=== PATIENT | male | born 1935 | race Hispanic/Latino ===

== ENCOUNTER 2016-08-14 09:19 | Inpatient (IN) | payer MEDICARE, OTHER ==
[~2016-08-14] VITALS: Ht 162.6 cm; Wt 72.6 kg
[~2016-08-14 09:19] MED LIST: ASPIRIN-LOW81 MG ORAL; CRANBERRY400 MG PO; FLOMAX0.4 MG ORAL; LANTUS5 UNITS SUBQ; LISINOPRIL2.5 MG ORAL; LISINOPRIL20 MG ORAL; LOPID600 MG ORAL; LOPRESSOR25 M1 ORAL; MULTIVITAMINS1 EA14 PO; PROMOD946 ML PO; PROSCAR5 MG ORAL; VITAMIN B-12500 MCG ORAL; ZETIA10 MG ORAL; mvi; vit b12 PO
[2016-08-14 09:20] VITALS: BP 108/48
[2016-08-14] MEDS ORDERED: COLACE100 MG ORAL (09:27)
[2016-08-14] MEDS ORDERED: FERROUS SULFAT325 MG ORAL (09:27)
[2016-08-14] MEDS ORDERED: ALBUTEROL2.5 MG/3 M INH (09:27)
[2016-08-14] MEDS ORDERED: EPOGEN20000 UNI1 SUBQ (09:27)
[2016-08-14] MEDS ORDERED: DUONEB 0.5-3(2.53 ML HHN (09:27)
[2016-08-14] MEDS ORDERED: METOPROLOL TART25 MG ORAL (09:41)
[2016-08-14] MEDS ORDERED: LANTUS SOL100 UNIT/1 SUBQ (09:41)
[2016-08-14] MEDS ORDERED: OMEPRAZOLE20 M3 ORAL (09:41)
[2016-08-14] MEDS ORDERED: NOVOLOG100 UNIT/3 SUBQ (09:41)
[2016-08-14] MEDS ORDERED: ZANTAC150 MG ORAL (09:51)
[2016-08-14] MEDS ORDERED: SODIUM BICARBO650 MG PO (09:51)
[2016-08-14] MEDS ORDERED: PRO-STAT LIQUID30 ML ORAL (09:51)
[2016-08-14] MEDS ORDERED: OYSTER SHELL C1 EA17 PO (09:51)
[2016-08-14] MEDS ORDERED: ROBITUSSIN COU118 M4 PO (09:51)
[2016-08-14] MEDS ORDERED: VITAMIN D-40400 UNIT ORAL (09:53)
[2016-08-14] MEDS ORDERED: ACETAMINOPHEN325 M1 ORAL (09:53)
[2016-08-14 10:31] LABS: MEAN CORPUSCULAR HEMOGLOBIN 34.3 PG (27.0-31.0); MEAN CORPUSCULAR HGB CONC 33.5 G/DL (32.0-36.0); MEAN CORPUSCULAR VOLUME 102 FL (80-99); PLATELET COUNT 182 K/UL (150-450); RED BLOOD COUNT 2.11 M/UL (4.70-6.10); RED CELL DISTRIBUTION WIDTH 24.1 % (11.6-14.8); WHITE BLOOD COUNT 8.8 K/UL (4.8-10.8)
[2016-08-14 10:41] LABS: INR 1.5 (0.9-1.1)
[2016-08-14 10:43] LABS: TROPONIN I < 0.30 ng/mL (<=0.30)
[2016-08-14 10:46] LABS: ALANINE AMINOTRANSFERASE 6 U/L (3-41); ALBUMIN/GLOBULIN RATIO 0.3 (1.0-2.7); ANION GAP 16 (5-15); ASPARTATE AMINO TRANSFERASE 21 U/L (5-40); CALCIUM 8.3 mg/dL (8.6-10.2); CARBON DIOXIDE 16 mEQ/L (20-30); CHLORIDE 101 mEQ/L (98-107); CREATININE 1.7 mg/dL (0.7-1.2); HEMOLYSIS 19; POTASSIUM 4.7 mEQ/L (3.4-4.9); SODIUM 133 mEQ/L (135-145); TOTAL PROTEIN 7.5 g/dL (6.6-8.7)
[2016-08-14 10:56] LABS: CKMB < 1.5 ng/mL (< 6.7)
[2016-08-14 11:01] LABS: ANISOCYTOSIS 3+; BAND NEUTROPHILS % (MANUAL) 0 % (0-8); BASOPHILS % (MANUAL) 3 % (0-2); EOSINOPHILS % (MANUAL) 4 % (0-3); HYPOCHROMASIA 3+; LYMPHOCYTES % (MANUAL) 18 % (20-45); MACROCYTES 1+; NEUTROPHILS % (MANUAL) 58 % (45-75); NUCLEATED RED BLOOD CELLS 1 /100 WBC; PLATELET ESTIMATE ADEQUATE; POIKILOCYTOSIS 1+; TOTAL CELLS COUNTED 100
[2016-08-14 11:03] LABS: PLATELET MORPHOLOGY NORMAL
[2016-08-14 11:07] LABS: BILIRUBIN,DIRECT 1.3 mg/dL (0.1-0.3)
[2016-08-14 11:24] VITALS: BP 109/48
--- NOTE | 2016-08-14 12:18 | Diagnostic Imaging Report ---
Indication: Chest pain Technique: One view of the chest Comparison: Findings: There are bilateral left greater than right pleural effusions. There is mild interstitial congestion. Heart is borderline enlarged. There is a left chest bifocal pacemaker. Previously demonstrated PICC is no longer present Impression: Bilateral left greater than right pleural effusions Mild interstitial congestion
[2016-08-14 12:30] VITALS: BP 124/61
[2016-08-14 16:35] VITALS: BP 121/63
[2016-08-14] MEDS: Sodium Bicarbonate 650mg Tab ORAL SCH (17:53)
[2016-08-14] MEDS: NovoLOG Insulin Flexpen SUBQ SCH ×2 (17:55→22:52)
[2016-08-14] MEDS: DuoNeb 0.5-3(2.5)mg/3ml neb HHN SCH (19:30)
[2016-08-14 20:00] VITALS: BP 117/61
--- NOTE | 2016-08-14 20:09 | History and Physical Report ---
DATE OF ADMISSION: 08/14/2016 CHIEF COMPLAINT: Anemia, possible gastrointestinal bleed. HISTORY OF PRESENT ILLNESS: This is a very pleasant 80-year-old male. He has a prior history of stroke, hypertension, hypertensive heart disease, anemia of chronic kidney disease and he has a history of conduction system disease status post pacemaker. He has had a progressive decline in his hemoglobin and on day of transfer here, had a hemoglobin of 6.8. He was sent to the emergency room where it was confirmed that 7. The patient is a poor historian. He is unclear whether not he had any bleeding. No reports of any fever or chills. No melena and no bright red blood per rectum. No hematemesis. On evaluation in the emergency room, the patient's hemoglobin was 7.3. In light of severe anemia, he is now admitted for further evaluation and care. PAST MEDICAL HISTORY: As above. PAST SURGICAL HISTORY: Pacemaker. MEDICATIONS: Current medications reconciled and reviewed. ALLERGIES: None. FAMILY HISTORY: None. SOCIAL HISTORY: There is no known history of tobacco, ethanol, or drugs. REVIEW OF SYSTEMS: General: No fever or chills. HEENT: No headaches or visual changes. Cardiopulmonary: No chest pain or shortness of breath. Mild cough. Gastrointestinal: No nausea or vomiting. No melena. No bright red blood per rectum or hematemesis. Genitourinary: No urgency or frequency. Musculoskeletal: No joint pain or swelling. Neurologic: No evidence of seizures. PHYSICAL EXAMINATION: GENERAL: The patient is well-developed male, in no apparent distress. He is awake, alert, answers simple questions. VITAL SIGNS: Temperature 97.2 degrees, pulse 81, respirations 20, and blood pressure 124/61. HEENT: His pupils are equal, round, and reactive to light. Oropharynx is clear. NECK: Supple. HEART: Regular rate and rhythm. LUNGS: Lungs are clear. ABDOMEN: Soft, nontender and nondistended. EXTREMITIES: Without clubbing, cyanosis, or edema. The patient has left-sided weakness, which is chronic. LABORATORY AND DIAGNOSTIC DATA: White count is 8, hemoglobin 7, hematocrit 21, and platelets 182,000. Sodium is 133, potassium 4.7, chloride 101, bicarbonate 16 BUN 34, and creatinine 1.7. Total bilirubin 2.4. INR was 1.5. ASSESSMENT: 1. This is a pleasant male admitted with complaints of severe anemia, possibly secondary to gastrointestinal bleed, possible acute gastrointestinal bleed. 2. Anemia. 3. Chronic kidney disease. 4. Stroke. 5. Hypertension. 6. History of chronic obstructive pulmonary disease. 7. History of conduction system disease. PLAN: Transfuse, hemoglobin greater than 8.5. Check stool occult blood. Check iron panel, B12, and folate. We will check reticulocyte count. Consider GI consultation for evaluation for possible endoscopy to rule out gastrointestinal bleed. The patient was otherwise will be continued on outpatient cardiac regimen. Boris See M.D. DR: JAVAD JOB#: [id number] CC:
[2016-08-14] MEDS: Levemir Flexpen SUBQ SCH (21:00)
[2016-08-14] MEDS: Epogen (for non ESRD use) SUBQ SCH (22:49)
[2016-08-15 00:31] VITALS: BP 108/66
--- NOTE | 2016-08-15 01:38 | Consultation ---
DATE OF CONSULTATION: 08/14/2016 CARDIOLOGY CONSULTATION REASON FOR CONSULTATION: Hypotension and anemia in the setting of hypertensive cardiomyopathy and permanent pacemaker. HISTORY: Known to me from prior care. This is an 80-year-old [place]ien male with hypertensive cardiomyopathy, permanent pacemaker, and prior cerebrovascular accident. He has a history of chronic anemia and has had a recent workup that was negative with regard to source with regard to gastrointestinal bleeding. He was referred to the hospital today because of increasing weakness, lethargy, and noted anemia. In the emergency room, hemoglobin of 7.3 was confirmed while it was less than 7 at the care home facility yesterday. The patient has not had any chest pain or shortness of breath, but has been increasingly withdrawn. He has a permanent pacemaker. PAST MEDICAL HISTORY: Chronic kidney disease. ALLERGIES: None. SOCIAL HISTORY: Negative for smoking, alcohol, or substance abuse. REVIEW OF SYSTEMS: He has had a prior stroke with left hemiparesis and dysarthria. He had a prior echocardiogram revealing normal ejection fraction with mild degenerative valve disease and regurgitation. There is no history of asthma or blood clots in the legs. He has had labile blood pressure. He has a [employer] cardiac defibrillator that was interrogated within the last three months and functioning appropriately with adequate battery life. PHYSICAL EXAM: VITAL SIGNS: Blood pressure 108/48, pulse 84, respirations 20, and afebrile. NECK: Supple. LUNGS: With diminished breath sounds. No wheezing. CARDIAC: Irregularly irregular rhythm. Normal S1 and S2. ABDOMEN: Soft. EXTREMITIES: With trace edema. DIAGNOSTIC DATA: Chest x-ray reveals bilateral pleural effusions and mild pulmonary venous congestion. EKG reveals paced rhythm. LABORATORY DATA: White count 8.8 and hemoglobin 7.3. BUN 34 and creatinine 1.7. Sodium 133, potassium 4.7, and bicarb 16. Iron elevated at 172. Albumin 1.9. IMPRESSION: 1. Severe anemia. 2. Severe protein-calorie malnutrition. 3. Severely impaired colloid osmotic pressure. 4. 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 5. Bilateral pleural effusions. 6. Anemia of chronic disease and chronic kidney disease. 7. Cerebrovascular disease with prior with left hemiparesis. 8. Conduction system disease with permanent pacemaker. 9. Paroxysmal atrial fibrillation. PLAN: 1. Transfuse to hemoglobin above 8 g. 2. Diuresis with caution. 3. Consider thoracentesis for therapeutic benefit and possibly diagnostic studies as well in this clinical setting. 4. Protein supplement. 5. Hold parameters for antihypertensive. Joseph Muniz M.D. DR: BRIANA JOB#: [id number] CC:
[2016-08-15] MEDS: NovoLOG Insulin Flexpen SUBQ SCH ×4 (06:08→22:21)
--- NOTE | 2016-08-15 06:41 | Emergency Room Report ---
History of Present Illness General Chief Complaint: Abnormal Labs Source: Patient Present Illness HPI Patient was sent in for reports of anemia Patient himself has significant dementia history is not able to be obtained by the patient himself There was no reports of vomiting or diarrhea no reports of fevers unclear the patient has had transfusions in the past or the source of anemia Allergies: Coded Allergies: No Known Allergies (Unverified , 01/24/14) Patient History Limited by: medical condition Past Medical History: see triage record Pertinent Family History: unable to obtain Reviewed Nursing Documentation: PMH: Agreed, PSxH: Agreed Nursing Documentation-PMH Past Medical History: No History, Except For Hx Cardiac Problems: Yes - A fib Hx Hypertension: Yes Hx Pacemaker: Yes - left chest Hx COPD: Yes - PNA Hx Diabetes: Yes Hx Cancer: No Hx Gastrointestinal Problems: Yes - GERD, BPH Hx Neurological Problems: Yes Hx Cerebrovascular Accident: Yes - affecting right dominant side Hx Weakness: Yes - RIGHT UPPER AND LOWER EXT. Review of Systems All Other Systems: limited - Other than the ones mentioned in the history of present illness all others are reviewed however they do stay limited due to the patient's mental status Physical Exam Vital Signs Date Time Temp Pulse Resp B/P Pulse Ox O2 Delivery O2 Flow Rate FiO2 08/14/16 09:15 96.3 83 16 114/64 96 Room Air 08/14/16 16:35 2.0 08/14/16 21:05 28 Sp02 EP Interpretation: reviewed, normal General Appearance: no apparent distress Head: normocephalic, atraumatic Eyes: bilateral eye EOMI, bilateral eye PERRL ENT: normal pharynx, dry mucus membranes Neck: supple Respiratory: crackles - diffusely in both lower lobes Cardiovascular #1: regular rate, rhythm Gastrointestinal: soft, no mass Musculoskeletal: other - Patient does not follow commands however moving both upper extremities without focal deficit Skin: other - Mild jaundice appearance, swelling in the right lower extremity more than left Lymphatic: other - edema bilaterally Medical Decision Making Diagnostic Impression: Primary Impression: symptomatic anemia Additional Impression: Pleural effusion ER Course Patient is a fairly complex patient with multiple differential to consideration including but not limited to cardiac cardiopulmonary , gastrointestinal and vascular emergencies Patient has audible crackles as well Required oral suctioning X-ray shows abnormal bilateral effusions given the edema consideration for CHF is made Patient's hemoglobin is low at 7.3 patient was type and screened Patient required placement of a right-sided ej peripheral IV line The area was cleansed and prepped 20-gauge IV was placed peripherally in the usual manner without any secondary problems Patient tolerated the procedure well And admitted for further inpatient care Labs Test 08/14/16 10:00 08/14/16 14:10 White Blood Count 8.8 K/UL (4.8-10.8) Red Blood Count 2.11 M/UL (4.70-6.10) Hemoglobin 7.3 G/DL (14.2-18.0) Hematocrit 21.7 % (42.0-52.0) Mean Corpuscular Volume 102 FL (80-99) Mean Corpuscular Hemoglobin 34.3 PG (27.0-31.0) Mean Corpuscular Hemoglobin Concent 33.5 G/DL (32.0-36.0) Red Cell Distribution Width 24.1 % (11.6-14.8) Platelet Count 182 K/UL (150-450) Mean Platelet Volume 8.0 FL (6.5-10.1) Neutrophils (%) (Auto) % (45.0-75.0) Lymphocytes (%) (Auto) % (20.0-45.0) Monocytes (%) (Auto) % (1.0-10.0) Eosinophils (%) (Auto) % (0.0-3.0) Basophils (%) (Auto) % (0.0-2.0) Differential Total Cells Counted 100 Neutrophils % (Manual) 58 % (45-75) Lymphocytes % (Manual) 18 % (20-45) Monocytes % (Manual) 17 % (1-10) Eosinophils % (Manual) 4 % (0-3) Basophils % (Manual) 3 % (0-2) Band Neutrophils 0 % (0-8) Nucleated Red Blood Cells 1 /100 WBC Platelet Estimate Adequate Platelet Morphology Normal Hypochromasia 3+ Poikilocytosis 1+ Anisocytosis 3+ Macrocytosis 1+ Prothrombin Time 15.0 SEC (9.30-11.50) Prothromb Time International Ratio 1.5 (0.9-1.1) Activated Partial Thromboplast Time 34 SEC (23-33) Sodium Level 133 mEQ/L (135-145) Potassium Level 4.7 mEQ/L (3.4-4.9) Chloride Level 101 mEQ/L (98-107) Carbon Dioxide Level 16 mEQ/L (20-30) Anion Gap 16 (5-15) Blood Urea Nitrogen 34 mg/dL (7-23) Creatinine 1.7 mg/dL (0.7-1.2) Estimat Glomerular Filtration Rate mL/min (>60) Glucose Level 112 mg/dL (74-106) Calcium Level 8.3 mg/dL (8.6-10.2) Total Bilirubin 2.4 mg/dL (0.0-1.2) Direct Bilirubin 1.3 mg/dL (0.1-0.3) Aspartate Amino Transf (AST/SGOT) 21 U/L (5-40) Alanine Aminotransferase (ALT/SGPT) 6 U/L (3-41) Alkaline Phosphatase 96 U/L (40-129) Total Creatine Kinase 15 U/L (38-174) Creatine Kinase MB < 1.5 ng/mL (< 6.7) Creatine Kinase MB Relative Index Troponin I < 0.30 ng/mL (<=0.30) Total Protein 7.5 g/dL (6.6-8.7) Albumin 1.9 g/dL (3.5-5.2) Globulin 5.6 g/dL Albumin/Globulin Ratio 0.3 (1.0-2.7) Reticulocyte Count 0.6 % (0.0-2.0) Iron Level 172 ug/dL (59-158) Rhythm Strip Diag. Results EP Interpretation: yes Rate: 88 Rhythm: NSR, no PVC's, no ectopy Chest X-Ray Diagnostic Results EP Interpretation: Yes Findings: no pneumothorax, other - bilateral effusions, cardiomegaly Number of Views: 1 Last Vital Signs Date Time Temp Pulse Resp B/P Pulse Ox O2 Delivery O2 Flow Rate FiO2 08/15/16 00:31 97.7 88 18 108/66 100 Simple Mask 6.0 08/14/16 21:13 28 Status: improved Disposition: ADMITTED INPATIENT Condition: Serious Referrals: TALHA LEIGH (PCP) KIKA GALLAGHER D.O. Aug 15, 2016 06:41
[2016-08-15 07:27] LABS: MEAN CORPUSCULAR HEMOGLOBIN 34.4 PG (27.0-31.0); MEAN CORPUSCULAR HGB CONC 33.2 G/DL (32.0-36.0); MEAN CORPUSCULAR VOLUME 104 FL (80-99); MEAN PLATELET VOLUME 6.7 FL (6.5-10.1); PLATELET COUNT 165 K/UL (150-450); RED BLOOD COUNT 2.11 M/UL (4.70-6.10); WHITE BLOOD COUNT 14.2 K/UL (4.8-10.8)
[2016-08-15] MEDS: DuoNeb 0.5-3(2.5)mg/3ml neb HHN SCH ×3 (07:50→19:40)
[2016-08-15 07:51] LABS: ALANINE AMINOTRANSFERASE 6 U/L (3-41); ALBUMIN/GLOBULIN RATIO 0.3 (1.0-2.7); ANION GAP 16 (5-15); ASPARTATE AMINO TRANSFERASE 22 U/L (5-40); CALCIUM 8.5 mg/dL (8.6-10.2); CARBON DIOXIDE 19 mEQ/L (20-30); CHLORIDE 103 mEQ/L (98-107); CREATININE 1.8 mg/dL (0.7-1.2); HEMOLYSIS 11; POTASSIUM 4.9 mEQ/L (3.4-4.9); SODIUM 138 mEQ/L (135-145)
[2016-08-15 08:04] LABS: ANISOCYTOSIS 4+; BAND NEUTROPHILS % (MANUAL) 0 % (0-8); BASOPHILS % (MANUAL) 1 % (0-2); EOSINOPHILS % (MANUAL) 3 % (0-3); HYPOCHROMASIA 3+; LYMPHOCYTES % (MANUAL) 5 % (20-45); MACROCYTES 1+; NEUTROPHILS % (MANUAL) 82 % (45-75); PLATELET ESTIMATE ADEQUATE; PLATELET MORPHOLOGY NORMAL; TOTAL CELLS COUNTED 100
[2016-08-15 08:05] LABS: PLATELET CLUMPS 1+
[2016-08-15 08:06] LABS: BILIRUBIN,DIRECT 1.6 mg/dL (0.1-0.3)
[2016-08-15] MEDS: Lisinopril 10mg tab ORAL SCH (08:34)
[2016-08-15] MEDS: Aspirin EC 81mg tab ORAL SCH (08:34)
[2016-08-15] MEDS: Tamsulosin 0.4mg cap ORAL SCH (08:53)
[2016-08-15] MEDS: Sodium Bicarbonate 650mg Tab ORAL SCH ×2 (08:53→17:37)
[2016-08-15] MEDS: Vitamin D 400 INTLU TAB ORAL SCH (08:53)
[2016-08-15] MEDS: Docusate 250mg cap ORAL SCH (08:54)
[2016-08-15] MEDS: Calcium Carbonate 500mg w/Vit D 200iu tab ORAL SCH (08:54)
[2016-08-15 09:00] VITALS: BP 107/46
[2016-08-15] MEDS ORDERED: Lisinopril 10mg tab ORAL SCH (09:00)
[2016-08-15] MEDS: Levemir Flexpen SUBQ SCH ×2 (09:00→22:21)
--- NOTE | 2016-08-15 09:46 | General Progress Note ---
Assessment/Plan Problem List: (1) Anemia ICD Codes: D64.9 - Anemia, unspecified SNOMED: 452021337 (2) Tachycardia ICD Codes: R00.0 - Tachycardia, unspecified SNOMED: 0158518 (3) GIB (gastrointestinal bleeding) ICD Codes: K92.2 - Gastrointestinal hemorrhage, unspecified SNOMED: 34524003 Status: stable, progressing Assessment/Plan transfuse prbc check stool ob epo/iro monitor hr check urine studies consider thoracentesis will ask for pulm to see Subjective ROS Limited/Unobtainable: No Constitutional: Reports: malaise, weakness HEENT: Reports: no symptoms Cardiovascular: Reports: no symptoms Respiratory: Reports: no symptoms Gastrointestinal/Abdominal: Reports: no symptoms Genitourinary: Reports: no symptoms Neurologic/Psychiatric: Reports: pre-existing deficit Endocrine: Reports: no symptoms Hematologic/Lymphatic: Reports: anemia Allergies: Coded Allergies: No Known Allergies (Unverified , 01/24/14) All Systems: reviewed and negative except above Subjective no events. still has not gotten blood transfusion. no bleeding. hgb remains stable at 7. denies cp/sob, but feels weak Objective Last 24 Hour Vital Signs Date Time Temp Pulse Resp B/P Pulse Ox O2 Delivery O2 Flow Rate FiO2 08/15/16 09:00 99.5 115 16 107/46 98 Nasal Cannula 2.0 08/15/16 08:54 111 108/66 08/15/16 08:34 108/66 08/15/16 08:04 97 Room Air 2.0 08/15/16 08:04 Nasal Cannula 2.0 08/15/16 07:58 111 20 97 Nasal Cannula 2.0 08/15/16 07:48 110 20 91 Room Air 08/15/16 00:31 97.7 88 18 108/66 100 Simple Mask 6.0 08/14/16 21:13 96 20 98 Nasal Cannula 2.0 28 08/14/16 21:05 28 08/14/16 21:05 91 20 95 Nasal Cannula 2.0 08/14/16 21:04 91 20 Nasal Cannula 2.0 08/14/16 20:00 98.3 91 20 117/61 95 Nasal Cannula 2.0 08/14/16 16:35 97.2 85 19 121/63 95 Nasal Cannula 2.0 85 08/14/16 12:30 97.2 81 20 124/61 97 Room Air 08/14/16 11:53 97.3 78 20 109/48 99 Room Air 08/14/16 11:24 78 20 109/48 99 Room Air Intake and Output 08/14/16 08/15/16 19:00 07:00 Intake Total 120 ml 560 ml Balance 120 ml 560 ml Intake Oral 120 ml 560 ml # Voids 1 3 # Bowel Movements 1 1 Laboratory Tests 08/14/16 10:00: White Blood Count 8.8, Red Blood Count 2.11L, Hemoglobin 7.3L, Hematocrit 21.7L , Mean Corpuscular Volume 102H, Mean Corpuscular Hemoglobin 34.3H, Mean Corpuscular Hemoglobin Concent 33.5, Red Cell Distribution Width 24.1H, Platelet Count 182, Mean Platelet Volume 8.0, Neutrophils (%) (Auto) , Lymphocytes (%) (Auto) , Monocytes (%) (Auto) , Eosinophils (%) (Auto) , Basophils (%) (Auto) , Differential Total Cells Counted 100, Neutrophils % ( Manual) 58, Lymphocytes % (Manual) 18L, Monocytes % (Manual) 17H, Eosinophils % (Manual) 4H, Basophils % (Manual) 3H, Band Neutrophils 0, Nucleated Red Blood Cells 1, Platelet Estimate Adequate, Platelet Morphology Normal, Hypochromasia 3 +, Poikilocytosis 1+, Anisocytosis 3+, Macrocytosis 1+, Prothrombin Time 15.0H, Prothromb Time International Ratio 1.5H, Activated Partial Thromboplast Time 34H , Sodium Level 133L, Potassium Level 4.7, Chloride Level 101, Carbon Dioxide Level 16L, Anion Gap 16H, Blood Urea Nitrogen 34H, Creatinine 1.7H, Estimat Glomerular Filtration Rate , Glucose Level 112H, Calcium Level 8.3L, Total Bilirubin 2.4H, Direct Bilirubin 1.3H, Aspartate Amino Transf (AST/SGOT) 21, Alanine Aminotransferase (ALT/SGPT) 6, Alkaline Phosphatase 96, Total Creatine Kinase 15L, Creatine Kinase MB < 1.5, Creatine Kinase MB Relative Index , Troponin I < 0.30, Total Protein 7.5, Albumin 1.9L, Globulin 5.6, Albumin/ Globulin Ratio 0.3L 08/14/16 14:10: Reticulocyte Count 0.6, Iron Level 172H 08/15/16 06:15: White Blood Count 14.2#H, Red Blood Count 2.11L, Hemoglobin 7.2L, Hematocrit 21.8L, Mean Corpuscular Volume 104H, Mean Corpuscular Hemoglobin 34.4H, Mean Corpuscular Hemoglobin Concent 33.2, Red Cell Distribution Width 25.0H, Platelet Count 165, Mean Platelet Volume 6.7, Neutrophils (%) (Auto) , Lymphocytes (%) (Auto) , Monocytes (%) (Auto) , Eosinophils (%) (Auto) , Basophils (%) (Auto) , Differential Total Cells Counted 100, Neutrophils % ( Manual) 82H, Lymphocytes % (Manual) 5L, Monocytes % (Manual) 9, Eosinophils % ( Manual) 3, Basophils % (Manual) 1, Band Neutrophils 0, Platelet Estimate Adequate, Platelet Morphology Normal, Hypochromasia 3+, Anisocytosis 4+, Macrocytosis 1+, Sodium Level 138, Potassium Level 4.9, Chloride Level 103, Carbon Dioxide Level 19L, Anion Gap 16H, Blood Urea Nitrogen 38H, Creatinine 1.8H, Estimat Glomerular Filtration Rate , Glucose Level 89, Calcium Level 8.5L , Total Bilirubin 2.9H, Direct Bilirubin 1.6H, Aspartate Amino Transf (AST/SGOT ) 22, Alanine Aminotransferase (ALT/SGPT) 6, Alkaline Phosphatase 96, Total Protein 8.0, Albumin 2.1L, Globulin 5.9, Albumin/Globulin Ratio 0.3L, Clumped Platelets 1+ Height (Feet): 5 Height (Inches): 5.00 Weight (Pounds): 160 General Appearance: WD/WN, alert Neck: supple Cardiovascular: normal rate, regular rhythm Respiratory/Chest: chest wall non-tender, lungs clear, normal breath sounds, no respiratory distress Abdomen: normal bowel sounds, non tender, soft, no organomegaly, no mass Edema: no edema noted Arm (L), no edema noted Arm (R), no edema noted Leg (L), no edema noted Leg (R), no edema noted Pedal (L), no edema noted Pedal (R), no edema noted 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
[2016-08-15] MEDS: Albuterol ud Inhalation HHN PRN (10:42)
[2016-08-15] MEDS: Vitamin B-12 500mcg tab ORAL SCH (11:35)
[2016-08-15 12:00] VITALS: BP 95/47
[2016-08-15 16:46] VITALS: BP 99/50
--- NOTE | 2016-08-15 16:46 | Wound Care Consultation ---
Wound Assessment Wound Assessment : Wound Number: #1 Wound Present on Admission: Yes New Wound: No Status Change of Wound: No Wound Location Body Site Modif: right Wound Location Body Site: sacral Wound Type: pressure ulcer Hemanth Test: Does not Hemanth Pressure Ulcer Stage: III Wound Thickness: Full Thickness Wound Length: 1.0 Wound Width: 1.0 Wound Depth: 0.3 Percent of Wound [place]/Red: 50 Percent of Wound Bed Yellow/Wh: 50 Wound Drainage Description: Serosanguineous Wound Drainage Amount: Scant Wound Drainage Odor: None/Absent Tissue Surrounding Wound: Macerated Wound General Appearance: Reddened Wound Comment #1 Right sacral pressure ulcer stage III. Recommendation -Apply low air loss overlay SPR mattress for wound and skin management. -Local wound care as ordered. -Turn and reposition. -Optimize nutrition. -Keep clean and dry. -Heel protectors. -Avoid shear and friction. -Assess and notify MD for any changes of condition. BENEDICTO DOTSON Aug 15, 2016 16:46
[2016-08-15] MEDS: Promethazine/Codeine 5ml UD ORAL PRN (17:37)
[2016-08-15 20:00] VITALS: BP 98/48
[2016-08-16 01:00] VITALS: BP 91/46
[2016-08-16 04:00] VITALS: BP 98/52
--- NOTE | 2016-08-16 04:48 | Progress Note ---
DATE: 08/15/2016 CARDIOLOGY PROGRESS NOTE SUBJECTIVE: The patient is awaiting packed red blood cell transfusion today. He remains tachycardic. OBJECTIVE: VITAL SIGNS: Blood pressures below normal with range of 108/66, heart rate 111, respiratory rate 16, and temperature max 99.5. LUNGS: Bilateral breath sounds. HEART: Regular rhythm. Rapid rate. Normal S1 and S2. ABDOMEN: Soft. Trace edema. LABORATORY DATA: White count 14.2, hemoglobin 7.2, and platelet count 165,000. Sodium 138, potassium 4.9, bicarbonate 19, BUN 38, and creatinine 1.8. Albumin 2.1. IMPRESSION: 1. Anemia likely due to chronic disease with recent prior workups. 2. Severe protein-calorie malnutrition. 3. Pleural effusions. 4. Acute and chronic diastolic congestive heart failure. 5. Paroxysmal atrial fibrillation. 6. Permanent pacemaker. PLAN: Transfusion of packed red blood cells. Diuresis. Possible thoracentesis to follow. Continue current antiarrhythmic and anti-failure regimen with hold parameters for low range blood pressure. Joseph Muniz M.D. DR: ROZINA JOB#: [id number] CC:
[2016-08-16] MEDS: NovoLOG Insulin Flexpen SUBQ SCH ×4 (06:13→20:39)
[2016-08-16 07:31] LABS: APPEARANCE,URINE SLIGHTLY CLOUDY; KETONES,URINE NEGATIVE (NEGATIVE); LEUKOCYTE ESTERASE ,URINE NEGATIVE (NEGATIVE); NITRITE,URINE NEGATIVE (NEGATIVE); PH,URINE 5 (4.5-8.0); PROTEIN,URINE 1+ (NEGATIVE); UROBILINOGEN,URINE 1 MG/DL (0.0-1.0)
[2016-08-16] MEDS: DuoNeb 0.5-3(2.5)mg/3ml neb HHN SCH ×3 (07:50→19:44)
[2016-08-16 07:57] LABS: BACTERIA,URINE FEW /HPF; SQUAMOUS EPITHELIAL CELL,UR FEW /LPF (NONE/OCC); WBC,URINE 0-2 /HPF (0 - 0)
[2016-08-16] MEDS: Lisinopril 10mg tab ORAL SCH (09:00)
--- NOTE | 2016-08-16 09:40 | General Progress Note ---
Assessment/Plan Problem List: (1) Anemia ICD Codes: D64.9 - Anemia, unspecified SNOMED: 397381558 (2) Tachycardia ICD Codes: R00.0 - Tachycardia, unspecified SNOMED: 5843080 (3) GIB (gastrointestinal bleeding) ICD Codes: K92.2 - Gastrointestinal hemorrhage, unspecified SNOMED: 76726480 Status: stable, progressing Assessment/Plan follow uplabs transfuse prbc prn check stool ob epo/iro monitor hr check urine studies consider thoracentesis ct chest ?pna will ask for pulm to see Subjective ROS Limited/Unobtainable: No Constitutional: Reports: malaise, weakness HEENT: Reports: no symptoms Cardiovascular: Reports: no symptoms Respiratory: Reports: shortness of breath Gastrointestinal/Abdominal: Reports: no symptoms Genitourinary: Reports: no symptoms Neurologic/Psychiatric: Reports: pre-existing deficit Endocrine: Reports: no symptoms Hematologic/Lymphatic: Reports: no symptoms Allergies: Coded Allergies: No Known Allergies (Unverified , 01/24/14) All Systems: reviewed and negative except above Subjective s/p 1 unit. labs stil pending. increased wbc ?? Objective Last 24 Hour Vital Signs Date Time Temp Pulse Resp B/P Pulse Ox O2 Delivery O2 Flow Rate FiO2 08/16/16 07:54 Nasal Cannula 2.0 08/16/16 07:52 Nasal Cannula 08/16/16 07:51 Nasal Cannula 2.0 08/16/16 07:50 97 Nasal Cannula 2.0 08/16/16 04:00 97.5 85 18 98/52 100 Nasal Cannula 3.0 08/16/16 01:00 97.5 88 18 91/46 98 Nasal Cannula 3.0 08/15/16 20:00 98.0 100 18 98/48 97 Nasal Cannula 2.0 08/15/16 19:50 103 20 96 Nasal Cannula 2.0 28 08/15/16 19:49 Nasal Cannula 2.0 08/15/16 19:49 96 Room Air 2.0 08/15/16 19:40 106 20 93 Room Air 08/15/16 16:46 98.6 103 19 99/50 93 Room Air 08/15/16 13:59 110 22 95 Nasal Cannula 2.0 08/15/16 13:49 101 18 97 Nasal Cannula 3.0 08/15/16 12:00 98.1 108 18 95/47 99 Nasal Cannula 3.0 08/15/16 10:43 102 18 96 Nasal Cannula 2.0 Intake and Output 08/15/16 08/16/16 19:00 07:00 Intake Total 250 ml 470 ml Balance 250 ml 470 ml Intake Oral 470 ml Blood Product 250 ml # Voids 3 # Bowel Movements 1 Laboratory Tests 08/16/16 04:05: Urine Color Yellow, Urine Appearance Slightly cloudy, Urine pH 5, Urine Specific [place] 1.015, Urine Protein 1+H, Urine Glucose (UA) Negative, Urine Ketones Negative, Urine Occult Blood 3+H, Urine Nitrite Negative, Urine Bilirubin Negative, Urine Urobilinogen 1H, Urine Leukocyte Esterase Negative, Urine RBC 10-15H, Urine WBC 0-2, Urine Squamous Epithelial Cells Few, Urine Bacteria Few Height (Feet): 5 Height (Inches): 5.00 Weight (Pounds): 160 General Appearance: WD/WN, alert Neck: supple Cardiovascular: regular rhythm Respiratory/Chest: lungs clear, normal breath sounds, no respiratory distress Edema: no edema noted Arm (L), no edema noted Arm (R), no edema noted Leg (L), no edema noted Leg (R), no edema noted Pedal (L), no edema noted Pedal (R), no edema noted Generalized TALHA LEIGH Aug 16, 2016 09:40
[2016-08-16 10:12] LABS: BASOPHILS % (AUTO) 1.2 % (0.0-2.0); EOSINOPHILS % (AUTO) 1.7 % (0.0-3.0); LYMPHOCYTES % (AUTO) 3.8 % (20.0-45.0); MEAN CORPUSCULAR HEMOGLOBIN 33.3 PG (27.0-31.0); MEAN CORPUSCULAR HGB CONC 32.7 G/DL (32.0-36.0); MEAN CORPUSCULAR VOLUME 102 FL (80-99); MEAN PLATELET VOLUME 8.7 FL (6.5-10.1); MONOCYTES % (AUTO) 10.7 % (1.0-10.0); NEUTROPHILS % (AUTO) 82.7 % (45.0-75.0); PLATELET COUNT 161 K/UL (150-450); RED BLOOD COUNT 2.47 M/UL (4.70-6.10)
[2016-08-16] MEDS: Docusate 250mg cap ORAL SCH (10:51)
[2016-08-16] MEDS: Aspirin EC 81mg tab ORAL SCH (10:52)
[2016-08-16] MEDS: Vitamin B-12 500mcg tab ORAL SCH (10:55)
[2016-08-16] MEDS: Vitamin D 400 INTLU TAB ORAL SCH (10:57)
[2016-08-16 11:00] VITALS: BP 115/59
[2016-08-16] MEDS: Calcium Carbonate 500mg w/Vit D 200iu tab ORAL SCH (11:00)
[2016-08-16] MEDS: Sodium Bicarbonate 650mg Tab ORAL SCH ×2 (11:00→17:51)
[2016-08-16] MEDS: Tamsulosin 0.4mg cap ORAL SCH (11:04)
[2016-08-16] MEDS: Levemir Flexpen SUBQ SCH ×2 (11:07→20:39)
--- NOTE | 2016-08-16 15:51 | Consultation ---
Consult Note Consult Note DATE OF ADMISSION: 08/14/2016 CHIEF COMPLAINT: Pleural effusions HISTORY OF PRESENT ILLNESS: 80-year-old male with prior history of pleural effusions. He has a prior history of respiratory issues. He has had a progressive decline in his hemoglobin and on day of transfer here, had a hemoglobin of 6.8. On evaluation in the emergency room, the patient's hemoglobin was 7.3 and patient requires admission. On evaluation , patient was noted to have significant effusions and I was asked to evaluate. Patient without shortness of breath or congestion at this time PAST MEDICAL HISTORY: stroke, hypertension, hypertensive heart disease, anemia of chronic kidney disease and he has a history of conduction system disease status post pacemaker PAST SURGICAL HISTORY: Pacemaker. MEDICATIONS: medications reconciled and reviewed. ALLERGIES: None. FAMILY HISTORY: None. SOCIAL HISTORY: There is no known history of tobacco, ethanol, or drugs. disabled REVIEW OF SYSTEMS: difficult to obtain PHYSICAL EXAMINATION: GENERAL: WDWN male; confused VITAL SIGNS: Temperature 97.6 degrees, pulse 80, respirations 20, and blood pressure 129/68. HEENT: PEERL EOMI Oropharynx is clear. NECK: Supple. carotids 2+ HEART: Regular rate and rhythm. without MRG LUNGS: Lungs are clear. with normal excursion; no rhonchi or wheeze ABDOMEN: Soft, nontender and nondistended. no HSM EXTREMITIES: Without clubbing, cyanosis, or edema. The patient has left-sided weakness, without change LABORATORY AND DIAGNOSTIC DATA: Labs Test 08/14/16 10:00 08/14/16 14:10 08/15/16 06:15 08/16/16 04:05 White Blood Count 8.8 K/UL (4.8-10.8) 14.2 K/UL (4.8-10.8) Red Blood Count 2.11 M/UL (4.70-6.10) 2.11 M/UL (4.70-6.10) Hemoglobin 7.3 G/DL (14.2-18.0) 7.2 G/DL (14.2-18.0) Hematocrit 21.7 % (42.0-52.0) 21.8 % (42.0-52.0) Mean Corpuscular Volume 102 FL (80-99) 104 FL (80-99) Mean Corpuscular Hemoglobin 34.3 PG (27.0-31.0) 34.4 PG (27.0-31.0) Mean Corpuscular Hemoglobin Concent 33.5 G/DL (32.0-36.0) 33.2 G/DL (32.0-36.0) Red Cell Distribution Width 24.1 % (11.6-14.8) 25.0 % (11.6-14.8) Platelet Count 182 K/UL (150-450) 165 K/UL (150-450) Mean Platelet Volume 8.0 FL (6.5-10.1) 6.7 FL (6.5-10.1) Neutrophils (%) (Auto) % (45.0-75.0) % (45.0-75.0) Lymphocytes (%) (Auto) % (20.0-45.0) % (20.0-45.0) Monocytes (%) (Auto) % (1.0-10.0) % (1.0-10.0) Eosinophils (%) (Auto) % (0.0-3.0) % (0.0-3.0) Basophils (%) (Auto) % (0.0-2.0) % (0.0-2.0) Differential Total Cells Counted 100 100 Neutrophils % (Manual) 58 % (45-75) 82 % (45-75) Lymphocytes % (Manual) 18 % (20-45) 5 % (20-45) Monocytes % (Manual) 17 % (1-10) 9 % (1-10) Eosinophils % (Manual) 4 % (0-3) 3 % (0-3) Basophils % (Manual) 3 % (0-2) 1 % (0-2) Band Neutrophils 0 % (0-8) 0 % (0-8) Nucleated Red Blood Cells 1 /100 WBC Platelet Estimate Adequate Adequate Platelet Morphology Normal Normal Hypochromasia 3+ 3+ Poikilocytosis 1+ Anisocytosis 3+ 4+ Macrocytosis 1+ 1+ Prothrombin Time 15.0 SEC (9.30-11.50) Prothromb Time International Ratio 1.5 (0.9-1.1) Activated Partial Thromboplast Time 34 SEC (23-33) Sodium Level 133 mEQ/L (135-145) 138 mEQ/L (135-145) Potassium Level 4.7 mEQ/L (3.4-4.9) 4.9 mEQ/L (3.4-4.9) Chloride Level 101 mEQ/L (98-107) 103 mEQ/L (98-107) Carbon Dioxide Level 16 mEQ/L (20-30) 19 mEQ/L (20-30) Anion Gap 16 (5-15) 16 (5-15) Blood Urea Nitrogen 34 mg/dL (7-23) 38 mg/dL (7-23) Creatinine 1.7 mg/dL (0.7-1.2) 1.8 mg/dL (0.7-1.2) Estimat Glomerular Filtration Rate mL/min (>60) mL/min (>60) Glucose Level 112 mg/dL (74-106) 89 mg/dL (74-106) Calcium Level 8.3 mg/dL (8.6-10.2) 8.5 mg/dL (8.6-10.2) Total Bilirubin 2.4 mg/dL (0.0-1.2) 2.9 mg/dL (0.0-1.2) Direct Bilirubin 1.3 mg/dL (0.1-0.3) 1.6 mg/dL (0.1-0.3) Aspartate Amino Transf (AST/SGOT) 21 U/L (5-40) 22 U/L (5-40) Alanine Aminotransferase (ALT/SGPT) 6 U/L (3-41) 6 U/L (3-41) Alkaline Phosphatase 96 U/L (40-129) 96 U/L (40-129) Total Creatine Kinase 15 U/L (38-174) Creatine Kinase MB < 1.5 ng/mL (< 6.7) Creatine Kinase MB Relative Index Troponin I < 0.30 ng/mL (<=0.30) Total Protein 7.5 g/dL (6.6-8.7) 8.0 g/dL (6.6-8.7) Albumin 1.9 g/dL (3.5-5.2) 2.1 g/dL (3.5-5.2) Globulin 5.6 g/dL 5.9 g/dL Albumin/Globulin Ratio 0.3 (1.0-2.7) 0.3 (1.0-2.7) Reticulocyte Count 0.6 % (0.0-2.0) Iron Level 172 ug/dL (59-158) Clumped Platelets 1+ Urine Color Yellow Urine Appearance Slightly cloudy Urine pH 5 (4.5-8.0) Urine Specific Hines 1.015 (1.005-1.035) Urine Protein 1+ (NEGATIVE) Urine Glucose (UA) Negative (NEGATIVE) Urine Ketones Negative (NEGATIVE) Urine Occult Blood 3+ (NEGATIVE) Urine Nitrite Negative (NEGATIVE) Urine Bilirubin Negative (NEGATIVE) Urine Urobilinogen 1 MG/DL (0.0-1.0) Urine Leukocyte Esterase Negative (NEGATIVE) Urine RBC 10-15 /HPF (0 - 0) Urine WBC 0-2 /HPF (0 - 0) Urine Squamous Epithelial Cells Few /LPF (NONE/OCC) Urine Bacteria Few /HPF (NONE) Test 08/16/16 09:45 White Blood Count 12.0 K/UL (4.8-10.8) Red Blood Count 2.47 M/UL (4.70-6.10) Hemoglobin 8.2 G/DL (14.2-18.0) Hematocrit 25.2 % (42.0-52.0) Mean Corpuscular Volume 102 FL (80-99) Mean Corpuscular Hemoglobin 33.3 PG (27.0-31.0) Mean Corpuscular Hemoglobin Concent 32.7 G/DL (32.0-36.0) Red Cell Distribution Width 23.0 % (11.6-14.8) Platelet Count 161 K/UL (150-450) Mean Platelet Volume 8.7 FL (6.5-10.1) Neutrophils (%) (Auto) 82.7 % (45.0-75.0) Lymphocytes (%) (Auto) 3.8 % (20.0-45.0) Monocytes (%) (Auto) 10.7 % (1.0-10.0) Eosinophils (%) (Auto) 1.7 % (0.0-3.0) Basophils (%) (Auto) 1.2 % (0.0-2.0) chest xr with bilateral pleural effusions ASSESSMENT: 1. bilateral pleural effusions; possibly due to fluid overaload 2. Anemia. with need for transfusion 3. Chronic kidney disease. 4. Stroke. with focal weakness 5. Hypertension. 6. History of chronic obstructive pulmonary disease. 7. History of conduction system disease. with pacemaker PLAN: transfused GI evaluation care noted follow up BNP monitor chest XR for change care noted impression, plan, and exam edited and reviewed in detail care discussed with KENDRICK JOHNSON Aug 16, 2016 15:51
[2016-08-16 15:52] VITALS: BP 115/59
[2016-08-16] MEDS: Promethazine/Codeine 5ml UD ORAL PRN (17:51)
[2016-08-16 20:00] VITALS: BP 117/65
[2016-08-16] MEDS: Epogen (for non ESRD use) SUBQ SCH (20:38)
--- NOTE | 2016-08-16 22:38 | Progress Note ---
DATE: 08/16/2016 CARDIOLOGY PROGRESS NOTE: SUBJECTIVE: The patient without chest pain or shortness of breath. He is status post one unit of packed red blood cells. OBJECTIVE: VITAL SIGNS: Blood pressure 98/52, heart rate 85, and respiratory rate 18. LUNGS: Bilateral breath sounds with scattered rhonchi. HEART: Regular rhythm and rate. Normal S1, S2. A 1/6 systolic murmur at apex. ABDOMEN: Soft. EXTREMITIES: With trace edema. LABORATORY AND DIAGNOSTIC DATA: White count 12 and hemoglobin 8.2. Pro-natriuretic peptide is 4000. Chest x-ray reveals bilateral pleural effusions and mild interstitial congestion. IMPRESSION: 1. Anemia of chronic disease and chronic kidney disease status post transfusion. 2. Acute on chronic diastolic congestive heart failure. 3. Pleural effusions. 4. Cerebrovascular disease with hemiparesis. 5. Paroxysmal atrial fibrillation. 6. Permanent pacemaker. 7. Hypertensive heart disease. 8. Chronic obstructive pulmonary disease. PLAN: Transfuse to maintain hemoglobin above 8 g. IV diuresis. Titrate anti-failure regimen as tolerated based on blood pressure parameters. Joseph Muniz M.D. DR: Olivier JOB#: [id number] CC:
[2016-08-16 23:49] VITALS: BP 122/68
[2016-08-17 04:00] VITALS: BP 125/61
[2016-08-17] MEDS: NovoLOG Insulin Flexpen SUBQ SCH ×4 (06:04→21:00)
[2016-08-17] MEDS: DuoNeb 0.5-3(2.5)mg/3ml neb HHN SCH ×3 (07:34→20:24)
[2016-08-17 08:00] VITALS: BP 116/50
[2016-08-17] MEDS: Tamsulosin 0.4mg cap ORAL SCH (08:28)
[2016-08-17] MEDS: Sodium Bicarbonate 650mg Tab ORAL SCH ×2 (08:29→20:06)
[2016-08-17] MEDS: Docusate 250mg cap ORAL SCH (08:29)
[2016-08-17] MEDS: Vitamin D 400 INTLU TAB ORAL SCH (08:29)
[2016-08-17] MEDS: Aspirin EC 81mg tab ORAL SCH (08:29)
[2016-08-17] MEDS: Vitamin B-12 500mcg tab ORAL SCH (08:29)
[2016-08-17] MEDS: Lisinopril 10mg tab ORAL SCH (08:30)
[2016-08-17] MEDS: Calcium Carbonate 500mg w/Vit D 200iu tab ORAL SCH (08:30)
[2016-08-17] MEDS: Levemir Flexpen SUBQ SCH ×2 (08:37→21:00)
--- NOTE | 2016-08-17 11:22 | General Progress Note ---
Assessment/Plan Problem List: (1) Anemia ICD Codes: D64.9 - Anemia, unspecified SNOMED: 814028945 (2) Tachycardia ICD Codes: R00.0 - Tachycardia, unspecified SNOMED: 5438406 (3) GIB (gastrointestinal bleeding) ICD Codes: K92.2 - Gastrointestinal hemorrhage, unspecified SNOMED: 99585004 Status: stable, progressing Assessment/Plan transfuse 1 additional unit prbc. lasix x 1 monitor cxr o2 resp care dc plannin tomorrow if stable Subjective ROS Limited/Unobtainable: No Constitutional: Reports: malaise, weakness HEENT: Reports: no symptoms Cardiovascular: Reports: no symptoms Respiratory: Reports: cough Gastrointestinal/Abdominal: Reports: no symptoms Genitourinary: Reports: no symptoms Neurologic/Psychiatric: Reports: no symptoms Endocrine: Reports: no symptoms Hematologic/Lymphatic: Reports: anemia Allergies: Coded Allergies: No Known Allergies (Unverified , 01/24/14) All Systems: reviewed and negative except above Subjective s/p 1 unit. h/h better but still low. +sob. pulm noted. GPC in urine but no wbc in ua Objective Last 24 Hour Vital Signs Date Time Temp Pulse Resp B/P Pulse Ox O2 Delivery O2 Flow Rate FiO2 08/17/16 08:30 116/50 08/17/16 08:28 97 116/50 08/17/16 08:00 97.2 97 18 116/50 92 Nasal Cannula 2.0 08/17/16 07:37 90 20 99 Nasal Cannula 3.0 08/17/16 07:26 84 18 97 Nasal Cannula 3.0 08/17/16 07:26 Nasal Cannula 3.0 08/17/16 07:24 97 Nasal Cannula 3.0 08/17/16 04:00 98.6 91 20 125/61 99 08/16/16 23:49 98.6 95 22 122/68 98 08/16/16 20:00 98.1 100 20 117/65 97 Nasal Cannula 2.0 90 08/16/16 19:54 92 22 99 Nasal Cannula 3.0 32 08/16/16 19:45 Nasal Cannula 3.0 32 08/16/16 19:45 86 20 97 Nasal Cannula 3.0 08/16/16 19:44 96 Nasal Cannula 3.0 32 08/16/16 15:52 98.1 100 19 115/59 96 Nasal Cannula 2.0 08/16/16 14:02 93 22 95 Nasal Cannula 3.0 08/16/16 13:50 92 20 95 Nasal Cannula 3.0 Intake and Output 08/16/16 08/17/16 19:00 07:00 Intake Total 240 ml Balance 240 ml Intake Oral 240 ml # Voids 6 Height (Feet): 5 Height (Inches): 5.00 Weight (Pounds): 160 Objective General Appearance: WD/WN, alert Neck: supple Cardiovascular: regular rhythm Respiratory/Chest: lungs clear, normal breath sounds, no respiratory distress Edema: no edema noted Arm (L), no edema noted Arm (R), no edema noted Leg (L), no edema noted Leg (R), no edema noted Pedal (L), no edema noted Pedal (R), no edema noted Generalized TALHA LEIGH Aug 17, 2016 11:22
[2016-08-17 11:31] VITALS: BP 100/54
[2016-08-17 13:02] LABS: MEAN CORPUSCULAR HEMOGLOBIN 33.2 PG (27.0-31.0); MEAN CORPUSCULAR HGB CONC 32.2 G/DL (32.0-36.0); MEAN CORPUSCULAR VOLUME 103 FL (80-99); PLATELET COUNT 134 K/UL (150-450); RED BLOOD COUNT 2.36 M/UL (4.70-6.10); RED CELL DISTRIBUTION WIDTH 22.7 % (11.6-14.8); WHITE BLOOD COUNT 8.5 K/UL (4.8-10.8)
[2016-08-17 13:32] LABS: ANISOCYTOSIS 2+; BAND NEUTROPHILS % (MANUAL) 0 % (0-8); BASOPHILS % (MANUAL) 0 % (0-2); EOSINOPHILS % (MANUAL) 0 % (0-3); HYPOCHROMASIA 1+; LYMPHOCYTES % (MANUAL) 4 % (20-45); MACROCYTES 1+; NEUTROPHILS % (MANUAL) 88 % (45-75); PLATELET ESTIMATE DECREASED; PLATELET MORPHOLOGY NORMAL; TOTAL CELLS COUNTED 100
[2016-08-17 13:33] LABS: SCHISTOCYTES OCCASIONAL
[2016-08-17 13:34] LABS: TARGET CELLS RARE
[2016-08-17 13:35] LABS: OVALOCYTES OCCASIONAL
[2016-08-17 16:00] VITALS: BP 130/63
--- NOTE | 2016-08-17 16:21 | Pulmonology Progress Note ---
Assessment/Plan Assessment/Plan ASSESSMENT: 1. bilateral pleural effusions; possibly due to fluid overaload 2. Anemia. with need for transfusion 3. Chronic kidney disease. 4. Stroke. with focal weakness 5. Hypertension. 6. History of chronic obstructive pulmonary disease. 7. History of conduction system disease. with pacemaker PLAN: transfused GI evaluation noted care noted follow up BNP very elevated diurese as per Cardiology monitor chest XR for change and worsening fluid collection dc planning care noted impression, plan, and exam edited and reviewed in detail care discussed with RN Subjective Allergies: Coded Allergies: No Known Allergies (Unverified , 01/24/14) Subjective all noted NAD on oxygen BNP very elevated Objective Last 24 Hour Vital Signs Date Time Temp Pulse Resp B/P Pulse Ox O2 Delivery O2 Flow Rate FiO2 08/17/16 13:00 89 20 99 Nasal Cannula 3.0 08/17/16 12:53 88 18 97 Nasal Cannula 3.0 08/17/16 11:31 97.2 96 19 100/54 98 Nasal Cannula 2.0 08/17/16 08:30 116/50 08/17/16 08:28 97 116/50 08/17/16 08:00 97.2 97 18 116/50 92 Nasal Cannula 2.0 08/17/16 07:37 90 20 99 Nasal Cannula 3.0 08/17/16 07:26 84 18 97 Nasal Cannula 3.0 08/17/16 07:26 Nasal Cannula 3.0 08/17/16 07:24 97 Nasal Cannula 3.0 08/17/16 04:00 98.6 91 20 125/61 99 08/16/16 23:49 98.6 95 22 122/68 98 08/16/16 20:00 98.1 100 20 117/65 97 Nasal Cannula 2.0 90 08/16/16 19:54 92 22 99 Nasal Cannula 3.0 32 08/16/16 19:45 Nasal Cannula 3.0 32 08/16/16 19:45 86 20 97 Nasal Cannula 3.0 08/16/16 19:44 96 Nasal Cannula 3.0 32 Intake and Output 08/16/16 08/17/16 19:00 07:00 Intake Total 240 ml Balance 240 ml Intake Oral 240 ml # Voids 6 Objective Sp02 EP Interpretation: reviewed, normal General Appearance: normal inspection, well appearing, no apparent distress, alert Head: normocephalic, atraumatic Eyes: bilateral eye normal inspection ENT: normal ENT inspection, no angioedema, normal voice Neck: normal inspection, full range of motion, supple, no meningismus, carotid 2+ Respiratory: decreased breath sounds, speaking full sentences, no wheeze or rhonchi Cardiovascular #1: regular rate, rhythm, no murmur without MRG Gastrointestinal: non tender, soft, non-distended, no guarding, no rebound Musculoskeletal: no CC; some edema Neurologic: alert, Psychiatric: mood/affect normal Skin: normal inspection, no rash, warm/dry Microbiology Date/Time Source Procedure Growth Status 08/16/16 04:00 Straight Cath Urine Culture - Preliminary Gram Positive Cocci Resulted Laboratory Tests 08/17/16 12:40: White Blood Count 8.5, Red Blood Count 2.36L, Hemoglobin 7.8L, Hematocrit 24.3L , Mean Corpuscular Volume 103H, Mean Corpuscular Hemoglobin 33.2H, Mean Corpuscular Hemoglobin Concent 32.2, Red Cell Distribution Width 22.7H, Platelet Count 134L, Mean Platelet Volume 8.0, Neutrophils (%) (Auto) , Lymphocytes (%) (Auto) , Monocytes (%) (Auto) , Eosinophils (%) (Auto) , Basophils (%) (Auto) , Differential Total Cells Counted 100, Neutrophils % ( Manual) 88H, Lymphocytes % (Manual) 4L, Monocytes % (Manual) 8, Eosinophils % ( Manual) 0, Basophils % (Manual) 0, Band Neutrophils 0, Platelet Estimate DecreasedL, Platelet Morphology Normal, Hypochromasia 1+, Anisocytosis 2+, Macrocytosis 1+, Target Cells Rare, Ovalocytes Occasional, Schistocytes Occasional Current Medications Medications (Trade) Dose Ordered Sig/Homar Route PRN Reason Start Time Stop Time Status Last Admin Dose Admin Acetaminophen (Tylenol) 650 mg Q4H PRN ORAL For Pain 08/14/16 13:15 09/13/16 13:14 Albuterol Sulfate (Proventil) 2.5 mg Q6H PRN HHN Shortness of Breath 08/14/16 13:15 08/19/16 13:14 08/15/16 10:42 Albuterol/ Ipratropium (DuoNeb 0.5-3(2.5)mg/3ml) 3 ml TIDRT HHN 08/14/16 19:00 08/19/16 18:59 08/17/16 12:53 Aspirin (Ecotrin) 81 mg DAILY ORAL 08/15/16 09:00 09/14/16 08:59 08/17/16 08:29 Calcium Carbonate (OsCal D) 1 tab DAILY ORAL 08/15/16 09:00 09/14/16 08:59 08/17/16 08:30 Cyanocobalamin (Vitamin B-12) 1,000 mcg DAILY ORAL 08/15/16 09:00 09/14/16 08:59 08/17/16 08:29 Dextrose (Dextrose 50%) STAT PRN IV Hypoglycemia 08/14/16 13:15 09/13/16 13:14 08/17/16 06:05 Docusate Sodium (Colace) 250 mg DAILY ORAL 08/15/16 09:00 09/14/16 08:59 08/17/16 08:29 Epoetin Deshaun (Procrit (for non ESRD use)) 7,000 units FRI-FRI-FRI SUBQ 08/14/16 21:00 09/13/16 20:59 08/16/16 20:38 Ferrous Sulfate (Feosol) 325 mg THREE TIMES A DAY ORAL 08/14/16 18:00 09/13/16 17:59 08/17/16 11:33 Finasteride (Proscar) 5 mg DAILY ORAL 08/15/16 09:00 09/14/16 08:59 08/17/16 08:30 Furosemide (Lasix) 20 mg ONCE PRN IV GIVE AFTER TRANSFUSION 08/17/16 11:30 08/18/16 23:59 Furosemide (Lasix) 40 mg DAILY IV 08/17/16 09:00 09/16/16 08:59 08/17/16 10:01 Gemfibrozil (Lopid) 600 mg TWICE A DAY ORAL 08/14/16 18:00 09/13/16 17:59 08/17/16 08:30 Insulin Aspart (NovoLOG) BEFORE MEALS AND HS SUBQ 08/14/16 16:30 09/13/16 16:29 08/17/16 11:33 Insulin Detemir (Levemir) 20 units Q12HR SUBQ 08/14/16 21:00 09/13/16 20:59 08/17/16 08:37 Lisinopril (Zestril) 10 mg DAILY ORAL 08/15/16 09:00 09/14/16 08:59 08/17/16 08:30 Metoprolol Succinate (Toprol XL) 25 mg DAILY ORAL 08/15/16 09:00 09/14/16 08:59 08/17/16 08:28 Multivitamins (Multivitamins) 1 tab DAILY ORAL 08/15/16 09:00 09/14/16 08:59 08/17/16 08:29 Pantoprazole (Protonix) 40 mg DAILY ORAL 08/15/16 09:00 09/14/16 08:59 08/17/16 08:30 Promethazine HCl/ Codeine (Phenergan with Codeine) 10 ml TID PRN ORAL For Cough 08/14/16 13:15 09/13/16 13:14 08/16/16 17:51 Ranitidine HCl (Zantac) 150 mg DAILY ORAL 08/15/16 09:00 09/14/16 08:59 08/17/16 08:30 Sodium Bicarbonate (NaHCO3) 650 mg BID ORAL 08/14/16 18:00 09/13/16 17:59 08/17/16 08:29 Tamsulosin HCl (Flomax) 0.4 mg DAILY ORAL 08/15/16 09:00 09/14/16 08:59 08/17/16 08:28 Vitamin D (Vitamin D) 800 intlu DAILY ORAL 08/15/16 09:00 09/14/16 08:59 08/17/16 08:29 KENDRICK SCHWARTZ Aug 17, 2016 16:21
[2016-08-17 21:00] VITALS: BP 106/58
[2016-08-18] VITALS: BP 101/53
--- NOTE | 2016-08-18 00:28 | Progress Note ---
DATE: 08/17/2016 CARDIOLOGY PROGRESS NOTE: SUBJECTIVE: The patient is on diuresis. He still remains congested. PHYSICAL EXAMINATION: VITAL SIGNS: Blood pressure 100/54, heart rate 96, respiratory rate 19, and afebrile. NECK: Supple. Jugular venous pressure elevated. LUNGS: Diminished breath sounds and few rales. CARDIAC: Regular rhythm and rate. Normal S1, paradoxically split S2. A 1/6 systolic apical murmur. ABDOMEN: Soft. EXTREMITIES: Trace edema. LABORATORY DATA: White count 8.5 and hemoglobin 7.8. BUN 38 and creatinine 1.8. Albumin 2.1. Pro-natriuretic peptide 4055. These are the most recent lab results. IMPRESSION: 1. Anemia of chronic disease and chronic kidney disease status post transfusion. 2. Acute on chronic diastolic congestive heart failure. 3. Severe protein-calorie malnutrition. 4. Hypertensive heart disease. 5. Coronary atherosclerosis. 6. Permanent pacemaker. 7. Chronic kidney disease. 8. Paroxysmal atrial fibrillation. PLAN: 1. Transfuse for hemoglobin less than 8 grams. 2. Diuresis. 3. Bronchodilators. 4. Protein supplementation as able. Joseph Muniz M.D. DR: Olivier JOB#: [id number] CC:
[2016-08-18 04:00] VITALS: BP 106/52
[2016-08-18] MEDS: NovoLOG Insulin Flexpen SUBQ SCH ×4 (06:06→21:24)
[2016-08-18 06:12] LABS: BASOPHILS % (AUTO) 2.2 % (0.0-2.0); EOSINOPHILS % (AUTO) 4.7 % (0.0-3.0); LYMPHOCYTES % (AUTO) 11.5 % (20.0-45.0); MEAN CORPUSCULAR HEMOGLOBIN 32.2 PG (27.0-31.0); MEAN CORPUSCULAR HGB CONC 33.2 G/DL (32.0-36.0); MEAN CORPUSCULAR VOLUME 97 FL (80-99); MEAN PLATELET VOLUME 9.3 FL (6.5-10.1); MONOCYTES % (AUTO) 15.6 % (1.0-10.0); NEUTROPHILS % (AUTO) 66.1 % (45.0-75.0); PLATELET COUNT 112 K/UL (150-450); RED CELL DISTRIBUTION WIDTH 23.2 % (11.6-14.8); WHITE BLOOD COUNT 6.9 K/UL (4.8-10.8)
[2016-08-18 06:29] LABS: ALANINE AMINOTRANSFERASE < 5 U/L (3-41); ALBUMIN/GLOBULIN RATIO 0.3 (1.0-2.7); ANION GAP 14 (5-15); ASPARTATE AMINO TRANSFERASE 19 U/L (5-40); CALCIUM 8.4 mg/dL (8.6-10.2); CARBON DIOXIDE 25 mEQ/L (20-30); CHLORIDE 102 mEQ/L (98-107); HEMOLYSIS 10; POTASSIUM 4.6 mEQ/L (3.4-4.9); SODIUM 141 mEQ/L (135-145); TOTAL PROTEIN 7.3 g/dL (6.6-8.7)
[2016-08-18] MEDS: DuoNeb 0.5-3(2.5)mg/3ml neb HHN SCH ×3 (07:15→20:16)
[2016-08-18 08:00] VITALS: BP 100/59
--- NOTE | 2016-08-18 08:30 | General Progress Note ---
Assessment/Plan Problem List: (1) Anemia ICD Codes: D64.9 - Anemia, unspecified SNOMED: 056113261 (2) Tachycardia ICD Codes: R00.0 - Tachycardia, unspecified SNOMED: 3487089 (3) GIB (gastrointestinal bleeding) ICD Codes: K92.2 - Gastrointestinal hemorrhage, unspecified SNOMED: 77394001 Status: stable, progressing Assessment/Plan moniot h/h dc lasix with increased bun/cr monitor cxr o2 resp care dc plannin tomorrow if stable Subjective ROS Limited/Unobtainable: No Constitutional: Reports: malaise, weakness HEENT: Reports: no symptoms Cardiovascular: Reports: no symptoms Respiratory: Reports: cough Gastrointestinal/Abdominal: Reports: no symptoms Genitourinary: Reports: no symptoms Neurologic/Psychiatric: Reports: pre-existing deficit Endocrine: Reports: no symptoms Hematologic/Lymphatic: Reports: anemia Allergies: Coded Allergies: No Known Allergies (Unverified , 01/24/14) All Systems: reviewed and negative except above Subjective s/p 1 unit prbc yesterday. no bleeding noted. bun trending up. Objective Last 24 Hour Vital Signs Date Time Temp Pulse Resp B/P Pulse Ox O2 Delivery O2 Flow Rate FiO2 08/18/16 07:23 87 18 100 Nasal Cannula 2.0 28 08/18/16 07:15 79 18 97 Nasal Cannula 2.0 28 08/18/16 07:15 Nasal Cannula 2.0 28 08/18/16 07:15 97 Nasal Cannula 2.0 28 08/18/16 04:00 97.3 61 20 106/52 99 08/18/16 00:00 97.6 88 20 101/53 96 Nasal Cannula 2.0 08/17/16 21:00 98.5 96 20 106/58 91 Nasal Cannula 2.0 08/17/16 19:30 90 20 99 Nasal Cannula 2.0 28 08/17/16 19:30 99 Nasal Cannula 2.0 28 08/17/16 19:30 Nasal Cannula 2.0 28 08/17/16 19:30 84 20 98 Nasal Cannula 2.0 28 08/17/16 16:00 98.1 96 20 130/63 100 Nasal Cannula 2.0 08/17/16 13:00 89 20 99 Nasal Cannula 3.0 08/17/16 12:53 88 18 97 Nasal Cannula 3.0 08/17/16 11:31 97.2 96 19 100/54 98 Nasal Cannula 2.0 08/17/16 08:30 116/50 Intake and Output 08/17/16 08/18/16 19:00 07:00 Intake Total 240 ml 300 ml Balance 240 ml 300 ml Intake Oral 240 ml 300 ml # Voids 5 Laboratory Tests 08/17/16 12:40: White Blood Count 8.5, Red Blood Count 2.36L, Hemoglobin 7.8L, Hematocrit 24.3L , Mean Corpuscular Volume 103H, Mean Corpuscular Hemoglobin 33.2H, Mean Corpuscular Hemoglobin Concent 32.2, Red Cell Distribution Width 22.7H, Platelet Count 134L, Mean Platelet Volume 8.0, Neutrophils (%) (Auto) , Lymphocytes (%) (Auto) , Monocytes (%) (Auto) , Eosinophils (%) (Auto) , Basophils (%) (Auto) , Differential Total Cells Counted 100, Neutrophils % ( Manual) 88H, Lymphocytes % (Manual) 4L, Monocytes % (Manual) 8, Eosinophils % ( Manual) 0, Basophils % (Manual) 0, Band Neutrophils 0, Platelet Estimate DecreasedL, Platelet Morphology Normal, Hypochromasia 1+, Anisocytosis 2+, Macrocytosis 1+, Target Cells Rare, Ovalocytes Occasional, Schistocytes Occasional 08/18/16 05:20: White Blood Count 6.9, Red Blood Count 3.00L, Hemoglobin 9.7L, Hematocrit 29.1L , Mean Corpuscular Volume 97, Mean Corpuscular Hemoglobin 32.2H, Mean Corpuscular Hemoglobin Concent 33.2, Red Cell Distribution Width 23.2H, Platelet Count 112L, Mean Platelet Volume 9.3, Neutrophils (%) (Auto) 66.1, Lymphocytes (%) (Auto) 11.5L, Monocytes (%) (Auto) 15.6H, Eosinophils (%) (Auto ) 4.7H, Basophils (%) (Auto) 2.2H, Sodium Level 141, Potassium Level 4.6, Chloride Level 102, Carbon Dioxide Level 25, Anion Gap 14, Blood Urea Nitrogen 50H, Creatinine 2.0H, Estimat Glomerular Filtration Rate , Glucose Level 72L, Calcium Level 8.4L, Magnesium Level 1.7, Total Bilirubin 3.2H, Direct Bilirubin 2.0H, Aspartate Amino Transf (AST/SGOT) 19, Alanine Aminotransferase (ALT/SGPT) < 5, Alkaline Phosphatase 79, Total Protein 7.3, Albumin 1.9L, Globulin 5.4, Albumin/Globulin Ratio 0.3L Height (Feet): 5 Height (Inches): 5.00 Weight (Pounds): 160 Objective General Appearance: WD/WN, alert Neck: supple Cardiovascular: regular rhythm Respiratory/Chest: lungs clear, normal breath sounds, no respiratory distress Edema: no edema noted Arm (L), no edema noted Arm (R), no edema noted Leg (L), no edema noted Leg (R), no edema noted Pedal (L), no edema noted Pedal (R), no edema noted Generalized TALHA LEIGH Aug 18, 2016 08:30
[2016-08-18] MEDS: Aspirin EC 81mg tab ORAL SCH (09:00)
[2016-08-18] MEDS: Tamsulosin 0.4mg cap ORAL SCH (09:49)
[2016-08-18] MEDS: Vitamin B-12 500mcg tab ORAL SCH (09:49)
[2016-08-18] MEDS: Vitamin D 400 INTLU TAB ORAL SCH (09:49)
[2016-08-18] MEDS: Calcium Carbonate 500mg w/Vit D 200iu tab ORAL SCH (09:49)
[2016-08-18] MEDS: Docusate 250mg cap ORAL SCH (09:50)
[2016-08-18] MEDS: Sodium Bicarbonate 650mg Tab ORAL SCH ×2 (09:50→18:05)
[2016-08-18] MEDS: Levemir Flexpen SUBQ SCH ×2 (09:53→21:24)
--- NOTE | 2016-08-18 10:32 | Pulmonology Progress Note ---
Assessment/Plan Assessment/Plan ASSESSMENT: 1. bilateral pleural effusions; possibly due to fluid overaload 2. Anemia. with need for transfusion 3. Chronic kidney disease. 4. Stroke. with focal weakness 5. Hypertension. 6. History of chronic obstructive pulmonary disease. 7. History of conduction system disease. with pacemaker PLAN: holding lasix follow up BNP very elevated repeat chest XR for change and worsening fluid collection dc planning pending follow up labs and cxr care noted impression, plan, and exam edited and reviewed in detail care discussed with RN Subjective Allergies: Coded Allergies: No Known Allergies (Unverified , 01/24/14) Subjective all noted NAD on oxygen renal function worse BNP very elevated Objective Last 24 Hour Vital Signs Date Time Temp Pulse Resp B/P Pulse Ox O2 Delivery O2 Flow Rate FiO2 08/18/16 09:50 91 100/59 08/18/16 08:00 97.2 91 20 100/59 96 Nasal Cannula 2.0 08/18/16 07:23 87 18 100 Nasal Cannula 2.0 28 08/18/16 07:15 79 18 97 Nasal Cannula 2.0 28 08/18/16 07:15 Nasal Cannula 2.0 28 08/18/16 07:15 97 Nasal Cannula 2.0 28 08/18/16 04:00 97.3 61 20 106/52 99 08/18/16 00:00 97.6 88 20 101/53 96 Nasal Cannula 2.0 08/17/16 21:00 98.5 96 20 106/58 91 Nasal Cannula 2.0 08/17/16 19:30 90 20 99 Nasal Cannula 2.0 28 08/17/16 19:30 99 Nasal Cannula 2.0 28 08/17/16 19:30 Nasal Cannula 2.0 28 08/17/16 19:30 84 20 98 Nasal Cannula 2.0 28 08/17/16 16:00 98.1 96 20 130/63 100 Nasal Cannula 2.0 08/17/16 13:00 89 20 99 Nasal Cannula 3.0 08/17/16 12:53 88 18 97 Nasal Cannula 3.0 08/17/16 11:31 97.2 96 19 100/54 98 Nasal Cannula 2.0 Intake and Output 08/17/16 08/18/16 19:00 07:00 Intake Total 240 ml 300 ml Balance 240 ml 300 ml Intake Oral 240 ml 300 ml # Voids 5 Objective Sp02 EP Interpretation: reviewed, normal General Appearance: normal inspection, well appearing, no apparent distress, alert Head: normocephalic, atraumatic Eyes: bilateral eye normal inspection ENT: normal ENT inspection, no angioedema, normal voice Neck: normal inspection, full range of motion, supple, no meningismus, carotid 2+ Respiratory: decreased breath sounds, speaking full sentences, no wheeze or rhonchi Cardiovascular #1: regular rate, rhythm, no murmur without MRG Gastrointestinal: non tender, soft, non-distended, no guarding, no rebound Musculoskeletal: no CC; some edema Neurologic: alert, Psychiatric: mood/affect normal Skin: normal inspection, no rash, warm/dry Microbiology Date/Time Source Procedure Growth Status 08/16/16 04:00 Straight Cath Urine Culture - Final Staphylococcus Sp Coag Neg Complete Laboratory Tests 08/17/16 12:40: White Blood Count 8.5, Red Blood Count 2.36L, Hemoglobin 7.8L, Hematocrit 24.3L , Mean Corpuscular Volume 103H, Mean Corpuscular Hemoglobin 33.2H, Mean Corpuscular Hemoglobin Concent 32.2, Red Cell Distribution Width 22.7H, Platelet Count 134L, Mean Platelet Volume 8.0, Neutrophils (%) (Auto) , Lymphocytes (%) (Auto) , Monocytes (%) (Auto) , Eosinophils (%) (Auto) , Basophils (%) (Auto) , Differential Total Cells Counted 100, Neutrophils % ( Manual) 88H, Lymphocytes % (Manual) 4L, Monocytes % (Manual) 8, Eosinophils % ( Manual) 0, Basophils % (Manual) 0, Band Neutrophils 0, Platelet Estimate DecreasedL, Platelet Morphology Normal, Hypochromasia 1+, Anisocytosis 2+, Macrocytosis 1+, Target Cells Rare, Ovalocytes Occasional, Schistocytes Occasional 08/18/16 05:20: White Blood Count 6.9, Red Blood Count 3.00L, Hemoglobin 9.7L, Hematocrit 29.1L , Mean Corpuscular Volume 97, Mean Corpuscular Hemoglobin 32.2H, Mean Corpuscular Hemoglobin Concent 33.2, Red Cell Distribution Width 23.2H, Platelet Count 112L, Mean Platelet Volume 9.3, Neutrophils (%) (Auto) 66.1, Lymphocytes (%) (Auto) 11.5L, Monocytes (%) (Auto) 15.6H, Eosinophils (%) (Auto ) 4.7H, Basophils (%) (Auto) 2.2H, Sodium Level 141, Potassium Level 4.6, Chloride Level 102, Carbon Dioxide Level 25, Anion Gap 14, Blood Urea Nitrogen 50H, Creatinine 2.0H, Estimat Glomerular Filtration Rate , Glucose Level 72L, Calcium Level 8.4L, Magnesium Level 1.7, Total Bilirubin 3.2H, Direct Bilirubin 2.0H, Aspartate Amino Transf (AST/SGOT) 19, Alanine Aminotransferase (ALT/SGPT) < 5, Alkaline Phosphatase 79, Total Protein 7.3, Albumin 1.9L, Globulin 5.4, Albumin/Globulin Ratio 0.3L Current Medications Medications (Trade) Dose Ordered Sig/Homar Route PRN Reason Start Time Stop Time Status Last Admin Dose Admin Acetaminophen (Tylenol) 650 mg Q4H PRN ORAL For Pain 08/14/16 13:15 09/13/16 13:14 Albuterol Sulfate (Proventil) 2.5 mg Q6H PRN HHN Shortness of Breath 08/14/16 13:15 08/19/16 13:14 08/15/16 10:42 Albuterol/ Ipratropium (DuoNeb 0.5-3(2.5)mg/3ml) 3 ml TIDRT HHN 08/14/16 19:00 08/19/16 18:59 08/18/16 07:15 Aspirin (Ecotrin) 81 mg DAILY ORAL 08/15/16 09:00 09/14/16 08:59 08/17/16 08:29 Calcium Carbonate (OsCal D) 1 tab DAILY ORAL 08/15/16 09:00 09/14/16 08:59 08/18/16 09:49 Cyanocobalamin (Vitamin B-12) 1,000 mcg DAILY ORAL 08/15/16 09:00 09/14/16 08:59 08/18/16 09:49 Dextrose (Dextrose 50%) STAT PRN IV Hypoglycemia 08/14/16 13:15 09/13/16 13:14 08/17/16 17:45 Docusate Sodium (Colace) 250 mg DAILY ORAL 08/15/16 09:00 09/14/16 08:59 08/18/16 09:50 Epoetin Deshaun (Procrit (for non ESRD use)) 7,000 units FRI-FRI-FRI SUBQ 08/14/16 21:00 09/13/16 20:59 08/16/16 20:38 Ferrous Sulfate (Feosol) 325 mg THREE TIMES A DAY ORAL 08/14/16 18:00 09/13/16 17:59 08/18/16 09:50 Finasteride (Proscar) 5 mg DAILY ORAL 08/15/16 09:00 09/14/16 08:59 08/18/16 09:49 Furosemide (Lasix) 20 mg ONCE PRN IV GIVE AFTER TRANSFUSION 08/17/16 11:30 08/18/16 23:59 Gemfibrozil (Lopid) 600 mg TWICE A DAY ORAL 08/14/16 18:00 09/13/16 17:59 08/18/16 09:49 Insulin Aspart (NovoLOG) BEFORE MEALS AND HS SUBQ 08/14/16 16:30 09/13/16 16:29 08/17/16 11:33 Insulin Detemir (Levemir) 10 units Q12HR SUBQ 08/18/16 09:00 09/17/16 08:59 08/18/16 09:53 Metoprolol Succinate (Toprol XL) 25 mg DAILY ORAL 08/15/16 09:00 09/14/16 08:59 08/18/16 09:50 Multivitamins (Multivitamins) 1 tab DAILY ORAL 08/15/16 09:00 09/14/16 08:59 08/18/16 09:50 Pantoprazole (Protonix) 40 mg DAILY ORAL 08/15/16 09:00 09/14/16 08:59 08/18/16 09:49 Promethazine HCl/ Codeine (Phenergan with Codeine) 10 ml TID PRN ORAL For Cough 08/14/16 13:15 09/13/16 13:14 08/16/16 17:51 Ranitidine HCl (Zantac) 150 mg DAILY ORAL 08/15/16 09:00 09/14/16 08:59 08/18/16 09:49 Sodium Bicarbonate (NaHCO3) 650 mg BID ORAL 08/14/16 18:00 09/13/16 17:59 08/18/16 09:50 Tamsulosin HCl (Flomax) 0.4 mg DAILY ORAL 08/15/16 09:00 09/14/16 08:59 08/18/16 09:49 Vitamin D (Vitamin D) 800 intlu DAILY ORAL 08/15/16 09:00 09/14/16 08:59 08/18/16 09:49 KENDRICK SCHWARTZ Aug 18, 2016 10:31
[2016-08-18] MEDS: Albuterol ud Inhalation HHN PRN (11:50)
[2016-08-18 12:00] VITALS: BP 98/64
[2016-08-18 16:00] VITALS: BP 112/60
[2016-08-18 20:00] VITALS: BP 115/65
[2016-08-19] VITALS: BP 101/59
[2016-08-19 04:27] VITALS: BP 104/61
[2016-08-19] MEDS: NovoLOG Insulin Flexpen SUBQ SCH ×4 (06:30→21:37)
[2016-08-19 06:47] LABS: ALANINE AMINOTRANSFERASE 6 U/L (3-41); ALBUMIN/GLOBULIN RATIO 0.2 (1.0-2.7); ANION GAP 15 (5-15); ASPARTATE AMINO TRANSFERASE 20 U/L (5-40); CALCIUM 8.5 mg/dL (8.6-10.2); CARBON DIOXIDE 24 mEQ/L (20-30); CHLORIDE 102 mEQ/L (98-107); HEMOLYSIS 18; POTASSIUM 4.3 mEQ/L (3.4-4.9); SODIUM 141 mEQ/L (135-145); TOTAL PROTEIN 7.4 g/dL (6.6-8.7)
[2016-08-19 07:11] LABS: BILIRUBIN,DIRECT 1.8 mg/dL (0.1-0.3)
[2016-08-19] MEDS: DuoNeb 0.5-3(2.5)mg/3ml neb HHN SCH ×2 (08:05→13:44)
[2016-08-19 08:31] VITALS: BP 98/51
[2016-08-19] MEDS: Sodium Bicarbonate 650mg Tab ORAL SCH ×2 (08:53→18:00)
[2016-08-19] MEDS: Vitamin D 400 INTLU TAB ORAL SCH (08:53)
[2016-08-19] MEDS: Docusate 250mg cap ORAL SCH (08:53)
[2016-08-19] MEDS: Vitamin B-12 500mcg tab ORAL SCH (08:53)
[2016-08-19] MEDS: Calcium Carbonate 500mg w/Vit D 200iu tab ORAL SCH (08:53)
[2016-08-19] MEDS: Tamsulosin 0.4mg cap ORAL SCH (08:53)
[2016-08-19] MEDS: Aspirin EC 81mg tab ORAL SCH (08:54)
[2016-08-19] MEDS: Levemir Flexpen SUBQ SCH ×2 (08:55→21:37)
--- NOTE | 2016-08-19 09:09 | Diagnostic Imaging Report ---
Indication: ABD PAIN Technique: No intravenous contrast given, reason not stated. No oral contrast, reason not stated. Spiral acquisitions obtained through the chest, abdomen, and pelvis. Multiplanar reconstructions were generated. Total dose length product 1464 mGycm. CTDIvol(s) 23 mGy. Radiation dose was minimized using automated exposure control Comparison: Abdomen pelvis portion of the exam compared to 01/26/2014. No comparison chest CT FINDINGS Chest: There is a small right pleural effusion. There is considerable atelectasis and consolidation involving much of the right lower lobe. The right middle lobe demonstrates minimal atelectasis or scarring inferiorly. The right upper lobe demonstrates a small amount of atelectasis and/or consolidation inferiorly. There is a large left pleural effusion. There is atelectasis and consolidation of the entire left lower lung. This appears to be a combination of compression by the pleural fluid and obstruction by debris of the left lower lobe bronchi at the segmental level. There is considerable infiltrate within the posterior mid left upper lobe. There is also some atelectasis of the posterior superior left upper lobe. The heart is enlarged. There is a pacemaker. There is mild circumferential pericardial thickening. The ascending thoracic aorta is somewhat ectatic but not aneurysmal, measuring 3.6 cm in diameter. The pulmonary arteries are somewhat ectatic. Numerous prominent but not frankly enlarged mediastinal lymph nodes are noted. The included thyroid is unremarkable. No axillary or chest wall mass or adenopathy. Unremarkable esophagus Abdomen and pelvis: There is dense contrast within the colon, presumably from a barium swallowing study of 3 days earlier. Streak artifact from this may obscure pathology. Lack of enteric contrast elsewhere in the GI tract limits evaluation. There is mild to moderate amount retained feces in the distal sigmoid and rectum, with slight expansion of the rectum by such. There are equivocal scattered diverticula in the proximal colon. The appendix is normal. No small bowel distention. There is a small amount of ascites fluid over the dome of the liver Lack of IV contrast limits assessment of the solid organs. The liver demonstrates slight atrophy, but no hypertrophy, and surface nodularity, also slightly increased from the previous study. The gallbladder is not visualized. No biliary ductal dilatation. The pancreas is unremarkable. The spleen, adrenals, kidneys are unremarkable. The prostate is enlarged, indents the bladder floor. This is also evident previously. Previously demonstrated Kendall catheter is no longer present. No retroperitoneal or mesenteric mass or adenopathy. There are multiple nodules within the anterior abdominal wall subcutaneous fat. These are more numerous than previously. There is is edema of the bilateral hip subcutaneous fat. Impression: Small right and large left pleural effusions. Complete atelectasis and consolidation of the left lower lobe, presumably due to combination of compression by the pleural fluid and and bronchial obstruction by secretions Extensive consolidation of the left upper lobe, nonspecific, may be due to pneumonia or edema. Areas of atelectasis of the left upper lobe and right lower and upper lobes, as described Cardiomegaly Somewhat ectatic pulmonary arteries, pulmonary arterial hypertension a possibility Evidence of hepatic cirrhosis, with somewhat atrophic nodular liver, appears to be progressive since prior study. Small amount of ascites fluid, likely related to the above Nonvisualization of the gallbladder, correlate with surgical history colonic diverticulosis. No evidence of diverticulitis Possible mild rectal fecal impaction Prostatomegaly Anterior, wall nodules, probably due to recent subcutaneous injections Edema of the bilateral hips subcutaneous fat Note that retained bariu -- m within the colon results in streak artifact which may obscure pathology The CT scanner at [facility] is accredited by the [employer] and the scans are performed using protocols designed to limit radiation exposure to as low as reasonably achievable to attain images of sufficient resolution adequate for diagnostic evaluation.
--- NOTE | 2016-08-19 09:15 | Pulmonology Progress Note ---
Assessment/Plan Assessment/Plan ASSESSMENT: 1. bilateral pleural effusions; 2. Anemia. with need for transfusion 3. Chronic kidney disease. 4. Stroke. with focal weakness 5. Hypertension. 6. History of chronic obstructive pulmonary disease. 7. History of conduction system disease. with pacemaker 8. worsening left effusion with atelectasis PLAN: lasix on hold thoracentesis monitor chest xr for reexpansion if not, consider bronchoscopy hold dc follow up BNP very elevated repeat chest XR after tap completed dc planning on hold for now care noted impression, plan, and exam edited and reviewed in detail care discussed with RN Subjective ROS Limited/Unobtainable: Yes Allergies: Coded Allergies: No Known Allergies (Unverified , 01/24/14) Subjective all noted CT chest reviewed on oxygen renal function stable BNP very elevated Objective Last 24 Hour Vital Signs Date Time Temp Pulse Resp B/P Pulse Ox O2 Delivery O2 Flow Rate FiO2 08/19/16 08:31 96.9 80 19 98/51 94 Room Air 08/19/16 07:59 Nasal Cannula 2.0 28 08/19/16 07:58 86 20 100 Nasal Cannula 2.0 28 08/19/16 07:50 82 18 95 Nasal Cannula 2.0 28 08/19/16 07:45 95 Nasal Cannula 2.0 28 08/19/16 04:27 98.1 82 18 104/61 100 Nasal Cannula 2.0 08/19/16 00:00 97.0 87 18 101/59 97 Nasal Cannula 2.0 08/18/16 20:24 88 20 99 Nasal Cannula 2.0 28 08/18/16 20:18 96 Nasal Cannula 2.0 28 08/18/16 20:18 Nasal Cannula 2.0 28 08/18/16 20:18 90 18 96 Nasal Cannula 2.0 28 08/18/16 20:00 98.4 75 18 115/65 97 Nasal Cannula 2.0 08/18/16 16:00 98.2 69 14 112/60 96 Nasal Cannula 2.0 08/18/16 12:42 93 18 98 Nasal Cannula 2.0 28 08/18/16 12:40 92 18 96 Nasal Cannula 2.0 28 08/18/16 12:00 97.4 87 21 98/64 98 Nasal Cannula 2.0 08/18/16 11:58 81 18 100 Nasal Cannula 2.0 28 08/18/16 11:50 83 18 93 Nasal Cannula 2.0 08/18/16 09:50 91 100/59 Intake and Output 08/18/16 08/19/16 19:00 07:00 Intake Total 360 ml Balance 360 ml Intake Oral 360 ml # Voids 2 # Bowel Movements 2 Objective Sp02 EP Interpretation: reviewed, normal General Appearance: normal inspection, well appearing, no apparent distress, alert Head: normocephalic, atraumatic Eyes: bilateral eye normal inspection ENT: normal ENT inspection, no angioedema, normal voice Neck: normal inspection, full range of motion, supple, no meningismus, carotid 2+ Respiratory: decreased breath sounds, reduced worse at left base Cardiovascular #1: regular rate, rhythm, no murmur without MRG Gastrointestinal: non tender, soft, non-distended, no guarding, no rebound Musculoskeletal: no CC; some edema Neurologic: alert, Laboratory Tests 08/19/16 05:40: Sodium Level 141, Potassium Level 4.3, Chloride Level 102, Carbon Dioxide Level 24, Anion Gap 15, Blood Urea Nitrogen 50H, Creatinine 2.0H, Estimat Glomerular Filtration Rate , Glucose Level 82, Calcium Level 8.5L, Total Bilirubin 3.1H, Direct Bilirubin 1.8H, Aspartate Amino Transf (AST/SGOT) 20, Alanine Aminotransferase (ALT/SGPT) 6, Alkaline Phosphatase 81, Total Protein 7.4, Albumin 1.7L, Globulin 5.7, Albumin/Globulin Ratio 0.2L Current Medications Medications (Trade) Dose Ordered Sig/Homar Route PRN Reason Start Time Stop Time Status Last Admin Dose Admin Acetaminophen (Tylenol) 650 mg Q4H PRN ORAL For Pain 08/14/16 13:15 09/13/16 13:14 Albuterol Sulfate (Proventil) 2.5 mg Q6H PRN HHN Shortness of Breath 08/14/16 13:15 08/19/16 13:14 08/18/16 11:50 Albuterol/ Ipratropium (DuoNeb 0.5-3(2.5)mg/3ml) 3 ml TIDRT HHN 08/14/16 19:00 08/19/16 18:59 08/19/16 08:05 Aspirin (Ecotrin) 81 mg DAILY ORAL 08/15/16 09:00 09/14/16 08:59 08/17/16 08:29 Calcium Carbonate (OsCal D) 1 tab DAILY ORAL 08/15/16 09:00 09/14/16 08:59 08/19/16 08:53 Cyanocobalamin (Vitamin B-12) 1,000 mcg DAILY ORAL 08/15/16 09:00 09/14/16 08:59 08/19/16 08:53 Dextrose (Dextrose 50%) STAT PRN IV Hypoglycemia 08/14/16 13:15 09/13/16 13:14 08/17/16 17:45 Docusate Sodium (Colace) 250 mg DAILY ORAL 08/15/16 09:00 09/14/16 08:59 08/19/16 08:53 Epoetin Deshaun (Procrit (for non ESRD use)) 7,000 units FRI-FRI-FRI SUBQ 08/14/16 21:00 09/13/16 20:59 08/16/16 20:38 Ferrous Sulfate (Feosol) 325 mg THREE TIMES A DAY ORAL 08/14/16 18:00 09/13/16 17:59 08/19/16 08:54 Finasteride (Proscar) 5 mg DAILY ORAL 08/15/16 09:00 09/14/16 08:59 08/19/16 08:53 Gemfibrozil (Lopid) 600 mg TWICE A DAY ORAL 08/14/16 18:00 09/13/16 17:59 08/19/16 08:54 Insulin Aspart (NovoLOG) BEFORE MEALS AND HS SUBQ 08/14/16 16:30 09/13/16 16:29 08/18/16 21:24 Insulin Detemir (Levemir) 10 units Q12HR SUBQ 08/18/16 09:00 09/17/16 08:59 08/19/16 08:55 Metoprolol Succinate (Toprol XL) 25 mg DAILY ORAL 08/15/16 09:00 09/14/16 08:59 08/18/16 09:50 Multivitamins (Multivitamins) 1 tab DAILY ORAL 08/15/16 09:00 09/14/16 08:59 08/19/16 08:53 Pantoprazole (Protonix) 40 mg DAILY ORAL 08/15/16 09:00 09/14/16 08:59 08/19/16 08:53 Promethazine HCl/ Codeine (Phenergan with Codeine) 10 ml TID PRN ORAL For Cough 08/14/16 13:15 09/13/16 13:14 08/16/16 17:51 Ranitidine HCl (Zantac) 150 mg DAILY ORAL 08/15/16 09:00 09/14/16 08:59 08/19/16 08:54 Sodium Bicarbonate (NaHCO3) 650 mg BID ORAL 08/14/16 18:00 09/13/16 17:59 08/19/16 08:53 Tamsulosin HCl (Flomax) 0.4 mg DAILY ORAL 08/15/16 09:00 09/14/16 08:59 08/19/16 08:53 Vitamin D (Vitamin D) 800 intlu DAILY ORAL 08/15/16 09:00 09/14/16 08:59 08/19/16 08:53 KENDRICK SCHWARTZ Aug 19, 2016 09:15
[2016-08-19 11:58] VITALS: BP 97/53
--- NOTE | 2016-08-19 13:30 | General Progress Note ---
Assessment/Plan Problem List: (1) Anemia ICD Codes: D64.9 - Anemia, unspecified SNOMED: 177370509 (2) Tachycardia ICD Codes: R00.0 - Tachycardia, unspecified SNOMED: 4984194 (3) GIB (gastrointestinal bleeding) ICD Codes: K92.2 - Gastrointestinal hemorrhage, unspecified SNOMED: 30990779 Status: stable Assessment/Plan moniot h/h dc lasix with increased bun/cr thoracentesis per pulm o2 resp care d/w son. agrees with poc. dc plannin tomorrow if stable Subjective ROS Limited/Unobtainable: No Constitutional: Reports: malaise, weakness HEENT: Reports: no symptoms Cardiovascular: Reports: no symptoms Respiratory: Reports: cough, shortness of breath Gastrointestinal/Abdominal: Reports: no symptoms Genitourinary: Reports: no symptoms Neurologic/Psychiatric: Reports: no symptoms Endocrine: Reports: no symptoms Hematologic/Lymphatic: Reports: no symptoms Allergies: Coded Allergies: No Known Allergies (Unverified , 01/24/14) All Systems: reviewed and negative except above Subjective ct noted. pulm noted. no new complaints. mild sob. nonproductive cough. no fevers. Objective Last 24 Hour Vital Signs Date Time Temp Pulse Resp B/P Pulse Ox O2 Delivery O2 Flow Rate FiO2 08/19/16 11:58 96.6 80 19 97/53 98 Nasal Cannula 2.0 08/19/16 08:31 96.9 80 19 98/51 94 Room Air 08/19/16 07:59 Nasal Cannula 2.0 08/19/16 07:58 86 20 100 Nasal Cannula 2.0 08/19/16 07:50 82 18 95 Nasal Cannula 2.0 08/19/16 07:45 95 Nasal Cannula 2.0 08/19/16 04:27 98.1 82 18 104/61 100 Nasal Cannula 2.0 08/19/16 00:00 97.0 87 18 101/59 97 Nasal Cannula 2.0 08/18/16 20:24 88 20 99 Nasal Cannula 2.0 28 08/18/16 20:18 96 Nasal Cannula 2.0 28 08/18/16 20:18 Nasal Cannula 2.0 28 08/18/16 20:18 90 18 96 Nasal Cannula 2.0 28 08/18/16 20:00 98.4 75 18 115/65 97 Nasal Cannula 2.0 08/18/16 16:00 98.2 69 14 112/60 96 Nasal Cannula 2.0 Intake and Output 08/18/16 08/19/16 19:00 07:00 Intake Total 360 ml Balance 360 ml Intake Oral 360 ml # Voids 2 # Bowel Movements 2 Laboratory Tests 08/19/16 05:40: Sodium Level 141, Potassium Level 4.3, Chloride Level 102, Carbon Dioxide Level 24, Anion Gap 15, Blood Urea Nitrogen 50H, Creatinine 2.0H, Estimat Glomerular Filtration Rate , Glucose Level 82, Calcium Level 8.5L, Total Bilirubin 3.1H, Direct Bilirubin 1.8H, Aspartate Amino Transf (AST/SGOT) 20, Alanine Aminotransferase (ALT/SGPT) 6, Alkaline Phosphatase 81, Total Protein 7.4, Albumin 1.7L, Globulin 5.7, Albumin/Globulin Ratio 0.2L Height (Feet): 5 Height (Inches): 5.00 Weight (Pounds): 160 Objective General Appearance: WD/WN, alert Neck: supple Cardiovascular: regular rhythm Respiratory/Chest: lungs clear, normal breath sounds, no respiratory distress Edema: no edema noted Arm (L), no edema noted Arm (R), no edema noted Leg (L), no edema noted Leg (R), no edema noted Pedal (L), no edema noted Pedal (R), no edema noted Generalized TALHA LEIGH Aug 19, 2016 13:30
[2016-08-19 17:25] VITALS: BP 103/55
--- NOTE | 2016-08-19 18:15 | Diagnostic Imaging Report ---
Indications: Pleural effusion Technique: Ultrasound used to localize optimal puncture site. Sterile prepping and draping chest. Local anesthesia with 1% lidocaine. Under real-time ultrasound guidance, puncture pleural space using thoracentesis needle. Stylet removed. Catheter placed to vacuum bottle suction. Total 700 milliliters of fluid aspirated. Patient tolerated procedure well, without immediate complication. Findings: Followup sonography demonstrates complete resolution of pleural fluid. Impression: Successful ultrasound-guided thoracentesis, yielding 700 milliliters of fluid
--- NOTE | 2016-08-19 18:16 | Pre-Procedure Note/Attestation ---
Pre-Procedure Note/Attestation Complete Prior to Procedure Planned Procedure: left Procedure Narrative: chest vent under CT Indications for Procedure Pre-Operative Diagnosis: L PTX Attestation I attest that I discussed the nature of the procedure; its benefits; risks and complications; and alternatives (and the risks and benefits of such alternatives ), prior to the procedure, with the patient (or the patient's legal district sales representative). I attest that, if there was a reasonable possibility of needing a blood transfusion, the patient (or the patient's legal district sales representative) was given the [facility] standardized written summary, pursuant to the [place] Blood Safety Act ([place] Health and Safety Code # 1645, as amended). I attest that I re-evaluated the patient just prior to the surgery and that there has been no change in the patient's H&P, except as documented below: LUCILLE TOLBERT M.D. Aug 19, 2016 18:16
--- NOTE | 2016-08-19 18:41 | Brief Operative Note ---
Immediate Post Operative Note Operative Note Pre-op Diagnosis: L PTX Post-op Diagnosis: same as pre-op Surgeon: Monster TOLBERT Anesthesia: local Specimen: none Complications: none Condition: stable Fluids: none Implant(s) used?: Yes - chest vent LUCILLE TOLBERT M.D. Aug 19, 2016 18:41
[2016-08-19 20:00] VITALS: BP 107/63
[2016-08-19] MEDS: Epogen (for non ESRD use) SUBQ SCH (21:36)
[2016-08-20] VITALS (8 sets, daily range): BP systolic 90–114; BP diastolic 48–68
[2016-08-20] MEDS: NovoLOG Insulin Flexpen SUBQ SCH ×4 (06:15→20:13)
--- NOTE | 2016-08-20 08:27 | General Progress Note ---
Assessment/Plan Problem List: (1) Anemia ICD Codes: D64.9 - Anemia, unspecified SNOMED: 212069863 (2) Tachycardia ICD Codes: R00.0 - Tachycardia, unspecified SNOMED: 6774663 (3) GIB (gastrointestinal bleeding) ICD Codes: K92.2 - Gastrointestinal hemorrhage, unspecified SNOMED: 21224759 Status: stable Assessment/Plan resp care o2 chest tube management per pulm monitor h/h transfuse prn pain rx adjusted dvt/stress ulcer prophylaxis Subjective ROS Limited/Unobtainable: No Constitutional: Reports: malaise HEENT: Reports: no symptoms Cardiovascular: Reports: chest pain Respiratory: Reports: cough Gastrointestinal/Abdominal: Reports: no symptoms Genitourinary: Reports: no symptoms Neurologic/Psychiatric: Reports: pre-existing deficit Endocrine: Reports: no symptoms Hematologic/Lymphatic: Reports: anemia Allergies: Coded Allergies: No Known Allergies (Unverified , 01/24/14) All Systems: reviewed and negative except above Subjective s/p thoracentesis complicated by ptx. S/p chets tube by IR. pt denies sob. + pain at CT site. Objective Last 24 Hour Vital Signs Date Time Temp Pulse Resp B/P Pulse Ox O2 Delivery O2 Flow Rate FiO2 08/20/16 07:58 97.3 86 18 112/68 98 Nasal Cannula 2.0 08/20/16 07:50 96 Nasal Cannula 2.0 28 08/20/16 07:50 Nasal Cannula 2.0 28 08/20/16 04:00 97.3 85 18 99/48 100 Nasal Cannula 2.0 08/20/16 00:00 97.5 81 18 99/53 99 Nasal Cannula 2.0 08/19/16 20:07 Nasal Cannula 2.0 28 08/19/16 20:07 87 20 Nasal Cannula 2.0 08/19/16 20:07 95 Nasal Cannula 2.0 28 08/19/16 20:00 97.2 90 20 107/63 100 Nasal Cannula 2.0 08/19/16 17:25 98.8 78 19 103/55 99 Nasal Cannula 2.0 08/19/16 13:40 90 20 100 Nasal Cannula 2.0 28 08/19/16 13:40 90 18 98 Nasal Cannula 2.0 28 08/19/16 11:58 96.6 80 19 97/53 98 Nasal Cannula 2.0 08/19/16 08:31 96.9 80 19 98/51 94 Room Air Intake and Output 08/19/16 08/20/16 19:00 07:00 Intake Total 240 ml 500 ml Output Total 340 ml Balance 240 ml 160 ml Intake Oral 240 ml 500 ml Output Urine Total 200 ml Chest Tube Drainage Total 140 ml # Voids 1 4 # Bowel Movements 1 1 Laboratory Tests 08/19/16 15:30: Body Fluid Source [Pending], Body Fluid Volume [Pending], Body Fluid Albumin [ Pending], Body Fluid Lactate Dehydrogenase [Pending] Height (Feet): 5 Height (Inches): 5.00 Weight (Pounds): 160 Objective General Appearance: WD/WN, alert Neck: supple Cardiovascular: regular rhythm Respiratory/Chest: lungs clear, improved breath sounds, no respiratory distress Edema: no edema noted Arm (L), no edema noted Arm (R), no edema noted Leg (L), no edema noted Leg (R), no edema noted Pedal (L), no edema noted Pedal (R), no edema noted Generalized TALHA LEIGH Aug 20, 2016 08:27
[2016-08-20] MEDS ORDERED: Norco 10mg/325mg tab ORAL PRN (08:30)
[2016-08-20] MEDS: Docusate 250mg cap ORAL SCH (09:08)
[2016-08-20] MEDS: Aspirin EC 81mg tab ORAL SCH (09:08)
[2016-08-20] MEDS: Tamsulosin 0.4mg cap ORAL SCH (09:09)
[2016-08-20] MEDS: Calcium Carbonate 500mg w/Vit D 200iu tab ORAL SCH (09:10)
[2016-08-20] MEDS: Sodium Bicarbonate 650mg Tab ORAL SCH ×2 (09:10→17:07)
[2016-08-20] MEDS: Vitamin D 400 INTLU TAB ORAL SCH (09:11)
[2016-08-20] MEDS: Vitamin B-12 500mcg tab ORAL SCH (09:11)
[2016-08-20] MEDS: Levemir Flexpen SUBQ SCH ×2 (09:13→20:14)
[2016-08-20 10:04] LABS: BASOPHILS % (AUTO) 1.9 % (0.0-2.0); EOSINOPHILS % (AUTO) 2.3 % (0.0-3.0); LYMPHOCYTES % (AUTO) 4.8 % (20.0-45.0); MEAN CORPUSCULAR HEMOGLOBIN 32.9 PG (27.0-31.0); MEAN CORPUSCULAR HGB CONC 33.7 G/DL (32.0-36.0); MEAN CORPUSCULAR VOLUME 97 FL (80-99); MEAN PLATELET VOLUME 8.4 FL (6.5-10.1); MONOCYTES % (AUTO) 12.8 % (1.0-10.0); NEUTROPHILS % (AUTO) 78.3 % (45.0-75.0); PLATELET COUNT 125 K/UL (150-450); RED BLOOD COUNT 2.85 M/UL (4.70-6.10); WHITE BLOOD COUNT 9.9 K/UL (4.8-10.8)
[2016-08-20 10:15] LABS: ALANINE AMINOTRANSFERASE 5 U/L (3-41); ALBUMIN/GLOBULIN RATIO 0.3 (1.0-2.7); ANION GAP 12 (5-15); ASPARTATE AMINO TRANSFERASE 18 U/L (5-40); CALCIUM 8.4 mg/dL (8.6-10.2); CARBON DIOXIDE 27 mEQ/L (20-30); CHLORIDE 101 mEQ/L (98-107); CREATININE 2.1 mg/dL (0.7-1.2); HEMOLYSIS 4; POTASSIUM 4.4 mEQ/L (3.4-4.9); SODIUM 140 mEQ/L (135-145); TOTAL PROTEIN 7.1 g/dL (6.6-8.7)
[2016-08-20 10:28] LABS: BILIRUBIN,DIRECT 2.1 mg/dL (0.1-0.3)
[2016-08-20 10:37] LABS: OTHERS PATHOLOGIST COMMENT
--- NOTE | 2016-08-20 10:57 | Diagnostic Imaging Report ---
Indication: Pneumothorax, status post thoracentesis Technique: Informed consent obtained prior to commencement of procedure from patient's son. Prior images reviewed. Localizing CT slices obtained. Sterile prepping draping and puncture site. Local anesthesia with 1% lidocaine. Using trocar technique, may prove and catheter was then inserted into the pleural space. CT images were obtained, throughout the, confirming satisfactory position of the catheter. The catheter was forcefully aspirated, resulting in evacuation of most of all of the hemithorax. Catheter was fixed to the skin, placed to Pleur-evac suction. The patient tolerated the procedure well, without immediate complication. Total dose length product 1527 mGycm. CTDIvol(s) 21, 17x3 mGy Comparison: Reference made to chest radiograph earlier the same day, as well as CT scan dated 08/18/2016 Findings: Initial images demonstrate large primarily basilar pneumothorax, near-complete atelectasis of the left lower lobe, atelectasis of portions of left upper lobe. Completion images document partial evacuation of the pneumothorax and catheter tip at the base of the left hemithorax. There is reexpansion of most of the left upper lobe, only partial reexpansion of the left lower lobe. Impression: Successful placement of left chest vent catheter, as described under CT guidance. 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
--- NOTE | 2016-08-20 11:22 | Cardiology Report ---
APPROVED REPORT EXAM: Two-dimensional and M-mode echocardiogram with Doppler and color Doppler. INDICATION Congestive Heart Failure M-Mode DIMENSIONS IVSd1.0 (0.7-1.1cm)Left Atrium (MM)3.0 (1.6-4.0cm) LVDd3.7 (3.5-5.6cm)Aortic Root3.3 (2.0-3.7cm) PWd1.1 (0.7-1.1cm)Aortic Cusp Exc.1.8 (1.5-2.0cm) LVDs1.8 (2.5-4.0cm) PWs1.6 cm Technically difficult study due to poor acoustic windows. Study quality precludes accurate assessment of regional wall motion. Normal left ventricular chamber size, systolic function and wall motion to extent visualized. Left ventricular ejection fraction estimated to be grossly normal. No evidence of ventricular hypertrophy. Anterior Echo-free space, may be due to pericardial fat or effusion. Large pleural effusion. All other cardiac chamber sizes are within normal limits. Mild focal aortic valve sclerosis with adequate cusp excursion. Mildly thickened mitral valve leaflets with normal excursion. Mild mitral annulus and aortic root calcification. Pulmonic valve not visualized. Normal tricuspid valve structure. IVC dilated at 1.8 cm with physiologic collapse. A color flow and spectral Doppler study was performed and revealed: No aortic regurgitation. Mild mitral regurgitation. Left ventricular diastolic function could not be determined due to A-Fib. Mild tricuspid regurgitation. Tricuspid systolic velocities suggests peak right ventricular systolic pressure of 64 mmHg, consistent with severe pulmonary hypertension.
--- NOTE | 2016-08-20 11:40 | Diagnostic Imaging Report ---
Indication: Pneumothorax, status post chest vent placement Technique: One view of the chest Comparison: 2 hours earlier Findings: There is a chest vent catheter in the left lower lateral pleural space. There is interim reexpansion of the left upper lobe with resultant marked decrease in size of the pneumothorax. However, considerable basilar pneumothorax persists. There is still atelectasis of much of the left lower lobe. There is decreased mediastinal shift. There is improved expansion of the right lung. There is a small right pleural effusion again demonstrated. Interstitial prominence of the right lung persists. Impression: Improved but persistent left pneumothorax, status post chest vent placement This agrees with the preliminary interpretation provided overnight by Dr. Marquis
--- NOTE | 2016-08-20 15:36 | Pulmonology Progress Note ---
Assessment/Plan Assessment/Plan ASSESSMENT: 1. bilateral pleural effusions; 2. Anemia. with need for transfusion 3. Chronic kidney disease. 4. Stroke. with focal weakness 5. Hypertension. 6. History of chronic obstructive pulmonary disease. 7. History of conduction system disease. with pacemaker 8. worsening left effusion with atelectasis 9. iatrogenic pneumothorax PLAN: lasix on hold thoracentesis completed monitor chest xr for reexpansion of pneumothorax hold dc follow up BNP dc planning on hold for now care noted and reviewed thoracic called impression, plan, and exam edited and reviewed in detail care discussed with RN Subjective Allergies: Coded Allergies: No Known Allergies (Unverified , 01/24/14) Subjective had pneumothorax chest vent in place thoracic called Objective Last 24 Hour Vital Signs Date Time Temp Pulse Resp B/P Pulse Ox O2 Delivery O2 Flow Rate FiO2 08/20/16 12:00 97.3 86 18 107/54 99 Nasal Cannula 2.0 08/20/16 09:11 84 114/60 08/20/16 08:59 84 114/60 08/20/16 07:58 97.3 86 18 112/68 98 Nasal Cannula 2.0 08/20/16 07:50 96 Nasal Cannula 2.0 28 08/20/16 07:50 Nasal Cannula 2.0 28 08/20/16 04:00 97.3 85 18 99/48 100 Nasal Cannula 2.0 08/20/16 00:00 97.5 81 18 99/53 99 Nasal Cannula 2.0 08/19/16 20:07 Nasal Cannula 2.0 28 08/19/16 20:07 87 20 Nasal Cannula 2.0 08/19/16 20:07 95 Nasal Cannula 2.0 28 08/19/16 20:00 97.2 90 20 107/63 100 Nasal Cannula 2.0 08/19/16 17:25 98.8 78 19 103/55 99 Nasal Cannula 2.0 Intake and Output 08/19/16 08/20/16 19:00 07:00 Intake Total 240 ml 500 ml Output Total 340 ml Balance 240 ml 160 ml Intake Oral 240 ml 500 ml Output Urine Total 200 ml Chest Tube Drainage Total 140 ml # Voids 1 4 # Bowel Movements 1 1 Objective Sp02 EP Interpretation: reviewed, normal General Appearance: normal inspection, well appearing, no apparent distress, alert Head: normocephalic, atraumatic Eyes: bilateral eye normal inspection ENT: normal ENT inspection, no angioedema, normal voice Neck: normal inspection, full range of motion, supple, no meningismus, carotid 2+ Respiratory: decreased breath sounds, improved left; chest vent in place Cardiovascular #1: regular rate, rhythm, no murmur without MRG Gastrointestinal: non tender, soft, non-distended, no guarding, no rebound Musculoskeletal: no CC; some edema persistent Neurologic: alert, no distress Laboratory Tests 08/20/16 09:42: White Blood Count 9.9, Red Blood Count 2.85L, Hemoglobin 9.4L, Hematocrit 27.7L , Mean Corpuscular Volume 97, Mean Corpuscular Hemoglobin 32.9H, Mean Corpuscular Hemoglobin Concent 33.7, Red Cell Distribution Width 23.0H, Platelet Count 125L, Mean Platelet Volume 8.4, Neutrophils (%) (Auto) 78.3H, Lymphocytes (%) (Auto) 4.8L, Monocytes (%) (Auto) 12.8H, Eosinophils (%) (Auto) 2.3, Basophils (%) (Auto) 1.9, Sodium Level 140, Potassium Level 4.4, Chloride Level 101, Carbon Dioxide Level 27, Anion Gap 12, Blood Urea Nitrogen 51H, Creatinine 2.1H, Estimat Glomerular Filtration Rate , Glucose Level 124H, Calcium Level 8.4L, Total Bilirubin 3.2H, Direct Bilirubin 2.1H, Aspartate Amino Transf (AST/SGOT) 18, Alanine Aminotransferase (ALT/SGPT) 5, Alkaline Phosphatase 86, Total Protein 7.1, Albumin 2.0L, Globulin 5.1, Albumin/Globulin Ratio 0.3L Current Medications Medications (Trade) Dose Ordered Sig/Homar Route PRN Reason Start Time Stop Time Status Last Admin Dose Admin Acetaminophen (Tylenol) 650 mg Q4H PRN ORAL Mild Pain (Pain Scale 1-3) 08/20/16 13:15 09/13/16 13:14 Acetaminophen/ Hydrocodone Bitart ([place] 10/325) 1 ea Q4H PRN ORAL Moderate Pain (Pain Scale 4-6) 08/20/16 08:30 08/27/16 08:29 Aspirin (Ecotrin) 81 mg DAILY ORAL 08/15/16 09:00 09/14/16 08:59 08/20/16 09:08 Calcium Carbonate (OsCal D) 1 tab DAILY ORAL 08/15/16 09:00 09/14/16 08:59 08/20/16 09:10 Cyanocobalamin (Vitamin B-12) 1,000 mcg DAILY ORAL 08/15/16 09:00 09/14/16 08:59 08/20/16 09:11 Dextrose (Dextrose 50%) STAT PRN IV Hypoglycemia 08/14/16 13:15 09/13/16 13:14 08/17/16 17:45 Docusate Sodium (Colace) 250 mg DAILY ORAL 08/15/16 09:00 09/14/16 08:59 08/20/16 09:08 Epoetin Deshaun (Procrit (for non ESRD use)) 7,000 units FRI-FRI-FRI SUBQ 08/14/16 21:00 09/13/16 20:59 08/19/16 21:36 Ferrous Sulfate (Feosol) 325 mg THREE TIMES A DAY ORAL 08/14/16 18:00 09/13/16 17:59 08/20/16 13:13 Finasteride (Proscar) 5 mg DAILY ORAL 08/15/16 09:00 09/14/16 08:59 08/20/16 09:10 Gemfibrozil (Lopid) 600 mg TWICE A DAY ORAL 08/14/16 18:00 09/13/16 17:59 08/20/16 09:10 Insulin Aspart (NovoLOG) BEFORE MEALS AND HS SUBQ 08/14/16 16:30 09/13/16 16:29 08/20/16 12:24 Insulin Detemir (Levemir) 10 units Q12HR SUBQ 08/18/16 09:00 09/17/16 08:59 08/20/16 09:13 Metoprolol Succinate (Toprol XL) 25 mg DAILY ORAL 08/15/16 09:00 09/14/16 08:59 08/20/16 09:11 Multivitamins (Multivitamins) 1 tab DAILY ORAL 08/15/16 09:00 09/14/16 08:59 08/20/16 09:10 Pantoprazole (Protonix) 40 mg DAILY ORAL 08/15/16 09:00 09/14/16 08:59 08/20/16 09:11 Promethazine HCl/ Codeine (Phenergan with Codeine) 10 ml TID PRN ORAL For Cough 08/14/16 13:15 09/13/16 13:14 08/16/16 17:51 Ranitidine HCl (Zantac) 150 mg DAILY ORAL 08/15/16 09:00 09/14/16 08:59 08/20/16 09:11 Sodium Bicarbonate (NaHCO3) 650 mg BID ORAL 08/14/16 18:00 09/13/16 17:59 08/20/16 09:10 Tamsulosin HCl (Flomax) 0.4 mg DAILY ORAL 08/15/16 09:00 09/14/16 08:59 08/20/16 09:09 Vitamin D (Vitamin D) 800 intlu DAILY ORAL 08/15/16 09:00 09/14/16 08:59 08/20/16 09:11 KENDRICK SCHWARTZ Aug 20, 2016 15:36
--- NOTE | 2016-08-20 16:52 | Diagnostic Imaging Report ---
Indication: Pneumothorax, status post thoracentesis, status post chest vent placement Technique: One view of the chest Comparison: 08/19/2016 Findings: Interim decrease in size of previously demonstrated left basilar pneumothorax, with some residual. Decrease appears to be partially due to filling in by fluid, but there does appear to be some reexpansion of the left lower lobe. Right-sided pleural effusion, a generalized interstitial disease persists, may be slightly increased on the right. Left chest pacemaker is again demonstrated Impression: Decreased but persistent left basilar pneumothorax, since 08/19/2016
--- NOTE | 2016-08-21 02:27 | Progress Note ---
DATE: 08/18/2016 CARDIOLOGY PROGRESS NOTE SUBJECTIVE: The patient was seen and evaluated. She has received a packed red blood cell transfusion yesterday. No new signs of bleeding are noted. OBJECTIVE: VITAL SIGNS: Blood pressure 106/52, pulse 61, and respirations 20. NECK: Supple. LUNGS: With clear breath sounds. CARDIAC: Regular rhythm and rate. Normal S1 and S2. A 1/6 systolic murmur at apex. ABDOMEN: Soft and nontender. EXTREMITIES: Without edema. LABORATORY STUDIES: White count 8.5 and hemoglobin 7.8 yesterday. Today, white count 6.9, hemoglobin 9.7, and platelet count 112,000. Sodium is 141, potassium 4.6, bicarbonate 25, BUN 15, and creatinine 2.0. Albumin 1.9. IMPRESSION: 1. Anemia due to chronic disease and chronic kidney disease. 2. Status post transfusions. 3. Worsening renal failure (acute on chronic kidney injury). 4. Severe protein-calorie malnutrition. 5. Permanent pacemaker. 6. Paroxysmal atrial fibrillation. 7. Acute on chronic diastolic congestive heart failure, clinically compensated. PLAN: 1. Agree with discontinuation of diuretic therapy at this time. 2. Optimize nutritional status. 3. Monitor hemoglobin. 4. Monitor volume status and cardiorenal parameters. 5. Hold discharge. Joseph Muniz M.D. DR: BRIANA JOB#: [id number] CC:
--- NOTE | 2016-08-21 02:28 | Progress Note ---
DATE: 08/19/2016 CARDIOLOGY PROGRESS NOTE SUBJECTIVE: The patient was seen and evaluated. The patient has a chest tube in the left side after thoracentesis effort that resulted in iatrogenic pneumothorax. The patient has pain. He is not short of breath. OBJECTIVE: VITAL SIGNS: Blood pressure 103/55, heart rate 78, respiratory rate 19, and afebrile. Oxygen saturation on 2 liters is 99%. LUNGS: Rhonchi at the left. HEART: Irregularly irregular rhythm. Normal S1 and S2. ABDOMEN: Soft. EXTREMITIES: Trace edema. LABORATORY AND DIAGNOSTIC STUDIES: Sodium 141, potassium 4.3, bicarbonate 24, BUN 50, and creatinine 2. Albumin is 1.7. No CBC today. Chest x-ray reveals persistent left pneumothorax slightly improved with a small right pleural effusion. IMPRESSION: 1. Severe protein-calorie malnutrition. 2. Acute on chronic kidney injury following diuresis. 3. Acute on chronic diastolic congestive heart failure. 4. Paroxysmal atrial fibrillation. 5. Permanent pacemaker. 6. Pleural effusion status post left thoracentesis complicated by pneumothorax with chest tube. PLAN: 1. Hold diuresis. 2. Chest tube management. 3. Pain control. 4. Cardiac monitoring. 5. Nutritional support. Joseph Muniz M.D. DR: LISA JOB#: [id number] CC:
--- NOTE | 2016-08-21 02:28 | Progress Note ---
DATE: 08/20/2016 CARDIOLOGY PROGRESS NOTE SUBJECTIVE: The patient still has a chest tube in place. Persistent left pneumothorax is noted yesterday. Repeat chest x-ray today was performed. Findings notable for decreased and persistent pneumothorax since yesterday. The patient has pain, but no shortness of breath. OBJECTIVE: VITAL SIGNS: Afebrile. Blood pressure 99/48, pulse 85, and respirations 20. NECK: Supple. LUGS: With diminished breath sounds and rhonchi at the left. CARDIAC: Regular rhythm and rate. Normal S1 and S2. ABDOMEN: Soft. EXTREMITIES: There is 1+ dependent edema. LABORATORY DATA: Sodium is 140, potassium 4.4, bicarbonate 27, BUN 51, and creatinine 2.1. Albumin 2. White count 9.9 and hemoglobin 9.4. IMPRESSION: 1. Iatrogenic left pneumothorax with chest tube. 2. Pleural effusions due to severe colloid osmotic pressure insufficiency. 3. Severe protein-calorie malnutrition. 4. Acute and chronic diastolic congestive heart failure. 5. Paroxysmal atrial fibrillation. 6. Permanent pacemaker. 7. Anemia of chronic disease and chronic kidney disease. 8. Cerebrovascular disease with hemiparesis. PLAN: 1. Chest vent management. 2. Optimize nutrition. 3. Holding diuresis. 4. Pain control. 5. Fluid challenge for hypotension. Joseph Muniz M.D. DR: BRIANA JOB#: [id number] CC:
[2016-08-21 04:00] VITALS: BP 94/63
[2016-08-21] MEDS: NovoLOG Insulin Flexpen SUBQ SCH ×4 (06:10→20:59)
[2016-08-21 07:03] LABS: ALANINE AMINOTRANSFERASE 5 U/L (3-41); ALBUMIN/GLOBULIN RATIO 0.3 (1.0-2.7); ANION GAP 12 (5-15); ASPARTATE AMINO TRANSFERASE 17 U/L (5-40); CALCIUM 8.4 mg/dL (8.6-10.2); CARBON DIOXIDE 28 mEQ/L (20-30); CHLORIDE 101 mEQ/L (98-107); HEMOLYSIS 19; MAGNESIUM 1.9 mg/dL (1.7-2.5); POTASSIUM 4.1 mEQ/L (3.4-4.9); SODIUM 141 mEQ/L (135-145); TOTAL PROTEIN 6.7 g/dL (6.6-8.7)
[2016-08-21 07:16] LABS: BILIRUBIN,DIRECT 1.7 mg/dL (0.1-0.3)
[2016-08-21 07:18] LABS: BASOPHILS % (AUTO) 1.5 % (0.0-2.0); EOSINOPHILS % (AUTO) 4.6 % (0.0-3.0); LYMPHOCYTES % (AUTO) 8.2 % (20.0-45.0); MEAN CORPUSCULAR HEMOGLOBIN 33.3 PG (27.0-31.0); MEAN CORPUSCULAR HGB CONC 33.9 G/DL (32.0-36.0); MEAN CORPUSCULAR VOLUME 98 FL (80-99); MEAN PLATELET VOLUME 9.9 FL (6.5-10.1); MONOCYTES % (AUTO) 14.7 % (1.0-10.0); NEUTROPHILS % (AUTO) 70.9 % (45.0-75.0); PLATELET COUNT 120 K/UL (150-450); RED BLOOD COUNT 2.57 M/UL (4.70-6.10); RED CELL DISTRIBUTION WIDTH 23.3 % (11.6-14.8); WHITE BLOOD COUNT 7.6 K/UL (4.8-10.8)
--- NOTE | 2016-08-21 08:28 | Diagnostic Imaging Report ---
Indication: Status post thoracentesis Technique: One view of the chest Comparison: 08/14/2016 Findings: Interval evacuation of previously demonstrated large left pleural effusion. There is a large left pneumothorax now present. There is questionably some leftward mediastinal shift, but this may be no greater than or was evident previously. The is pneumothorax is questionable larger than the size of the pleural fluid collection present previously. Left chest pacemaker is again demonstrated. Small amount of pleural fluid on the right again demonstrated. Mild interstitial congestive changes on the right again demonstrated Impression: Large left pneumothorax, postthoracentesis. This is probably just an extra-axial pneumothorax secondary to failure reexpansion of the previously completely ectatic left lower lobe and previously atelectatic portions of the left upper lobe. However, this appears somewhat larger than would be expected and a component of tension is not completely excludable. Other findings as noted Critical by findings phoned to Dr. See at the time of interpretation
[2016-08-21 08:41] VITALS: BP 91/53
[2016-08-21] MEDS: Aspirin EC 81mg tab ORAL SCH (08:50)
[2016-08-21] MEDS: Docusate 250mg cap ORAL SCH (08:50)
[2016-08-21] MEDS: Calcium Carbonate 500mg w/Vit D 200iu tab ORAL SCH (08:51)
[2016-08-21] MEDS: Sodium Bicarbonate 650mg Tab ORAL SCH ×2 (08:51→17:20)
[2016-08-21] MEDS: Vitamin B-12 500mcg tab ORAL SCH (08:52)
[2016-08-21] MEDS: Vitamin D 400 INTLU TAB ORAL SCH (08:52)
[2016-08-21] MEDS: Levemir Flexpen SUBQ SCH ×2 (09:00→21:00)
[2016-08-21] MEDS ORDERED: Lidocaine 1% Plain 30 ml INJ ONE (11:30)
[2016-08-21] MEDS ORDERED: Morphine Sulfate 2mg/ml Inj IM PRN (11:45)
--- NOTE | 2016-08-21 11:48 | Diagnostic Imaging Report ---
Indication: PNEUMOTX: Shortness of breath Technique: One view of the chest Comparison: 08/20/2016 Findings: Left chest thoracic vent catheter is again demonstrated, tip in the lower hemithorax. There is slightly increased size of previously demonstrated pneumothorax, with increased lateral component. There is also suggestion of increased pleural fluid. Left upper lobe consolidation persists. There is better aeration of the right lung. Small right-sided pleural effusion persists. Heart remains enlarged. Impression: Over one day, slight increase in size of previously demonstrated left lateral basilar pneumothorax, despite apparent adequate position of thoracic vent catheter presumably on basis of tract left lower lobe Slight reaccumulation of pleural fluid on the left, as well Better aeration of the right lung
--- NOTE | 2016-08-21 12:09 | General Progress Note ---
Assessment/Plan Problem List: (1) Anemia ICD Codes: D64.9 - Anemia, unspecified SNOMED: 648491280 (2) Tachycardia ICD Codes: R00.0 - Tachycardia, unspecified SNOMED: 8078530 (3) GIB (gastrointestinal bleeding) ICD Codes: K92.2 - Gastrointestinal hemorrhage, unspecified SNOMED: 44237649 Status: stable, progressing Assessment/Plan resp care o2 chest tube management per ct surgery monitor h/h and labs not stable for discharge transfuse prn pain rx adjusted dvt/stress ulcer prophylaxis Subjective ROS Limited/Unobtainable: No Constitutional: Reports: malaise, weakness HEENT: Reports: no symptoms Cardiovascular: Reports: no symptoms Respiratory: Reports: no symptoms Gastrointestinal/Abdominal: Reports: no symptoms Genitourinary: Reports: no symptoms Neurologic/Psychiatric: Reports: pre-existing deficit Endocrine: Reports: no symptoms Hematologic/Lymphatic: Reports: anemia Allergies: Coded Allergies: No Known Allergies (Unverified , 01/24/14) All Systems: reviewed and negative except above Subjective s/p placement of new larger chest tube. tolerated procedure well. no cp/sob. Objective Last 24 Hour Vital Signs Date Time Temp Pulse Resp B/P Pulse Ox O2 Delivery O2 Flow Rate FiO2 08/21/16 08:41 97.3 74 20 91/53 99 Nasal Cannula 2.0 08/21/16 04:00 97.7 79 16 94/63 96 Nasal Cannula 2.0 08/20/16 23:48 97.2 85 16 90/49 93 Nasal Cannula 2.0 08/20/16 21:45 97 Nasal Cannula 2.0 28 08/20/16 21:45 Nasal Cannula 2.0 28 08/20/16 19:00 97.0 81 18 109/62 98 Nasal Cannula 2.0 08/20/16 16:00 97.9 85 20 104/52 98 Nasal Cannula 2.0 Intake and Output 08/20/16 08/21/16 19:00 07:00 Intake Total 360 ml 310 ml Output Total 50 ml 150 ml Balance 310 ml 160 ml Intake Oral 360 ml 310 ml Output Urine Total 150 ml Chest Tube Drainage Total 50 ml 0 ml # Voids 1 1 # Bowel Movements 2 Laboratory Tests 08/21/16 05:20: White Blood Count 7.6, Red Blood Count 2.57L, Hemoglobin 8.6L, Hematocrit 25.3L , Mean Corpuscular Volume 98, Mean Corpuscular Hemoglobin 33.3H, Mean Corpuscular Hemoglobin Concent 33.9, Red Cell Distribution Width 23.3H, Platelet Count 120L, Mean Platelet Volume 9.9, Neutrophils (%) (Auto) 70.9, Lymphocytes (%) (Auto) 8.2L, Monocytes (%) (Auto) 14.7H, Eosinophils (%) (Auto) 4.6H, Basophils (%) (Auto) 1.5, Sodium Level 141, Potassium Level 4.1, Chloride Level 101, Carbon Dioxide Level 28, Anion Gap 12, Blood Urea Nitrogen 52H, Creatinine 2.0H, Estimat Glomerular Filtration Rate , Glucose Level 80, Calcium Level 8.4L, Magnesium Level 1.9, Total Bilirubin 2.8H, Direct Bilirubin 1.7H, Aspartate Amino Transf (AST/SGOT) 17, Alanine Aminotransferase (ALT/SGPT) 5, Alkaline Phosphatase 76, Pro-B-Type Natriuretic Peptide 1928H, Total Protein 6.7 , Albumin 1.7L, Globulin 5.0, Albumin/Globulin Ratio 0.3L Height (Feet): 5 Height (Inches): 5.00 Weight (Pounds): 160 Objective General Appearance: WD/WN, alert Neck: supple Cardiovascular: regular rhythm Respiratory/Chest: lungs clear, improved breath sounds, no respiratory distress Edema: no edema noted Arm (L), no edema noted Arm (R), no edema noted Leg (L), no edema noted Leg (R), no edema noted Pedal (L), no edema noted Pedal (R), no edema noted Generalized TALHA LEIGH Aug 21, 2016 12:09
[2016-08-21 12:14] VITALS: BP 113/59
--- NOTE | 2016-08-21 12:19 | Diagnostic Imaging Report ---
Indication: Status post left chest tube placement Technique: One view of the chest Comparison: 5 hours earlier Findings: Interim placement of previously demonstrated small bore chest vent catheter with a large caliber chest tube. There is slight decrease in size of previously demonstrated left basilar lateral pneumothorax. There is decreased pleural fluid Impression: Interim slight decrease in size of left lateral basilar pneumothorax, status post replacement of chest vent catheter with a larger bore chest tube. Findings discussed by phone with [facility] [place] charge nurse at the time of interpretation
[2016-08-21 12:50] VITALS: BP 97/54
[2016-08-21] MEDS: Tamsulosin 0.4mg cap ORAL SCH (12:59)
[2016-08-21] MEDS ORDERED: Sterile Water Irrig 1000ml IRRIG ONE (13:39)
--- NOTE | 2016-08-21 15:09 | Diagnostic Imaging Report ---
Indications: DYSPHAGIA Technique: Patient ingested multiple substances under the supervision of speech pathology. Video fluoroscopic recording performed. Total fluoroscopy time 263 seconds. Total dose area product 0.78351 mGycm2 Comparison: none Findings: There is early pooling of all substances, but especially barium pur?e. Considerable penetration of thin liquid barium, honey thick, and nectar thick liquid barium is noted. There is also trace penetration of barium pur?e. Impression: Positive for penetration of multiple substances, as described. Negative for aspiration Other oromotor dysfunction, as described Please refer to speech pathology report for more detailed analysis
[2016-08-21 16:00] VITALS: BP 98/50
--- NOTE | 2016-08-21 16:36 | Pulmonology Progress Note ---
Assessment/Plan Assessment/Plan ASSESSMENT: 1. bilateral pleural effusions; 2. Anemia. with need for transfusion 3. Chronic kidney disease. 4. Stroke. with focal weakness 5. Hypertension. 6. History of chronic obstructive pulmonary disease. 7. History of conduction system disease. with pacemaker 8. worsening left effusion with atelectasis 9. iatrogenic pneumothorax PLAN: monitor chest xr for reexpansion of pneumothorax hold dc follow up BNP no distress no sq emphysema dc planning on hold for now care noted and reviewed thoracic called for removal follow up chest xr for change impression, plan, and exam edited and reviewed in detail care discussed with RN Subjective Allergies: Coded Allergies: No Known Allergies (Unverified , 01/24/14) Subjective had pneumothorax chest vent in place thoracic called pneumothorax improved Objective Last 24 Hour Vital Signs Date Time Temp Pulse Resp B/P Pulse Ox O2 Delivery O2 Flow Rate FiO2 08/21/16 16:00 97.7 80 18 98/50 98 Nasal Cannula 2.0 08/21/16 12:50 74 97/54 08/21/16 12:14 97.7 78 21 113/59 98 Nasal Cannula 2.0 08/21/16 09:00 74 91/53 08/21/16 08:41 97.3 74 20 91/53 99 Nasal Cannula 2.0 08/21/16 04:00 97.7 79 16 94/63 96 Nasal Cannula 2.0 08/20/16 23:48 97.2 85 16 90/49 93 Nasal Cannula 2.0 08/20/16 21:45 97 Nasal Cannula 2.0 28 08/20/16 21:45 Nasal Cannula 2.0 28 08/20/16 19:00 97.0 81 18 109/62 98 Nasal Cannula 2.0 Intake and Output 08/20/16 08/21/16 19:00 07:00 Intake Total 360 ml 310 ml Output Total 50 ml 150 ml Balance 310 ml 160 ml Intake Oral 360 ml 310 ml Output Urine Total 150 ml Chest Tube Drainage Total 50 ml 0 ml # Voids 1 1 # Bowel Movements 2 Objective Sp02 EP Interpretation: reviewed, normal General Appearance: normal inspection, well appearing, no apparent distress, alert Head: normocephalic, atraumatic Eyes: bilateral eye normal inspection ENT: normal ENT inspection, no angioedema, normal voice Neck: normal inspection, full range of motion, supple, no meningismus, carotid 2+ Respiratory: decreased breath sounds, improved left; chest vent in place Cardiovascular #1: regular rate, rhythm, no murmur without MRG Gastrointestinal: non tender, soft, non-distended, no guarding, no rebound Musculoskeletal: no CC; some edema persistent Neurologic: alert, no distress Laboratory Tests 08/21/16 05:20: White Blood Count 7.6, Red Blood Count 2.57L, Hemoglobin 8.6L, Hematocrit 25.3L , Mean Corpuscular Volume 98, Mean Corpuscular Hemoglobin 33.3H, Mean Corpuscular Hemoglobin Concent 33.9, Red Cell Distribution Width 23.3H, Platelet Count 120L, Mean Platelet Volume 9.9, Neutrophils (%) (Auto) 70.9, Lymphocytes (%) (Auto) 8.2L, Monocytes (%) (Auto) 14.7H, Eosinophils (%) (Auto) 4.6H, Basophils (%) (Auto) 1.5, Sodium Level 141, Potassium Level 4.1, Chloride Level 101, Carbon Dioxide Level 28, Anion Gap 12, Blood Urea Nitrogen 52H, Creatinine 2.0H, Estimat Glomerular Filtration Rate , Glucose Level 80, Calcium Level 8.4L, Magnesium Level 1.9, Total Bilirubin 2.8H, Direct Bilirubin 1.7H, Aspartate Amino Transf (AST/SGOT) 17, Alanine Aminotransferase (ALT/SGPT) 5, Alkaline Phosphatase 76, Pro-B-Type Natriuretic Peptide 1928H, Total Protein 6.7 , Albumin 1.7L, Globulin 5.0, Albumin/Globulin Ratio 0.3L Current Medications Medications (Trade) Dose Ordered Sig/Homar Route PRN Reason Start Time Stop Time Status Last Admin Dose Admin Acetaminophen (Tylenol) 650 mg Q4H PRN ORAL Mild Pain (Pain Scale 1-3) 08/20/16 13:15 09/13/16 13:14 Acetaminophen/ Hydrocodone Bitart ([place] 10/325) 1 ea Q4H PRN ORAL Moderate Pain (Pain Scale 4-6) 08/20/16 08:30 08/27/16 08:29 Aspirin (Ecotrin) 81 mg DAILY ORAL 08/15/16 09:00 09/14/16 08:59 08/21/16 08:50 Calcium Carbonate (OsCal D) 1 tab DAILY ORAL 08/15/16 09:00 09/14/16 08:59 08/21/16 08:51 Cyanocobalamin (Vitamin B-12) 1,000 mcg DAILY ORAL 08/15/16 09:00 09/14/16 08:59 08/21/16 08:52 Dextrose (Dextrose 50%) STAT PRN IV Hypoglycemia 08/14/16 13:15 09/13/16 13:14 08/17/16 17:45 Docusate Sodium (Colace) 250 mg DAILY ORAL 08/15/16 09:00 09/14/16 08:59 08/21/16 08:50 Epoetin Deshaun (Procrit (for non ESRD use)) 7,000 units FRI-FRI-FRI SUBQ 08/14/16 21:00 09/13/16 20:59 08/19/16 21:36 Ferrous Sulfate (Feosol) 325 mg THREE TIMES A DAY ORAL 08/14/16 18:00 09/13/16 17:59 08/21/16 12:59 Finasteride (Proscar) 5 mg DAILY ORAL 08/15/16 09:00 09/14/16 08:59 08/21/16 12:59 Gemfibrozil (Lopid) 600 mg TWICE A DAY ORAL 08/14/16 18:00 09/13/16 17:59 08/21/16 08:51 Insulin Aspart (NovoLOG) BEFORE MEALS AND HS SUBQ 08/14/16 16:30 09/13/16 16:29 08/21/16 16:27 Insulin Detemir (Levemir) 10 units Q12HR SUBQ 08/18/16 09:00 09/17/16 08:59 08/20/16 20:14 Metoprolol Succinate (Toprol XL) 25 mg DAILY ORAL 08/15/16 09:00 09/14/16 08:59 08/20/16 09:11 Morphine Sulfate (Morphine Sulfate) 2 mg Q4H PRN IM Severe Breakthru Pain (>7) 08/21/16 11:45 08/28/16 11:44 Multivitamins (Multivitamins) 1 tab DAILY ORAL 08/15/16 09:00 09/14/16 08:59 08/21/16 08:51 Pantoprazole (Protonix) 40 mg DAILY ORAL 08/15/16 09:00 09/14/16 08:59 08/21/16 08:52 Promethazine HCl/ Codeine (Phenergan with Codeine) 10 ml TID PRN ORAL For Cough 08/14/16 13:15 09/13/16 13:14 08/16/16 17:51 Ranitidine HCl (Zantac) 150 mg DAILY ORAL 08/15/16 09:00 09/14/16 08:59 08/21/16 08:52 Sodium Bicarbonate (NaHCO3) 650 mg BID ORAL 08/14/16 18:00 09/13/16 17:59 08/21/16 08:51 Tamsulosin HCl (Flomax) 0.4 mg DAILY ORAL 08/15/16 09:00 09/14/16 08:59 08/21/16 12:59 Vitamin D (Vitamin D) 800 intlu DAILY ORAL 08/15/16 09:00 09/14/16 08:59 08/21/16 08:52 KENDRICK SCHWARTZ Aug 21, 2016 16:36
--- NOTE | 2016-08-21 17:58 | Operative Note - Dictated ---
DATE OF OPERATION: 08/21/2016 PREOPERATIVE DIAGNOSIS: Left pneumothorax. POSTOPERATIVE DIAGNOSIS: Left pneumothorax. PROCEDURE PERFORMED: 1. Removal of left pigtail catheter. 2. Left thoracostomy. 3. Intercostal nerve block. INDICATION FOR PROCEDURE: The patient is a 80-year-old male who was admitted to [facility] status post left thoracentesis and found to have a left-sided pneumothorax. He underwent pigtail decompression by the Interventional Radiology and pneumothorax failed to resolve. A Thoracic surgery was then consulted for chest tube. DESCRIPTION OF PROCEDURE: After obtaining informed consent, the patient was then placed in a right lateral decubitus position and prepped and draped and the dressing was then taken down. The pigtail catheter was then removed in the usual manner and a left chest was then prepped and draped. A 40 mL of 1% lidocaine was used to perform intercostal nerve block from the third to the sixth intercostal space in the usual fashion. A 1.5 centimeter incision was made over the pigtail insertion site. Dissection was then carried down into the subcutaneous tissue. Placement of a 28-Green[place] chest tube into the left hemithorax was uneventful and the chest was then connected to suction Pleur-evac. The chest tube was anchored at the skin level using 0 silk suture and a dry dressing was applied. The patient tolerated procedure well without any complications. Currently, he is awaiting for chest x-ray. Wise M.D. DR: WESTLEY JOB#: [id number] CC: BERNIE
--- NOTE | 2016-08-21 19:48 | Consultation ---
DATE OF CONSULTATION: 08/14/2016 CONSULTING PHYSICIAN: Nagi Romero M.D., Thoracic Surgery. REFERRING PHYSICIAN: Vlad Payne M.D. HISTORY OF PRESENT ILLNESS: The patient is an 80-year-old male, who was admitted to [facility] for shortness of breath. Workup including a chest CT scan demonstrated a bilateral pleural effusion, left greater than right for which he underwent a left-sided thoracentesis. Post procedure, the patient was found to have a left pneumothorax. A pigtail catheter was then placed and failed to resolve the pneumothorax and Thoracic surgeon was then consulted for further evaluation. PAST MEDICAL HISTORY: Notable for 1. Cerebrovascular accident. 2. Hypertension. 3. Hypertensive heart disease. 4. Anemia of chronic kidney disease. 5. Arrhythmia. PAST SURGICAL HISTORY: Notable for a pacemaker placement. MEDICATIONS: Reviewed. ALLERGIES: The patient has no known drug allergies. SOCIAL HISTORY: Noncontributory. FAMILY HISTORY: Noncontributory. PHYSICAL EXAMINATION: VITAL SIGNS: He is noted to be afebrile. His vitals are within normal limits. CARDIAC: Regular rate and rhythm. No gallops or murmur. RESPIRATORY: Clear to auscultation on the right and with decreased crackles on the left. The pigtail is noted and there is no evidence of air leak. ABDOMEN: Soft, nondistended, and nontender with normoactive bowel sounds. EXTREMITIES: No evidence of cyanosis, clubbing, or edema. LABORATORY AND DIAGNOSTIC DATA: Laboratory studies performed on 07/21/2016 showed WBC 7.6, hemoglobin of 8.6, hematocrit 25, and a platelet count of 120,000. Sodium is 141, potassium 4.1, chloride 101, bicarbonate 28, BUN is 52, creatinine is 2.0 and glucose is 80. His PT is 15, PTT is 34, and INR is 1.5. A chest CT scan was performed on 08/19/2016 demonstrated bilateral pleural effusion, left greater than the right. A chest x-ray performed on 08/21/2016 demonstrated left basilar pneumothorax with a pigtail in place. ASSESSMENT AND PLAN: This is an 80-year-old male status post left thoracentesis and found to have a left-sided pneumothorax. The patient was evaluated at bedside. After reviewing, the patient's clinical database, I will proceed to put a large-bore chest tube to decompress the pneumothorax. If the pneumothorax failed to decompress, then the patient is proven to have trapped lung and he may be a candidate for PleurX catheter. I want to thank you for referring this patient to my attention. If there are any questions in regard to this patient's clinical care, please do not hesitate to contact me. Wise M.D. DR: WESTLEY JOB#: [id number] CC: BERNIE
[2016-08-21 20:00] VITALS: BP_SYST 108; BP_SYST 94; BP_DIAS 52; BP_DIAS 60
[2016-08-21] MEDS: Epogen (for non ESRD use) SUBQ SCH (20:57)
[2016-08-22] VITALS: BP 104/55
--- NOTE | 2016-08-22 00:58 | Progress Note ---
DATE: 08/21/2016 CARDIOLOGY PROGRESS NOTE SUBJECTIVE: The patient was seen by thoracic surgeon the left thoracostomy was performed with intercostal nerve block and removal of left pigtail catheter. The patient has pain, but is responding to ordered analgesics. OBJECTIVE: VITAL SIGNS: Blood pressure 94/52, pulse 81, respirations 16, and temperature 99.7 degrees. LUNGS: Bilateral breath sounds. Scattered rhonchi on the left. HEART: Irregularly irregular rhythm. Normal S1 and S2. A 1/6 systolic murmur at apex. ABDOMEN: Soft. EXTREMITIES: No edema. LABORATORY DATA: White count 7.6 and hemoglobin 8.6. Potassium 4.1, BUN 52, and creatinine 2.0 Pro-natriuretic peptide 1928, which has decreased from 4000. Albumin is 1.7. IMPRESSION: 1. Iatrogenic pneumothorax, status post thoracostomy on the left. 2. Acute on chronic renal failure. 3. Severe protein-calorie malnutrition. 4. Acute on chronic diastolic congestive heart failure, improved. 5. Paroxysmal atrial fibrillation. 6. Permanent pacemaker. PLAN: Hydrate with caution. No diuretics. Nutritional support. Postoperative cardiothoracic surgery management. Pain control. Joseph Muniz M.D. DR: MCKENNA JOB#: [id number] CC:
[2016-08-22 04:45] VITALS: BP 104/56
[2016-08-22] MEDS: NovoLOG Insulin Flexpen SUBQ SCH ×4 (06:30→20:34)
--- NOTE | 2016-08-22 07:01 | General Progress Note ---
Assessment/Plan Problem List: (1) Anemia ICD Codes: D64.9 - Anemia, unspecified SNOMED: 802577387 (2) Tachycardia ICD Codes: R00.0 - Tachycardia, unspecified SNOMED: 6324829 (3) GIB (gastrointestinal bleeding) ICD Codes: K92.2 - Gastrointestinal hemorrhage, unspecified SNOMED: 19327860 Assessment/Plan resp care o2 chest tube management per ct surgery monitor h/h and labs monitor cxr not stable for discharge transfuse prn pain rx adjusted dvt/stress ulcer prophylaxis Subjective ROS Limited/Unobtainable: No Constitutional: Reports: malaise, weakness HEENT: Reports: no symptoms Cardiovascular: Reports: no symptoms Respiratory: Reports: cough Gastrointestinal/Abdominal: Reports: no symptoms Genitourinary: Reports: no symptoms Neurologic/Psychiatric: Reports: pre-existing deficit Endocrine: Reports: no symptoms Hematologic/Lymphatic: Reports: no symptoms Allergies: Coded Allergies: No Known Allergies (Unverified , 01/24/14) All Systems: reviewed and negative except above Subjective no overnight events. still with chest tube. no leak noted. eating breakfast. denies sob. Objective Last 24 Hour Vital Signs Date Time Temp Pulse Resp B/P Pulse Ox O2 Delivery O2 Flow Rate FiO2 08/22/16 04:45 97.1 83 18 104/56 98 Nasal Cannula 2.0 08/22/16 00:00 97.0 81 17 104/55 100 Nasal Cannula 2.0 08/21/16 20:19 Nasal Cannula 2.0 28 08/21/16 20:18 96 Nasal Cannula 2.0 28 08/21/16 20:00 99.7 81 16 94/52 98 Nasal Cannula 2.0 08/21/16 16:00 97.7 80 18 98/50 98 Nasal Cannula 2.0 08/21/16 12:50 74 97/54 08/21/16 12:14 97.7 78 21 113/59 98 Nasal Cannula 2.0 08/21/16 09:00 74 91/53 08/21/16 08:41 97.3 74 20 91/53 99 Nasal Cannula 2.0 Intake and Output 08/21/16 08/22/16 19:00 07:00 Intake Total 360 ml 150 ml Output Total 346 ml 115 ml Balance 14 ml 35 ml Intake Oral 360 ml 150 ml Output Urine Total 150 ml Chest Tube Drainage Total 196 ml 115 ml # Voids 5 3 # Bowel Movements 1 1 Laboratory Tests 08/22/16 05:45: White Blood Count [Pending], Red Blood Count [Pending], Hemoglobin [Pending], Hematocrit [Pending], Mean Corpuscular Volume [Pending], Mean Corpuscular Hemoglobin [Pending], Mean Corpuscular Hemoglobin Concent [Pending], Red Cell Distribution Width [Pending], Platelet Count [Pending], Mean Platelet Volume [ Pending], Neutrophils (%) (Auto) [Pending], Lymphocytes (%) (Auto) [Pending], Monocytes (%) (Auto) [Pending], Eosinophils (%) (Auto) [Pending], Basophils (%) (Auto) [Pending], Sodium Level [Pending], Potassium Level [Pending], Chloride Level [Pending], Carbon Dioxide Level [Pending], Blood Urea Nitrogen [Pending], Creatinine [Pending], Estimat Glomerular Filtration Rate [Pending], Glucose Level [Pending], Calcium Level [Pending], Total Bilirubin [Pending], Aspartate Amino Transf (AST/SGOT) [Pending], Alanine Aminotransferase (ALT/SGPT) [Pending] , Alkaline Phosphatase [Pending], Total Protein [Pending], Albumin [Pending], Globulin [Pending] Height (Feet): 5 Height (Inches): 5.00 Weight (Pounds): 160 Objective General Appearance: WD/WN, alert Neck: supple Cardiovascular: regular rhythm Respiratory/Chest: lungs clear, improved breath sounds, no respiratory distress. +left sided chest tube Edema: no edema noted Arm (L), no edema noted Arm (R), no edema noted Leg (L), no edema noted Leg (R), no edema noted Pedal (L), no edema noted Pedal (R), no edema noted Generalized TALHA LEIGH Aug 22, 2016 07:01
[2016-08-22 07:04] LABS: BASOPHILS % (AUTO) 1.6 % (0.0-2.0); EOSINOPHILS % (AUTO) 2.3 % (0.0-3.0); LYMPHOCYTES % (AUTO) 5.9 % (20.0-45.0); MEAN CORPUSCULAR HEMOGLOBIN 31.8 PG (27.0-31.0); MEAN CORPUSCULAR HGB CONC 32.1 G/DL (32.0-36.0); MEAN CORPUSCULAR VOLUME 99 FL (80-99); MEAN PLATELET VOLUME 8.2 FL (6.5-10.1); MONOCYTES % (AUTO) 11.8 % (1.0-10.0); NEUTROPHILS % (AUTO) 78.4 % (45.0-75.0); PLATELET COUNT 133 K/UL (150-450); RED BLOOD COUNT 2.83 M/UL (4.70-6.10); WHITE BLOOD COUNT 7.3 K/UL (4.8-10.8)
[2016-08-22 07:35] LABS: ALANINE AMINOTRANSFERASE 5 U/L (3-41); ALBUMIN/GLOBULIN RATIO 0.3 (1.0-2.7); ANION GAP 11 (5-15); ASPARTATE AMINO TRANSFERASE 18 U/L (5-40); CALCIUM 8.4 mg/dL (8.6-10.2); CARBON DIOXIDE 27 mEQ/L (20-30); CHLORIDE 101 mEQ/L (98-107); CREATININE 1.9 mg/dL (0.7-1.2); HEMOLYSIS 10; POTASSIUM 4.1 mEQ/L (3.4-4.9); SODIUM 139 mEQ/L (135-145); TOTAL PROTEIN 7.2 g/dL (6.6-8.7)
[2016-08-22 07:51] VITALS: BP 108/55
[2016-08-22 07:52] LABS: BILIRUBIN,DIRECT 1.8 mg/dL (0.1-0.3)
--- NOTE | 2016-08-22 08:32 | Pulmonology Progress Note ---
Assessment/Plan Assessment/Plan ASSESSMENT: 1. bilateral pleural effusions; 2. Anemia. with need for transfusion 3. Chronic kidney disease. 4. Stroke. with focal weakness 5. Hypertension. 6. History of chronic obstructive pulmonary disease. 7. History of conduction system disease. with pacemaker 8. worsening left effusion with atelectasis 9. iatrogenic pneumothorax PLAN: monitor chest xr per thoracic no distress no sq emphysema noted dc planning on hold for now care noted and reviewed thoracic to manage pneumothorax monitor recurrent fluid collection follow up chest xr for change oxygen as needed impression, plan, and exam edited and reviewed in detail care discussed with RN Subjective Allergies: Coded Allergies: No Known Allergies (Unverified , 01/24/14) Subjective chest vent removed and CT placed thoracic appreciated pneumothorax improved Objective Last 24 Hour Vital Signs Date Time Temp Pulse Resp B/P Pulse Ox O2 Delivery O2 Flow Rate FiO2 08/22/16 07:51 97.3 85 21 108/55 99 Nasal Cannula 2.0 08/22/16 04:45 97.1 83 18 104/56 98 Nasal Cannula 2.0 08/22/16 00:00 97.0 81 17 104/55 100 Nasal Cannula 2.0 08/21/16 20:19 Nasal Cannula 2.0 28 08/21/16 20:18 96 Nasal Cannula 2.0 28 08/21/16 20:00 99.7 81 16 94/52 98 Nasal Cannula 2.0 08/21/16 16:00 97.7 80 18 98/50 98 Nasal Cannula 2.0 08/21/16 12:50 74 97/54 08/21/16 12:14 97.7 78 21 113/59 98 Nasal Cannula 2.0 08/21/16 09:00 74 91/53 08/21/16 08:41 97.3 74 20 91/53 99 Nasal Cannula 2.0 Intake and Output 08/21/16 08/22/16 19:00 07:00 Intake Total 360 ml 150 ml Output Total 346 ml 115 ml Balance 14 ml 35 ml Intake Oral 360 ml 150 ml Output Urine Total 150 ml Chest Tube Drainage Total 196 ml 115 ml # Voids 5 3 # Bowel Movements 1 1 Objective Sp02 EP Interpretation: reviewed, normal General Appearance: normal inspection, well appearing, no apparent distress, alert Head: normocephalic, atraumatic Eyes: bilateral eye normal inspection ENT: normal ENT inspection, no angioedema, normal voice Neck: normal inspection, full range of motion, supple, no meningismus, carotid 2+ Respiratory: decreased breath sounds, improved left; chest tube in place; no sq emphysema Cardiovascular #1: regular rate, rhythm, no murmur without MRG Gastrointestinal: non tender, soft, non-distended, no guarding, no rebound Musculoskeletal: no CC; some edema persistent Neurologic: alert, no distress Laboratory Tests 08/22/16 05:45: White Blood Count 7.3, Red Blood Count 2.83L, Hemoglobin 9.0L, Hematocrit 28.0L , Mean Corpuscular Volume 99, Mean Corpuscular Hemoglobin 31.8H, Mean Corpuscular Hemoglobin Concent 32.1, Red Cell Distribution Width 24.0H, Platelet Count 133L, Mean Platelet Volume 8.2, Neutrophils (%) (Auto) 78.4H, Lymphocytes (%) (Auto) 5.9L, Monocytes (%) (Auto) 11.8H, Eosinophils (%) (Auto) 2.3, Basophils (%) (Auto) 1.6, Sodium Level 139, Potassium Level 4.1, Chloride Level 101, Carbon Dioxide Level 27, Anion Gap 11, Blood Urea Nitrogen 55H, Creatinine 1.9H, Estimat Glomerular Filtration Rate , Glucose Level 80, Calcium Level 8.4L, Total Bilirubin 3.0H, Direct Bilirubin 1.8H, Aspartate Amino Transf (AST/SGOT) 18, Alanine Aminotransferase (ALT/SGPT) 5, Alkaline Phosphatase 84, Total Protein 7.2, Albumin 1.8L, Globulin 5.4, Albumin/Globulin Ratio 0.3L Current Medications Medications (Trade) Dose Ordered Sig/Homar Route PRN Reason Start Time Stop Time Status Last Admin Dose Admin Acetaminophen (Tylenol) 650 mg Q4H PRN ORAL Mild Pain (Pain Scale 1-3) 08/20/16 13:15 09/13/16 13:14 Acetaminophen/ Hydrocodone Bitart ([place] 10/325) 1 ea Q4H PRN ORAL Moderate Pain (Pain Scale 4-6) 08/20/16 08:30 08/27/16 08:29 Aspirin (Ecotrin) 81 mg DAILY ORAL 08/15/16 09:00 09/14/16 08:59 08/21/16 08:50 Calcium Carbonate (OsCal D) 1 tab DAILY ORAL 08/15/16 09:00 09/14/16 08:59 08/21/16 08:51 Cyanocobalamin (Vitamin B-12) 1,000 mcg DAILY ORAL 08/15/16 09:00 09/14/16 08:59 08/21/16 08:52 Dextrose (Dextrose 50%) STAT PRN IV Hypoglycemia 08/14/16 13:15 09/13/16 13:14 08/17/16 17:45 Docusate Sodium (Colace) 250 mg DAILY ORAL 08/15/16 09:00 09/14/16 08:59 08/21/16 08:50 Epoetin Deshaun (Procrit (for non ESRD use)) 7,000 units FRI-FRI-FRI SUBQ 08/14/16 21:00 09/13/16 20:59 08/21/16 20:57 Ferrous Sulfate (Feosol) 325 mg THREE TIMES A DAY ORAL 08/14/16 18:00 09/13/16 17:59 08/21/16 17:20 Finasteride (Proscar) 5 mg DAILY ORAL 08/15/16 09:00 09/14/16 08:59 08/21/16 12:59 Gemfibrozil (Lopid) 600 mg TWICE A DAY ORAL 08/14/16 18:00 09/13/16 17:59 08/21/16 17:20 Insulin Aspart (NovoLOG) BEFORE MEALS AND HS SUBQ 08/14/16 16:30 09/13/16 16:29 08/21/16 20:59 Insulin Detemir (Levemir) 10 units Q12HR SUBQ 08/18/16 09:00 09/17/16 08:59 08/21/16 21:00 Metoprolol Succinate (Toprol XL) 25 mg DAILY ORAL 08/15/16 09:00 09/14/16 08:59 08/20/16 09:11 Morphine Sulfate (Morphine Sulfate) 2 mg Q4H PRN IM Severe Breakthru Pain (>7) 08/21/16 11:45 08/28/16 11:44 Multivitamins (Multivitamins) 1 tab DAILY ORAL 08/15/16 09:00 09/14/16 08:59 08/21/16 08:51 Pantoprazole (Protonix) 40 mg DAILY ORAL 08/15/16 09:00 09/14/16 08:59 08/21/16 08:52 Promethazine HCl/ Codeine (Phenergan with Codeine) 10 ml TID PRN ORAL For Cough 08/14/16 13:15 09/13/16 13:14 08/16/16 17:51 Ranitidine HCl (Zantac) 150 mg DAILY ORAL 08/15/16 09:00 09/14/16 08:59 08/21/16 08:52 Sodium Bicarbonate (NaHCO3) 650 mg BID ORAL 08/14/16 18:00 09/13/16 17:59 08/21/16 17:20 Tamsulosin HCl (Flomax) 0.4 mg DAILY ORAL 08/15/16 09:00 09/14/16 08:59 08/21/16 12:59 Vitamin D (Vitamin D) 800 intlu DAILY ORAL 08/15/16 09:00 09/14/16 08:59 08/21/16 08:52 KENDRICK SCHWARTZ Aug 22, 2016 08:32
--- NOTE | 2016-08-22 08:32 | Wound Care Consultation ---
Wound Assessment Wound Assessment : Wound Present on Admission: Yes New Wound: No Status Change of Wound: No Wound Location Body Site Modif: right Wound Location Body Site: sacral Wound Type: pressure ulcer Hemanth Test: Does not Hemanth Pressure Ulcer Stage: III Wound Thickness: Full Thickness Wound Length: 1.0 Wound Width: 1.0 Wound Depth: 0.3 Percent of Wound Varnell/Red: 80 Percent of Wound Black/Brown: 20 - noted small dry scab Wound Drainage Description: Serosanguineous Wound Drainage Amount: Scant Wound Drainage Odor: None/Absent Tissue Surrounding Wound: Macerated Wound General Appearance: Reddened Wound Comment #1 Right sacral pressure ulcer stage III.- upon reassessment no further deterioration present. Recommendation -Apply low air loss overlay SPR mattress for wound and skin management. -Local wound care as ordered. -Turn and reposition. -Optimize nutrition. -Keep clean and dry. -Heel protectors. -Avoid shear and friction. -Assess and notify MD for any changes of condition. BENEDICTO DOTSON Aug 22, 2016 08:32
[2016-08-22] MEDS: Docusate 250mg cap ORAL SCH (09:35)
[2016-08-22] MEDS: Tamsulosin 0.4mg cap ORAL SCH (09:36)
[2016-08-22] MEDS: Aspirin EC 81mg tab ORAL SCH (09:36)
[2016-08-22] MEDS: Vitamin B-12 500mcg tab ORAL SCH (09:37)
[2016-08-22] MEDS: Sodium Bicarbonate 650mg Tab ORAL SCH ×2 (09:37→18:55)
[2016-08-22] MEDS: Calcium Carbonate 500mg w/Vit D 200iu tab ORAL SCH (09:37)
[2016-08-22] MEDS: Vitamin D 400 INTLU TAB ORAL SCH (09:38)
[2016-08-22] MEDS: Levemir Flexpen SUBQ SCH ×2 (09:55→20:34)
[2016-08-22 12:05] VITALS: BP 97/55
[2016-08-22 16:10] VITALS: BP 105/56
[2016-08-22 19:59] VITALS: BP 107/57
[2016-08-23] VITALS: BP 107/55
--- NOTE | 2016-08-23 03:48 | Progress Note ---
DATE: 08/22/2016 CARDIOLOGY PROGRESS NOTE SUBJECTIVE: The patient is still with a chest tube. Air leak has decreased. Pain is improved. Appetite is better. OBJECTIVE: VITAL SIGNS: Blood pressure 107/57, pulse 97, respirations 20, afebrile, and oxygen saturation on two liters 98%. NECK: Supple. Rhonchi on the left. HEART: Regular rhythm and rate. Normal S1 and S2. A 1/6 systolic apical murmur. ABDOMEN: Soft. EXTREMITIES: Trace dependent edema. LABORATORY DATA: White count 7.3 and hemoglobin 9. Potassium 4.1, BUN 55, and creatinine 1.9. Albumin 1.8. IMPRESSION: 1. Pleural effusion, status post thoracentesis with subsequent iatrogenic pneumothorax, now with chest tube in place and air leak improving. 2. Acute on chronic kidney injury, improved. 3. Severe protein-calorie malnutrition. 4. Acute on chronic diastolic congestive heart failure. 5. Paroxysmal atrial fibrillation, permanent pacemaker. 6. Cerebrovascular disease with hemiparesis. PLAN: 1. Chest tube management. Removal once air leak resolves. 2. Protein replacement. 3. Nutritional support. 4. No diuretics. 5. Monitor volume status and cardiorenal parameters. 6. Condition remains serious with guarded prognosis. The patient has high risk. Joseph Muniz M.D. DR: Doyle JOB#: [id number] CC:
--- NOTE | 2016-08-23 03:58 | Progress Note ---
DATE: 08/22/2016 CARDIOLOGY PROGRESS NOTE: SUBJECTIVE: The patient remains with chest tube. No air leak noted. Pain is controlled. Appetite is better. No shortness of breath. OBJECTIVE: VITAL SIGNS: Blood pressure 104/56 and heart rate 83. Joseph Muniz M.D. DR: Olivier JOB#: [id number] CC:
[2016-08-23 04:00] VITALS: BP 108/57
[2016-08-23] MEDS: NovoLOG Insulin Flexpen SUBQ SCH ×4 (06:18→21:00)
[2016-08-23 07:07] LABS: BD FL SOURCE THORACENTESIS; BD FL VOLUME 24 mL
[2016-08-23 07:08] LABS: LDH, BODY FLUID 120 U/L
--- NOTE | 2016-08-23 07:18 | General Progress Note ---
Assessment/Plan Problem List: (1) Anemia ICD Codes: D64.9 - Anemia, unspecified SNOMED: 888541986 (2) Tachycardia ICD Codes: R00.0 - Tachycardia, unspecified SNOMED: 9073735 (3) GIB (gastrointestinal bleeding) ICD Codes: K92.2 - Gastrointestinal hemorrhage, unspecified SNOMED: 46778755 Status: stable, progressing Assessment/Plan resp care o2 chest tube management per ct surgery monitor h/h and labs f/u cxr not stable for discharge transfuse prn pain rx adjusted dvt/stress ulcer prophylaxis Subjective ROS Limited/Unobtainable: No Constitutional: Reports: malaise, weakness HEENT: Reports: no symptoms Cardiovascular: Reports: no symptoms Respiratory: Reports: cough Gastrointestinal/Abdominal: Reports: no symptoms Genitourinary: Reports: no symptoms Neurologic/Psychiatric: Reports: pre-existing deficit Endocrine: Reports: no symptoms Hematologic/Lymphatic: Reports: anemia Allergies: Coded Allergies: No Known Allergies (Unverified , 01/24/14) All Systems: reviewed and negative except above Subjective no overnight events. still with chest tube. no leak noted. pain controlled. labs pending today. cxr pending today Objective Last 24 Hour Vital Signs Date Time Temp Pulse Resp B/P Pulse Ox O2 Delivery O2 Flow Rate FiO2 08/23/16 04:00 98.2 95 18 108/57 98 Nasal Cannula 2.5 08/23/16 00:00 97.8 98 17 107/55 96 Nasal Cannula 2.5 08/22/16 20:00 98 Nasal Cannula 2.0 28 08/22/16 19:59 98.1 97 20 107/57 98 Nasal Cannula 2.0 08/22/16 19:00 Nasal Cannula 2.0 28 08/22/16 16:10 96.4 91 22 105/56 94 Room Air 08/22/16 12:05 97.7 88 20 97/55 99 Nasal Cannula 2.0 08/22/16 09:00 85 97/55 08/22/16 07:51 97.3 85 21 108/55 99 Nasal Cannula 2.0 Intake and Output 08/22/16 08/23/16 19:00 07:00 Intake Total 270 ml 110 ml Output Total 15 ml 20 ml Balance 255 ml 90 ml Intake Oral 270 ml 110 ml Chest Tube Drainage Total 15 ml 20 ml # Voids 1 # Bowel Movements 1 Laboratory Tests 08/23/16 06:15: Reticulocyte Count [Pending] Height (Feet): 5 Height (Inches): 5.00 Weight (Pounds): 160 Objective General Appearance: WD/WN, alert Neck: supple Cardiovascular: regular rhythm Respiratory/Chest: lungs clear, improved breath sounds, no respiratory distress. +left sided chest tube Edema: no edema noted Arm (L), no edema noted Arm (R), no edema noted Leg (L), no edema noted Leg (R), no edema noted Pedal (L), no edema noted Pedal (R), no edema noted Generalized TALHA LEIGH Aug 23, 2016 07:18
[2016-08-23 08:28] VITALS: BP 102/51
[2016-08-23] MEDS: Tamsulosin 0.4mg cap ORAL SCH (08:35)
[2016-08-23] MEDS: Calcium Carbonate 500mg w/Vit D 200iu tab ORAL SCH (08:36)
[2016-08-23] MEDS: Vitamin B-12 500mcg tab ORAL SCH (08:36)
[2016-08-23] MEDS: Aspirin EC 81mg tab ORAL SCH (08:36)
[2016-08-23] MEDS: Vitamin D 400 INTLU TAB ORAL SCH (08:36)
[2016-08-23] MEDS: Docusate 250mg cap ORAL SCH (08:36)
[2016-08-23] MEDS: Sodium Bicarbonate 650mg Tab ORAL SCH ×2 (08:37→17:52)
[2016-08-23] MEDS: Levemir Flexpen SUBQ SCH ×2 (08:40→21:00)
--- NOTE | 2016-08-23 08:43 | Pulmonology Progress Note ---
Assessment/Plan Assessment/Plan ASSESSMENT: 1. bilateral pleural effusions; 2. Anemia. with need for transfusion 3. Chronic kidney disease. 4. Stroke. with focal weakness 5. Hypertension. 6. History of chronic obstructive pulmonary disease. 7. History of conduction system disease. with pacemaker 8. worsening left effusion with atelectasis 9. iatrogenic pneumothorax PLAN: monitor chest xr per thoracic hope to dc soon no distress no sq emphysema noted dc planning on hold for now care noted and reviewed monitor recurrent fluid collection follow up cytology follow up chest xr for change oxygen as needed aspiration precautions impression, plan, and exam edited and reviewed in detail care discussed with RN Subjective Allergies: Coded Allergies: No Known Allergies (Unverified , 01/24/14) Subjective CT in place thoracic appreciated pneumothorax noted imaging reviewed Objective Last 24 Hour Vital Signs Date Time Temp Pulse Resp B/P Pulse Ox O2 Delivery O2 Flow Rate FiO2 08/23/16 08:38 97 102/51 08/23/16 08:28 97.5 97 15 102/51 99 Room Air 08/23/16 04:00 98.2 95 18 108/57 98 Nasal Cannula 2.5 08/23/16 00:00 97.8 98 17 107/55 96 Nasal Cannula 2.5 08/22/16 20:00 98 Nasal Cannula 2.0 28 08/22/16 19:59 98.1 97 20 107/57 98 Nasal Cannula 2.0 08/22/16 19:00 Nasal Cannula 2.0 28 08/22/16 16:10 96.4 91 22 105/56 94 Room Air 08/22/16 12:05 97.7 88 20 97/55 99 Nasal Cannula 2.0 08/22/16 09:00 85 97/55 Intake and Output 08/22/16 08/23/16 19:00 07:00 Intake Total 270 ml 110 ml Output Total 15 ml 55 ml Balance 255 ml 55 ml Intake Oral 270 ml 110 ml Chest Tube Drainage Total 15 ml 55 ml # Voids 1 # Bowel Movements 1 Objective Sp02 EP Interpretation: reviewed, normal General Appearance: normal inspection, well appearing, no apparent distress, alert Head: normocephalic, atraumatic Eyes: bilateral eye normal inspection ENT: normal ENT inspection, no angioedema, normal voice Neck: normal inspection, full range of motion, supple, no meningismus, carotid 2+ Respiratory: decreased breath sounds, improved left; chest tube in place; no sq emphysema Cardiovascular #1: regular rate, rhythm, no murmur without MRG Gastrointestinal: non tender, soft, non-distended, no guarding, no rebound Musculoskeletal: no CC; some edema persistent Neurologic: alert, no distress Laboratory Tests 08/23/16 06:15: Reticulocyte Count [Pending] Current Medications Medications (Trade) Dose Ordered Sig/Homar Route PRN Reason Start Time Stop Time Status Last Admin Dose Admin Acetaminophen (Tylenol) 650 mg Q4H PRN ORAL Mild Pain (Pain Scale 1-3) 08/20/16 13:15 09/13/16 13:14 Acetaminophen/ Hydrocodone Bitart ([place] 10/325) 1 ea Q4H PRN ORAL Moderate Pain (Pain Scale 4-6) 08/20/16 08:30 08/27/16 08:29 Aspirin (Ecotrin) 81 mg DAILY ORAL 08/15/16 09:00 09/14/16 08:59 08/23/16 08:36 Calcium Carbonate (OsCal D) 1 tab DAILY ORAL 08/15/16 09:00 09/14/16 08:59 08/23/16 08:36 Cyanocobalamin (Vitamin B-12) 1,000 mcg DAILY ORAL 08/15/16 09:00 09/14/16 08:59 08/23/16 08:36 Dextrose (Dextrose 50%) STAT PRN IV Hypoglycemia 08/14/16 13:15 09/13/16 13:14 08/17/16 17:45 Docusate Sodium (Colace) 250 mg DAILY ORAL 08/15/16 09:00 09/14/16 08:59 08/23/16 08:36 Epoetin Deshaun (Procrit (for non ESRD use)) 7,000 units FRI-FRI-FRI SUBQ 08/14/16 21:00 09/13/16 20:59 08/21/16 20:57 Ferrous Sulfate (Feosol) 325 mg THREE TIMES A DAY ORAL 08/14/16 18:00 09/13/16 17:59 08/23/16 08:36 Finasteride (Proscar) 5 mg DAILY ORAL 08/15/16 09:00 09/14/16 08:59 08/23/16 08:36 Gemfibrozil (Lopid) 600 mg TWICE A DAY ORAL 08/14/16 18:00 09/13/16 17:59 08/23/16 08:36 Insulin Aspart (NovoLOG) BEFORE MEALS AND HS SUBQ 08/14/16 16:30 09/13/16 16:29 08/23/16 06:18 Insulin Detemir (Levemir) 10 units Q12HR SUBQ 08/18/16 09:00 09/17/16 08:59 08/23/16 08:40 Metoprolol Succinate (Toprol XL) 25 mg DAILY ORAL 08/15/16 09:00 09/14/16 08:59 08/20/16 09:11 Morphine Sulfate (Morphine Sulfate) 2 mg Q4H PRN IM Severe Breakthru Pain (>7) 08/21/16 11:45 08/28/16 11:44 Multivitamins (Multivitamins) 1 tab DAILY ORAL 08/15/16 09:00 09/14/16 08:59 08/23/16 08:37 Pantoprazole (Protonix) 40 mg DAILY ORAL 08/15/16 09:00 09/14/16 08:59 08/23/16 08:37 Promethazine HCl/ Codeine (Phenergan with Codeine) 10 ml TID PRN ORAL For Cough 08/14/16 13:15 09/13/16 13:14 08/16/16 17:51 Ranitidine HCl (Zantac) 150 mg DAILY ORAL 08/15/16 09:00 09/14/16 08:59 08/23/16 08:36 Sodium Bicarbonate (NaHCO3) 650 mg BID ORAL 08/14/16 18:00 09/13/16 17:59 08/23/16 08:37 Tamsulosin HCl (Flomax) 0.4 mg DAILY ORAL 08/15/16 09:00 09/14/16 08:59 08/23/16 08:35 Vitamin D (Vitamin D) 800 intlu DAILY ORAL 08/15/16 09:00 09/14/16 08:59 08/23/16 08:36 KENDRICK SCHWARTZ Aug 23, 2016 08:43
[2016-08-23] MEDS ORDERED: Sodium Bicarbonate 8.4% 50ml Inj IV PRN (11:00)
[2016-08-23] MEDS ORDERED: Lidocaine 1% Plain 30 ml INJ PRN (11:00)
[2016-08-23] MEDS ORDERED: Heparin 2000 units/Ns 1000ml INJ PRN (11:00)
--- NOTE | 2016-08-23 11:24 | General Progress Note ---
Progress Note Progress Note Left chest tube drained 400 cc since insertion No airleak CXR blunting of costophrenic angle due to effusion? Continue chest tube on suction Will obtain chest CT tomorrow to evaluate lung expansion vs. fluid reaccumulation Will follow VICTORIANO LYNN M.D. Aug 23, 2016 11:24
[2016-08-23 11:27] VITALS: BP 107/44
--- NOTE | 2016-08-23 15:16 | Diagnostic Imaging Report ---
Indication: Chest pain, history pneumothorax Technique: One view of the chest Comparison: August 21, 2016 Findings: Left chest tube remains. Previously demonstrated left lateral basilar pneumothorax only minimally visible, smaller. This is probably due to filling of pleural space the fluid evidence at the left lung, however. Diffuse infiltrates throughout the. Left upper lobe is again demonstrated. Small right pleural effusion persists. Left chest pacemaker is again demonstrated Impression: Decreased left pneumothorax,. This probably due to filling in of the pleural space by reaccumulation of pleural fluid rather than improved aeration of left lung, however. Other stable findings as described This agrees with the preliminary interpretation provided overnight by [facility] service.
[2016-08-23 16:45] VITALS: BP 100/52
[2016-08-23 19:37] VITALS: BP 114/57
[2016-08-23] MEDS: Epogen (for non ESRD use) SUBQ SCH (21:09)
[2016-08-24] VITALS (7 sets, daily range): BP systolic 102–110; BP diastolic 46–63
--- NOTE | 2016-08-24 00:38 | Progress Note ---
DATE: 08/23/2016 CARDIOLOGY PROGRESS NOTE SUBJECTIVE: The patient still has a chest tube in place. Imaging is inconclusive regarding fluid reaccumulation versus air leak. CAT scan is planned. The patient's pain is controlled. He is not short of breath at rest. No monitoring at this time. OBJECTIVE: LUNGS: Bilateral breath sounds. Rhonchi at the left. HEART: Irregularly irregular rhythm. Normal S1 and S2. ABDOMEN: Soft. EXTREMITIES: Without edema. VITAL SIGNS: Blood pressure 114/57, heart rate 94, respiratory rate 20, and oxygen saturation 98% on room air. LABORATORY DATA: No new laboratories available yet. IMPRESSION: 1. Acute and chronic diastolic congestive heart failure with pleural effusion, status post thoracentesis and iatrogenic pneumothorax, possible persistent air leak versus fluid reaccumulation. 2. Paroxysmal atrial fibrillation, permanent pacemaker. 3. 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 4. Acute on chronic kidney injury, improving slowly. PLAN: 1. Continue current cardiovascular regimen. 2. Follow up laboratory studies. 3. CAT scan and chest tube management per surgeon. Joseph Muniz M.D. DR: DAMEON JOB#: [id number] CC:
[2016-08-24] MEDS: NovoLOG Insulin Flexpen SUBQ SCH ×4 (06:30→20:46)
--- NOTE | 2016-08-24 08:38 | General Progress Note ---
Assessment/Plan Problem List: (1) Anemia ICD Codes: D64.9 - Anemia, unspecified SNOMED: 917158881 (2) Tachycardia ICD Codes: R00.0 - Tachycardia, unspecified SNOMED: 9257688 (3) GIB (gastrointestinal bleeding) ICD Codes: K92.2 - Gastrointestinal hemorrhage, unspecified SNOMED: 11339420 Assessment/Plan resp care o2 chest tube management per ct surgery monitor h/h and labs f/u cxr not stable for discharge transfuse prn pain rx adjusted dvt/stress ulcer prophylaxis Subjective ROS Limited/Unobtainable: No Constitutional: Reports: malaise, weakness HEENT: Reports: no symptoms Cardiovascular: Reports: no symptoms Respiratory: Reports: cough Gastrointestinal/Abdominal: Reports: no symptoms Genitourinary: Reports: no symptoms Neurologic/Psychiatric: Reports: pre-existing deficit Endocrine: Reports: no symptoms Hematologic/Lymphatic: Reports: anemia Allergies: Coded Allergies: No Known Allergies (Unverified , 01/24/14) All Systems: reviewed and negative except above Subjective no overnight events. still with chest tube. no leak noted. pain controlled. cxr yesterday with decreased ptx. CT now clamped. Objective Last 24 Hour Vital Signs Date Time Temp Pulse Resp B/P Pulse Ox O2 Delivery O2 Flow Rate FiO2 08/24/16 08:21 96.9 94 20 107/57 95 Room Air 08/24/16 04:00 97.5 93 20 102/46 99 Room Air 08/24/16 01:13 97.8 94 20 105/56 99 Nasal Cannula 08/24/16 00:00 97.8 94 20 105/56 99 Nasal Cannula 08/23/16 19:37 98.2 94 20 114/57 98 Room Air 08/23/16 19:30 97 Nasal Cannula 2.0 28 08/23/16 19:30 Nasal Cannula 2.0 28 08/23/16 16:45 97.7 96 20 100/52 100 Room Air 08/23/16 11:27 97.3 92 16 107/44 100 Room Air 08/23/16 08:58 Nasal Cannula 2.0 28 08/23/16 08:58 97 Nasal Cannula 2.0 28 08/23/16 08:38 97 102/51 Intake and Output 08/23/16 08/24/16 19:00 07:00 Intake Total 840 ml 60 ml Output Total 200 ml 20 ml Balance 640 ml 40 ml Intake Oral 840 ml 60 ml Output Urine Total 200 ml Chest Tube Drainage Total 0 ml 20 ml # Voids 3 2 # Bowel Movements 2 Height (Feet): 5 Height (Inches): 5.00 Weight (Pounds): 160 Objective General Appearance: WD/WN, alert Neck: supple Cardiovascular: regular rhythm Respiratory/Chest: lungs clear, improved breath sounds, no respiratory distress. +left sided chest tube Edema: no edema noted Arm (L), no edema noted Arm (R), no edema noted Leg (L), no edema noted Leg (R), no edema noted Pedal (L), no edema noted Pedal (R), no edema noted Generalized TALHA LEIGH Aug 24, 2016 08:38
--- NOTE | 2016-08-24 09:05 | Diagnostic Imaging Report ---
Indication: Pneumothorax Technique: XRAY CHEST 1 V Comparison: 08/23/16 Findings: Left chest tube is again present with left pleural and parenchymal opacities. There is a small right pleural effusion with right basilar atelectasis/consolidation. Right PICC line left chest pacemaker are present. The cardio mediastinal silhouette is stable. Impression: No significant change from 08/23/16. No pneumothorax.
--- NOTE | 2016-08-24 09:29 | Pulmonology Progress Note ---
Assessment/Plan Assessment/Plan ASSESSMENT: 1. bilateral pleural effusions; 2. Anemia. with need for transfusion 3. Chronic kidney disease. 4. Stroke. with focal weakness 5. Hypertension. 6. History of chronic obstructive pulmonary disease. 7. History of conduction system disease. with pacemaker 8. worsening left effusion with atelectasis 9. iatrogenic pneumothorax PLAN: monitor chest xr now with increasing effusions hope to dc CT soon dc planning on hold for now care noted and reviewed monitor recurrent fluid collection follow up cytology follow up chest xr for change and hope to remove CT soon oxygen as needed aspiration precautions; no congestion noted impression, plan, and exam edited and reviewed in detail care discussed with RN Subjective Allergies: Coded Allergies: No Known Allergies (Unverified , 01/24/14) Subjective CT in place thoracic appreciated pneumothorax resolved imaging reviewed Objective Last 24 Hour Vital Signs Date Time Temp Pulse Resp B/P Pulse Ox O2 Delivery O2 Flow Rate FiO2 08/24/16 08:21 96.9 94 20 107/57 95 Room Air 08/24/16 04:00 97.5 93 20 102/46 99 Room Air 08/24/16 01:13 97.8 94 20 105/56 99 Nasal Cannula 08/24/16 00:00 97.8 94 20 105/56 99 Nasal Cannula 08/23/16 19:37 98.2 94 20 114/57 98 Room Air 08/23/16 19:30 97 Nasal Cannula 2.0 28 08/23/16 19:30 Nasal Cannula 2.0 28 08/23/16 16:45 97.7 96 20 100/52 100 Room Air 08/23/16 11:27 97.3 92 16 107/44 100 Room Air Intake and Output 08/23/16 08/24/16 19:00 07:00 Intake Total 840 ml 60 ml Output Total 200 ml 20 ml Balance 640 ml 40 ml Intake Oral 840 ml 60 ml Output Urine Total 200 ml Chest Tube Drainage Total 0 ml 20 ml # Voids 3 2 # Bowel Movements 2 Objective Sp02 EP Interpretation: reviewed, normal General Appearance: normal inspection, well appearing, no apparent distress, alert Head: normocephalic, atraumatic Eyes: bilateral eye normal inspection ENT: normal ENT inspection, no angioedema, normal voice Neck: normal inspection, full range of motion, supple, no meningismus, carotid 2+ Respiratory: decreased breath sounds, improved left; chest tube in place; no sq emphysema Cardiovascular #1: regular rate, rhythm, no murmur without MRG Gastrointestinal: non tender, soft, non-distended, no guarding, no rebound Musculoskeletal: no CC; some edema persistent Neurologic: alert, no distress Current Medications Medications (Trade) Dose Ordered Sig/Homar Route PRN Reason Start Time Stop Time Status Last Admin Dose Admin Acetaminophen (Tylenol) 650 mg Q4H PRN ORAL Mild Pain (Pain Scale 1-3) 08/20/16 13:15 09/13/16 13:14 Acetaminophen/ Hydrocodone Bitart ([place] 10/325) 1 ea Q4H PRN ORAL Moderate Pain (Pain Scale 4-6) 08/20/16 08:30 08/27/16 08:29 Aspirin (Ecotrin) 81 mg DAILY ORAL 08/15/16 09:00 09/14/16 08:59 08/23/16 08:36 Calcium Carbonate (OsCal D) 1 tab DAILY ORAL 08/15/16 09:00 09/14/16 08:59 08/23/16 08:36 Cyanocobalamin (Vitamin B-12) 1,000 mcg DAILY ORAL 08/15/16 09:00 09/14/16 08:59 08/23/16 08:36 Dextrose (Dextrose 50%) STAT PRN IV Hypoglycemia 08/14/16 13:15 09/13/16 13:14 08/17/16 17:45 Docusate Sodium (Colace) 250 mg DAILY ORAL 08/15/16 09:00 09/14/16 08:59 08/23/16 08:36 Epoetin Deshaun (Procrit (for non ESRD use)) 7,000 units FRI-FRI-FRI SUBQ 08/14/16 21:00 09/13/16 20:59 08/23/16 21:09 Ferrous Sulfate (Feosol) 325 mg THREE TIMES A DAY ORAL 08/14/16 18:00 09/13/16 17:59 08/23/16 17:52 Finasteride (Proscar) 5 mg DAILY ORAL 08/15/16 09:00 09/14/16 08:59 08/23/16 08:36 Gemfibrozil (Lopid) 600 mg TWICE A DAY ORAL 08/14/16 18:00 09/13/16 17:59 08/23/16 17:52 Heparin Sodium/ Sodium Chloride (Heparin 2000 units/Ns 1000ml premix) 2,000 unit ONCE PRN INJ PICC PLACEMENT 08/23/16 11:00 08/24/16 23:59 Insulin Aspart (NovoLOG) BEFORE MEALS AND HS SUBQ 08/14/16 16:30 09/13/16 16:29 08/23/16 17:58 Insulin Detemir (Levemir) 10 units Q12HR SUBQ 08/18/16 09:00 09/17/16 08:59 08/23/16 08:40 Lidocaine HCl (Xylocaine 1% 30ml) 30 ml ONCE PRN INJ PICC PLACEMENT 08/23/16 11:00 08/24/16 23:59 Metoprolol Succinate (Toprol XL) 25 mg DAILY ORAL 08/15/16 09:00 09/14/16 08:59 08/20/16 09:11 Morphine Sulfate (Morphine Sulfate) 2 mg Q4H PRN IM Severe Breakthru Pain (>7) 08/21/16 11:45 08/28/16 11:44 Multivitamins (Multivitamins) 1 tab DAILY ORAL 08/15/16 09:00 09/14/16 08:59 08/23/16 08:37 Pantoprazole (Protonix) 40 mg DAILY ORAL 08/15/16 09:00 09/14/16 08:59 08/23/16 08:37 Promethazine HCl/ Codeine (Phenergan with Codeine) 10 ml TID PRN ORAL For Cough 08/14/16 13:15 09/13/16 13:14 08/16/16 17:51 Ranitidine HCl (Zantac) 150 mg DAILY ORAL 08/15/16 09:00 09/14/16 08:59 08/23/16 08:36 Sodium Bicarbonate (NaHCO3) 650 mg BID ORAL 08/14/16 18:00 09/13/16 17:59 08/23/16 17:52 Sodium Bicarbonate (Sodium Bicarbonate) 50 ml ONCE PRN IV PICC PLACEMENT 08/23/16 11:00 08/24/16 23:59 Tamsulosin HCl (Flomax) 0.4 mg DAILY ORAL 08/15/16 09:00 09/14/16 08:59 08/23/16 08:35 Vitamin D (Vitamin D) 800 intlu DAILY ORAL 08/15/16 09:00 09/14/16 08:59 08/23/16 08:36 KENDRICK SCHWARTZ Aug 24, 2016 09:29
[2016-08-24] MEDS: Levemir Flexpen SUBQ SCH ×2 (09:58→20:45)
[2016-08-24] MEDS: Docusate 250mg cap ORAL SCH (10:03)
[2016-08-24] MEDS: Tamsulosin 0.4mg cap ORAL SCH (10:04)
[2016-08-24] MEDS: Aspirin EC 81mg tab ORAL SCH (10:04)
[2016-08-24] MEDS: Sodium Bicarbonate 650mg Tab ORAL SCH ×2 (10:05→17:31)
[2016-08-24] MEDS: Calcium Carbonate 500mg w/Vit D 200iu tab ORAL SCH (10:05)
[2016-08-24] MEDS: Vitamin B-12 500mcg tab ORAL SCH (10:06)
[2016-08-24] MEDS: Vitamin D 400 INTLU TAB ORAL SCH (10:06)
--- NOTE | 2016-08-24 13:41 | General Progress Note ---
Progress Note Progress Note Left chest tube with minimal drainage Chest CT reviewed: trapped lower lobe with loculated effusion. Left lung consolidation also noted. Will d/w pulmonary regarding decortication the lower lobe vs. pleurex catheter placement Continue chest tube on suction Will follow VICTORIANO LYNN M.D. Aug 24, 2016 13:41
[2016-08-25] VITALS (7 sets, daily range): BP systolic 99–124; BP diastolic 49–68
--- NOTE | 2016-08-25 02:08 | Progress Note ---
DATE: 08/24/2016 CARDIOLOGY PROGRESS NOTE SUBJECTIVE: CT surgery note appreciated. The patient is still has a chest tube in place. Imaging reveals a trapped lung with effusion and consolidation. OBJECTIVE: VITAL SIGNS: Blood pressure 110/60, pulse 101, respirations 17, and afebrile. LUNGS: Diminished breath sounds at the left. HEART: Irregularly irregular rhythm. Normal S1 and S2. ABDOMEN: Soft. EXTREMITIES: No edema. IMPRESSION: 1. Trapped lung. 2. Chest tube, status post iatrogenic pneumothorax. 3. Acute on chronic diastolic congestive heart failure with pleural effusion. 4. Paroxysmal atrial fibrillation. 5. Permanent pacemaker. PLAN: 1. Continue chest tube. 2. control respiratory hygiene. 3. Continue current cardiovascular regimen. 4. No diuresis. 5. We will possibly need PleurX catheter or decortication to be discussed. Joseph Muniz M.D. DR: RONEN JOB#: [id number] CC:
[2016-08-25] MEDS: NovoLOG Insulin Flexpen SUBQ SCH ×4 (06:30→21:00)
[2016-08-25 07:13] LABS: ALANINE AMINOTRANSFERASE 5 U/L (3-41); ALBUMIN/GLOBULIN RATIO 0.3 (1.0-2.7); ANION GAP 11 (5-15); ASPARTATE AMINO TRANSFERASE 16 U/L (5-40); CALCIUM 8.3 mg/dL (8.6-10.2); CARBON DIOXIDE 28 mEQ/L (20-30); CHLORIDE 105 mEQ/L (98-107); HEMOLYSIS 6; POTASSIUM 4.1 mEQ/L (3.4-4.9); SODIUM 144 mEQ/L (135-145); TOTAL PROTEIN 6.8 g/dL (6.6-8.7)
[2016-08-25 07:33] LABS: MEAN CORPUSCULAR HEMOGLOBIN 33.5 PG (27.0-31.0); MEAN CORPUSCULAR HGB CONC 34.6 G/DL (32.0-36.0); MEAN CORPUSCULAR VOLUME 97 FL (80-99); MEAN PLATELET VOLUME 8.2 FL (6.5-10.1); PLATELET COUNT 139 K/UL (150-450); RED BLOOD COUNT 2.33 M/UL (4.70-6.10); RED CELL DISTRIBUTION WIDTH 22.9 % (11.6-14.8); WHITE BLOOD COUNT 9.9 K/UL (4.8-10.8)
--- NOTE | 2016-08-25 09:15 | General Progress Note ---
Assessment/Plan Problem List: (1) Anemia ICD Codes: D64.9 - Anemia, unspecified SNOMED: 274087710 (2) Tachycardia ICD Codes: R00.0 - Tachycardia, unspecified SNOMED: 5731900 (3) GIB (gastrointestinal bleeding) ICD Codes: K92.2 - Gastrointestinal hemorrhage, unspecified SNOMED: 45286095 Status: stable, progressing Assessment/Plan resp care o2 chest tube management per ct surgery monitor h/h and labs f/u cxr not stable for discharge transfuse prn pain rx adjusted dvt/stress ulcer prophylaxis Subjective ROS Limited/Unobtainable: No Constitutional: Reports: malaise, weakness HEENT: Reports: no symptoms Cardiovascular: Reports: no symptoms Respiratory: Reports: cough Gastrointestinal/Abdominal: Reports: no symptoms Genitourinary: Reports: no symptoms Neurologic/Psychiatric: Reports: pre-existing deficit Endocrine: Reports: no symptoms Hematologic/Lymphatic: Reports: anemia Allergies: Coded Allergies: No Known Allergies (Unverified , 01/24/14) All Systems: reviewed and negative except above Subjective no overnight events. still with chest tube. no leak noted. pain controlled. denies sob. Objective Last 24 Hour Vital Signs Date Time Temp Pulse Resp B/P Pulse Ox O2 Delivery O2 Flow Rate FiO2 08/25/16 07:50 97.2 100 18 117/56 98 Nasal Cannula 2.0 08/25/16 04:00 97.5 96 22 124/59 97 Room Air 08/25/16 00:00 97.0 94 22 100/49 99 Nasal Cannula 2.0 08/24/16 20:00 97.9 94 22 107/63 100 Room Air 08/24/16 19:14 98 Nasal Cannula 2.0 08/24/16 19:14 Nasal Cannula 2.0 08/24/16 16:00 97.5 101 17 110/60 95 Nasal Cannula 2.0 08/24/16 11:40 97.5 90 20 107/61 100 Nasal Cannula 2.0 Intake and Output 08/24/16 08/25/16 19:00 07:00 Intake Total 270 ml 340 ml Output Total 5 ml 0 ml Balance 265 ml 340 ml Intake Oral 270 ml 340 ml Chest Tube Drainage Total 5 ml 0 ml # Voids 1 2 # Bowel Movements 1 Laboratory Tests 08/25/16 05:40: White Blood Count 9.9, Red Blood Count 2.33L, Hemoglobin 7.8L, Hematocrit 22.6L , Mean Corpuscular Volume 97, Mean Corpuscular Hemoglobin 33.5H, Mean Corpuscular Hemoglobin Concent 34.6, Red Cell Distribution Width 22.9H, Platelet Count 139L, Mean Platelet Volume 8.2, Neutrophils (%) (Auto) , Lymphocytes (%) (Auto) , Monocytes (%) (Auto) , Eosinophils (%) (Auto) , Basophils (%) (Auto) , Neutrophils % (Manual) [Pending], Lymphocytes % (Manual) [Pending], Platelet Estimate [Pending], Platelet Morphology [Pending], Sodium Level 144, Potassium Level 4.1, Chloride Level 105, Carbon Dioxide Level 28, Anion Gap 11, Blood Urea Nitrogen 59H, Creatinine 2.0H, Estimat Glomerular Filtration Rate , Glucose Level 106, Calcium Level 8.3L, Total Bilirubin 3.0H, Direct Bilirubin 2.0H, Aspartate Amino Transf (AST/SGOT) 16, Alanine Aminotransferase (ALT/SGPT) 5, Alkaline Phosphatase 108, Total Protein 6.8, Albumin 1.7L, Globulin 5.1, Albumin/Globulin Ratio 0.3L Height (Feet): 5 Height (Inches): 5.00 Weight (Pounds): 160 Objective General Appearance: WD/WN, alert Neck: supple Cardiovascular: regular rhythm Respiratory/Chest: lungs clear, improved breath sounds, no respiratory distress. +left sided chest tube Edema: no edema noted Arm (L), no edema noted Arm (R), no edema noted Leg (L), no edema noted Leg (R), no edema noted Pedal (L), no edema noted Pedal (R), no edema noted Generalized TALHA LEIGH Aug 25, 2016 09:15
--- NOTE | 2016-08-25 09:30 | Diagnostic Imaging Report ---
Indication: Pneumothorax Technique: XRAY CHEST 1 V Comparison: 08/24/16 Findings: Left chest tube is again present with left pleural and parenchymal opacities. No pneumothorax is seen. Right PICC line is present. There is right basilar atelectasis and pleural fluid. Cardiomediastinal silhouette is stable. There is a left chest pacemaker. Impression: No pneumothorax. Grossly stable appearance of the chest as above.
--- NOTE | 2016-08-25 09:33 | Pulmonology Progress Note ---
Assessment/Plan Assessment/Plan ASSESSMENT: 1. bilateral pleural effusions; 2. Anemia. with need for transfusion 3. Chronic kidney disease. 4. Stroke. with focal weakness 5. Hypertension. 6. History of chronic obstructive pulmonary disease. 7. History of conduction system disease. with pacemaker 8. worsening left effusion with atelectasis 9. iatrogenic pneumothorax PLAN: proceed with decortication and bronchoscopy if family agreeable lung not expanding dc planning on hold for now care noted and reviewed monitor recurrent fluid collection follow up chest xr for change oxygen as needed aspiration precautions; no congestion noted impression, plan, and exam edited and reviewed in detail care discussed with RN Subjective Allergies: Coded Allergies: No Known Allergies (Unverified , 01/24/14) Subjective CT in place chest XR not improved d/w thoracic Objective Last 24 Hour Vital Signs Date Time Temp Pulse Resp B/P Pulse Ox O2 Delivery O2 Flow Rate FiO2 08/25/16 07:50 97.2 100 18 117/56 98 Nasal Cannula 2.0 08/25/16 04:00 97.5 96 22 124/59 97 Room Air 08/25/16 00:00 97.0 94 22 100/49 99 Nasal Cannula 2.0 08/24/16 20:00 97.9 94 22 107/63 100 Room Air 08/24/16 19:14 98 Nasal Cannula 2.0 08/24/16 19:14 Nasal Cannula 2.0 08/24/16 16:00 97.5 101 17 110/60 95 Nasal Cannula 2.0 08/24/16 11:40 97.5 90 20 107/61 100 Nasal Cannula 2.0 Intake and Output 08/24/16 08/25/16 19:00 07:00 Intake Total 270 ml 340 ml Output Total 5 ml 0 ml Balance 265 ml 340 ml Intake Oral 270 ml 340 ml Chest Tube Drainage Total 5 ml 0 ml # Voids 1 2 # Bowel Movements 1 Objective Sp02 EP Interpretation: reviewed, normal General Appearance: normal inspection, well appearing, no apparent distress, alert Head: normocephalic, atraumatic Eyes: bilateral eye normal inspection ENT: normal ENT inspection, no angioedema, normal voice Neck: normal inspection, full range of motion, supple, no meningismus, carotid 2+ Respiratory: decreased breath sounds, improved left but still reduced; chest tube in place; no sq emphysema Cardiovascular #1: regular rate, rhythm, no murmur without MRG Gastrointestinal: non tender, soft, non-distended, no guarding, no rebound Musculoskeletal: no CC; some edema persistent Neurologic: alert, no distress Laboratory Tests 08/25/16 05:40: White Blood Count 9.9, Red Blood Count 2.33L, Hemoglobin 7.8L, Hematocrit 22.6L , Mean Corpuscular Volume 97, Mean Corpuscular Hemoglobin 33.5H, Mean Corpuscular Hemoglobin Concent 34.6, Red Cell Distribution Width 22.9H, Platelet Count 139L, Mean Platelet Volume 8.2, Neutrophils (%) (Auto) , Lymphocytes (%) (Auto) , Monocytes (%) (Auto) , Eosinophils (%) (Auto) , Basophils (%) (Auto) , Neutrophils % (Manual) [Pending], Lymphocytes % (Manual) [Pending], Platelet Estimate [Pending], Platelet Morphology [Pending], Sodium Level 144, Potassium Level 4.1, Chloride Level 105, Carbon Dioxide Level 28, Anion Gap 11, Blood Urea Nitrogen 59H, Creatinine 2.0H, Estimat Glomerular Filtration Rate , Glucose Level 106, Calcium Level 8.3L, Total Bilirubin 3.0H, Direct Bilirubin 2.0H, Aspartate Amino Transf (AST/SGOT) 16, Alanine Aminotransferase (ALT/SGPT) 5, Alkaline Phosphatase 108, Total Protein 6.8, Albumin 1.7L, Globulin 5.1, Albumin/Globulin Ratio 0.3L Current Medications Medications (Trade) Dose Ordered Sig/Homar Route PRN Reason Start Time Stop Time Status Last Admin Dose Admin Acetaminophen (Tylenol) 650 mg Q4H PRN ORAL Mild Pain (Pain Scale 1-3) 08/20/16 13:15 09/13/16 13:14 Acetaminophen/ Hydrocodone Bitart ([place] 10/325) 1 ea Q4H PRN ORAL Moderate Pain (Pain Scale 4-6) 08/20/16 08:30 08/27/16 08:29 Aspirin (Ecotrin) 81 mg DAILY ORAL 08/15/16 09:00 09/14/16 08:59 08/24/16 10:04 Calcium Carbonate (OsCal D) 1 tab DAILY ORAL 08/15/16 09:00 09/14/16 08:59 08/24/16 10:05 Cyanocobalamin (Vitamin B-12) 1,000 mcg DAILY ORAL 08/15/16 09:00 09/14/16 08:59 08/24/16 10:06 Dextrose (Dextrose 50%) STAT PRN IV Hypoglycemia 08/14/16 13:15 09/13/16 13:14 08/17/16 17:45 Docusate Sodium (Colace) 250 mg DAILY ORAL 08/15/16 09:00 09/14/16 08:59 08/24/16 10:03 Epoetin Deshaun (Procrit (for non ESRD use)) 7,000 units FRI-FRI-FRI SUBQ 08/14/16 21:00 09/13/16 20:59 08/23/16 21:09 Ferrous Sulfate (Feosol) 325 mg THREE TIMES A DAY ORAL 08/14/16 18:00 09/13/16 17:59 08/24/16 17:31 Finasteride (Proscar) 5 mg DAILY ORAL 08/15/16 09:00 09/14/16 08:59 08/24/16 10:05 Gemfibrozil (Lopid) 600 mg TWICE A DAY ORAL 08/14/16 18:00 09/13/16 17:59 08/24/16 17:31 Insulin Aspart (NovoLOG) BEFORE MEALS AND HS SUBQ 08/14/16 16:30 09/13/16 16:29 08/24/16 17:35 Insulin Detemir (Levemir) 10 units Q12HR SUBQ 08/18/16 09:00 09/17/16 08:59 08/24/16 09:58 Metoprolol Succinate (Toprol XL) 25 mg DAILY ORAL 08/15/16 09:00 09/14/16 08:59 08/20/16 09:11 Morphine Sulfate (Morphine Sulfate) 2 mg Q4H PRN IM Severe Breakthru Pain (>7) 08/21/16 11:45 08/28/16 11:44 Multivitamins (Multivitamins) 1 tab DAILY ORAL 08/15/16 09:00 09/14/16 08:59 08/24/16 10:04 Pantoprazole (Protonix) 40 mg DAILY ORAL 08/15/16 09:00 09/14/16 08:59 08/24/16 10:05 Promethazine HCl/ Codeine (Phenergan with Codeine) 10 ml TID PRN ORAL For Cough 08/14/16 13:15 09/13/16 13:14 08/16/16 17:51 Ranitidine HCl (Zantac) 150 mg DAILY ORAL 08/15/16 09:00 09/14/16 08:59 08/24/16 10:06 Sodium Bicarbonate (NaHCO3) 650 mg BID ORAL 08/14/16 18:00 09/13/16 17:59 08/24/16 17:31 Tamsulosin HCl (Flomax) 0.4 mg DAILY ORAL 08/15/16 09:00 09/14/16 08:59 08/24/16 10:04 Vitamin D (Vitamin D) 800 intlu DAILY ORAL 08/15/16 09:00 09/14/16 08:59 08/24/16 10:06 KENDRICK SCHWARTZ Aug 25, 2016 09:33
[2016-08-25] MEDS: Docusate 250mg cap ORAL SCH (09:37)
[2016-08-25] MEDS: Aspirin EC 81mg tab ORAL SCH (09:37)
[2016-08-25] MEDS: Tamsulosin 0.4mg cap ORAL SCH (09:37)
[2016-08-25] MEDS: Calcium Carbonate 500mg w/Vit D 200iu tab ORAL SCH (09:38)
[2016-08-25] MEDS: Sodium Bicarbonate 650mg Tab ORAL SCH ×2 (09:38→18:39)
[2016-08-25] MEDS: Vitamin D 400 INTLU TAB ORAL SCH (09:39)
[2016-08-25] MEDS: Vitamin B-12 500mcg tab ORAL SCH (09:39)
[2016-08-25] MEDS: Levemir Flexpen SUBQ SCH ×2 (09:41→21:00)
[2016-08-25 10:39] LABS: ANISOCYTOSIS 2+; BAND NEUTROPHILS % (MANUAL) 0 % (0-8); BASOPHILS % (MANUAL) 0 % (0-2); EOSINOPHILS % (MANUAL) 2 % (0-3); HYPOCHROMASIA 1+; LYMPHOCYTES % (MANUAL) 4 % (20-45); NEUTROPHILS % (MANUAL) 83 % (45-75); PLATELET ESTIMATE DECREASED; PLATELET MORPHOLOGY NORMAL; TOTAL CELLS COUNTED 100
[2016-08-26] VITALS: BP 100/51
[2016-08-26 04:00] VITALS: BP 101/52
--- NOTE | 2016-08-26 04:17 | Progress Note ---
DATE: 08/25/2016 CARDIOLOGY PROGRESS NOTE SUBJECTIVE: The patient continues to have a chest tube. His lung is not reexpanding. Decortication and bronchoscopy is anticipated. Awaiting family consent. OBJECTIVE: VITAL SIGNS: Blood pressure 117/56, heart rate 118, and afebrile. LUNGS: Diminished breath sounds and rhonchi on the left. HEART: Irregularly irregular rhythm. Normal S1 and S2. ABDOMEN: Soft. EXTREMITIES: No edema. Subcutaneous emphysema is noted. LABORATORY AND DIAGNOSTIC DATA: White count 9.9, hemoglobin 7.8, and platelets 139,000. Potassium is 4.1. Albumin is 1.7. BUN 59 and creatinine 2. IMPRESSION: 1. Anemia. 2. Pneumothorax. 3. Left lung fails to re-expand. 4. Paroxysmal atrial fibrillation. PLAN: 1. Await CT. 2. Surgery intervention once consent is obtained. 3. Packed red blood cell transfusion today. 4. Nutritional support. 5. Maintain adequate hydration. 6. Prognosis is guarded. 7. Condition is serious. Joseph Muniz M.D. DR: LISA JOB#: [id number] CC:
[2016-08-26] MEDS: NovoLOG Insulin Flexpen SUBQ SCH ×4 (06:00→21:00)
--- NOTE | 2016-08-26 07:33 | General Progress Note ---
Assessment/Plan Problem List: (1) Anemia ICD Codes: D64.9 - Anemia, unspecified SNOMED: 218849899 Qualifiers: (2) Tachycardia ICD Codes: R00.0 - Tachycardia, unspecified SNOMED: 0346293 (3) GIB (gastrointestinal bleeding) ICD Codes: K92.2 - Gastrointestinal hemorrhage, unspecified SNOMED: 81648496 Qualifiers: Qualified Codes: K57.91 - Diverticulosis of intestine, part unspecified, without perforation or abscess with bleeding Status: stable, unchanged Assessment/Plan resp care o2 chest tube management per ct surgery monitor h/h and labs transfuse prbc f/u cxr check duplex rue not stable for discharge pain rx adjusted dvt/stress ulcer prophylaxis Subjective ROS Limited/Unobtainable: No Constitutional: Reports: weakness HEENT: Reports: no symptoms Cardiovascular: Reports: no symptoms Respiratory: Reports: cough Gastrointestinal/Abdominal: Reports: no symptoms Genitourinary: Reports: no symptoms Neurologic/Psychiatric: Reports: pre-existing deficit Endocrine: Reports: no symptoms Hematologic/Lymphatic: Reports: anemia Allergies: Coded Allergies: No Known Allergies (Unverified , 01/24/14) All Systems: reviewed and negative except above Subjective no overnight events. still with chest tube. no leak noted. pain controlled. denies sob. slight swelling RUE. did not get blood yet Objective Last 24 Hour Vital Signs Date Time Temp Pulse Resp B/P Pulse Ox O2 Delivery O2 Flow Rate FiO2 08/26/16 04:00 96.6 97 18 101/52 94 Nasal Cannula 3.0 08/26/16 00:00 98.1 86 19 100/51 92 Nasal Cannula 3.0 08/25/16 20:43 97 Nasal Cannula 2.0 28 08/25/16 20:43 Nasal Cannula 2.0 08/25/16 20:00 97.5 103 18 107/58 95 Nasal Cannula 3.0 08/25/16 16:00 96.4 104 18 106/54 95 Nasal Cannula 2.0 08/25/16 13:41 99 99/54 08/25/16 12:00 97.6 76 16 112/68 90 Nasal Cannula 2.0 08/25/16 09:00 99 99/54 08/25/16 07:50 97.2 100 18 117/56 98 Nasal Cannula 2.0 Intake and Output 08/25/16 08/26/16 19:00 07:00 Intake Total 480 ml Output Total 0 ml 0 ml Balance 480 ml 0 ml Intake Oral 480 ml Chest Tube Drainage Total 0 ml 0 ml # Voids 4 2 # Bowel Movements 3 Height (Feet): 5 Height (Inches): 5.00 Weight (Pounds): 160 Objective General Appearance: WD/WN, alert Neck: supple Cardiovascular: regular rhythm Respiratory/Chest: lungs clear, improved breath sounds, no respiratory distress. +left sided chest tube Edema: no edema noted Arm (L), no edema noted Arm (R), no edema noted Leg (L), no edema noted Leg (R), no edema noted Pedal (L), no edema noted Pedal (R), no edema noted Generalized TALHA LEIGH Aug 26, 2016 07:33
[2016-08-26 07:48] VITALS: BP 102/49
--- NOTE | 2016-08-26 08:04 | Diagnostic Imaging Report ---
Indications: Needs long-term IV access Technique: Ultrasound confirms patent compressible right brachial vein. Total sterile technique, including sterile probe cover and sterile gel, hat, mask,, sterile gown, large sterile drape, and preparation with 2% chlorhexidine utilized. Local anesthesia with 1% lidocaine. Under real-time ultrasound guidance, puncture brachial vein using 21-gauge needle, documented and archived, passage 0.018 guidewire under direct fluoroscopy, which was used to determine appropriate catheter length, exchange for 5 Prydeinig peel-away sheath. 5 Prydeinig Bard dual-lumen power PICC cut to 37 cm. It was inserted through the peel-away sheath. Peel-away sheath and guidewire removed. Catheter fixed to the skin. Both catheter ports aspirated and flushed. Patient tolerated procedure well, without immediate complication. Digital radiograph documents satisfactory catheter tip position, at the cavoatrial junction. Total fluoroscopy time 0.1 minutes. Total dose area product 4.2 dGycm2 Impression: Successful placement of PICC under sonographic and fluoroscopic guidance, as described above.
--- NOTE | 2016-08-26 08:05 | Diagnostic Imaging Report ---
Indication: Shortness of breath Technique: CT of the chest utilizing automated exposure control without intravenous contrast. Venous scanning performed. CT dose: Total DLP 990 mGycm; CTDI vol 27.9 mGy Comparison: 08/19/16 Findings: Left chest tube is present. There is a mild to moderate left pleural effusion with reexpansion of the left lung. Consolidations are seen within portions of the left upper lobe and left lower lobe. There is opacification of left-sided bronchi. A small right pleural effusion is present with right lower lobe atelectasis/consolidation. The heart is enlarged. There is a trace pericardial effusion. A left chest pacemaker is present. There is a right PICC line. The partially visualized liver is nodular. Ascites is noted in the upper abdomen. There is a tiny hiatal hernia. Degenerative changes of the spine are noted. Impression: Left chest tube with mild to moderate left pleural effusion. The possibility of a complex effusion is not excluded. Reexpansion of the left lung with moderate consolidation within portions of the left upper lobe and left lower lobe. Pneumonia is considered. Opacification within bronchi of the left lung could represent debris. Bronchoscopy should be considered for further evaluation as indicated. Small right pleural effusion with right lower lobe atelectasis/consolidation. Cardiomegaly. Ascites in the upper abdomen. Nodular partially visualized liver suggestive of cirrhosis. Other findings as above. The CT scanner at [facility] is accredited by the [employer] and the scans are performed using protocols designed to limit radiation exposure to as low as reasonably achievable to attain images of sufficient resolution adequate for diagnostic evaluation.
--- NOTE | 2016-08-26 08:29 | Pulmonology Progress Note ---
Assessment/Plan Assessment/Plan ASSESSMENT: 1. bilateral pleural effusions; 2. Anemia. with need for transfusion 3. Chronic kidney disease. 4. Stroke. with focal weakness 5. Hypertension. 6. History of chronic obstructive pulmonary disease. 7. History of conduction system disease. with pacemaker 8. worsening left effusion with atelectasis 9. iatrogenic pneumothorax PLAN: proceed with decortication and bronchoscopy if family agreeable lung not expanding and chest Xr not better dc planning on hold for now care noted and reviewed monitor recurrent fluid collection follow up chest xr and assess pending decortication oxygen as needed Ct not beneficial at present aspiration precautions; no congestion noted impression, plan, and exam edited and reviewed in detail care discussed with RN Subjective Allergies: Coded Allergies: No Known Allergies (Unverified , 01/24/14) Subjective CT in place chest XR not improved d/w thoracic d/w Dr. See Objective Last 24 Hour Vital Signs Date Time Temp Pulse Resp B/P Pulse Ox O2 Delivery O2 Flow Rate FiO2 08/26/16 07:48 97.2 103 20 102/49 93 Room Air 2.0 08/26/16 04:00 96.6 97 18 101/52 94 Nasal Cannula 3.0 08/26/16 00:00 98.1 86 19 100/51 92 Nasal Cannula 3.0 08/25/16 20:43 97 Nasal Cannula 2.0 28 08/25/16 20:43 Nasal Cannula 2.0 08/25/16 20:00 97.5 103 18 107/58 95 Nasal Cannula 3.0 08/25/16 16:00 96.4 104 18 106/54 95 Nasal Cannula 2.0 08/25/16 13:41 99 99/54 08/25/16 12:00 97.6 76 16 112/68 90 Nasal Cannula 2.0 08/25/16 09:00 99 99/54 Intake and Output 08/25/16 08/26/16 19:00 07:00 Intake Total 480 ml Output Total 0 ml 0 ml Balance 480 ml 0 ml Intake Oral 480 ml Chest Tube Drainage Total 0 ml 0 ml # Voids 4 2 # Bowel Movements 3 Objective Sp02 EP Interpretation: reviewed, normal General Appearance: normal inspection, well appearing, no apparent distress, alert Head: normocephalic, atraumatic Eyes: bilateral eye normal inspection ENT: normal ENT inspection, no angioedema, normal voice Neck: normal inspection, full range of motion, supple, no meningismus, carotid 2+ Respiratory: decreased breath sounds, improved left but still reduced; chest tube in place; no sq emphysema Cardiovascular #1: regular rate, rhythm, no murmur without MRG Gastrointestinal: non tender, soft, non-distended, no guarding, no rebound Musculoskeletal: no CC; some edema persistent Neurologic: alert, no distress reviewed and edited Current Medications Medications (Trade) Dose Ordered Sig/Homar Route PRN Reason Start Time Stop Time Status Last Admin Dose Admin Acetaminophen (Tylenol) 650 mg Q4H PRN ORAL Mild Pain (Pain Scale 1-3) 08/20/16 13:15 09/13/16 13:14 Acetaminophen/ Hydrocodone Bitart ([place] 10/325) 1 ea Q4H PRN ORAL Moderate Pain (Pain Scale 4-6) 08/20/16 08:30 08/27/16 08:29 Aspirin (Ecotrin) 81 mg DAILY ORAL 08/15/16 09:00 09/14/16 08:59 08/25/16 09:37 Calcium Carbonate (OsCal D) 1 tab DAILY ORAL 08/15/16 09:00 09/14/16 08:59 08/25/16 09:38 Cyanocobalamin (Vitamin B-12) 1,000 mcg DAILY ORAL 08/15/16 09:00 09/14/16 08:59 08/25/16 09:39 Dextrose (Dextrose 50%) STAT PRN IV Hypoglycemia 08/14/16 13:15 09/13/16 13:14 08/17/16 17:45 Docusate Sodium (Colace) 250 mg DAILY ORAL 08/15/16 09:00 09/14/16 08:59 08/25/16 09:37 Epoetin Deshaun (Procrit (for non ESRD use)) 7,000 units FRI-FRI-FRI SUBQ 08/14/16 21:00 09/13/16 20:59 08/23/16 21:09 Ferrous Sulfate (Feosol) 325 mg THREE TIMES A DAY ORAL 08/14/16 18:00 09/13/16 17:59 08/25/16 18:38 Finasteride (Proscar) 5 mg DAILY ORAL 08/15/16 09:00 09/14/16 08:59 08/25/16 10:04 Gemfibrozil (Lopid) 600 mg TWICE A DAY ORAL 08/14/16 18:00 09/13/16 17:59 08/25/16 18:39 Insulin Aspart (NovoLOG) BEFORE MEALS AND HS SUBQ 08/14/16 16:30 09/13/16 16:29 08/25/16 12:23 Insulin Detemir (Levemir) 10 units Q12HR SUBQ 08/18/16 09:00 09/17/16 08:59 08/25/16 09:41 Metoprolol Succinate (Toprol XL) 25 mg DAILY ORAL 08/15/16 09:00 09/14/16 08:59 08/20/16 09:11 Morphine Sulfate (Morphine Sulfate) 2 mg Q4H PRN IM Severe Breakthru Pain (>7) 08/21/16 11:45 08/28/16 11:44 Multivitamins (Multivitamins) 1 tab DAILY ORAL 08/15/16 09:00 09/14/16 08:59 08/25/16 09:38 Pantoprazole (Protonix) 40 mg DAILY ORAL 08/15/16 09:00 09/14/16 08:59 08/25/16 09:39 Promethazine HCl/ Codeine (Phenergan with Codeine) 10 ml TID PRN ORAL For Cough 08/14/16 13:15 09/13/16 13:14 08/16/16 17:51 Ranitidine HCl (Zantac) 150 mg DAILY ORAL 08/15/16 09:00 09/14/16 08:59 08/25/16 09:39 Sodium Bicarbonate (NaHCO3) 650 mg BID ORAL 08/14/16 18:00 09/13/16 17:59 08/25/16 18:39 Tamsulosin HCl (Flomax) 0.4 mg DAILY ORAL 08/15/16 09:00 09/14/16 08:59 08/25/16 09:37 Vitamin D (Vitamin D) 800 intlu DAILY ORAL 08/15/16 09:00 09/14/16 08:59 08/25/16 09:39 KENDRICK SCHWARTZ Aug 26, 2016 08:29
[2016-08-26] MEDS: Docusate 250mg cap ORAL SCH (08:38)
[2016-08-26] MEDS: Aspirin EC 81mg tab ORAL SCH (08:39)
[2016-08-26] MEDS: Tamsulosin 0.4mg cap ORAL SCH (08:39)
[2016-08-26] MEDS: Vitamin B-12 500mcg tab ORAL SCH (08:40)
[2016-08-26] MEDS: Vitamin D 400 INTLU TAB ORAL SCH (08:40)
[2016-08-26] MEDS: Sodium Bicarbonate 650mg Tab ORAL SCH ×2 (08:40→18:57)
[2016-08-26] MEDS: Calcium Carbonate 500mg w/Vit D 200iu tab ORAL SCH (08:40)
[2016-08-26] MEDS: Levemir Flexpen SUBQ SCH ×2 (09:06→21:00)
[2016-08-26 11:53] VITALS: BP 97/56
[2016-08-26 16:00] VITALS: BP 98/50
[2016-08-26 20:00] VITALS: BP 118/55
[2016-08-26] MEDS: Epogen (for non ESRD use) SUBQ SCH (21:08)
[2016-08-27] VITALS: BP 104/54
--- NOTE | 2016-08-27 01:58 | Progress Note ---
DATE: 08/26/2016 CARDIOLOGY PROGRESS NOTE SUBJECTIVE: The patient still has chest tube in place. Decortication and bronchoscopy is being considered. Lung has failed to expand re-expand. OBJECTIVE: VITAL SIGNS: Blood pressure 102/49, pulse 103, respirations 20, and afebrile. NECK: Supple. LUNGS: With diminished breath sounds and rhonchi at the left. CARDIAC: Regular rhythm. Rapid rate. Normal S1 and S2. A 1/6 systolic murmur at apex. ABDOMEN: Soft. EXTREMITIES: No edema. IMPRESSION: 1. Mixed iatrogenic pneumothorax status post left pleural effusion. 2. Thoracentesis. 3. Conduction system disease with pacemaker. 4. Paroxysmal atrial fibrillation. 5. Acute and chronic diastolic congestive heart failure. 6. Anemia of chronic kidney disease and chronic disease. PLAN: 1. Transfuse if hemoglobin less than 8 grams. 2. Optimize anti-failure regimen. 3. Maintain adequate oral intake and hydration. 4. Await CT surgery intervention. 5. Condition remains serious with guarded prognosis. Joseph Muniz M.D. DR: LISA JOB#: [id number] CC:
[2016-08-27 04:00] VITALS: BP 102/70
--- NOTE | 2016-08-27 05:42 | General Progress Note ---
Assessment/Plan Problem List: (1) Anemia ICD Codes: D64.9 - Anemia, unspecified SNOMED: 495288998 Qualifiers: (2) Tachycardia ICD Codes: R00.0 - Tachycardia, unspecified SNOMED: 6915322 (3) GIB (gastrointestinal bleeding) ICD Codes: K92.2 - Gastrointestinal hemorrhage, unspecified SNOMED: 55590651 Qualifiers: Qualified Codes: K57.91 - Diverticulosis of intestine, part unspecified, without perforation or abscess with bleeding Status: stable Assessment/Plan resp care o2 chest tube management per ct surgery possible bronch and vats per pulm/ct surgery monitor h/h and labs transfuse prbc f/u cxr not stable for discharge pain rx adjusted dvt/stress ulcer prophylaxis POC per pulm and ct surgery Subjective ROS Limited/Unobtainable: No Constitutional: Reports: malaise, weakness HEENT: Reports: no symptoms Cardiovascular: Reports: no symptoms Respiratory: Reports: no symptoms Gastrointestinal/Abdominal: Reports: no symptoms Genitourinary: Reports: no symptoms Neurologic/Psychiatric: Reports: pre-existing deficit Endocrine: Reports: no symptoms Hematologic/Lymphatic: Reports: anemia Allergies: Coded Allergies: No Known Allergies (Unverified , 01/24/14) All Systems: reviewed and negative except above Subjective no overnight events. still with chest tube. no leak noted. On LIS. pain controlled. denies sob. slight swelling RUE. duplex negative. Objective Last 24 Hour Vital Signs Date Time Temp Pulse Resp B/P Pulse Ox O2 Delivery O2 Flow Rate FiO2 08/27/16 04:00 98.2 103 20 102/70 96 Nasal Cannula 3.0 08/27/16 00:00 98.1 103 19 104/54 93 Nasal Cannula 3.0 08/26/16 20:16 Nasal Cannula 2.0 08/26/16 20:16 97 Nasal Cannula 2.0 28 08/26/16 20:00 98.1 98 18 118/55 95 Nasal Cannula 3.0 08/26/16 16:00 97.7 103 18 98/50 97 Nasal Cannula 2.0 08/26/16 11:53 97.7 95 18 97/56 98 Nasal Cannula 2.0 08/26/16 09:00 95 97/56 08/26/16 07:48 97.2 103 20 102/49 93 Room Air 2.0 Intake and Output 08/26/16 08/27/16 19:00 07:00 Intake Total 840 ml Balance 840 ml Intake Oral 840 ml # Voids 3 # Bowel Movements 2 Height (Feet): 5 Height (Inches): 5.00 Weight (Pounds): 160 Objective General Appearance: WD/WN, alert Neck: supple Cardiovascular: regular rhythm Respiratory/Chest: lungs clear, improved breath sounds, no respiratory distress. +left sided chest tube Edema: no edema noted Arm (L), no edema noted Arm (R), no edema noted Leg (L), no edema noted Leg (R), no edema noted Pedal (L), no edema noted Pedal (R), no edema noted Generalized TALHA LEIGH Aug 27, 2016 05:42
[2016-08-27] MEDS: NovoLOG Insulin Flexpen SUBQ SCH ×3 (06:18→23:57)
[2016-08-27 07:18] LABS: BASOPHILS % (AUTO) 0.8 % (0.0-2.0); EOSINOPHILS % (AUTO) 1.2 % (0.0-3.0); LYMPHOCYTES % (AUTO) 7.6 % (20.0-45.0); MEAN CORPUSCULAR HEMOGLOBIN 31.7 PG (27.0-31.0); MEAN CORPUSCULAR HGB CONC 33.4 G/DL (32.0-36.0); MEAN CORPUSCULAR VOLUME 95 FL (80-99); MEAN PLATELET VOLUME 9.8 FL (6.5-10.1); MONOCYTES % (AUTO) 13.6 % (1.0-10.0); NEUTROPHILS % (AUTO) 76.8 % (45.0-75.0); PLATELET COUNT 159 K/UL (150-450); RED BLOOD COUNT 3.04 M/UL (4.70-6.10); RED CELL DISTRIBUTION WIDTH 21.4 % (11.6-14.8); WHITE BLOOD COUNT 13.2 K/UL (4.8-10.8)
--- NOTE | 2016-08-27 07:31 | Pulmonology Progress Note ---
Assessment/Plan Assessment/Plan ASSESSMENT: 1. bilateral pleural effusions; 2. Anemia. with need for transfusion 3. Chronic kidney disease. 4. Stroke. with focal weakness 5. Hypertension. 6. History of chronic obstructive pulmonary disease. 7. History of conduction system disease. with pacemaker 8. worsening left effusion with atelectasis 9. iatrogenic pneumothorax PLAN: proceed with decortication and bronchoscopy today lung not expanding and chest Xr not better and need surgical assistance dc planning on hold for now care noted and reviewed monitor recurrent fluid collection follow up chest xr post op oxygen as needed aspiration precautions; no congestion noted ICU post op impression, plan, and exam edited and reviewed in detail care discussed with RN Subjective Allergies: Coded Allergies: No Known Allergies (Unverified , 01/24/14) Subjective CT in place plan for decortication today Objective Last 24 Hour Vital Signs Date Time Temp Pulse Resp B/P Pulse Ox O2 Delivery O2 Flow Rate FiO2 08/27/16 04:00 98.2 103 20 102/70 96 Nasal Cannula 3.0 08/27/16 00:00 98.1 103 19 104/54 93 Nasal Cannula 3.0 08/26/16 20:16 Nasal Cannula 2.0 08/26/16 20:16 97 Nasal Cannula 2.0 28 08/26/16 20:00 98.1 98 18 118/55 95 Nasal Cannula 3.0 08/26/16 16:00 97.7 103 18 98/50 97 Nasal Cannula 2.0 08/26/16 11:53 97.7 95 18 97/56 98 Nasal Cannula 2.0 08/26/16 09:00 95 97/56 08/26/16 07:48 97.2 103 20 102/49 93 Room Air 2.0 Intake and Output 08/26/16 08/27/16 19:00 07:00 Intake Total 840 ml 110 ml Output Total 0 ml Balance 840 ml 110 ml Intake Oral 840 ml 110 ml Chest Tube Drainage Total 0 ml # Voids 3 2 # Bowel Movements 2 Objective Sp02 EP Interpretation: reviewed, normal General Appearance: normal inspection, well appearing, no apparent distress, alert Head: normocephalic, atraumatic Eyes: bilateral eye normal inspection ENT: normal ENT inspection, no angioedema, normal voice Neck: normal inspection, full range of motion, supple, no meningismus, carotid 2+ Respiratory: decreased breath sounds, improved left but still reduced; chest tube in place; no change Cardiovascular #1: regular rate, rhythm, no murmur without MRG Gastrointestinal: non tender, soft, non-distended, no guarding, no rebound Musculoskeletal: no CC; some edema persistent Neurologic: alert, no distress reviewed and edited Laboratory Tests 08/27/16 05:00: White Blood Count 13.2H, Red Blood Count 3.04L, Hemoglobin 9.6L, Hematocrit 28.8L, Mean Corpuscular Volume 95, Mean Corpuscular Hemoglobin 31.7H, Mean Corpuscular Hemoglobin Concent 33.4, Red Cell Distribution Width 21.4H, Platelet Count 159, Mean Platelet Volume 9.8, Neutrophils (%) (Auto) 76.8H, Lymphocytes (%) (Auto) 7.6L, Monocytes (%) (Auto) 13.6H, Eosinophils (%) (Auto) 1.2, Basophils (%) (Auto) 0.8 Current Medications Medications (Trade) Dose Ordered Sig/Homar Route PRN Reason Start Time Stop Time Status Last Admin Dose Admin Acetaminophen (Tylenol) 650 mg Q4H PRN ORAL Mild Pain (Pain Scale 1-3) 08/20/16 13:15 09/13/16 13:14 Acetaminophen/ Hydrocodone Bitart ([place] 10/325) 1 ea Q4H PRN ORAL Moderate Pain (Pain Scale 4-6) 08/20/16 08:30 08/27/16 08:29 Aspirin (Ecotrin) 81 mg DAILY ORAL 08/15/16 09:00 09/14/16 08:59 08/26/16 08:39 Calcium Carbonate (OsCal D) 1 tab DAILY ORAL 08/15/16 09:00 09/14/16 08:59 08/26/16 08:40 Cyanocobalamin (Vitamin B-12) 1,000 mcg DAILY ORAL 08/15/16 09:00 09/14/16 08:59 08/26/16 08:40 Dextrose (Dextrose 50%) STAT PRN IV Hypoglycemia 08/14/16 13:15 09/13/16 13:14 08/17/16 17:45 Docusate Sodium (Colace) 250 mg DAILY ORAL 08/15/16 09:00 09/14/16 08:59 08/26/16 08:38 Epoetin Deshaun (Procrit (for non ESRD use)) 7,000 units FRI-FRI-FRI SUBQ 08/14/16 21:00 09/13/16 20:59 08/26/16 21:08 Ferrous Sulfate (Feosol) 325 mg THREE TIMES A DAY ORAL 08/14/16 18:00 09/13/16 17:59 08/26/16 18:57 Finasteride (Proscar) 5 mg DAILY ORAL 08/15/16 09:00 09/14/16 08:59 08/26/16 08:40 Gemfibrozil (Lopid) 600 mg TWICE A DAY ORAL 08/14/16 18:00 09/13/16 17:59 08/26/16 18:58 Insulin Aspart (NovoLOG) BEFORE MEALS AND HS SUBQ 08/14/16 16:30 09/13/16 16:29 08/26/16 17:39 Insulin Detemir (Levemir) 10 units Q12HR SUBQ 08/18/16 09:00 09/17/16 08:59 08/26/16 09:06 Metoprolol Succinate (Toprol XL) 25 mg DAILY ORAL 08/15/16 09:00 09/14/16 08:59 08/20/16 09:11 Morphine Sulfate (Morphine Sulfate) 2 mg Q4H PRN IM Severe Breakthru Pain (>7) 08/21/16 11:45 08/28/16 11:44 Multivitamins (Multivitamins) 1 tab DAILY ORAL 08/15/16 09:00 09/14/16 08:59 08/26/16 08:39 Pantoprazole (Protonix) 40 mg DAILY ORAL 08/15/16 09:00 09/14/16 08:59 08/26/16 08:40 Promethazine HCl/ Codeine (Phenergan with Codeine) 10 ml TID PRN ORAL For Cough 08/14/16 13:15 09/13/16 13:14 08/16/16 17:51 Ranitidine HCl (Zantac) 150 mg DAILY ORAL 08/15/16 09:00 09/14/16 08:59 08/26/16 08:41 Sodium Bicarbonate (NaHCO3) 650 mg BID ORAL 08/14/16 18:00 09/13/16 17:59 08/26/16 18:57 Tamsulosin HCl (Flomax) 0.4 mg DAILY ORAL 08/15/16 09:00 09/14/16 08:59 08/26/16 08:39 Vitamin D (Vitamin D) 800 intlu DAILY ORAL 08/15/16 09:00 09/14/16 08:59 08/26/16 08:40 KENDRICK SCHWARTZ Aug 27, 2016 07:31
[2016-08-27 08:00] VITALS: BP 130/72
--- NOTE | 2016-08-27 08:19 | Anethesia Preoperative Eval ---
Anesthesia Pre-op PMH/ROS General Date of Evaluation: Aug 27, 2016 Anesthesiologist: Dash ASA Score: ASA 4 Mallampati Score Class I : Soft palate, uvula, fauces, pillars visible Class II: Soft palate, uvula, fauces visible Class III: Soft palate, base of uvula visible Class IV: Only hard plate visible Mallampati Classification: Class III Surgeon: Nick Surgical Procedure: Left VATS Anesthesia History: none Family History: no anesthesia problems Allergies: Coded Allergies: No Known Allergies (Unverified , 01/24/14) Medications: see eMAR Past Medical History Cardiovascular: Reports: HTN, arrhythmia - h/o afib s/p pacemaker placement, other - CHF, HLD, Denies: CAD, DC, valve dz Pulmonary: Reports: COPD, Denies: [place], asthma, other Gastrointestinal/Genitourinary: Reports: ESRD, GERD, other - BPH, Denies: CRI Neurologic/Psychiatric: Reports: CVA - with residual right sided weakness, Denies: TIA, dementia, depression/anxiety, other Endocrine: Reports: DM, Denies: hypothyroidism, other, steroids HEENT: Denies: [place] (L), [place] (R), cataract (L), cataract (R), glaucoma, other Hematology/Immune: Reports: anemia, Denies: DVT, bleeding disorder, other Musculoskeletal/Integumentary: Reports: DJD, OA, Denies: DDD, RA, edema, other Anesthesia Pre-op Phys. Exam Physician Exam Last Vital Signs Date Time Temp Pulse Resp B/P Pulse Ox O2 Delivery O2 Flow Rate FiO2 08/27/16 04:00 98.2 103 20 102/70 96 Nasal Cannula 3.0 08/26/16 20:16 28 Constitutional: NAD Cardiovascular: RRR Respiratory: other - dimished breath sounds bilaterally Airway Exam Mallampati Score: Class III MO: limited ROM: limited Anesthesia Pre-op A/P Labs Hematology Test 08/27/16 05:00 White Blood Count 13.2 K/UL (4.8-10.8) H Red Blood Count 3.04 M/UL (4.70-6.10) L Hemoglobin 9.6 G/DL (14.2-18.0) L Hematocrit 28.8 % (42.0-52.0) L Mean Corpuscular Volume 95 FL (80-99) Mean Corpuscular Hemoglobin 31.7 PG (27.0-31.0) H Mean Corpuscular Hemoglobin Concent 33.4 G/DL (32.0-36.0) Red Cell Distribution Width 21.4 % (11.6-14.8) H Platelet Count 159 K/UL (150-450) Mean Platelet Volume 9.8 FL (6.5-10.1) Neutrophils (%) (Auto) 76.8 % (45.0-75.0) H Lymphocytes (%) (Auto) 7.6 % (20.0-45.0) L Monocytes (%) (Auto) 13.6 % (1.0-10.0) H Eosinophils (%) (Auto) 1.2 % (0.0-3.0) Basophils (%) (Auto) 0.8 % (0.0-2.0) Studies Pre-op Studies: EKG - afib, CXR - bilateral pleural effusions, with left chest tube in place, echo - mild MR, mild TR, severe pulm HTN Risk Assessment & Plan Assessment: ASA IV Plan: GA Status Change Before Surgery: No Pre-Antibiotics Drug: ANT SAMSON M.D. Aug 27, 2016 08:19
[2016-08-27] MEDS: Aspirin EC 81mg tab ORAL SCH (09:02)
[2016-08-27] MEDS: Calcium Carbonate 500mg w/Vit D 200iu tab ORAL SCH (09:04)
[2016-08-27] MEDS: Vitamin D 400 INTLU TAB ORAL SCH (09:04)
[2016-08-27] MEDS: Docusate 250mg cap ORAL SCH (09:04)
[2016-08-27] MEDS: Promethazine/Codeine 5ml UD ORAL PRN ×2 (09:04→13:32)
[2016-08-27] MEDS: Sodium Bicarbonate 650mg Tab ORAL SCH (09:04)
[2016-08-27] MEDS: Tamsulosin 0.4mg cap ORAL SCH (09:04)
[2016-08-27] MEDS: Vitamin B-12 500mcg tab ORAL SCH (09:05)
[2016-08-27] MEDS: Levemir Flexpen SUBQ SCH ×2 (09:07→21:00)
--- NOTE | 2016-08-27 09:41 | Wound Care Consultation ---
Wound Assessment Wound Assessment : Wound Number: #1 Wound Present on Admission: Yes New Wound: No Status Change of Wound: No Wound Location Body Site Modif: right Wound Location Body Site: sacral Wound Type: pressure ulcer Hemanth Test: Does not Hemanth Pressure Ulcer Stage: III Wound Thickness: Full Thickness Wound Length: 1.5 Wound Width: 1.0 Wound Depth: 0.3 Percent of Wound [place]/Red: 100 - noted scab revealed self noted pink wound bed , wound bed noted 100% pink. Wound Drainage Description: Serosanguineous Wound Drainage Amount: Scant Wound Drainage Odor: None/Absent Tissue Surrounding Wound: Macerated Wound General Appearance: Reddened Wound Comment #1 Right sacral pressure ulcer stage III.- upon reassessment no further deterioration present, noted scab revealed self with pink wound bed. right sacral remains as stage III pressure ulcer. Recommendation -Apply low air loss overlay SPR mattress for wound and skin management. -Local wound care as ordered -CLEANSE WITH NORMAL SALINE, PAT DRY, APPLY TRIAD, APPLY BIATAIN FOAM SILICONE, DAILY AND PRN IF SOILED/DISLODGED. -Turn and reposition. -Optimize nutrition. -Keep clean and dry. -Heel protectors. -Avoid shear and friction. -Assess and notify MD for any changes of condition. BENEDICTO DOTSON Aug 27, 2016 09:41
[2016-08-27 12:00] VITALS: BP 119/60
--- NOTE | 2016-08-27 15:21 | Diagnostic Imaging Report ---
APPROVED REPORT CPT Code: 36451 Present Symptoms Comments: Right arm swelling Right upper arm PICC line RIGHT UPPER EXTREMITY: Venous imaging reveals patency of the internal jugular, subclavian, axillary and brachial veins. The basilic vein is also patent. Doppler indicates normal spontaneous flow within these venous segments. The cephalic vein was not well visualized.
[2016-08-27 16:00] VITALS: BP 102/62
[2016-08-27 20:00] VITALS: BP 111/59
[2016-08-28] VITALS (12 sets, daily range): BP systolic 80–134; BP diastolic 39–68
--- NOTE | 2016-08-28 02:17 | Progress Note ---
DATE: 08/27/2016 CARDIOLOGY PROGRESS NOTE SUBJECTIVE: The patient is to undergo decortication procedure as his left lung has not reexpanded. Monitored rhythm atrial fibrillation with demand ventricular pacing. OBJECTIVE: VITAL SIGNS: Blood pressure 102/70, pulse 103, and respiratory rate 20. LUNGS: Coarse breath sounds. Rhonchi at the left. HEART: Irregularly irregular rhythm. Normal S1 and S2. ABDOMEN: Soft. EXTREMITIES: Trace edema. LABORATORY DATA: White count 13.2 and hemoglobin 9.6. IMPRESSION: 1. Pleural effusion status post thoracentesis with spontaneous pneumothorax and persistent collapse of lung. 2. Acute on chronic renal failure. 3. Healthcare acquired pneumonia. 4. Permanent pacemaker. 5. Paroxysmal atrial fibrillation. 6. Severe protein-calorie malnutrition. 7. Acute on chronic diastolic congestive heart failure. 8. Mildly increased risk for general anesthesia. 9. Proceed with precautions therapy adjusted to optimize rate control. Joseph Muniz M.D. DR: LISA JOB#: [id number] CC:
[2016-08-28] MEDS: NovoLOG Insulin Flexpen SUBQ SCH ×3 (06:23→20:42)
[2016-08-28] MEDS ORDERED: Lidocaine 1% Plain 30 ml INJ ONE (07:10)
[2016-08-28] MEDS ORDERED: Cefepime 1gm vial ONE (07:10)
[2016-08-28] MEDS ORDERED: Bupivacaine 0.5% Inj 30 ml vial INJ ONE (07:11)
[2016-08-28 07:21] LABS: BASOPHILS % (AUTO) 1.6 % (0.0-2.0); EOSINOPHILS % (AUTO) 4.6 % (0.0-3.0); LYMPHOCYTES % (AUTO) 8.2 % (20.0-45.0); MEAN CORPUSCULAR HEMOGLOBIN 31.8 PG (27.0-31.0); MEAN CORPUSCULAR HGB CONC 33.3 G/DL (32.0-36.0); MEAN CORPUSCULAR VOLUME 95 FL (80-99); MEAN PLATELET VOLUME 9.5 FL (6.5-10.1); NEUTROPHILS % (AUTO) 71.6 % (45.0-75.0); PLATELET COUNT 148 K/UL (150-450); RED BLOOD COUNT 2.98 M/UL (4.70-6.10); RED CELL DISTRIBUTION WIDTH 22.2 % (11.6-14.8); WHITE BLOOD COUNT 10.6 K/UL (4.8-10.8)
--- NOTE | 2016-08-28 08:58 | Pre-Procedure Note/Attestation ---
Pre-Procedure Note/Attestation Complete Prior to Procedure Planned Procedure: left Procedure Narrative: Left exploratory VATS Indications for Procedure Pre-Operative Diagnosis: Left trapped lung with loculated effusion Attestation I attest that I discussed the nature of the procedure; its benefits; risks and complications; and alternatives (and the risks and benefits of such alternatives ), prior to the procedure, with the patient (or the patient's legal dermatology sales representative). I attest that, if there was a reasonable possibility of needing a blood transfusion, the patient (or the patient's legal dermatology sales representative) was given the [facility] standardized written summary, pursuant to the [place] Blood Safety Act ([place] Health and Safety Code # 1645, as amended). I attest that I re-evaluated the patient just prior to the surgery and that there has been no change in the patient's H&P, except as documented below: VICTORIANO LYNN M.D. Aug 28, 2016 08:58
[2016-08-28] MEDS: Docusate 250mg cap ORAL SCH (09:00)
[2016-08-28] MEDS: Vitamin D 400 INTLU TAB ORAL SCH (09:00)
[2016-08-28] MEDS: Vitamin B-12 500mcg tab ORAL SCH (09:00)
[2016-08-28] MEDS: Sodium Bicarbonate 650mg Tab ORAL SCH ×2 (09:00→17:27)
[2016-08-28] MEDS: Tamsulosin 0.4mg cap ORAL SCH (09:00)
[2016-08-28] MEDS: Levemir Flexpen SUBQ SCH ×2 (09:00→20:43)
[2016-08-28] MEDS: Calcium Carbonate 500mg w/Vit D 200iu tab ORAL SCH (09:00)
[2016-08-28] MEDS: Aspirin EC 81mg tab ORAL SCH (09:00)
[2016-08-28] MEDS ORDERED: Norco 10mg/325mg tab ORAL PRN ×2 (09:15→15:30)
[2016-08-28] MEDS ORDERED: Norco 5mg/325mg tab ORAL PRN ×3 (09:15→15:15)
[2016-08-28] MEDS ORDERED: D5 1/2NS w/KCl 20mEq 1,000 ML IV SCH (10:00)
[2016-08-28] MEDS ORDERED: Bupivacaine w/Epi 0.25% 30ml Vial INJ ONE (10:31)
[2016-08-28] MEDS ORDERED: Lidocaine 1% 10mg/ml/Epi 0.005mg/ml 30ml vial INJ ONE (10:31)
[2016-08-28] MEDS ORDERED: Hydromorphone 0.5mg/0.5ml inj IVP PRN (11:15)
[2016-08-28] MEDS ORDERED: fentaNYL 100 mcg/2 mL IV PRN ×2 (11:15→15:00)
[2016-08-28] MEDS ORDERED: AMINOCAPROIC ACID IV ONE ×2 (12:00)
[2016-08-28] MEDS ORDERED: NS IV ONE ×2 (12:00)
[2016-08-28] MEDS ORDERED: Bacitracin 50000 Units Vial ONE (12:22)
[2016-08-28] MEDS ORDERED: Surgicel 4in x 8in TOPIC ONE (12:27)
--- NOTE | 2016-08-28 13:01 | Pulmonology Progress Note ---
Assessment/Plan Assessment/Plan ASSESSMENT: 1. bilateral pleural effusions; 2. Anemia. with need for transfusion 3. Chronic kidney disease. 4. Stroke. with focal weakness 5. Hypertension. 6. History of chronic obstructive pulmonary disease. 7. History of conduction system disease. with pacemaker 8. worsening left effusion with atelectasis 9. iatrogenic pneumothorax PLAN: proceed with decortication and bronchoscopy care noted and reviewed monitor recurrent fluid collection follow up chest xr post op oxygen as needed aspiration precautions; no congestion noted will need to monitor respiratory status care noted ICU post op impression, plan, and exam edited and reviewed in detail care discussed with RN Subjective ROS Limited/Unobtainable: Yes Allergies: Coded Allergies: No Known Allergies (Unverified , 01/24/14) Subjective (see earlier) plan for decortication today Objective Last 24 Hour Vital Signs Date Time Temp Pulse Resp B/P Pulse Ox O2 Delivery O2 Flow Rate FiO2 08/28/16 08:54 97.3 80 18 101/63 99 Nasal Cannula 2.0 08/28/16 07:47 Nasal Cannula 3.0 32 08/28/16 07:46 98 Nasal Cannula 3.0 32 08/28/16 04:00 97.3 79 18 108/59 100 Nasal Cannula 2.0 08/28/16 00:00 98.1 78 18 102/68 98 Nasal Cannula 2.0 08/27/16 20:00 97.9 84 18 111/59 98 Nasal Cannula 3.0 08/27/16 19:50 Nasal Cannula 3.0 32 08/27/16 19:50 98 Nasal Cannula 3.0 32 08/27/16 16:00 97.2 83 18 102/62 97 Nasal Cannula 2.0 Intake and Output 08/27/16 08/28/16 18:59 06:59 Intake Total 340 ml Output Total 100 ml Balance 240 ml Intake Oral 340 ml Output Urine Total 100 ml # Voids 3 # Bowel Movements 1 Objective Sp02 EP Interpretation: reviewed, normal General Appearance: normal inspection, well appearing, no apparent distress, alert Head: normocephalic, atraumatic Eyes: bilateral eye normal inspection ENT: normal ENT inspection, no angioedema, normal voice Neck: normal inspection, full range of motion, supple, no meningismus, carotid 2+ Respiratory: decreased breath sounds, improved left but still reduced; chest tube in place; no change Cardiovascular #1: regular rate, rhythm, no murmur without MRG Gastrointestinal: non tender, soft, non-distended, no guarding, no rebound Musculoskeletal: no CC; some edema persistent Neurologic: alert, no distress reviewed and edited Laboratory Tests 08/28/16 07:00: White Blood Count 10.6, Red Blood Count 2.98L, Hemoglobin 9.5L, Hematocrit 28.4L , Mean Corpuscular Volume 95, Mean Corpuscular Hemoglobin 31.8H, Mean Corpuscular Hemoglobin Concent 33.3, Red Cell Distribution Width 22.2H, Platelet Count 148L, Mean Platelet Volume 9.5, Neutrophils (%) (Auto) 71.6, Lymphocytes (%) (Auto) 8.2L, Monocytes (%) (Auto) 14.0H, Eosinophils (%) (Auto) 4.6H, Basophils (%) (Auto) 1.6 Current Medications Medications (Trade) Dose Ordered Sig/Homar Route PRN Reason Start Time Stop Time Status Last Admin Dose Admin Acetaminophen (Tylenol) 650 mg Q4H PRN ORAL Mild Pain (Pain Scale 1-3) 08/20/16 13:15 09/13/16 13:14 Acetaminophen/ Hydrocodone Bitart ([place] 10/325) 1 ea Q4H PRN ORAL Severe Pain (Pain Scale 7-10) 08/28/16 09:15 09/04/16 09:14 Acetaminophen/ Hydrocodone Bitart ([place] 5/325) 1 tab Q1H PRN ORAL Mild Pain (Pain Scale 1-3) 08/28/16 11:15 08/28/16 18:00 Acetaminophen/ Hydrocodone Bitart ([place] 5/325) 1 tab Q4H PRN ORAL Moderate Pain (Pain Scale 4-6) 08/28/16 09:15 09/04/16 09:14 Aminocaproic Acid/ Sodium Chloride (Amicar/Sodium Chloride) 275 ml @ 55 mls/hr ONCE ONCE IV 08/28/16 12:00 08/28/16 16:59 Aspirin (Ecotrin) 81 mg DAILY ORAL 08/15/16 09:00 09/14/16 08:59 08/27/16 09:02 Calcium Carbonate (OsCal D) 1 tab DAILY ORAL 08/15/16 09:00 09/14/16 08:59 08/27/16 09:04 Cyanocobalamin (Vitamin B-12) 1,000 mcg DAILY ORAL 08/15/16 09:00 09/14/16 08:59 08/27/16 09:05 Dextrose (Dextrose 50%) STAT PRN IV Hypoglycemia 08/14/16 13:15 09/13/16 13:14 08/17/16 17:45 Dextrose/ Electrolytes (D5 0.45%NS W/ KCl 20mEq) 1,000 ml @ 75 mls/hr [id number] IV 08/28/16 10:00 09/27/16 09:59 Docusate Sodium (Colace) 250 mg DAILY ORAL 08/15/16 09:00 09/14/16 08:59 08/27/16 09:04 Epoetin Deshaun (Procrit (for non ESRD use)) 7,000 units FRI-FRI-FRI SUBQ 08/14/16 21:00 09/13/16 20:59 08/26/16 21:08 Fentanyl Citrate (Sublimaze 100 mcg/2 mL) 25 mcg Q10M PRN IV Moderate Pain (Pain Scale 4-6) 08/28/16 11:15 08/28/16 18:00 Ferrous Sulfate (Feosol) 325 mg THREE TIMES A DAY ORAL 08/14/16 18:00 09/13/16 17:59 08/27/16 12:02 Finasteride (Proscar) 5 mg DAILY ORAL 08/15/16 09:00 09/14/16 08:59 08/27/16 09:04 Gemfibrozil (Lopid) 600 mg TWICE A DAY ORAL 08/14/16 18:00 09/13/16 17:59 08/27/16 09:05 Heparin Sodium (Porcine) (Heparin 5000 units/ml) 5,000 units EVERY 12 HOURS SUBQ 08/28/16 21:00 09/27/16 20:59 Hydromorphone HCl (Dilaudid) 0.5 mg Q15M PRN IVP Severe Pain (Pain Scale 7-10) 08/28/16 11:15 08/28/16 18:00 Insulin Aspart (NovoLOG) BEFORE MEALS AND HS SUBQ 08/14/16 16:30 09/13/16 16:29 08/27/16 12:02 Insulin Detemir (Levemir) 10 units Q12HR SUBQ 08/18/16 09:00 09/17/16 08:59 08/27/16 09:07 Metoprolol Succinate 50 mg 50 mg DAILY ORAL 08/28/16 09:00 09/27/16 08:59 Multivitamins (Multivitamins) 1 tab DAILY ORAL 08/15/16 09:00 09/14/16 08:59 08/27/16 09:06 Ondansetron HCl 4 mg 4 mg Q1H PRN IVP Nausea & Vomiting 08/28/16 11:15 08/28/16 18:00 Pantoprazole (Protonix) 40 mg DAILY ORAL 08/15/16 09:00 09/14/16 08:59 08/27/16 09:05 Promethazine HCl/ Codeine (Phenergan with Codeine) 10 ml TID PRN ORAL For Cough 08/14/16 13:15 09/13/16 13:14 08/27/16 13:32 Ranitidine HCl (Zantac) 150 mg DAILY ORAL 08/15/16 09:00 09/14/16 08:59 08/27/16 09:05 Sodium Bicarbonate (NaHCO3) 650 mg BID ORAL 08/14/16 18:00 09/13/16 17:59 08/27/16 09:04 Tamsulosin HCl (Flomax) 0.4 mg DAILY ORAL 08/15/16 09:00 09/14/16 08:59 08/27/16 09:04 Vitamin D (Vitamin D) 800 intlu DAILY ORAL 08/15/16 09:00 09/14/16 08:59 08/27/16 09:04 KENDRICK SCHWARTZ Aug 28, 2016 13:01
--- NOTE | 2016-08-28 13:03 | General Progress Note ---
Assessment/Plan Problem List: (1) Anemia ICD Codes: D64.9 - Anemia, unspecified SNOMED: 439533773 Qualifiers: (2) Tachycardia ICD Codes: R00.0 - Tachycardia, unspecified SNOMED: 7186845 (3) GIB (gastrointestinal bleeding) ICD Codes: K92.2 - Gastrointestinal hemorrhage, unspecified SNOMED: 65150345 Qualifiers: Qualified Codes: K57.91 - Diverticulosis of intestine, part unspecified, without perforation or abscess with bleeding Status: stable, progressing Assessment/Plan for vats today monitor labs transfuse prn resp care o2 Subjective ROS Limited/Unobtainable: No Constitutional: Reports: malaise, weakness HEENT: Reports: no symptoms Cardiovascular: Reports: no symptoms Respiratory: Reports: cough Gastrointestinal/Abdominal: Reports: no symptoms Genitourinary: Reports: no symptoms Neurologic/Psychiatric: Reports: pre-existing deficit Endocrine: Reports: no symptoms Hematologic/Lymphatic: Reports: no symptoms Allergies: Coded Allergies: No Known Allergies (Unverified , 01/24/14) All Systems: reviewed and negative except above Subjective no overnight events. going for vats. no cp/sob. no fever or chills Objective Last 24 Hour Vital Signs Date Time Temp Pulse Resp B/P Pulse Ox O2 Delivery O2 Flow Rate FiO2 08/28/16 08:54 97.3 80 18 101/63 99 Nasal Cannula 2.0 08/28/16 07:47 Nasal Cannula 3.0 32 08/28/16 07:46 98 Nasal Cannula 3.0 32 08/28/16 04:00 97.3 79 18 108/59 100 Nasal Cannula 2.0 08/28/16 00:00 98.1 78 18 102/68 98 Nasal Cannula 2.0 08/27/16 20:00 97.9 84 18 111/59 98 Nasal Cannula 3.0 08/27/16 19:50 Nasal Cannula 3.0 32 08/27/16 19:50 98 Nasal Cannula 3.0 32 08/27/16 16:00 97.2 83 18 102/62 97 Nasal Cannula 2.0 Intake and Output 08/27/16 08/28/16 19:00 07:00 Intake Total 340 ml Output Total 100 ml Balance 240 ml Intake Oral 340 ml Output Urine Total 100 ml # Voids 3 # Bowel Movements 1 Laboratory Tests 08/28/16 07:00: White Blood Count 10.6, Red Blood Count 2.98L, Hemoglobin 9.5L, Hematocrit 28.4L , Mean Corpuscular Volume 95, Mean Corpuscular Hemoglobin 31.8H, Mean Corpuscular Hemoglobin Concent 33.3, Red Cell Distribution Width 22.2H, Platelet Count 148L, Mean Platelet Volume 9.5, Neutrophils (%) (Auto) 71.6, Lymphocytes (%) (Auto) 8.2L, Monocytes (%) (Auto) 14.0H, Eosinophils (%) (Auto) 4.6H, Basophils (%) (Auto) 1.6 Height (Feet): 5 Height (Inches): 4.00 Weight (Pounds): 160 Objective General Appearance: WD/WN, alert Neck: supple Cardiovascular: regular rhythm Respiratory/Chest: lungs clear, improved breath sounds, no respiratory distress. +left sided chest tube Edema: no edema noted Arm (L), no edema noted Arm (R), no edema noted Leg (L), no edema noted Leg (R), no edema noted Pedal (L), no edema noted Pedal (R), no edema noted Generalized TALHA LEIGH Aug 28, 2016 13:03
--- NOTE | 2016-08-28 14:19 | Immediate Post-Op Evaluation ---
Immediate Post-Op Evalulation Immediate Post-Op Evalulation Procedure: Decortication Date of Evaluation: Aug 28, 2016 Time of Evaluation: 14:17 IV Fluids: NS 2L, Alb 5% 1L Blood Products: PRBC 3 U, FFP 2U Estimated Blood Loss: 1000 Urinary Output: 50 Blood Pressure Systolic: 140 Blood Pressure Diastolic: 60 Pulse Rate: 80 Respiratory Rate: 20 O2 Sat by Pulse Oximetry: 100 Temperature (Fahrenheit): 98.2 Pain Score (1-10): 1 Nausea: No Vomiting: No Complications na Patient Status: no response, ventilated Hydration Status: adequate Drug: ANcef 2G Given Within 1 Hr of Incision: Yes Time Given: 10:00 SHAZIA SIMON M.D. Aug 28, 2016 14:19
--- NOTE | 2016-08-28 14:26 | Operative Note - PDOC ---
Operative Note Operative Note Date of Operation/Procedure: Aug 28, 2016 Pre-op Diagnosis: Left trapped lung with loculated effusion Procedure: Left VATS, lysis of adhesions, partial pleurectomy, decortication Post-op Diagnosis: same Post-op Diagnosis: same as pre-op Surgeon: Victoriano Romero Senior Research Scientist: Rj Camp Anesthesiologist: Josesito Frey Anesthesia: general, local Specimen: yes Complications: none Condition: stable Fluids: none Estimated Blood Loss: minimal Drains: other Implant(s) used?: No VICTORIANO ROMERO M.D. Aug 28, 2016 14:26
[2016-08-28 14:53] LABS: ABG BASE EXCESS -4.9; ABG PCO2 36.1 mmHg (35.0-45.0)
[2016-08-28 14:55] LABS: ABG ALLEN TEST POSITIVE
[2016-08-28 14:59] LABS: MEAN CORPUSCULAR HGB CONC 33.9 G/DL (32.0-36.0); MEAN CORPUSCULAR VOLUME 91 FL (80-99); MEAN PLATELET VOLUME 9.5 FL (6.5-10.1); PLATELET COUNT 103 K/UL (150-450); RED BLOOD COUNT 3.39 M/UL (4.70-6.10); RED CELL DISTRIBUTION WIDTH 16.2 % (11.6-14.8); WHITE BLOOD COUNT 16.3 K/UL (4.8-10.8)
[2016-08-28 15:17] LABS: ANION GAP 18 (5-15); CALCIUM 7.5 mg/dL (8.6-10.2); CARBON DIOXIDE 21 mEQ/L (20-30); CHLORIDE 108 mEQ/L (98-107); CREATININE 1.9 mg/dL (0.7-1.2); HEMOLYSIS 5; MAGNESIUM 1.9 mg/dL (1.7-2.5); POTASSIUM 4.7 mEQ/L (3.4-4.9); SODIUM 147 mEQ/L (135-145)
--- NOTE | 2016-08-28 15:24 | Diagnostic Imaging Report ---
Indication: POST-OP Technique: One view of the chest Comparison: 08/25/2016 Findings: Interim endotracheal intubation, endotracheal tube tip deep within the left mainstem bronchus. There are now 2 left chest tubes present. There is a small left lateral basilar pneumothorax. Previously demonstrated left pleural effusion is no longer evident. There is diffuse hazy interstitial and alveolar opacity throughout the left lung. There is now a right-sided pleural effusion within the major fissure. Hazy opacity. At The right lung base may be reflective of pleural fluid or parenchymal disease or, likely, both. There is a right arm PICC. There is a new right subclavian central venous catheter. Left chest pacemaker is again demonstrated. Heart size is upper limits of normal Impression: Postsurgical changes, post left VATS, as described Malposition of endotracheal tube. This critical value was phoned to patient's nurse at the time of interpretation Small left pneumothorax, despite adequate position of 2 chest tubes Decreased parenchymal disease on the left, as described, nonspecific Increased right-sided pleural effusion
[2016-08-28] MEDS ORDERED: Promethazine/Codeine 5ml UD ORAL PRN (15:30)
[2016-08-28] MEDS: D5 1/2NS w/KCl 20mEq 1,000 ML IV SCH (16:12)
--- NOTE | 2016-08-28 16:30 | Diagnostic Imaging Report ---
Indication: Status post endotracheal tube repositioning Technique: One view of the chest Comparison: One hour earlier Findings: Improved and now satisfactory position of endotracheal tube, tip projecting approximately 3 cm above the celi. Remainder of the findings are unchanged Impression: Satisfactory position of endotracheal tube, post readjustment
[2016-08-28 17:18] LABS: BAND NEUTROPHILS % (MANUAL) 0 % (0-8); BASOPHILS % (MANUAL) 0 % (0-2); EOSINOPHILS % (MANUAL) 1 % (0-3); LYMPHOCYTES % (MANUAL) 5 % (20-45); NEUTROPHILS % (MANUAL) 92 % (45-75); PLATELET ESTIMATE DECREASED; TOTAL CELLS COUNTED 100
[2016-08-28 17:19] LABS: ANISOCYTOSIS 1+; PLATELET MORPHOLOGY NORMAL; POLYCHROMASIA 1+
[2016-08-28 17:20] LABS: MACROCYTES 1+
[2016-08-28 18:50] LABS: ABG BASE EXCESS -4.4; ABG PCO2 29.7 mmHg (35.0-45.0)
[2016-08-28 18:51] LABS: ABG ALLEN TEST POSITIVE
[2016-08-28] MEDS ORDERED: Morphine Sulfate 2mg/ml Inj IVP PRN (19:15)
[2016-08-28] MEDS: Heparin 5000 units/ml inj SUBQ SCH (20:44)
[2016-08-28] MEDS: Epogen (for non ESRD use) SUBQ SCH (20:44)
[2016-08-28] MEDS ORDERED: Heparin 5000 units/ml inj SUBQ SCH (21:00)
[2016-08-28] MEDS: Metoprolol 25mg tab ORAL SCH (21:30)
[2016-08-28] MEDS ORDERED: Calcium Gluconate 1gm/10ml vial ONE (22:27)
[2016-08-28] MEDS ORDERED: Calcium Gluconate 10% 1 GM in NS 110 ML IVPB ONE (22:30)
--- NOTE | 2016-08-28 23:58 | Operative Note - Dictated ---
DATE OF OPERATION: 08/28/2016 PREOPERATIVE DIAGNOSIS: Left loculated pleural effusion. POSTOPERATIVE DIAGNOSIS: Left loculated pleural effusion. PROCEDURE PERFORMED: 1. Removal of left tunneled catheter. 2. Flexible bronchoscopy. 3. Left video-assisted thoracoscopic surgery. 4. Intrapleural pneumolysis. 5. Partial pleurectomy. 6. Decortication. 7. Intercostal nerve block. SURGEON: Nagi Romero M.D. [employer] SURGEON: Rj Camp M.D. ANESTHESIA: Double-lumen general anesthesia. INDICATION FOR PROCEDURE: The patient is an 80-year-old male, who was admitted to [facility] with respiratory distress. Chest CT scan demonstrated loculated pleural effusion and Thoracic Surgery was then consulted for surgical care. The risks and benefits of the proposed operation were explained to the patient's family in detail including, but not limited to bleeding, infection, air leak, the need for blood transfusion, anesthetic complication, and less than 1%. In addition, alternative versus no treatment options were also discussed. The patient and his family fully understand the rationale behind the purpose of the operation while all questions were answered to their satisfaction. DESCRIPTION OF PROCEDURE: After obtaining informed consent, the patient was then brought to the operating room and placed in the supine position. A surgical time-out was performed. After induction of general anesthesia, indwelling Kendall, central line, arterial line, and TUYET hose stockings were placed. The flexible bronchoscope was introduced through the endotracheal tube. The trachea and celi were inspected. The celi was in the midline and sharp. The right tracheobronchial tree down to the subsegmental level was grossly normal and no endobronchial lesions were seen. Similarly, the left mainstem bronchus was intubated and no obvious endobronchial lesions were visualized at the subsegmental level. A minimal amount of mucopurulent secretions were lavaged and suctioned clear. The bronchoscope was pulled back and removed. The patient tolerated the procedure well with oxygen saturation greater than 96% throughout the procedure. Next, the patient was then placed in a right lateral decubitus position and the chest dressing was then removed. The suture was then cut and the left chest tube was then removed. The thoracostomy site was then prepped with Betadine solution and the entire left chest was prepped and draped in the usual sterile fashion. The patient also received preoperative intravenous antibiotic. Using the previous thoracostomy, Thoracoport as was the video camera were then placed into the left hemithorax. A counterincision was made at the midaxillary line at the third intercostal space. This allowed the introduction of a grasper into the left hemithorax. Passing of a Yankauer into the left hemithorax yielded roughly 1100 mL of left pleural effusion and a medical collections representative section of this effusion was submitted for microbiology analysis. We then began to explore the left hemithorax. There was noted to be numerous adhesions tethering along to the surrounding chest wall and these adhesions were taken down using a combination of sharp and blunt electrocauterization. After freeing the lung from the surrounding chest wall, we then proceeded to examine the major fissure where several hidden pockets of fluid was evacuated. At this point, we then irrigated the left chest with 2 liters of warm saline solution. After suctioning, we then proceeded to examine the parietal pleura. There was some pleural exudate and that was debrided off the chest wall. An area of thick parietal pleura was then examined and a medical collections representative section of this parietal pleura was then harvested by pleurectomy and it delivered off the surgical field. Half of this parietal pleura was then submitted for microbiology analysis and the remaining half was submitted for permanent section. We then brought our attention to the left lower lobe. There was a thick visceral peel surrounding the left lower lobe as well as the lingula. We began to decorticate the left lower lobe systematically by decorticating the anterior surface and then follow posterolaterally. Similarly, the lingula of the left upper lobe also underwent a similar decortication process. At the end of the decortication process, the entire left chest was then irrigated with 4 liters of warm saline solution followed by 2 liters of bacitracin containing saline solution. After suctioning, intercostal nerve block with 60 mL of 0.25% Marcaine was performed from the second to the eighth intercostal space in the usual fashion. A 28-Pashto chest tube, straight in the right angle were inserted into the left hemithorax in the usual fashion and then anchored at the skin level using #0 Ethibond suture. The lung was allowed to inflate under direct visualization and the video camera was then removed. The chest tube was then connected to a suction Pleur-evac. The wound was reapproximated with 2 layers of 3-0 Vicryl and the skin was reapproximated with 4-0 Monocryl. Steri-Strips and dry dressing was applied. The patient tolerated the procedure well without any complication. Needle and sponges were correct at the end of the operation. He was then transported to the intensive care unit in a satisfactory condition. ESTIMATED BLOOD LOSS: Minimal. COMPLICATIONS: None. SPECIMEN SUBMITTED: 1. Left pleural effusion for microbiology analysis. 2. Parietal pleura for microbiology analysis and permanent section. Wise M.D. DR: José Antonio JOB#: [id number] CC: BERNIE
[2016-08-29] VITALS (24 sets, daily range): BP systolic 92–126; BP diastolic 37–94
--- NOTE | 2016-08-29 00:07 | Progress Note ---
DATE: 08/28/2016 SUBJECTIVE: The patient is status post VATS with lysis of adhesions, pleurectomy, and decortication. He is now in the intensive care unit. OBJECTIVE: VITAL SIGNS: Blood pressure 94/41, pulse 75, and respiration 18. Orally intubated. LUNGS: Bilateral breath sounds with rhonchi at the left. CARDIAC: Irregularly irregular rhythm. Normal S1 and S2. ABDOMEN: Soft. EXTREMITIES: Trace edema. LABORATORY DATA: White count 16, hemoglobin 10.5, sodium 147, potassium 4.7, bicarbonate 21, BUN 44, and creatinine 1.9. IMPRESSION: 1. Status post decortication of trapped lung. 2. Iatrogenic pneumothorax. 3. Acute on chronic diastolic congestive heart failure with pleural effusion. 4. Paroxysmal atrial fibrillation. 5. Permanent pacemaker. 6. Hypocalcemia. 7. Acute on chronic renal injury, improved. 8. Dehydration. 9. Hypernatremia. 10. Respiratory failure. PLAN: Ventilator support with weaning to follow. Magnesium replacement. Hypotonic IV fluid replacement. Volume support. Fluid challenge for low blood pressure. Remains in serious condition with guarded prognosis. Joseph Muniz M.D. DR: LUIS JOB#: [id number] CC:
[2016-08-29 04:49] LABS: ABG BASE EXCESS -3.8; ABG PCO2 37.9 mmHg (35.0-45.0)
[2016-08-29 04:50] LABS: ABG ALLEN TEST POSITIVE
[2016-08-29 04:58] LABS: MEAN CORPUSCULAR HGB CONC 34.4 G/DL (32.0-36.0); MEAN CORPUSCULAR VOLUME 90 FL (80-99); MEAN PLATELET VOLUME 9.6 FL (6.5-10.1); PLATELET COUNT 105 K/UL (150-450); RED BLOOD COUNT 3.27 M/UL (4.70-6.10); RED CELL DISTRIBUTION WIDTH 16.9 % (11.6-14.8); WHITE BLOOD COUNT 17.2 K/UL (4.8-10.8)
--- NOTE | 2016-08-29 05:08 | Progress Note ---
DATE: 08/29/2016 CARDIOLOGY PROGRESS NOTE SUBJECTIVE: The patient is in the intensive care unit. He is status post decortication and VATS procedure yesterday. He remains on ventilator support. OBJECTIVE: VITAL SIGNS: Blood pressure 95/40, pulse 71, and respiratory rate 19. Monitor atrial fibrillation with ventricular pacing. GENERAL: Orally intubated. LUNGS: Bilateral rhonchi, left greater than right. HEART: Irregularly irregular rhythm. Normal S1 and S2. ABDOMEN: Soft. EXTREMITIES: Trace edema. LABORATORY DATA: Labs are pending. IMPRESSION: 1. Status post iatrogenic pneumothorax, complicated by persistent collapsed lung, status post video-assisted thoracoscopic surgery and decortication. 2. Diastolic congestive heart failure. 3. Permanent pacemaker. 4. Paroxysmal atrial fibrillation. 5. Hypocalcemia, status post IV calcium infusion last night. 6. Acute on chronic kidney injury, slowly improved. 7. Dehydration. 8. Hypernatremia, now on hypotonic IV fluids. 9. Severe protein-calorie malnutrition, may need nutritional support by feeding tube. 10. Postoperative leukocytosis, may be infection. PLAN: 1. Followup laboratory studies. 2. Antimicrobials. 3. Chest tube management and ventilator support. 4. Monitor volume status and cardiorenal parameters. 5. Hold diuresis at this time, but may need to reconsider prior to extubation. Joseph Muniz M.D. DR: BUZZ JOB#: [id number] CC:
[2016-08-29 05:13] LABS: ANION GAP 15 (5-15); CALCIUM 7.7 mg/dL (8.6-10.2); CARBON DIOXIDE 20 mEQ/L (20-30); CHLORIDE 111 mEQ/L (98-107); HEMOLYSIS 5; MAGNESIUM 1.7 mg/dL (1.7-2.5); PHOSPHORUS 4.2 mg/dL (2.5-4.8); POTASSIUM 4.5 mEQ/L (3.4-4.9); SODIUM 146 mEQ/L (135-145)
[2016-08-29] MEDS: NovoLOG Insulin Flexpen SUBQ SCH ×4 (06:21→20:44)
[2016-08-29] MEDS: D5 1/2NS w/KCl 20mEq 1,000 ML IV SCH (06:28)
[2016-08-29] MEDS ORDERED: Calcium Gluconate 1gm/10ml vial ONE ×2 (06:30→06:33)
[2016-08-29] MEDS ORDERED: Calcium Gluconate 10% 2 GM in NS 110 ML IV ONE (06:30)
[2016-08-29 07:30] LABS: IONIZED CALCIUM 0.98 mmol/L (1.10-1.35)
--- NOTE | 2016-08-29 08:40 | Pulmonology Progress Note ---
Assessment/Plan Assessment/Plan ASSESSMENT: 1. bilateral pleural effusions; 2. Anemia. with need for transfusion 3. Chronic kidney disease. 4. Stroke. with focal weakness 5. Hypertension. 6. History of chronic obstructive pulmonary disease. 7. History of conduction system disease. with pacemaker 8. worsening left effusion with atelectasis 9. iatrogenic pneumothorax 10. s/p decortication 11. respiratory failure PLAN: wean off the ventilator care noted and reviewed monitor CT output and dc per thoracic follow up chest xr post op noted with improved aeration oxygen taper maintain meds hydration aspiration precautions; will need to monitor respiratory status in ICU assess for weaning today care noted ICU care reviewed in detail medications/laboratory data/nursing notes/ICU care reviewed in detail note reviewed and edited care discussed with RN and RT ICU time spent 38 minutes Subjective ROS Limited/Unobtainable: Yes Allergies: Coded Allergies: No Known Allergies (Unverified , 01/24/14) Subjective under decortication now on the ventilator weaning and doing well CT x [address] Objective Last 24 Hour Vital Signs Date Time Temp Pulse Resp B/P Pulse Ox O2 Delivery O2 Flow Rate FiO2 08/29/16 08:00 67 08/29/16 08:00 68 15 101/42 100 Mechanical Ventilator 30 08/29/16 07:00 69 14 100/48 100 Mechanical Ventilator 30 08/29/16 06:40 69 18 30 08/29/16 06:00 68 15 95/39 100 Mechanical Ventilator 30 08/29/16 05:42 30 08/29/16 05:25 69 20 30 08/29/16 05:00 69 15 95/41 100 Mechanical Ventilator 30 08/29/16 04:00 69 08/29/16 04:00 40 08/29/16 04:00 97.9 69 14 94/39 100 Mechanical Ventilator 40 08/29/16 03:30 70 14 40 08/29/16 03:00 70 15 110/40 100 Mechanical Ventilator 40 08/29/16 02:00 71 11 96/41 100 Mechanical Ventilator 40 08/29/16 01:29 70 28 40 08/29/16 01:00 72 11 95/37 100 Mechanical Ventilator 50 08/29/16 00:00 74 08/29/16 00:00 40 08/29/16 00:00 98.1 71 19 95/40 100 Mechanical Ventilator 50 4/12/17 23:28 72 11 40 08/28/16 23:00 71 18 99/42 100 Mechanical Ventilator 50 08/28/16 22:00 71 19 94/42 100 Mechanical Ventilator 50 08/28/16 21:30 70 96/43 08/28/16 21:30 74 16 40 08/28/16 21:00 74 08/28/16 21:00 73 14 107/39 100 Mechanical Ventilator 50 08/28/16 20:00 96.0 74 18 85/43 100 Mechanical Ventilator 100 08/28/16 19:27 73 24 40 08/28/16 19:00 40 08/28/16 18:00 75 18 94/41 100 Mechanical Ventilator 50 08/28/16 17:29 76 21 40 08/28/16 17:00 78 20 90/40 100 Mechanical Ventilator 50 08/28/16 16:00 81 17 86/40 100 Mechanical Ventilator 50 08/28/16 15:30 50 08/28/16 15:11 80 22 50 08/28/16 15:00 81 17 80/39 100 Mechanical Ventilator 100 08/28/16 14:30 97.8 80 18 134/56 100 Mechanical Ventilator 100 08/28/16 14:30 100 08/28/16 14:19 80 20 100 08/28/16 08:54 97.3 80 18 101/63 99 Nasal Cannula 2.0 Intake and Output 08/28/16 08/29/16 19:00 07:00 Intake Total 300 ml 900 ml Output Total 450 ml 230 ml Balance -150 ml 670 ml IV Total 300 ml 900 ml Output Urine Total 125 ml 230 ml Chest Tube Drainage Total 325 ml Objective Sp02 EP Interpretation: reviewed, normal General Appearance: normal inspection, well appearing, no apparent distress, withdrawn Head: normocephalic, atraumatic Eyes: bilateral eye normal inspection ENT: normal ENT inspection, no angioedema, normal voice Neck: normal inspection, full range of motion, supple, no meningismus, carotid 2+ Respiratory: improved BS left; no rhonchi or wheeze; chest tube x [address]; Cardiovascular #1: regular rate, rhythm, no murmur without MRG Gastrointestinal: non tender, soft, non-distended, no guarding, no rebound Musculoskeletal: no CC; mild edema persistent Neurologic: arouseable no distress reviewed and edited Laboratory Tests 08/28/16 14:30: White Blood Count 16.3#H, Red Blood Count 3.39L, Hemoglobin 10.5L, Hematocrit 31.0L, Mean Corpuscular Volume 91, Mean Corpuscular Hemoglobin 31.0, Mean Corpuscular Hemoglobin Concent 33.9, Red Cell Distribution Width 16.2H, Platelet Count 103L, Mean Platelet Volume 9.5, Neutrophils (%) (Auto) , Lymphocytes (%) (Auto) , Monocytes (%) (Auto) , Eosinophils (%) (Auto) , Basophils (%) (Auto) , Differential Total Cells Counted 100, Neutrophils % ( Manual) 92H, Lymphocytes % (Manual) 5L, Monocytes % (Manual) 2, Eosinophils % ( Manual) 1, Basophils % (Manual) 0, Band Neutrophils 0, Platelet Estimate DecreasedL, Platelet Morphology Normal, Polychromasia 1+, Anisocytosis 1+, Macrocytosis 1+, Sodium Level 147H, Potassium Level 4.7, Chloride Level 108H, Carbon Dioxide Level 21, Anion Gap 18H, Blood Urea Nitrogen 44H, Creatinine 1.9H , Estimat Glomerular Filtration Rate , Glucose Level 165H, Calcium Level 7.5L, Ionized Calcium (Measured) 0.98L, Phosphorus Level 5.0H, Magnesium Level 1.9 08/28/16 14:43: Arterial Blood pH 7.361, Arterial Blood Partial Pressure CO2 36.1, Arterial Blood Partial Pressure O2 266.2H, Arterial Blood HCO3 20.0L, Arterial Blood Oxygen Saturation 98.1H, Arterial Blood Base Excess -4.9, Arnie Test Positive 08/28/16 18:00: Arterial Blood pH 7.425, Arterial Blood Partial Pressure CO2 29.7L, Arterial Blood Partial Pressure O2 96.5, Arterial Blood HCO3 19.1L, Arterial Blood Oxygen Saturation 96.4, Arterial Blood Base Excess -4.4, Arnie Test Positive 08/29/16 04:00: Arterial Blood pH 7.365, Arterial Blood Partial Pressure CO2 37.9, Arterial Blood Partial Pressure O2 141.6H, Arterial Blood HCO3 21.2L, Arterial Blood Oxygen Saturation 97.7, Arterial Blood Base Excess -3.8, Arnie Test Positive 08/29/16 04:10: White Blood Count 17.2H, Red Blood Count 3.27L, Hemoglobin 10.1L, Hematocrit 29.4L, Mean Corpuscular Volume 90, Mean Corpuscular Hemoglobin 31.0, Mean Corpuscular Hemoglobin Concent 34.4, Red Cell Distribution Width 16.9H, Platelet Count 105L, Mean Platelet Volume 9.6, Neutrophils (%) (Auto) , Lymphocytes (%) (Auto) , Monocytes (%) (Auto) , Eosinophils (%) (Auto) , Basophils (%) (Auto) , Sodium Level 146H, Potassium Level 4.5, Chloride Level 111H, Carbon Dioxide Level 20, Anion Gap 15, Blood Urea Nitrogen 50H, Creatinine 2.0H, Estimat Glomerular Filtration Rate , Glucose Level 224H, Calcium Level 7.7L, Ionized Calcium (Measured) 0.98L, Phosphorus Level 4.2, Magnesium Level 1.7 Current Medications Medications (Trade) Dose Ordered Sig/Homar Route PRN Reason Start Time Stop Time Status Last Admin Dose Admin Acetaminophen (Tylenol) 650 mg Q4H PRN ORAL Mild Pain (Pain Scale 1-3) 08/28/16 16:00 09/27/16 15:59 Acetaminophen/ Hydrocodone Bitart (Revelo 5/325) 1 tab Q4H PRN ORAL Moderate Pain (Pain Scale 4-6) 08/28/16 15:30 09/04/16 15:29 Aspirin (Ecotrin) 81 mg DAILY ORAL 08/29/16 09:00 09/28/16 08:59 Calcium Carbonate (OsCal D) 1 tab DAILY ORAL 08/29/16 09:00 09/28/16 08:59 Cyanocobalamin (Vitamin B-12) 1,000 mcg DAILY ORAL 08/29/16 09:00 09/28/16 08:59 Dextrose (Dextrose 50%) STAT PRN IV Hypoglycemia 08/29/16 15:00 09/28/16 14:59 Dextrose/ Electrolytes (D5 0.45%NS W/ KCl 20mEq) 1,000 ml @ 75 mls/hr [id number] IV 08/28/16 16:30 09/27/16 16:29 08/29/16 06:28 Docusate Sodium (Colace) 250 mg DAILY ORAL 08/29/16 09:00 09/28/16 08:59 Epoetin Deshaun (Procrit (for non ESRD use)) 7,000 units MON-WED-FRI SUBQ 08/28/16 21:00 09/27/16 20:59 08/28/16 20:44 Ferrous Sulfate (Feosol) 325 mg THREE TIMES A DAY ORAL 08/28/16 18:00 09/27/16 17:59 Finasteride (Proscar) 5 mg DAILY ORAL 08/29/16 09:00 09/28/16 08:59 Gemfibrozil (Lopid) 600 mg TWICE A DAY ORAL 08/28/16 18:00 09/27/16 17:59 Heparin Sodium (Porcine) (Heparin 5000 units/ml) 5,000 units EVERY 12 HOURS SUBQ 08/28/16 21:00 09/27/16 20:59 Insulin Aspart (NovoLOG) BEFORE MEALS AND HS SUBQ 08/28/16 16:30 09/27/16 16:29 08/29/16 06:21 Insulin Detemir (Levemir) 10 units Q12HR SUBQ 08/28/16 21:00 09/27/16 20:59 08/28/16 20:43 Metoprolol Tartrate (Lopressor) 25 mg Q12HR ORAL 08/28/16 21:30 09/27/16 21:29 Morphine Sulfate (Morphine Sulfate) 2 mg Q4H PRN IVP Severe Pain (Pain Scale 7-10) 08/28/16 19:15 09/04/16 19:14 Pantoprazole (Protonix) 40 mg DAILY ORAL 08/29/16 09:00 09/28/16 08:59 Ranitidine HCl (Zantac) 150 mg DAILY ORAL 08/29/16 09:00 09/28/16 08:59 Sodium Bicarbonate (NaHCO3) 650 mg BID ORAL 08/28/16 18:00 09/27/16 17:59 Tamsulosin HCl (Flomax) 0.4 mg QHS ORAL 08/29/16 21:00 09/28/16 20:59 KENDRICK SCHWARTZ Aug 29, 2016 08:40
[2016-08-29] MEDS: Docusate 250mg cap ORAL SCH (08:54)
[2016-08-29] MEDS: Aspirin EC 81mg tab ORAL SCH (08:54)
[2016-08-29] MEDS: Sodium Bicarbonate 650mg Tab ORAL SCH ×2 (08:55→17:47)
[2016-08-29] MEDS: Calcium Carbonate 500mg w/Vit D 200iu tab ORAL SCH (08:55)
[2016-08-29] MEDS: Vitamin B-12 500mcg tab ORAL SCH (08:56)
[2016-08-29] MEDS: Heparin 5000 units/ml inj SUBQ SCH ×2 (08:57→20:40)
[2016-08-29] MEDS ORDERED: Vitamin D 400 INTLU TAB ORAL SCH (09:00)
[2016-08-29] MEDS: Metoprolol 25mg tab ORAL SCH ×2 (09:00→20:49)
[2016-08-29] MEDS: Levemir Flexpen SUBQ SCH ×2 (09:45→20:47)
[2016-08-29 10:00] LABS: ABG ALLEN TEST POSITIVE; ABG BASE EXCESS -7.1; ABG PCO2 32.2 mmHg (35.0-45.0)
--- NOTE | 2016-08-29 10:30 | 48 Hour Post Anesthesia Eval ---
Post Anesthesia Evaluation Procedure: Decortication Date of Evaluation: Aug 29, 2016 Time of Evaluation: 07:12 Blood Pressure Systolic: 97 0: 42 Pulse Rate: 72 Respiratory Rate: 24 - Mech Vent Temperature (Fahrenheit): 98.6 O2 Sat by Pulse Oximetry: 99 Airway: patent Nausea: No Vomiting: No Pain Intensity: 2 Cardiopulmonary Status: Stable Mental Status/LOC: other - ICU Follow-up Care/Observations: 0 Post-Anesthesia Complications: 0 Follow-up care needed: N/A Jamaal Adams MD Aug 29, 2016 10:30
--- NOTE | 2016-08-29 10:38 | Diagnostic Imaging Report ---
Indication: POST-OP Technique: One view of the chest Comparison: 08/28/2016 Findings: Stable satisfactory positions of endotracheal tube, right subclavian central venous catheter, right arm PICC. Left chest pacemaker and 2 left chest tubes remain. There is only trace left basilar and lateral pneumothorax now present. There is decreased consolidation of the left lung. Small right pleural effusion persists. There is decreased consolidation at the right lung base. A linear band of atelectasis or scarring is now more apparent than previously. Impression: Decreased and now now minimal small left pneumothorax,, over one day Decreased bilateral parenchymal disease, as described
[2016-08-29] MEDS ORDERED: DuoNeb 0.5-3(2.5)mg/3ml neb ONE (11:23)
[2016-08-29] MEDS: DuoNeb 0.5-3(2.5)mg/3ml neb HHN PRN (11:44)
[2016-08-29] MEDS ORDERED: AMINOCAPROIC ACID IV ONE (12:00)
[2016-08-29] MEDS ORDERED: NS IV ONE (12:00)
--- NOTE | 2016-08-29 12:42 | General Progress Note ---
Assessment/Plan Problem List: (1) Anemia ICD Codes: D64.9 - Anemia, unspecified SNOMED: 424675802 Qualifiers: (2) Tachycardia ICD Codes: R00.0 - Tachycardia, unspecified SNOMED: 7503877 (3) GIB (gastrointestinal bleeding) ICD Codes: K92.2 - Gastrointestinal hemorrhage, unspecified SNOMED: 48673371 Qualifiers: Qualified Codes: K57.91 - Diverticulosis of intestine, part unspecified, without perforation or abscess with bleeding Status: stable Assessment/Plan ct surgery follow up pulm toilet and suctioning ivf monitor labs check swallow guarded and tenuous Subjective ROS Limited/Unobtainable: No Constitutional: Reports: malaise, weakness HEENT: Reports: no symptoms Cardiovascular: Reports: no symptoms Respiratory: Reports: SOB at rest, sputum Gastrointestinal/Abdominal: Reports: no symptoms Genitourinary: Reports: no symptoms Neurologic/Psychiatric: Reports: pre-existing deficit Endocrine: Reports: no symptoms Hematologic/Lymphatic: Reports: no symptoms Allergies: Coded Allergies: No Known Allergies (Unverified , 01/24/14) All Systems: reviewed and negative except above Subjective s/p vats. mild congestion. just extubated. d/w rn. pain controlled. Objective Last 24 Hour Vital Signs Date Time Temp Pulse Resp B/P Pulse Ox O2 Delivery O2 Flow Rate FiO2 08/29/16 12:00 98.1 72 20 114/67 98 Venturi Mask 8.0 40 08/29/16 12:00 71 08/29/16 11:53 78 20 99 Venturi Mask 10.0 35 08/29/16 11:44 35 08/29/16 11:44 81 22 99 Venturi Mask 10.0 35 08/29/16 11:20 76 19 08/29/16 11:15 8.0 40 08/29/16 11:00 71 16 110/49 100 Mechanical Ventilator 30 08/29/16 10:30 72 24 99 08/29/16 10:00 68 16 108/43 100 Mechanical Ventilator 30 08/29/16 09:20 72 24 30 08/29/16 09:20 99 08/29/16 09:00 72 18 92/49 100 Mechanical Ventilator 30 08/29/16 09:00 70 97/42 08/29/16 08:00 67 08/29/16 08:00 68 15 101/42 100 Mechanical Ventilator 30 08/29/16 07:00 69 14 100/48 100 Mechanical Ventilator 30 08/29/16 06:40 69 18 30 08/29/16 06:00 68 15 95/39 100 Mechanical Ventilator 30 08/29/16 05:42 30 08/29/16 05:25 69 20 30 08/29/16 05:00 69 15 95/41 100 Mechanical Ventilator 30 08/29/16 04:00 69 08/29/16 04:00 40 08/29/16 04:00 97.9 69 14 94/39 100 Mechanical Ventilator 40 08/29/16 03:30 70 14 40 08/29/16 03:00 70 15 110/40 100 Mechanical Ventilator 40 08/29/16 02:00 71 11 96/41 100 Mechanical Ventilator 40 08/29/16 01:29 70 28 40 08/29/16 01:00 72 11 95/37 100 Mechanical Ventilator 50 08/29/16 00:00 74 08/29/16 00:00 40 08/29/16 00:00 98.1 71 19 95/40 100 Mechanical Ventilator 50 08/28/16 23:28 72 11 40 08/28/16 23:00 71 18 99/42 100 Mechanical Ventilator 50 08/28/16 22:00 71 19 94/42 100 Mechanical Ventilator 50 08/28/16 21:30 70 96/43 08/28/16 21:30 74 16 40 08/28/16 21:00 74 08/28/16 21:00 73 14 107/39 100 Mechanical Ventilator 50 08/28/16 20:00 96.0 74 18 85/43 100 Mechanical Ventilator 100 08/28/16 19:27 73 24 40 08/28/16 19:00 40 08/28/16 18:00 75 18 94/41 100 Mechanical Ventilator 50 08/28/16 17:29 76 21 40 08/28/16 17:00 78 20 90/40 100 Mechanical Ventilator 50 08/28/16 16:00 81 17 86/40 100 Mechanical Ventilator 50 08/28/16 15:30 50 08/28/16 15:11 80 22 50 08/28/16 15:00 81 17 80/39 100 Mechanical Ventilator 100 08/28/16 14:30 97.8 80 18 134/56 100 Mechanical Ventilator 100 08/28/16 14:30 100 08/28/16 14:19 80 20 100 Intake and Output 08/28/16 08/29/16 19:00 07:00 Intake Total 300 ml 900 ml Output Total 450 ml 230 ml Balance -150 ml 670 ml IV Total 300 ml 900 ml Output Urine Total 125 ml 230 ml Chest Tube Drainage Total 325 ml Laboratory Tests 08/28/16 14:30: White Blood Count 16.3#H, Red Blood Count 3.39L, Hemoglobin 10.5L, Hematocrit 31.0L, Mean Corpuscular Volume 91, Mean Corpuscular Hemoglobin 31.0, Mean Corpuscular Hemoglobin Concent 33.9, Red Cell Distribution Width 16.2H, Platelet Count 103L, Mean Platelet Volume 9.5, Neutrophils (%) (Auto) , Lymphocytes (%) (Auto) , Monocytes (%) (Auto) , Eosinophils (%) (Auto) , Basophils (%) (Auto) , Differential Total Cells Counted 100, Neutrophils % ( Manual) 92H, Lymphocytes % (Manual) 5L, Monocytes % (Manual) 2, Eosinophils % ( Manual) 1, Basophils % (Manual) 0, Band Neutrophils 0, Platelet Estimate DecreasedL, Platelet Morphology Normal, Polychromasia 1+, Anisocytosis 1+, Macrocytosis 1+, Sodium Level 147H, Potassium Level 4.7, Chloride Level 108H, Carbon Dioxide Level 21, Anion Gap 18H, Blood Urea Nitrogen 44H, Creatinine 1.9H , Estimat Glomerular Filtration Rate , Glucose Level 165H, Calcium Level 7.5L, Ionized Calcium (Measured) 0.98L, Phosphorus Level 5.0H, Magnesium Level 1.9 08/28/16 14:43: Arterial Blood pH 7.361, Arterial Blood Partial Pressure CO2 36.1, Arterial Blood Partial Pressure O2 266.2H, Arterial Blood HCO3 20.0L, Arterial Blood Oxygen Saturation 98.1H, Arterial Blood Base Excess -4.9, Arnie Test Positive 08/28/16 18:00: Arterial Blood pH 7.425, Arterial Blood Partial Pressure CO2 29.7L, Arterial Blood Partial Pressure O2 96.5, Arterial Blood HCO3 19.1L, Arterial Blood Oxygen Saturation 96.4, Arterial Blood Base Excess -4.4, Arnie Test Positive 08/29/16 04:00: Arterial Blood pH 7.365, Arterial Blood Partial Pressure CO2 37.9, Arterial Blood Partial Pressure O2 141.6H, Arterial Blood HCO3 21.2L, Arterial Blood Oxygen Saturation 97.7, Arterial Blood Base Excess -3.8, Arnie Test Positive 08/29/16 04:10: White Blood Count 17.2H, Red Blood Count 3.27L, Hemoglobin 10.1L, Hematocrit 29.4L, Mean Corpuscular Volume 90, Mean Corpuscular Hemoglobin 31.0, Mean Corpuscular Hemoglobin Concent 34.4, Red Cell Distribution Width 16.9H, Platelet Count 105L, Mean Platelet Volume 9.6, Neutrophils (%) (Auto) , Lymphocytes (%) (Auto) , Monocytes (%) (Auto) , Eosinophils (%) (Auto) , Basophils (%) (Auto) , Sodium Level 146H, Potassium Level 4.5, Chloride Level 111H, Carbon Dioxide Level 20, Anion Gap 15, Blood Urea Nitrogen 50H, Creatinine 2.0H, Estimat Glomerular Filtration Rate , Glucose Level 224H, Calcium Level 7.7L, Ionized Calcium (Measured) 0.98L, Phosphorus Level 4.2, Magnesium Level 1.7 08/29/16 09:45: Arterial Blood pH 7.355, Arterial Blood Partial Pressure CO2 32.2L, Arterial Blood Partial Pressure O2 94.8, Arterial Blood HCO3 17.6L, Arterial Blood Oxygen Saturation 96.1, Arterial Blood Base Excess -7.1, Arnie Test Positive Height (Feet): 5 Height (Inches): 4.00 Weight (Pounds): 160 Objective General Appearance: WD/WN, alert Neck: supple Cardiovascular: regular rhythm Respiratory/Chest: rhonchi/rales bilaterally, improved breath sounds, no respiratory distress. +left sided chest tube x 2 Edema: no edema noted Arm (L), no edema noted Arm (R), no edema noted Leg (L), no edema noted Leg (R), no edema noted Pedal (L), no edema noted Pedal (R), no edema noted Generalized TALHA LEIGH Aug 29, 2016 12:42
[2016-08-29 18:51] LABS: ABG BASE EXCESS -7.1; ABG PCO2 29.4 mmHg (35.0-45.0)
[2016-08-29] MEDS: Tamsulosin 0.4mg cap ORAL SCH (20:49)
[2016-08-30] VITALS (24 sets, daily range): BP systolic 86–125; BP diastolic 21–94
[2016-08-30] MEDS: DuoNeb 0.5-3(2.5)mg/3ml neb HHN PRN (01:06)
[2016-08-30 04:53] LABS: MEAN CORPUSCULAR HGB CONC 34.1 G/DL (32.0-36.0); MEAN CORPUSCULAR VOLUME 91 FL (80-99); MEAN PLATELET VOLUME 9.9 FL (6.5-10.1); PLATELET COUNT 95 K/UL (150-450); RED BLOOD COUNT 3.54 M/UL (4.70-6.10); RED CELL DISTRIBUTION WIDTH 17.6 % (11.6-14.8); WHITE BLOOD COUNT 17.5 K/UL (4.8-10.8)
[2016-08-30 05:35] LABS: ANION GAP 13 (5-15); CALCIUM 8.2 mg/dL (8.6-10.2); CARBON DIOXIDE 20 mEQ/L (20-30); CHLORIDE 113 mEQ/L (98-107); CREATININE 2.1 mg/dL (0.7-1.2); HEMOLYSIS 7; MAGNESIUM 2.1 mg/dL (1.7-2.5); POTASSIUM 4.7 mEQ/L (3.4-4.9); SODIUM 146 mEQ/L (135-145)
[2016-08-30 05:42] LABS: IONIZED CALCIUM 1.15 mmol/L (1.10-1.35)
[2016-08-30] MEDS: NovoLOG Insulin Flexpen SUBQ SCH ×4 (06:15→21:00)
[2016-08-30] MEDS: Norco 5mg/325mg tab ORAL PRN ×2 (06:17→12:51)
--- NOTE | 2016-08-30 08:23 | Diagnostic Imaging Report ---
Indications: Shortness of breath, postop Technique: Portable AP chest Findings: Comparison: 08/29/16 Endotracheal tube has been removed. Separate right subclavian central venous catheter, right upper extremity PICC remain in place. 2 left chest tubes remain in place. Opacification of the left hemithorax has increased. Left retrocardiac region is less well demonstrated. Consolidative opacity appears to have developed in the right lung base. Left lung volume loss, right lung interstitial infiltrate, right pleural effusion persist, unchanged. IMPRESSION: Interval increase in left pleural effusion and/or left lung consolidation Suggestion of development of atelectasis versus pneumonia right lung base Endotracheal extubation No other change
[2016-08-30] MEDS: Aspirin EC 81mg tab ORAL SCH (08:43)
[2016-08-30] MEDS: Sodium Bicarbonate 650mg Tab ORAL SCH ×2 (08:43→17:34)
[2016-08-30] MEDS: Calcium Carbonate 500mg w/Vit D 200iu tab ORAL SCH (08:44)
[2016-08-30] MEDS: Heparin 5000 units/ml inj SUBQ SCH ×2 (08:44→21:00)
[2016-08-30] MEDS: Vitamin B-12 500mcg tab ORAL SCH (08:44)
[2016-08-30] MEDS: Levemir Flexpen SUBQ SCH ×2 (08:45→21:27)
[2016-08-30] MEDS: Docusate 250mg cap ORAL SCH (08:46)
[2016-08-30] MEDS: Metoprolol 25mg tab ORAL SCH ×2 (08:47→21:00)
--- NOTE | 2016-08-30 09:11 | Pulmonology Progress Note ---
Assessment/Plan Assessment/Plan ASSESSMENT: 1. bilateral pleural effusions; 2. Anemia. with need for transfusion 3. Chronic kidney disease. 4. Stroke. with focal weakness 5. Hypertension. 6. History of chronic obstructive pulmonary disease. 7. History of conduction system disease. with pacemaker 8. worsening left effusion with atelectasis 9. iatrogenic pneumothorax 10. s/p decortication 11. respiratory failure PLAN: wean off the ventilator; possible extubation care noted and reviewed monitor CT output and dc per thoracic follow up chest xr post op noted with improved aeration oxygen taper maintain meds aspiration precautions; continue to monitor closely care noted ICU care reviewed in detail medications/laboratory data/nursing notes/ICU care reviewed in detail note reviewed and edited care discussed with RN and RT ICU time spent 36 minutes Subjective ROS Limited/Unobtainable: Yes Allergies: Coded Allergies: No Known Allergies (Unverified , 01/24/14) Subjective underwent decortication now on the ventilator weaning on CPAP CT x [address] Objective Last 24 Hour Vital Signs Date Time Temp Pulse Resp B/P Pulse Ox O2 Delivery O2 Flow Rate FiO2 08/30/16 08:47 91 118/60 08/30/16 07:00 81 20 90/52 98 Nasal Cannula 3.0 08/30/16 06:00 81 21 94/49 98 Nasal Cannula 3.0 08/30/16 05:00 81 19 95/46 98 Nasal Cannula 3.0 08/30/16 04:00 98.0 81 19 101/49 98 Venturi Mask 8.0 40 08/30/16 04:00 82 08/30/16 03:00 80 23 101/49 98 Nasal Cannula 3.0 08/30/16 02:00 81 22 100/49 97 Nasal Cannula 3.0 08/30/16 01:06 35 08/30/16 01:05 84 26 96 Venturi Mask 8.0 35 08/30/16 01:00 85 24 117/56 99 Nasal Cannula 3.0 08/30/16 00:00 98.1 85 24 112/94 99 Nasal Cannula 3.0 08/30/16 00:00 84 08/29/16 23:00 84 22 126/54 97 Nasal Cannula 3.0 08/29/16 22:00 87 25 114/60 98 Venturi Mask 35 08/29/16 21:00 84 18 112/94 98 Venturi Mask 35 08/29/16 20:49 85 115/55 08/29/16 20:00 35 08/29/16 20:00 98.1 84 26 102/60 99 Venturi Mask 8.0 40 08/29/16 20:00 84 08/29/16 19:18 Venturi Mask 10.0 40 08/29/16 19:17 98 Venturi Mask 10.0 40 08/29/16 19:15 86 22 Venturi Mask 10.0 40 08/29/16 19:00 91 24 113/49 96 Venturi Mask 35 08/29/16 18:00 88 24 116/53 95 Venturi Mask 35 08/29/16 17:03 82 16 08/29/16 17:00 82 23 92/49 98 Venturi Mask 35 08/29/16 16:00 80 08/29/16 16:00 98.2 84 24 112/48 96 Venturi Mask 8.0 40 08/29/16 16:00 35 08/29/16 15:28 75 20 08/29/16 15:00 85 24 121/49 98 Venturi Mask 8.0 40 08/29/16 14:00 84 22 126/79 96 Venturi Mask 8.0 40 08/29/16 13:20 81 19 08/29/16 13:00 81 16 108/71 100 Venturi Mask 8.0 40 08/29/16 12:00 98.1 72 20 114/67 98 Venturi Mask 8.0 40 08/29/16 12:00 71 08/29/16 11:53 78 20 99 Venturi Mask 10.0 35 08/29/16 11:44 35 08/29/16 11:44 81 22 99 Venturi Mask 10.0 35 08/29/16 11:20 76 19 08/29/16 11:15 8.0 40 08/29/16 11:00 71 16 110/49 100 Mechanical Ventilator 30 08/29/16 10:30 72 24 99 08/29/16 10:00 68 16 108/43 100 Mechanical Ventilator 30 08/29/16 09:20 72 24 30 08/29/16 09:20 99 Intake and Output 08/29/16 08/30/16 19:00 07:00 Intake Total 830 ml 0 ml Output Total 350 ml 242 ml Balance 480 ml -242 ml Intake Oral 0 ml 0 ml IV Total 830 ml Output Urine Total 140 ml 55 ml Chest Tube Drainage Total 210 ml 187 ml Objective Sp02 EP Interpretation: reviewed, normal General Appearance: normal inspection, well appearing, no apparent distress, withdrawn Head: normocephalic, atraumatic Eyes: bilateral eye normal inspection ENT: normal ENT inspection, no angioedema, normal voice Neck: normal inspection, full range of motion, supple, no meningismus, carotid 2+ Respiratory: improved BS left; no rhonchi or wheeze; chest tube x [address]; Cardiovascular #1: regular rate, rhythm, no murmur without MRG Gastrointestinal: non tender, soft, non-distended, no guarding, no rebound Musculoskeletal: no CC; minimal edema Neurologic: arouseable no distress reviewed and edited Microbiology Date/Time Source Procedure Growth Status 08/28/16 10:45 Blood AFB Specimen Processing Tissue - Final Resulted 08/28/16 10:45 Blood Acid Fast Bacilli Smear - Final Resulted 08/28/16 10:45 Blood Acid Fast Bacilli Culture Pending Resulted 08/28/16 10:45 Pleural Fluid Gram Stain - Final Resulted 08/28/16 10:45 Aerobic Culture - Preliminary Diphtheroids Resulted 08/28/16 10:45 Pleural Fluid Anaerobic Culture Pending Resulted Laboratory Tests 08/29/16 09:45: Arterial Blood pH 7.355, Arterial Blood Partial Pressure CO2 32.2L, Arterial Blood Partial Pressure O2 94.8, Arterial Blood HCO3 17.6L, Arterial Blood Oxygen Saturation 96.1, Arterial Blood Base Excess -7.1, Arnie Test Positive 08/29/16 18:00: Arterial Blood pH 7.370, Arterial Blood Partial Pressure CO2 29.4L, Arterial Blood Partial Pressure O2 64.0L, Arterial Blood HCO3 17.0L, Arterial Blood Oxygen Saturation 90.8L, Arterial Blood Base Excess -7.1, Arnie Test N/a 08/30/16 04:20: White Blood Count 17.5H, Red Blood Count 3.54L, Hemoglobin 11.0L, Hematocrit 32.2L, Mean Corpuscular Volume 91, Mean Corpuscular Hemoglobin 31.0, Mean Corpuscular Hemoglobin Concent 34.1, Red Cell Distribution Width 17.6H, Platelet Count 95L, Mean Platelet Volume 9.9, Neutrophils (%) (Auto) , Lymphocytes (%) (Auto) , Monocytes (%) (Auto) , Eosinophils (%) (Auto) , Basophils (%) (Auto) , Neutrophils % (Manual) [Pending], Lymphocytes % (Manual) [Pending], Platelet Estimate [Pending], Platelet Morphology [Pending], Sodium Level 146H, Potassium Level 4.7, Chloride Level 113H, Carbon Dioxide Level 20, Anion Gap 13, Blood Urea Nitrogen 53H, Creatinine 2.1H, Estimat Glomerular Filtration Rate , Glucose Level 101#, Calcium Level 8.2L, Ionized Calcium ( Measured) 1.15, Magnesium Level 2.1 Current Medications Medications (Trade) Dose Ordered Sig/Homar Route PRN Reason Start Time Stop Time Status Last Admin Dose Admin Acetaminophen (Tylenol) 650 mg Q4H PRN ORAL Mild Pain (Pain Scale 1-3) 08/28/16 16:00 09/27/16 15:59 Acetaminophen/ Hydrocodone Bitart ([place] 5/325) 1 tab Q4H PRN ORAL Moderate Pain (Pain Scale 4-6) 08/28/16 15:30 09/04/16 15:29 08/30/16 06:17 Albuterol/ Ipratropium (DuoNeb 0.5-3(2.5)mg/3ml) 3 ml Q4H PRN HHN Shortness of Breath 08/29/16 11:30 09/03/16 11:29 08/30/16 01:06 Aspirin (Ecotrin) 81 mg DAILY ORAL 08/29/16 09:00 09/28/16 08:59 08/30/16 08:43 Calcium Carbonate (OsCal D) 1 tab DAILY ORAL 08/29/16 09:00 09/28/16 08:59 08/30/16 08:44 Cyanocobalamin (Vitamin B-12) 1,000 mcg DAILY ORAL 08/29/16 09:00 09/28/16 08:59 08/30/16 08:44 Dextrose (Dextrose 50%) STAT PRN IV Hypoglycemia 08/29/16 15:00 09/28/16 14:59 Docusate Sodium (Colace) 250 mg DAILY ORAL 08/29/16 09:00 09/28/16 08:59 08/30/16 08:46 Epoetin Deshaun (Procrit (for non ESRD use)) 7,000 units FRI-WED-FRI SUBQ 08/28/16 21:00 09/27/16 20:59 08/28/16 20:44 Ferrous Sulfate (Feosol) 325 mg THREE TIMES A DAY ORAL 08/28/16 18:00 09/27/16 17:59 08/30/16 08:43 Finasteride (Proscar) 5 mg DAILY ORAL 08/29/16 09:00 09/28/16 08:59 08/30/16 08:43 Gemfibrozil (Lopid) 600 mg TWICE A DAY ORAL 08/28/16 18:00 09/27/16 17:59 08/30/16 08:43 Heparin Sodium (Porcine) (Heparin 5000 units/ml) 5,000 units EVERY 12 HOURS SUBQ 08/28/16 21:00 09/27/16 20:59 08/30/16 08:44 Insulin Aspart (NovoLOG) BEFORE MEALS AND HS SUBQ 08/28/16 16:30 09/27/16 16:29 08/29/16 17:03 Insulin Detemir (Levemir) 10 units Q12HR SUBQ 08/28/16 21:00 09/27/16 20:59 08/30/16 08:45 Metoprolol Tartrate (Lopressor) 25 mg Q12HR ORAL 08/28/16 21:30 09/27/16 21:29 08/30/16 08:47 Morphine Sulfate (Morphine Sulfate) 2 mg Q4H PRN IVP Severe Pain (Pain Scale 7-10) 08/28/16 19:15 09/04/16 19:14 08/29/16 19:37 Pantoprazole (Protonix) 40 mg DAILY ORAL 08/29/16 09:00 09/28/16 08:59 08/30/16 08:43 Ranitidine HCl (Zantac) 150 mg DAILY ORAL 08/29/16 09:00 09/28/16 08:59 08/30/16 08:44 Sodium Bicarbonate (NaHCO3) 650 mg BID ORAL 08/28/16 18:00 09/27/16 17:59 08/30/16 08:43 Tamsulosin HCl (Flomax) 0.4 mg QHS ORAL 08/29/16 21:00 09/28/16 20:59 08/29/16 20:49 KENDRICK SCHWARTZ Aug 30, 2016 09:11
[2016-08-30] MEDS ORDERED: NS 275ml ONE (10:41)
[2016-08-30] MEDS ORDERED: Sterile Water Irrig 1000ml IRRIG ONE (10:50)
[2016-08-30 11:07] LABS: ANISOCYTOSIS 1+; BAND NEUTROPHILS % (MANUAL) 0 % (0-8); BASOPHILS % (MANUAL) 0 % (0-2); BURR CELLS OCCASIONAL; EOSINOPHILS % (MANUAL) 0 % (0-3); HYPOCHROMASIA 1+; LYMPHOCYTES % (MANUAL) 2 % (20-45); NEUTROPHILS % (MANUAL) 92 % (45-75); PLATELET ESTIMATE DECREASED; PLATELET MORPHOLOGY NORMAL; TOTAL CELLS COUNTED 100
[2016-08-30 12:57] LABS: APPEARANCE,URINE SLIGHTLY CLOUDY; KETONES,URINE 1+ (NEGATIVE); LEUKOCYTE ESTERASE ,URINE 1+ (NEGATIVE); NITRITE,URINE NEGATIVE (NEGATIVE); PH,URINE 5 (4.5-8.0); PROTEIN,URINE 3+ (NEGATIVE); UROBILINOGEN,URINE 4 MG/DL (0.0-1.0)
[2016-08-30 13:13] LABS: BACTERIA,URINE FEW /HPF; RBC,URINE 20-30 /HPF (0 - 0); SQUAMOUS EPITHELIAL CELL,UR OCCASIONAL /LPF (NONE/OCC)
[2016-08-30 13:17] LABS: ICTOTEST NEGATIVE
[2016-08-30] MEDS: DuoNeb 0.5-3(2.5)mg/3ml neb HHN SCH ×3 (15:01→22:45)
--- NOTE | 2016-08-30 19:17 | Consultation ---
DATE OF CONSULTATION: 08/30/2016 INFECTIOUS DISEASE CONSULTATION REFERRING PHYSICIAN: Boris See M.D. REASON FOR CONSULTATION: Pneumonia. HISTORY OF PRESENTING ILLNESS: This is an 80-year-old gentleman with history of hypertension, CVA, anemia and status post pacemaker placement, who came in with anemia with a hemoglobin of 6.8. During his hospitalization, there is a concern for GI bleeding. Subsequent to that, he was found to have a loculated effusion with trapped left lung. He underwent VATS, lysis of adhesions and partial pleurectomy and decortication and an Infectious Diseases consultation has been obtained for antibiotics. PAST MEDICAL HISTORY: 1. History of hypertension. 2. CVA. 3. Hypertensive heart disease. 4. Anemia. 5. Chronic kidney disease. 6. Conduction system disease status post pacemaker placement. 7. History of left-sided hemiparesis. 8. Cardiomyopathy. MEDICATIONS: As an inpatient, the patient is on albuterol, Flomax, aspirin, Os-Domenic, cyanocobalamin, docusate, Proscar, Protonix, ranitidine, metoprolol, Epogen, subcutaneous heparin, insulin, morphine, ferrous sulfate, Lopid, sodium bicarbonate, insulin, Tylenol and [place]. ALLERGIES: No known drug allergies. SOCIAL HISTORY: No history of smoking, alcohol, or drug use. FAMILY HISTORY: Unknown. REVIEW OF SYSTEMS: Unable to obtain currently. PHYSICAL EXAMINATION: VITAL SIGNS: Temperature of 98.1 degrees, T-max of 98.2 degrees, pulse of 76, respiratory of 18, blood pressure 91/41 and O2 saturation of 100%. HEENT: Pupils equally reactive to light and accommodation. Mouth appears clean without thrush. NECK: Supple. No adenopathy. No JVD. CARDIOVASCULAR: Regular rate and rhythm. No murmurs. LUNGS: Clear to auscultation bilaterally. No crackles. No wheezes. Left-sided chest tube noted. ABDOMEN: Soft and nontender. No organomegaly. EXTREMITIES: No cyanosis. No clubbing. Edema noted bilaterally. Right subclavian catheter noted. LABORATORY AND DIAGNOSTIC DATA: White count of 17.5, hemoglobin 11, hematocrit 32.2, MCV 91, and platelet count of 95,000 with neutrophils of 92%. Sodium 146, potassium 4.7, chloride 113, bicarbonate 20, BUN 53, creatinine 2.1 and glucose 101. Calcium 8.2. Total bilirubin on 08/25/2016 is 3. Direct bilirubin 2. AST 16, ALT 5 and alkaline phosphatase 108. Total protein 6.8. Albumin 1.7. Urinalysis showing 0-2 white cells. Urine cultures from 08/16/2016 growing coagulase-negative Staph. On 08/28/2016, pleural fluid culture growing diphtheroids. Chest x-ray on 08/30/2016 showing increased left-sided pleural effusion and left lung consolidation and atelectasis versus pneumonia in the right lung base. ASSESSMENT: 1. This is an 80-year-old gentleman with history of hypertension and cardiomyopathy who came in and was found to have a trapped left lung with loculated pleural effusion. He underwent a VATS, lysis of adhesion, decortication and partial pleurectomy and now has leukocytosis, which could be secondary to pneumonia. 2. Renal failure. 3. Hypertension. PLAN: 1. We will order sputum for Gram stain and culture. 2. We will follow up cultures. 3. We will start the patient on Zosyn. 4. We will follow up cultures and adjust antibiotics accordingly. 5. We will also order blood cultures and urine cultures and urinalysis. I would like to thank, Dr. See, for this consultation. Mindy Baez M.D. DR: SARAH JOB#: [id number] CC: Boris See M.D.
[2016-08-30] MEDS: Epogen (for non ESRD use) SUBQ SCH (21:00)
[2016-08-30] MEDS: Tamsulosin 0.4mg cap ORAL SCH (21:24)
[2016-08-31] VITALS (78 sets, daily range): BP systolic 61–177; BP diastolic 8–100
[2016-08-31 02:14] LABS: ABG ALLEN TEST POSITIVE; ABG BASE EXCESS -7.3; ABG PCO2 39.9 mmHg (35.0-45.0)
[2016-08-31 02:36] LABS: ALANINE AMINOTRANSFERASE 5 U/L (3-41); ALBUMIN/GLOBULIN RATIO 0.4 (1.0-2.7); ANION GAP 14 (5-15); ASPARTATE AMINO TRANSFERASE 18 U/L (5-40); CALCIUM 8.4 mg/dL (8.6-10.2); CARBON DIOXIDE 22 mEQ/L (20-30); CHLORIDE 109 mEQ/L (98-107); CREATININE 2.6 mg/dL (0.7-1.2); HEMOLYSIS 2; MAGNESIUM 2.2 mg/dL (1.7-2.5); POTASSIUM 5.1 mEQ/L (3.4-4.9); SODIUM 145 mEQ/L (135-145); TOTAL PROTEIN 6.3 g/dL (6.6-8.7)
[2016-08-31] MEDS: DuoNeb 0.5-3(2.5)mg/3ml neb HHN SCH ×6 (02:52→22:43)
[2016-08-31 02:57] LABS: BILIRUBIN,DIRECT 2.9 mg/dL (0.1-0.3)
[2016-08-31] MEDS: DOPamine 400mg/250ml 250 ML IV SCH ×2 (05:57→11:51)
[2016-08-31] MEDS: NovoLOG Insulin Flexpen SUBQ SCH ×4 (06:04→22:12)
[2016-08-31] MEDS ORDERED: Levophed 4mg/4mL Inj IV ONE (08:10)
[2016-08-31 08:20] LABS: MEAN CORPUSCULAR HEMOGLOBIN 31.5 PG (27.0-31.0); MEAN CORPUSCULAR HGB CONC 33.5 G/DL (32.0-36.0); MEAN CORPUSCULAR VOLUME 94 FL (80-99); MEAN PLATELET VOLUME 12.2 FL (6.5-10.1); PLATELET COUNT 58 K/UL (150-450); RED BLOOD COUNT 2.76 M/UL (4.70-6.10); RED CELL DISTRIBUTION WIDTH 18.4 % (11.6-14.8); WHITE BLOOD COUNT 16.5 K/UL (4.8-10.8)
--- NOTE | 2016-08-31 08:29 | General Progress Note ---
Assessment/Plan Problem List: (1) Anemia ICD Codes: D64.9 - Anemia, unspecified SNOMED: 486805094 Qualifiers: (2) Tachycardia ICD Codes: R00.0 - Tachycardia, unspecified SNOMED: 1914936 (3) GIB (gastrointestinal bleeding) ICD Codes: K92.2 - Gastrointestinal hemorrhage, unspecified SNOMED: 17567648 Qualifiers: Qualified Codes: K57.91 - Diverticulosis of intestine, part unspecified, without perforation or abscess with bleeding Status: deteriorating Assessment/Plan pressors ivf boluses follow up labs may need to be intubated critical and guarded Subjective ROS Limited/Unobtainable: Yes Constitutional: Reports: malaise, weakness HEENT: Reports: no symptoms Cardiovascular: Reports: no symptoms Respiratory: Reports: shortness of breath Gastrointestinal/Abdominal: Reports: no symptoms Genitourinary: Reports: no symptoms Neurologic/Psychiatric: Reports: pre-existing deficit Endocrine: Reports: no symptoms Hematologic/Lymphatic: Reports: no symptoms Allergies: Coded Allergies: No Known Allergies (Unverified , 01/24/14) All Systems: reviewed and negative except above Subjective s/p vats. mild congestion. more sob. hypotensive now. on dopamine. converting to levophed. pacemaker checked- working appropriately Objective Last 24 Hour Vital Signs Date Time Temp Pulse Resp B/P Pulse Ox O2 Delivery O2 Flow Rate FiO2 08/31/16 07:25 65 32 96 Bi-pap 50 08/31/16 07:15 92 Bi-pap 50 08/31/16 07:15 67 28 Bi-pap 50 08/31/16 07:15 67 28 100 Bi-pap 50 08/31/16 07:15 67 29 95 Full Face 50 08/31/16 07:15 Bi-pap 50 08/31/16 07:15 78 27 66/28 92 Bi-pap 50 08/31/16 07:00 111 29 66/34 92 Bi-pap 50 08/31/16 06:45 106 30 61/30 96 Bi-pap 50 08/31/16 06:30 95 30 64/34 98 Bi-pap 50 08/31/16 06:15 96 30 67/33 98 Bi-pap 50 08/31/16 06:00 96 28 74/43 98 Bi-pap 50 08/31/16 05:57 87/46 08/31/16 05:27 64 28 100 Full Face 50 08/31/16 05:00 65 28 77/39 98 Bi-pap 50 08/31/16 04:00 98.0 70 19 86/68 98 Bi-pap 50 08/31/16 04:00 95 08/31/16 04:00 50 08/31/16 03:07 64 30 100 Bi-pap 50 08/31/16 03:00 73 28 85/53 98 Bi-pap 50 08/31/16 02:53 64 28 100 Bi-pap 50 08/31/16 02:52 67 28 100 Full Face 50 08/31/16 02:00 73 28 80/35 98 Bi-pap 50 08/31/16 01:00 95 28 94/40 98 Bi-pap 50 08/31/16 00:56 98 27 100 Full Face 50 08/31/16 00:00 89 08/31/16 00:00 98.1 91 22 97/46 97 Bi-pap 50 08/31/16 00:00 35 08/30/16 23:13 96 28 94 Bi-pap 50 08/30/16 23:00 95 31 95/32 99 Bi-pap 35.0 08/30/16 22:45 96 28 94 Facial 50 08/30/16 22:45 96 27 93 Bi-pap 50 08/30/16 22:00 95 28 95/32 98 Bi-pap 35.0 08/30/16 22:00 35 08/30/16 21:26 90 27 94 Facial 50 08/30/16 21:00 91 26 98/47 98 Nasal Cannula 3.0 08/30/16 21:00 91 96/43 08/30/16 20:00 98.1 90 22 86/27 97 Nasal Cannula 3.0 08/30/16 20:00 80 08/30/16 19:08 96 24 96 Nasal Cannula 4.0 36 08/30/16 19:00 94 24 98/21 97 Nasal Cannula 3.0 08/30/16 18:48 90 24 98 Nasal Cannula 4.0 36 08/30/16 18:47 98 Nasal Cannula 4.0 36 08/30/16 18:47 Nasal Cannula 4.0 36 08/30/16 18:46 90 24 Nasal Cannula 4.0 36 08/30/16 18:00 91 25 125/46 94 Nasal Cannula 3.0 08/30/16 17:00 84 24 125/40 98 Nasal Cannula 3.0 08/30/16 16:00 82 08/30/16 16:00 98.3 83 23 111/37 98 Nasal Cannula 3.0 08/30/16 15:12 82 22 100 Nasal Cannula 3.0 32 08/30/16 15:02 80 22 96 Nasal Cannula 3.0 32 08/30/16 15:00 84 23 123/47 97 Nasal Cannula 3.0 08/30/16 14:03 98.2 08/30/16 14:00 79 16 119/38 97 Nasal Cannula 3.0 08/30/16 13:00 78 16 118/63 97 Nasal Cannula 3.0 08/30/16 12:00 74 08/30/16 12:00 98.2 75 22 117/64 98 Nasal Cannula 3.0 08/30/16 11:00 76 20 91/71 100 Nasal Cannula 3.0 08/30/16 10:00 76 18 91/41 100 Nasal Cannula 3.0 08/30/16 09:00 89 24 104/51 94 Nasal Cannula 3.0 08/30/16 08:47 91 118/60 Intake and Output 08/30/16 08/31/16 19:00 07:00 Intake Total 220 ml 182.153 ml Output Total 340 ml 10 ml Balance -120 ml 172.153 ml Intake Oral 120 ml IV Total 100 ml 182.153 ml Output Urine Total 110 ml 10 ml Chest Tube Drainage Total 230 ml Laboratory Tests 08/30/16 12:00: Urine Color Yellow, Urine Appearance Slightly cloudy, Urine pH 5, Urine Specific [place] 1.025, Urine Protein 3+H, Urine Glucose (UA) Negative, Urine Ketones 1+H, Urine Occult Blood 5+H, Urine Nitrite Negative, Urine Bilirubin 1+H , Urine Ictotest Negative, Urine Urobilinogen 4H, Urine Leukocyte Esterase 1+H, Urine RBC 20-30H, Urine WBC 2-4, Urine Squamous Epithelial Cells Occasional, Urine Bacteria Few, Urine Granular Casts 2-4H 08/31/16 02:00: Sodium Level 145, Potassium Level 5.1H, Chloride Level 109H, Carbon Dioxide Level 22, Anion Gap 14, Blood Urea Nitrogen 64H, Creatinine 2.6H, Estimat Glomerular Filtration Rate , Glucose Level 113H, Calcium Level 8.4L, Magnesium Level 2.2, Total Bilirubin 4.1H, Direct Bilirubin 2.9H, Aspartate Amino Transf ( AST/SGOT) 18, Alanine Aminotransferase (ALT/SGPT) 5, Alkaline Phosphatase 75, Total Protein 6.3L, Albumin 1.9L, Globulin 4.4, Albumin/Globulin Ratio 0.4L 08/31/16 02:10: Arterial Blood pH 7.290L, Arterial Blood Partial Pressure CO2 39.9, Arterial Blood Partial Pressure O2 107.8H, Arterial Blood HCO3 18.8L, Arterial Blood Oxygen Saturation 97.3, Arterial Blood Base Excess -7.3, Arnie Test Positive 08/31/16 07:45: White Blood Count [Pending], Red Blood Count [Pending], Hemoglobin [Pending], Hematocrit [Pending], Mean Corpuscular Volume [Pending], Mean Corpuscular Hemoglobin [Pending], Mean Corpuscular Hemoglobin Concent [Pending], Red Cell Distribution Width [Pending], Platelet Count [Pending], Mean Platelet Volume [ Pending], Neutrophils (%) (Auto) [Pending], Lymphocytes (%) (Auto) [Pending], Monocytes (%) (Auto) [Pending], Eosinophils (%) (Auto) [Pending], Basophils (%) (Auto) [Pending] Height (Feet): 5 Height (Inches): 4.00 Weight (Pounds): 160 Objective General Appearance: WD/WN, alert. on bipap Neck: supple Cardiovascular: regular rhythm Respiratory/Chest: rhonchi/rales bilaterally, improved breath sounds, no respiratory distress. +left sided chest tube x 2 Edema: generalized edema TALHA LEIGH Aug 31, 2016 08:29
[2016-08-31 08:59] LABS: ABG BASE EXCESS -8.1
[2016-08-31] MEDS: Calcium Carbonate 500mg w/Vit D 200iu tab ORAL SCH (09:00)
[2016-08-31] MEDS: Vitamin B-12 500mcg tab ORAL SCH (09:00)
[2016-08-31] MEDS: Sodium Bicarbonate 650mg Tab ORAL SCH ×2 (09:00→18:00)
[2016-08-31] MEDS: Docusate 250mg cap ORAL SCH (09:00)
[2016-08-31] MEDS: Aspirin EC 81mg tab ORAL SCH (09:00)
[2016-08-31] MEDS ORDERED: D5NS 1,000 ML IV SCH (09:00)
[2016-08-31] MEDS: Heparin 5000 units/ml inj SUBQ SCH ×2 (09:00→21:00)
[2016-08-31] MEDS: Metoprolol 25mg tab ORAL SCH ×2 (09:00→21:00)
[2016-08-31 09:07] LABS: ABG ALLEN TEST POSITIVE
[2016-08-31 09:36] LABS: LYMPHOCYTES % (MANUAL) 6 % (20-45); NEUTROPHILS % (MANUAL) 84 % (45-75); TOTAL CELLS COUNTED 100
[2016-08-31 09:37] LABS: ANISOCYTOSIS 1+; BAND NEUTROPHILS % (MANUAL) 0 % (0-8); BASOPHILS % (MANUAL) 0 % (0-2); BURR CELLS OCCASIONAL; EOSINOPHILS % (MANUAL) 0 % (0-3); HYPOCHROMASIA 1+; PLATELET ESTIMATE DECREASED; PLATELET MORPHOLOGY NORMAL
[2016-08-31] MEDS: Levemir Flexpen SUBQ SCH ×2 (09:45→22:10)
[2016-08-31] MEDS ORDERED: Sodium Bicarbonate 8.4% 50ml Carp IVP ONE (10:00)
[2016-08-31] MEDS ORDERED: D5W 275ml ONE (10:12)
[2016-08-31] MEDS ORDERED: D5NS 1000ml IV ONE (10:12)
--- NOTE | 2016-08-31 10:24 | Diagnostic Imaging Report ---
Indication: Short of breath Technique: XRAY CHEST 1 V. Comparison: 08/30/2016 Findings: The cardiomediastinal silhouette is unchanged. Infiltrate in the left upper lobe obscuring left heart border and the left lower lobe obscuring the left diaphragm remains. Right pleural effusion remains. 2 left chest tubes, pacemaker, right arm PICC line, and a second catheter on the right are again noted, unchanged. Impression: No significant change from prior examination.
[2016-08-31 10:31] LABS: REFLEX LACTIC ACID YES OR NO YES
--- NOTE | 2016-08-31 11:26 | Pulmonology Progress Note ---
Assessment/Plan Assessment/Plan ASSESSMENT: 1. bilateral pleural effusions; 2. Anemia. with need for transfusion 3. Chronic kidney disease. 4. Stroke. with focal weakness 5. Hypertension. 6. History of chronic obstructive pulmonary disease. 7. History of conduction system disease. with pacemaker 8. worsening left effusion with atelectasis 9. iatrogenic pneumothorax 10. s/p decortication 11. respiratory failure 12. metabolic acidosis 13. acidemia PLAN: off the ventilator may need reintubation on BIPAP care noted and reviewed monitor CT output and dc per thoracic follow up chest xr post op noted with improved aeration oxygen taper maintain meds aspiration precautions; continue to monitor closely care noted no evidence of bronchospasm ICU care reviewed in detail d/w Dr. See medications/laboratory data/nursing notes/ICU care reviewed in detail note reviewed and edited care discussed with RN and RT ICU time spent 35 minutes Subjective ROS Limited/Unobtainable: Yes Allergies: Coded Allergies: No Known Allergies (Unverified , 01/24/14) Subjective underwent decortication now off the ventilator on BIPAP due to increase acidemia CT x [address] Objective Last 24 Hour Vital Signs Date Time Temp Pulse Resp B/P Pulse Ox O2 Delivery O2 Flow Rate FiO2 08/31/16 11:09 67 22 97 Bi-pap 100 08/31/16 11:07 76 22 95 Bi-pap 100 08/31/16 11:04 64 22 95 Full Face 100 08/31/16 11:00 66 22 84/100 100 Bi-pap 100 08/31/16 10:45 68 22 84/53 100 Bi-pap 100 08/31/16 10:30 68 25 116/52 100 Bi-pap 100 08/31/16 10:15 74 26 111/50 94 Bi-pap 100 08/31/16 10:00 67 26 103/45 99 Bi-pap 100 08/31/16 09:45 68 28 92/38 100 Bi-pap 100 08/31/16 09:30 67 25 94/60 100 Bi-pap 100 08/31/16 09:15 68 24 97/38 100 Bi-pap 100 08/31/16 09:15 68 30 100 Full Face 100 08/31/16 09:00 68 26 92/38 100 Bi-pap 100 08/31/16 09:00 68 91/39 08/31/16 08:45 78 25 91/39 100 Bi-pap 100 08/31/16 08:31 74/36 08/31/16 08:30 67 24 81/35 84 Bi-pap 100 08/31/16 08:15 68 26 74/36 83 Bi-pap 100 08/31/16 08:00 97.7 67 26 69/21 89 Bi-pap 50 08/31/16 08:00 50 08/31/16 08:00 80 08/31/16 07:45 66 26 66/28 88 Bi-pap 50 08/31/16 07:30 66 28 74/24 91 Bi-pap 50 08/31/16 07:25 65 32 96 Bi-pap 50 08/31/16 07:15 92 Bi-pap 50 08/31/16 07:15 67 28 Bi-pap 50 08/31/16 07:15 67 28 100 Bi-pap 50 08/31/16 07:15 67 29 95 Full Face 50 08/31/16 07:15 Bi-pap 50 08/31/16 07:15 78 27 66/28 92 Bi-pap 50 08/31/16 07:00 111 29 66/34 92 Bi-pap 50 08/31/16 06:45 106 30 61/30 96 Bi-pap 50 08/31/16 06:30 95 30 64/34 98 Bi-pap 50 08/31/16 06:15 96 30 67/33 98 Bi-pap 50 08/31/16 06:00 96 28 74/43 98 Bi-pap 50 08/31/16 05:57 87/46 08/31/16 05:27 64 28 100 Full Face 50 08/31/16 05:00 65 28 77/39 98 Bi-pap 50 08/31/16 04:00 98.0 70 19 86/68 98 Bi-pap 50 08/31/16 04:00 95 08/31/16 04:00 50 08/31/16 03:07 64 30 100 Bi-pap 50 08/31/16 03:00 73 28 85/53 98 Bi-pap 50 08/31/16 02:53 64 28 100 Bi-pap 50 08/31/16 02:52 67 28 100 Full Face 50 08/31/16 02:00 73 28 80/35 98 Bi-pap 50 08/31/16 01:00 95 28 94/40 98 Bi-pap 50 08/31/16 00:56 98 27 100 Full Face 50 08/31/16 00:00 89 08/31/16 00:00 98.1 91 22 97/46 97 Bi-pap 50 08/31/16 00:00 35 08/30/16 23:13 96 28 94 Bi-pap 50 08/30/16 23:00 95 31 95/32 99 Bi-pap 35.0 08/30/16 22:45 96 28 94 Facial 50 08/30/16 22:45 96 27 93 Bi-pap 50 08/30/16 22:00 95 28 95/32 98 Bi-pap 35.0 08/30/16 22:00 35 08/30/16 21:26 90 27 94 Facial 50 08/30/16 21:00 91 26 98/47 98 Nasal Cannula 3.0 08/30/16 21:00 91 96/43 08/30/16 20:00 98.1 90 22 86/27 97 Nasal Cannula 3.0 08/30/16 20:00 80 08/30/16 19:08 96 24 96 Nasal Cannula 4.0 36 08/30/16 19:00 94 24 98/21 97 Nasal Cannula 3.0 08/30/16 18:48 90 24 98 Nasal Cannula 4.0 36 08/30/16 18:47 98 Nasal Cannula 4.0 36 08/30/16 18:47 Nasal Cannula 4.0 36 08/30/16 18:46 90 24 Nasal Cannula 4.0 36 08/30/16 18:00 91 25 125/46 94 Nasal Cannula 3.0 08/30/16 17:00 84 24 125/40 98 Nasal Cannula 3.0 08/30/16 16:00 82 08/30/16 16:00 98.3 83 23 111/37 98 Nasal Cannula 3.0 08/30/16 15:12 82 22 100 Nasal Cannula 3.0 32 08/30/16 15:02 80 22 96 Nasal Cannula 3.0 32 08/30/16 15:00 84 23 123/47 97 Nasal Cannula 3.0 08/30/16 14:03 98.2 08/30/16 14:00 79 16 119/38 97 Nasal Cannula 3.0 08/30/16 13:00 78 16 118/63 97 Nasal Cannula 3.0 08/30/16 12:00 74 08/30/16 12:00 98.2 75 22 117/64 98 Nasal Cannula 3.0 Intake and Output 08/30/16 08/31/16 18:59 06:59 Intake Total 220 ml 113.608 ml Output Total 335 ml 15 ml Balance -115 ml 98.608 ml Intake Oral 120 ml IV Total 100 ml 113.608 ml Output Urine Total 105 ml 15 ml Chest Tube Drainage Total 230 ml Objective Sp02 EP Interpretation: reviewed, normal; more tachypneic General Appearance: normal inspection, well appearing, no apparent distress, withdrawn Head: normocephalic, atraumatic Eyes: bilateral eye normal inspection ENT: normal ENT inspection, no angioedema, normal voice Neck: normal inspection, full range of motion, supple, no meningismus, carotid 2+ Respiratory: stable BS left; some rhonchi noted; chest tube x [address]; Cardiovascular #1: regular rate, rhythm, no murmur without MRG Gastrointestinal: non tender, soft, non-distended, no guarding, no rebound Musculoskeletal: no CC; minimal edema Neurologic: arouseable no distress reviewed and edited Microbiology Date/Time Source Procedure Growth Status 08/30/16 18:00 Sputum Gram Stain - Final Resulted 08/30/16 18:00 Sputum Sputum Culture Pending Resulted 08/30/16 12:00 Urine,Clean Catch Urine Culture - Preliminary NO GROWTH Resulted Laboratory Tests 08/30/16 12:00: Urine Color Yellow, Urine Appearance Slightly cloudy, Urine pH 5, Urine Specific [place] 1.025, Urine Protein 3+H, Urine Glucose (UA) Negative, Urine Ketones 1+H, Urine Occult Blood 5+H, Urine Nitrite Negative, Urine Bilirubin 1+H , Urine Ictotest Negative, Urine Urobilinogen 4H, Urine Leukocyte Esterase 1+H, Urine RBC 20-30H, Urine WBC 2-4, Urine Squamous Epithelial Cells Occasional, Urine Bacteria Few, Urine Granular Casts 2-4H 08/31/16 02:00: Sodium Level 145, Potassium Level 5.1H, Chloride Level 109H, Carbon Dioxide Level 22, Anion Gap 14, Blood Urea Nitrogen 64H, Creatinine 2.6H, Estimat Glomerular Filtration Rate , Glucose Level 113H, Calcium Level 8.4L, Magnesium Level 2.2, Total Bilirubin 4.1H, Direct Bilirubin 2.9H, Aspartate Amino Transf ( AST/SGOT) 18, Alanine Aminotransferase (ALT/SGPT) 5, Alkaline Phosphatase 75, Total Protein 6.3L, Albumin 1.9L, Globulin 4.4, Albumin/Globulin Ratio 0.4L 08/31/16 02:10: Arterial Blood pH 7.290L, Arterial Blood Partial Pressure CO2 39.9, Arterial Blood Partial Pressure O2 107.8H, Arterial Blood HCO3 18.8L, Arterial Blood Oxygen Saturation 97.3, Arterial Blood Base Excess -7.3, Arnie Test Positive 08/31/16 07:45: White Blood Count 16.5H, Red Blood Count 2.76L, Hemoglobin 8.7L, Hematocrit 25.9L, Mean Corpuscular Volume 94, Mean Corpuscular Hemoglobin 31.5H, Mean Corpuscular Hemoglobin Concent 33.5, Red Cell Distribution Width 18.4H, Platelet Count 58L, Mean Platelet Volume 12.2H, Neutrophils (%) (Auto) , Lymphocytes (%) (Auto) , Monocytes (%) (Auto) , Eosinophils (%) (Auto) , Basophils (%) (Auto) , Differential Total Cells Counted 100, Neutrophils % ( Manual) 84H, Lymphocytes % (Manual) 6L, Monocytes % (Manual) 10, Eosinophils % ( Manual) 0, Basophils % (Manual) 0, Band Neutrophils 0, Platelet Estimate DecreasedL, Platelet Morphology Normal, Hypochromasia 1+, Anisocytosis 1+, Janelle Cells Occasional 08/31/16 08:51: Arterial Blood pH 7.309L, Arterial Blood Partial Pressure CO2 35.0, Arterial Blood Partial Pressure O2 137.1H, Arterial Blood HCO3 17.2L, Arterial Blood Oxygen Saturation , Arterial Blood Base Excess -8.1, Arnie Test Positive 08/31/16 10:01: Lactic Acid Level 3.30H Current Medications Medications (Trade) Dose Ordered Sig/Homar Route PRN Reason Start Time Stop Time Status Last Admin Dose Admin Acetaminophen (Tylenol) 650 mg Q4H PRN ORAL Mild Pain (Pain Scale 1-3) 08/28/16 16:00 09/27/16 15:59 Acetaminophen/ Hydrocodone Bitart ([place] 5/325) 1 tab Q4H PRN ORAL Moderate Pain (Pain Scale 4-6) 08/28/16 15:30 09/04/16 15:29 08/30/16 12:51 Albuterol/ Ipratropium (DuoNeb 0.5-3(2.5)mg/3ml) 3 ml Q4H PRN HHN Shortness of Breath 08/29/16 11:30 09/03/16 11:29 08/30/16 01:06 Albuterol/ Ipratropium 3 ml 3 ml Q4HRT HHN 08/30/16 15:00 09/04/16 14:59 08/31/16 11:06 Aspirin (Ecotrin) 81 mg DAILY ORAL 08/29/16 09:00 09/28/16 08:59 08/30/16 08:43 Calcium Carbonate (OsCal D) 1 tab DAILY ORAL 08/29/16 09:00 09/28/16 08:59 08/30/16 08:44 Cyanocobalamin (Vitamin B-12) 1,000 mcg DAILY ORAL 08/29/16 09:00 09/28/16 08:59 08/30/16 08:44 Dextrose (Dextrose 50%) STAT PRN IV Hypoglycemia 08/29/16 15:00 09/28/16 14:59 Dextrose/Sodium Chloride (D5ns) 1,000 ml @ 150 mls/hr Q6H40M IV 08/31/16 09:00 09/30/16 08:59 08/31/16 09:11 Docusate Sodium (Colace) 250 mg DAILY ORAL 08/29/16 09:00 09/28/16 08:59 08/30/16 08:46 Dopamine HCl/ Dextrose 250 ml @ 0 mls/hr Q24H IV 08/31/16 06:00 09/30/16 05:59 08/31/16 05:57 Epoetin Deshaun (Procrit (for non ESRD use)) 7,000 units FRI-FRI-FRI SUBQ 08/28/16 21:00 09/27/16 20:59 08/28/16 20:44 Ferrous Sulfate (Feosol) 325 mg THREE TIMES A DAY ORAL 08/28/16 18:00 09/27/16 17:59 08/30/16 17:34 Finasteride (Proscar) 5 mg DAILY ORAL 08/29/16 09:00 09/28/16 08:59 08/30/16 08:43 Gemfibrozil (Lopid) 600 mg TWICE A DAY ORAL 08/28/16 18:00 5/12/17 17:59 08/30/16 17:34 Heparin Sodium (Porcine) (Heparin 5000 units/ml) 5,000 units EVERY 12 HOURS SUBQ 08/28/16 21:00 09/27/16 20:59 08/30/16 08:44 Insulin Aspart (NovoLOG) BEFORE MEALS AND HS SUBQ 08/28/16 16:30 09/27/16 16:29 08/30/16 16:50 Insulin Detemir (Levemir) 10 units Q12HR SUBQ 08/28/16 21:00 09/27/16 20:59 08/31/16 09:45 Metoprolol Tartrate (Lopressor) 25 mg Q12HR ORAL 08/28/16 21:30 09/27/16 21:29 08/30/16 08:47 Morphine Sulfate (Morphine Sulfate) 2 mg Q4H PRN IVP Severe Pain (Pain Scale 7-10) 08/28/16 19:15 09/04/16 19:14 08/29/16 19:37 Norepinephrine Bitartrate 4 mg/ Dextrose 250 ml @ 0 mls/hr Q24H IV 08/31/16 09:00 09/30/16 08:59 08/31/16 08:31 Pantoprazole (Protonix) 40 mg DAILY ORAL 08/29/16 09:00 09/28/16 08:59 08/30/16 08:43 Piperacillin Sod/ Tazobactam Sod 3.375 gm/Dextrose 100 ml @ 25 mls/hr EVERY 8 HOURS IV 08/30/16 14:00 09/04/16 13:59 08/31/16 05:56 Ranitidine HCl (Zantac) 150 mg DAILY ORAL 08/29/16 09:00 09/28/16 08:59 08/30/16 08:44 Sodium Bicarbonate (NaHCO3) 650 mg BID ORAL 08/28/16 18:00 09/27/16 17:59 08/30/16 17:34 Tamsulosin HCl (Flomax) 0.4 mg QHS ORAL 08/29/16 21:00 09/28/16 20:59 08/30/16 21:24 KENDRICK SCHWARTZ Aug 31, 2016 11:26
[2016-08-31] MEDS: D5NS 1,000 ML IV SCH (14:28)
--- NOTE | 2016-08-31 14:44 | Consultation ---
Consult Note Consult Note Nephrology consult dictated #[id number] IRENE MELTON Aug 31, 2016 14:44
--- NOTE | 2016-08-31 16:36 | Consultation ---
Consult Note Consult Note Cardiology for Dr. Muniz Full note dictated #[id number] TONY MUNGUIA Aug 31, 2016 16:36
[2016-08-31 17:00] LABS: ABG ALLEN TEST POSITIVE; ABG BASE EXCESS -6.5
[2016-08-31] MEDS: Solu-MEDROL 125mg Inj IVP SCH (18:12)
--- NOTE | 2016-08-31 20:58 | Consultation ---
DATE OF CONSULTATION: 08/31/2016 NEPHROLOGY CONSULTATION: CONSULTING PHYSICIAN: Robert Alvarez M.D. ATTENDING PHYSICIAN: Boris See M.D. REFERRING PHYSICIAN: Boris See M.D. REASON OF CONSULTATION: Acute kidney injury. HISTORY OF PRESENT ILLNESS: This is a very pleasant 80-year-old male who apparently was admitted initially for what it looks like may be some concern for GI bleed; however, he was found to have a loculated pleural effusion with trapped left lung for which he underwent VATS with lysis of adhesions, partial pleurectomy, and decortication; however, after surgery, it seems that he has had some increased leukocytosis and he was extubated a few days ago after the VATS. He had a drop of his blood pressure in the range of 60s systolically on 08/30/2016, and had to be started on Levophed and dopamine. He has also some underlying chronic kidney disease with baseline serum creatinine in the range of 1.7 which has gone up to about 2.6 mg/dL. I have been asked to see him for this worsening kidney function. He has become anuric. He also has been put on BiPAP because he was in respiratory distress. PAST MEDICAL HISTORY: Significant for longstanding hypertension, hypertensive heart disease, CVA, chronic kidney disease probably stage 4, anemia, has had conduction system disease, status post pacemaker placement, and also has had left-sided hemiparesis. MEDICATIONS: His medications have been albuterol, Flomax, aspirin, Os-Domenic, he is on Levophed drip and dopamine drip, Protonix, Epogen, subcutaneous heparin, Lopid. SOCIAL HISTORY: Apparently, he has not been a smoker, alcohol or drug abuser. FAMILY HISTORY: Unknown. ALLERGIES: NKDA. REVIEW OF SYSTEMS: Impossible since he is on BiPAP and he is not able to give me much history. PHYSICAL EXAMINATION: GENERAL: Lying down in the bed of the intensive care unit. VITAL SIGNS: Blood pressure 106/31, pulse of 114, respirations 17, and temperature 98 degrees Fahrenheit. HEENT: Head is atraumatic. Eyes, pupils reactive to light. No evidence of papilledema. Ears, canals are clear. Tympanic membranes are intact. He has a BiPAP machine in place. NECK: Supple. Jugular venous distention is somewhat high normal. No cervical adenopathies. No thyromegaly. HEART: Regular rhythm. LUNGS: Few crackles and few expiratory wheezes bilaterally. ABDOMEN: Supple. Bowel sounds positive. No hepatosplenomegaly. EXTREMITIES: Lower extremity shows 2+ pedal edema. NEUROLOGICAL: Difficult to assess. He is having some left-sided hemiparesis. LABORATORY DATA: Showing urinalysis which showed 20-30 RBCs per high-powered field yesterday, he is completely anuric now, 3+ protein, 5+ blood, 2-4 granular casts. Sodium 145, potassium 5.1, chloride 109, carbon dioxide 22, BUN 64, creatinine 2.6, total bilirubin 4.1, direct bilirubin 2.9, AST 18, ALT 5, albumin 1.9. WBC 16.5, hemoglobin 8.7, hematocrit 25.9, and platelets of 58,000. IMPRESSION: 1. He seems to be in septic shock. 2. Probable underlying pneumonia causing the sepsis with leukocytosis. 3. Status post recent video-assisted thoracoscopic surgery. 4. Underlying chronic kidney disease with stage 4 questionably due to hypertensive nephrosclerosis. 5. Acute kidney injury is most likely due to acute tubular necrosis caused by the sepsis and hypotension. PLAN: I am going to obtain renal ultrasound. We are going to check urine electrolytes and we will continue with IV antibiotics and pressors at this point. At the end, I would like to thank you, Dr. See, for letting me to be involved in the care of this very nice gentleman. Please do not hesitate to contact me if you have any questions. Robert Alvarez M.D. DR: Zoe JOB#: [id number] CC:
[2016-08-31] MEDS: Tamsulosin 0.4mg cap ORAL SCH (22:02)
--- NOTE | 2016-08-31 22:08 | Consultation ---
DATE OF CONSULTATION: REASON FOR CONSULTATION: Possible pacemaker malfunction. HISTORY OF PRESENT ILLNESS: History is obtained primarily from the chart as the patient is currently on BiPAP, vent, and is a limited historian. The patient is an 80-year-old man with a history of previous CVA, right hemiplegia, hypertension chronic kidney disease, sick sinus syndrome status post permanent dual-chamber pacemaker placement who was initially admitted on 08/14/2016 with anemia, possible gastrointestinal bleeding. His hemoglobin was 6.8. During his hospitalization, he developed worsening renal function with creatinine now at 2.6. He also was found to have a left pleural effusion and underwent VATS and lysis of adhesions. He now has leukocytosis and pneumonia, possible aspiration. In this setting, this morning in the intensive care unit he was reported to have had pacemaker malfunction with heart rates in the 30s. He is on pressors. Cardiology evaluation was requested. CURRENT MEDICATIONS: Norepinephrine at 10 micrograms/kilogram per minute, albuterol and ipratropium nebulizer every four hours, Zosyn 3.375 g intravenous every 8 hours, Flomax 0.4 mg at bedtime, aspirin 81 mg daily, calcium carbonate one tablet daily, vitamin B12 1000 micrograms daily, Proscar 5 mg daily, Protonix 40 mg daily, ranitidine 150 mg daily, Lopressor 12.5 mg q.12 hours, Epogen 7000 units Friday, Friday, and Friday, insulin sliding scale, gemfibrozil 600 mg twice daily, sodium bicarbonate 650 milligrams twice daily, Tylenol as needed. ALLERGIES: No known drug allergies. PAST MEDICAL HISTORY: As noted above. SOCIAL HISTORY: Per the chart, there is no history of tobacco, alcohol, or drug use. FAMILY HISTORY: Not obtainable from the patient or chart. REVIEW OF SYSTEMS: Not obtainable from the patient or chart. PHYSICAL EXAMINATION: VITAL SIGNS: Blood pressure is 94/37, pulse 100 regular, respirations 21, afebrile. GENERAL: Alert, elderly appearing male, on BiPAP, vent. HEENT: Normocephalic and atraumatic. Pupils are equal, round, and reactive to light. BiPAP mask in place. NECK: Supple. There is no jugular venous distention. LUNGS: Bilateral diffuse rhonchi anteriorly. HEART: Regular. Tachycardic S1 and S2 with no murmurs or S3. ABDOMEN: Soft and nontender. No palpable mass. EXTREMITIES: Bilateral SCDs. No edema. NEUROLOGIC: A 0/5 motor of the right upper and right lower extremity. The patient moves left upper and left lower extremity spontaneously and to command. LABORATORY DATA: White blood count 51487, hemoglobin 8.7, hematocrit 25.9. Sodium 145, potassium 5.1, BUN 64, creatinine 2.6. Total bilirubin 4.1. Direct bilirubin 2.9, AST 18, ALT 5, alkaline phosphatase 75. EKG shows atrial synchronous ventricular pacing. Echo obtained on 08/31/2016 showed normal left ventricular function, ejection fraction 60% to 65%. Telemetry tracings show sinus rhythm with atrial synchronous ventricular pacing, also atrial fibrillation with controlled ventricular rate. Earlier today with low-amplitude QRS on telemetry. Chest x-ray from today shows a dual-chamber pacemaker with leads entering from the left to the right atrium and right ventricle. Extensive infiltrate and effusion of the left and small right basilar infiltrate. ASSESSMENT AND RECOMMENDATIONS: The patient is an 80-year-old man with multiple chronic medical problems who is now seen in the intensive care unit with sepsis, septic shock, and pneumonia in this setting he developed atrial fibrillation, which appeared to result in under sensing of QRS complexes. On telemetry appropriate sensing by the pacemaker device. The patient's pacemaker was checked and he is now noted to be in sinus rhythm with atrial synchronous ventricular pacing. P wave sensing is 1.5 millivolts, R-wave 7.4 millivolt, ventricular pacing threshold was 1 volt at 0.4 millisecond, lead impedances are normal at 409 ohms and 487 ohms. The pacemaker was checked earlier today while the patient was in atrial fibrillation. He is now back in normal sinus rhythm. He is not a candidate for anticoagulation given his anemia and previous concern for gastrointestinal bleeding. I would consider amiodarone to maintain sinus rhythm if he should have recurrent atrial fibrillation with hemodynamic compromise. Treatment of his sepsis and septic shock will be as per the primary team. Attempts will be made to wean norepinephrine. Katie Moran M.D. DR: Vlad JOB#: [id number] CC:
[2016-09-01] VITALS (36 sets, daily range): BP systolic 92–171; BP diastolic 44–70
[2016-09-01] MEDS: Solu-MEDROL 125mg Inj IVP SCH ×5 (00:52→23:54)
[2016-09-01 02:33] LABS: REFLEX LACTIC ACID YES OR NO YES
[2016-09-01] MEDS: DuoNeb 0.5-3(2.5)mg/3ml neb HHN SCH ×6 (02:45→23:07)
[2016-09-01] MEDS: NovoLOG Insulin Flexpen SUBQ SCH ×4 (06:30→21:12)
[2016-09-01] MEDS: D5NS 1,000 ML IV SCH (07:05)
[2016-09-01 07:11] LABS: ALANINE AMINOTRANSFERASE 5 U/L (3-41); ALBUMIN/GLOBULIN RATIO 0.4 (1.0-2.7); ANION GAP 18 (5-15); ASPARTATE AMINO TRANSFERASE 19 U/L (5-40); CALCIUM 8.1 mg/dL (8.6-10.2); CARBON DIOXIDE 19 mEQ/L (20-30); CHLORIDE 109 mEQ/L (98-107); CREATININE 2.8 mg/dL (0.7-1.2); HEMOLYSIS 16; POTASSIUM 4.9 mEQ/L (3.4-4.9); SODIUM 146 mEQ/L (135-145); TOTAL PROTEIN 6.2 g/dL (6.6-8.7)
[2016-09-01 07:33] LABS: BILIRUBIN,DIRECT 3.6 mg/dL (0.1-0.3)
--- NOTE | 2016-09-01 08:25 | General Progress Note ---
Assessment/Plan Problem List: (1) Anemia ICD Codes: D64.9 - Anemia, unspecified SNOMED: 554921278 Qualifiers: (2) Tachycardia ICD Codes: R00.0 - Tachycardia, unspecified SNOMED: 8165666 (3) GIB (gastrointestinal bleeding) ICD Codes: K92.2 - Gastrointestinal hemorrhage, unspecified SNOMED: 56360976 Qualifiers: Qualified Codes: K57.91 - Diverticulosis of intestine, part unspecified, without perforation or abscess with bleeding (4) Anemia due to acute blood loss ICD Codes: D62 - Acute posthemorrhagic anemia SNOMED: 046754060 Status: stable Assessment/Plan off pressors ivf follow up labs iv abx per id bipap/resp care critical and guarded but improved today Subjective ROS Limited/Unobtainable: No Constitutional: Reports: malaise, weakness HEENT: Reports: no symptoms Cardiovascular: Reports: no symptoms Respiratory: Reports: shortness of breath Gastrointestinal/Abdominal: Reports: no symptoms Genitourinary: Reports: no symptoms Neurologic/Psychiatric: Reports: pre-existing deficit Endocrine: Reports: no symptoms Hematologic/Lymphatic: Reports: anemia Allergies: Coded Allergies: No Known Allergies (Unverified , 01/24/14) All Systems: reviewed and negative except above Subjective a little better this am. off levophed. on bipap. less congested. low uop. appears more comfortable. s/p 2 units prbc last night. d/w nakul palmer yesterday - dnr/dni. Objective Last 24 Hour Vital Signs Date Time Temp Pulse Resp B/P Pulse Ox O2 Delivery O2 Flow Rate FiO2 09/01/16 08:00 75 09/01/16 08:00 91 09/01/16 07:51 92 16 100 Bi-pap 70 09/01/16 07:41 90 16 100 Bi-pap 70 09/01/16 07:39 90 22 Bi-pap 70 09/01/16 07:39 100 Bi-pap 70 09/01/16 07:39 Bi-pap 70 09/01/16 07:39 90 16 100 Full Face 70 09/01/16 07:00 95 14 103/55 100 Bi-pap 80 09/01/16 06:00 95 14 103/47 100 Bi-pap 80 09/01/16 05:27 97 22 100 Full Face 70 09/01/16 05:00 102 14 123/61 100 Bi-pap 80 09/01/16 04:00 75 09/01/16 04:00 88 09/01/16 04:00 97.6 88 14 108/49 100 Bi-pap 80 09/01/16 03:45 89 14 111/51 100 Bi-pap 80 09/01/16 03:30 91 14 101/52 100 Bi-pap 80 09/01/16 03:20 98 14 100 Bi-pap 75 09/01/16 03:15 90 14 104/44 100 Bi-pap 80 09/01/16 03:00 91 14 102/46 100 Bi-pap 80 09/01/16 02:45 91 14 104/55 100 Bi-pap 80 09/01/16 02:45 90 14 100 Bi-pap 80 09/01/16 02:44 90 15 100 Full Face 80 09/01/16 02:30 93 14 107/52 100 Bi-pap 80 09/01/16 02:15 93 14 113/51 100 Bi-pap 80 09/01/16 02:00 93 14 113/51 100 Bi-pap 80 09/01/16 01:45 95 14 109/55 100 Bi-pap 80 09/01/16 01:30 90 14 109/50 100 Bi-pap 80 09/01/16 01:15 91 14 107/52 100 Bi-pap 80 09/01/16 01:00 92 14 121/49 100 Bi-pap 80 09/01/16 00:49 91 15 100 Full Face 80 09/01/16 00:45 91 14 101/48 100 Bi-pap 80 09/01/16 00:30 89 14 97/62 100 Bi-pap 80 09/01/16 00:15 89 14 94/49 100 Bi-pap 80 09/01/16 00:00 90 09/01/16 00:00 97.6 90 14 94/49 100 Bi-pap 80 09/01/16 00:00 80 08/31/16 23:45 90 14 97/47 100 Bi-pap 80 08/31/16 23:30 90 14 92/47 100 Bi-pap 80 08/31/16 23:15 91 14 96/47 100 Bi-pap 80 08/31/16 23:12 102 14 100 Bi-pap 80 08/31/16 23:00 91 14 100/44 100 Bi-pap 80 08/31/16 22:45 92 14 85/41 100 Bi-pap 80 08/31/16 22:43 92 14 100 Full Face 80 08/31/16 22:43 92 14 100 Bi-pap 80 08/31/16 22:30 93 14 99/41 100 Bi-pap 80 08/31/16 22:15 96 18 106/57 100 Bi-pap 80 08/31/16 22:15 98/54 08/31/16 22:00 99 18 102/40 100 Bi-pap 80 08/31/16 21:45 96 24 102/40 100 Bi-pap 80 08/31/16 21:30 96 24 100/43 100 Bi-pap 80 08/31/16 21:15 98 24 91/42 100 Bi-pap 80 08/31/16 21:00 97 98/62 08/31/16 21:00 99 24 101/65 100 Bi-pap 80 08/31/16 20:52 102 24 100 Full Face 80 08/31/16 20:45 102 24 105/76 100 Bi-pap 80 08/31/16 20:30 99 24 97/43 100 Bi-pap 80 08/31/16 20:15 99 24 107/58 100 Bi-pap 80 08/31/16 20:00 97.6 100 24 107/58 100 Bi-pap 80 08/31/16 20:00 100 08/31/16 20:00 80 08/31/16 19:45 103 24 102/47 100 Bi-pap 80 08/31/16 19:30 100 24 98/50 100 Bi-pap 80 08/31/16 19:28 101 22 100 Bi-pap 80 08/31/16 19:15 103 24 100/50 100 Bi-pap 80 08/31/16 19:00 103 24 100/50 100 Bi-pap 80 08/31/16 18:54 100 Bi-pap 80 08/31/16 18:54 Bi-pap 80 08/31/16 18:53 101 22 100 Bi-pap 80 08/31/16 18:52 101 22 100 Full Face 80 08/31/16 18:52 101 22 Bi-pap 80 08/31/16 18:45 101 20 102/40 100 Bi-pap 80 08/31/16 18:30 99 18 93/48 100 Bi-pap 80 08/31/16 18:15 99 19 90/62 100 Bi-pap 80 08/31/16 18:00 100 21 103/48 100 Bi-pap 80 17 17:45 100 26 98/37 100 Bi-pap 80 08/31/16 17:30 100 30 112/50 100 Bi-pap 80 08/31/16 17:20 101 26 100 Full Face 100 08/31/16 17:15 102 24 107/39 100 Bi-pap 80 08/31/16 17:00 101 21 124/56 100 Bi-pap 80 08/31/16 16:45 101 22 103/61 100 Bi-pap 80 08/31/16 16:30 100 22 121/93 100 Bi-pap 80 08/31/16 16:15 100 22 111/44 100 Bi-pap 80 08/31/16 16:00 80 08/31/16 16:00 101 08/31/16 16:00 97.6 101 23 80/51 100 Bi-pap 80 08/31/16 15:45 101 21 94/37 100 Bi-pap 100 08/31/16 15:30 107 21 103/31 100 Bi-pap 100 08/31/16 15:24 108 18 100 Bi-pap 100 08/31/16 15:15 107 22 100 Full Face 100 08/31/16 15:15 107 21 106/8 100 Bi-pap 100 08/31/16 15:15 107 22 100 Bi-pap 100 08/31/16 15:00 108 21 110/56 100 Bi-pap 100 08/31/16 14:52 119/93 17 14:45 110 21 119/93 100 Bi-pap 100 08/31/16 14:30 113 24 103/83 100 Bi-pap 100 08/31/16 14:15 112 22 100/47 100 Bi-pap 100 08/31/16 14:00 113 22 106/51 100 Bi-pap 100 08/31/16 13:45 113 22 91/45 100 Bi-pap 100 08/31/16 13:30 114 21 115/50 100 Bi-pap 100 08/31/16 13:28 114 23 100 Full Face 100 08/31/16 13:15 114 21 108/52 100 Bi-pap 100 08/31/16 13:00 113 20 102/54 100 Bi-pap 100 08/31/16 12:45 114 17 106/31 100 Bi-pap 100 08/31/16 12:30 113 19 100/42 100 Bi-pap 100 08/31/16 12:15 114 21 98/53 100 Bi-pap 100 08/31/16 12:00 114 08/31/16 12:00 98.0 113 20 106/54 100 Bi-pap 100 08/31/16 12:00 100 08/31/16 11:51 102/44 08/31/16 11:45 92 21 117/50 100 Bi-pap 100 08/31/16 11:30 68 22 102/53 100 Bi-pap 100 08/31/16 11:15 73 23 85/63 100 Bi-pap 100 08/31/16 11:09 67 22 97 Bi-pap 100 08/31/16 11:07 76 22 95 Bi-pap 100 08/31/16 11:04 64 22 95 Full Face 100 08/31/16 11:00 66 22 84/100 100 Bi-pap 100 08/31/16 10:45 68 22 84/53 100 Bi-pap 100 08/31/16 10:30 68 25 116/52 100 Bi-pap 100 08/31/16 10:15 74 26 111/50 94 Bi-pap 100 08/31/16 10:00 67 26 103/45 99 Bi-pap 100 08/31/16 09:45 68 28 92/38 100 Bi-pap 100 08/31/16 09:30 67 25 94/60 100 Bi-pap 100 08/31/16 09:15 68 24 97/38 100 Bi-pap 100 08/31/16 09:15 68 30 100 Full Face 100 08/31/16 09:00 68 26 92/38 100 Bi-pap 100 08/31/16 09:00 68 91/39 08/31/16 08:45 78 25 91/39 100 Bi-pap 100 08/31/16 08:31 74/36 08/31/16 08:30 67 24 81/35 84 Bi-pap 100 Intake and Output 08/31/16 09/01/16 19:00 07:00 Intake Total 1035 ml 832.50 ml Output Total 140 ml 400 ml Balance 895 ml 432.50 ml IV Total 1035 ml 332.50 ml Blood Product 500 ml Output Urine Total 100 ml 360 ml Chest Tube Drainage Total 40 ml 40 ml Laboratory Tests 08/31/16 08:51: Arterial Blood pH 7.309L, Arterial Blood Partial Pressure CO2 35.0, Arterial Blood Partial Pressure O2 137.1H, Arterial Blood HCO3 17.2L, Arterial Blood Oxygen Saturation , Arterial Blood Base Excess -8.1, Arnie Test Positive 08/31/16 10:01: Lactic Acid Level 3.30H 08/31/16 15:00: Urine Random Sodium 61 08/31/16 16:52: Arterial Blood pH 7.326L, Arterial Blood Partial Pressure CO2 37.0, Arterial Blood Partial Pressure O2 135.7H, Arterial Blood HCO3 18.9L, Arterial Blood Oxygen Saturation 98.3H, Arterial Blood Base Excess -6.5, Arnie Test Positive 09/01/16 02:01: Lactic Acid Level 2.60H 09/01/16 06:30: Lactic Acid Level 2.70H, Sodium Level 146H, Potassium Level 4.9, Chloride Level 109H, Carbon Dioxide Level 19L, Anion Gap 18H, Blood Urea Nitrogen 65H, Creatinine 2.8H, Estimat Glomerular Filtration Rate , Glucose Level 181H, Calcium Level 8.1L, Total Bilirubin 5.3H, Direct Bilirubin 3.6H, Aspartate Amino Transf (AST/SGOT) 19, Alanine Aminotransferase (ALT/SGPT) 5, Alkaline Phosphatase 64, Total Protein 6.2L, Albumin 2.0L, Globulin 4.2, Albumin/ Globulin Ratio 0.4L Height (Feet): 5 Height (Inches): 4.00 Weight (Pounds): 160 General Appearance: WD/WN, alert Neck: supple Cardiovascular: regular rhythm Respiratory/Chest: lungs clear, normal breath sounds Abdomen: normal bowel sounds, non tender, soft, no organomegaly Edema: no edema noted Arm (L), no edema noted Arm (R), no edema noted Leg (L), no edema noted Leg (R), no edema noted Pedal (L), no edema noted Pedal (R), no edema noted Generalized Neurologic: alert, responsive Objective General Appearance: WD/WN, alert. on bipap Neck: supple Cardiovascular: regular rhythm Respiratory/Chest: rhonchi/rales bilaterally, improved breath sounds, no respiratory distress. +left sided chest tube x 2 Edema: generalized edema TALHA LEIGH Sep 01, 2016 08:24
[2016-09-01 08:34] LABS: ABG BASE EXCESS -6
[2016-09-01 08:36] LABS: ABG ALLEN TEST POSITIVE
[2016-09-01] MEDS: Docusate 250mg cap ORAL SCH (09:00)
[2016-09-01] MEDS: Heparin 5000 units/ml inj SUBQ SCH ×2 (09:00→21:00)
--- NOTE | 2016-09-01 09:18 | Infectious Diseases Prog Note ---
Assessment/Plan Assessment/Plan A: Pneumonia Loculated Pleural effusion s/p VATS Anemia GI bleeding Acute renal failure P: Continue Zosyn will f/u cultures Subjective ROS Limited/Unobtainable: Yes Allergies: Coded Allergies: No Known Allergies (Unverified , 01/24/14) Objective Vital Signs Last 24 Hour Vital Signs Date Time Temp Pulse Resp B/P Pulse Ox O2 Delivery O2 Flow Rate FiO2 09/01/16 08:00 75 09/01/16 08:00 91 09/01/16 08:00 97.6 91 18 105/66 100 Bi-pap 80 09/01/16 07:51 92 16 100 Bi-pap 70 09/01/16 07:41 90 16 100 Bi-pap 70 09/01/16 07:39 90 22 Bi-pap 70 09/01/16 07:39 100 Bi-pap 70 09/01/16 07:39 Bi-pap 70 09/01/16 07:39 90 16 100 Full Face 70 09/01/16 07:00 95 14 103/55 100 Bi-pap 80 09/01/16 06:00 95 14 103/47 100 Bi-pap 80 09/01/16 05:27 97 22 100 Full Face 70 09/01/16 05:00 102 14 123/61 100 Bi-pap 80 09/01/16 04:00 75 09/01/16 04:00 88 09/01/16 04:00 97.6 88 14 108/49 100 Bi-pap 80 09/01/16 03:45 89 14 111/51 100 Bi-pap 80 09/01/16 03:30 91 14 101/52 100 Bi-pap 80 09/01/16 03:20 98 14 100 Bi-pap 75 09/01/16 03:15 90 14 104/44 100 Bi-pap 80 09/01/16 03:00 91 14 102/46 100 Bi-pap 80 09/01/16 02:45 91 14 104/55 100 Bi-pap 80 09/01/16 02:45 90 14 100 Bi-pap 80 09/01/16 02:44 90 15 100 Full Face 80 09/01/16 02:30 93 14 107/52 100 Bi-pap 80 09/01/16 02:15 93 14 113/51 100 Bi-pap 80 09/01/16 02:00 93 14 113/51 100 Bi-pap 80 09/01/16 01:45 95 14 109/55 100 Bi-pap 80 09/01/16 01:30 90 14 109/50 100 Bi-pap 80 09/01/16 01:15 91 14 107/52 100 Bi-pap 80 09/01/16 01:00 92 14 121/49 100 Bi-pap 80 09/01/16 00:49 91 15 100 Full Face 80 09/01/16 00:45 91 14 101/48 100 Bi-pap 80 09/01/16 00:30 89 14 97/62 100 Bi-pap 80 09/01/16 00:15 89 14 94/49 100 Bi-pap 80 09/01/16 00:00 90 09/01/16 00:00 97.6 90 14 94/49 100 Bi-pap 80 09/01/16 00:00 80 08/31/16 23:45 90 14 97/47 100 Bi-pap 80 08/31/16 23:30 90 14 92/47 100 Bi-pap 80 08/31/16 23:15 91 14 96/47 100 Bi-pap 80 08/31/16 23:12 102 14 100 Bi-pap 80 08/31/16 23:00 91 14 100/44 100 Bi-pap 80 08/31/16 22:45 92 14 85/41 100 Bi-pap 80 08/31/16 22:43 92 14 100 Full Face 80 08/31/16 22:43 92 14 100 Bi-pap 80 08/31/16 22:30 93 14 99/41 100 Bi-pap 80 08/31/16 22:15 96 18 106/57 100 Bi-pap 80 08/31/16 22:15 98/54 08/31/16 22:00 99 18 102/40 100 Bi-pap 80 08/31/16 21:45 96 24 102/40 100 Bi-pap 80 08/31/16 21:30 96 24 100/43 100 Bi-pap 80 08/31/16 21:15 98 24 91/42 100 Bi-pap 80 08/31/16 21:00 97 98/62 08/31/16 21:00 99 24 101/65 100 Bi-pap 80 08/31/16 20:52 102 24 100 Full Face 80 08/31/16 20:45 102 24 105/76 100 Bi-pap 80 08/31/16 20:30 99 24 97/43 100 Bi-pap 80 08/31/16 20:15 99 24 107/58 100 Bi-pap 80 08/31/16 20:00 97.6 100 24 107/58 100 Bi-pap 80 08/31/16 20:00 100 08/31/16 20:00 80 08/31/16 19:45 103 24 102/47 100 Bi-pap 80 08/31/16 19:30 100 24 98/50 100 Bi-pap 80 08/31/16 19:28 101 22 100 Bi-pap 80 08/31/16 19:15 103 24 100/50 100 Bi-pap 80 08/31/16 19:00 103 24 100/50 100 Bi-pap 80 08/31/16 18:54 100 Bi-pap 80 08/31/16 18:54 Bi-pap 80 08/31/16 18:53 101 22 100 Bi-pap 80 08/31/16 18:52 101 22 100 Full Face 80 08/31/16 18:52 101 22 Bi-pap 80 08/31/16 18:45 101 20 102/40 100 Bi-pap 80 08/31/16 18:30 99 18 93/48 100 Bi-pap 80 08/31/16 18:15 99 19 90/62 100 Bi-pap 80 08/31/16 18:00 100 21 103/48 100 Bi-pap 80 08/31/16 17:45 100 26 98/37 100 Bi-pap 80 08/31/16 17:30 100 30 112/50 100 Bi-pap 80 08/31/16 17:20 101 26 100 Full Face 100 08/31/16 17:15 102 24 107/39 100 Bi-pap 80 08/31/16 17:00 101 21 124/56 100 Bi-pap 80 08/31/16 16:45 101 22 103/61 100 Bi-pap 80 08/31/16 16:30 100 22 121/93 100 Bi-pap 80 08/31/16 16:15 100 22 111/44 100 Bi-pap 80 17 16:00 80 08/31/16 16:00 101 08/31/16 16:00 97.6 101 23 80/51 100 Bi-pap 80 08/31/16 15:45 101 21 94/37 100 Bi-pap 100 08/31/16 15:30 107 21 103/31 100 Bi-pap 100 08/31/16 15:24 108 18 100 Bi-pap 100 08/31/16 15:15 107 22 100 Full Face 100 08/31/16 15:15 107 21 106/8 100 Bi-pap 100 08/31/16 15:15 107 22 100 Bi-pap 100 08/31/16 15:00 108 21 110/56 100 Bi-pap 100 08/31/16 14:52 119/93 08/31/16 14:45 110 21 119/93 100 Bi-pap 100 08/31/16 14:30 113 24 103/83 100 Bi-pap 100 08/31/16 14:15 112 22 100/47 100 Bi-pap 100 08/31/16 14:00 113 22 106/51 100 Bi-pap 100 08/31/16 13:45 113 22 91/45 100 Bi-pap 100 08/31/16 13:30 114 21 115/50 100 Bi-pap 100 08/31/16 13:28 114 23 100 Full Face 100 08/31/16 13:15 114 21 108/52 100 Bi-pap 100 08/31/16 13:00 113 20 102/54 100 Bi-pap 100 08/31/16 12:45 114 17 106/31 100 Bi-pap 100 08/31/16 12:30 113 19 100/42 100 Bi-pap 100 08/31/16 12:15 114 21 98/53 100 Bi-pap 100 08/31/16 12:00 114 08/31/16 12:00 98.0 113 20 106/54 100 Bi-pap 100 08/31/16 12:00 100 08/31/16 11:51 102/44 08/31/16 11:45 92 21 117/50 100 Bi-pap 100 08/31/16 11:30 68 22 102/53 100 Bi-pap 100 08/31/16 11:15 73 23 85/63 100 Bi-pap 100 08/31/16 11:09 67 22 97 Bi-pap 100 08/31/16 11:07 76 22 95 Bi-pap 100 08/31/16 11:04 64 22 95 Full Face 100 08/31/16 11:00 66 22 84/100 100 Bi-pap 100 08/31/16 10:45 68 22 84/53 100 Bi-pap 100 08/31/16 10:30 68 25 116/52 100 Bi-pap 100 08/31/16 10:15 74 26 111/50 94 Bi-pap 100 08/31/16 10:00 67 26 103/45 99 Bi-pap 100 08/31/16 09:45 68 28 92/38 100 Bi-pap 100 08/31/16 09:30 67 25 94/60 100 Bi-pap 100 08/31/16 09:15 68 24 97/38 100 Bi-pap 100 08/31/16 09:15 68 30 100 Full Face 100 Height (Feet): 5 Height (Inches): 4.00 Weight (Pounds): 160 HEENT: other - on BIPAP Respiratory/Chest: rhonchi - bilaterally, other - left side chest tubes Cardiovascular: normal rate Abdomen: soft, non tender Extremities: other - R arm PICC line Neurologic/Psychiatric: other - opens eyes Microbiology Date/Time Source Procedure Growth Status 08/30/16 12:00 Blood Blood Culture - Preliminary NO GROWTH AFTER 24 HOURS Resulted 08/30/16 18:00 Sputum Gram Stain - Final Resulted 08/30/16 18:00 Sputum Sputum Culture Pending Resulted 08/30/16 12:00 Urine,Clean Catch Urine Culture - Preliminary NO GROWTH Resulted Laboratory Tests Test 08/31/16 10:01 08/31/16 15:00 08/31/16 16:52 09/01/16 02:01 Lactic Acid Level 3.30 mmol/L (0.66-2.22) H 2.60 mmol/L (0.66-2.22) H Urine Random Sodium 61 mmol/L Arterial Blood pH 7.326 (7.350-7.450) Arterial Blood Partial Pressure CO2 37.0 mmHg (35.0-45.0) Arterial Blood Partial Pressure O2 135.7 mmHg (75.0-100.0) H Arterial Blood HCO3 18.9 mmol/L (22.0-26.0) L Arterial Blood Oxygen Saturation 98.3 % (92.0-98.0) H Arterial Blood Base Excess -6.5 Arnie Test Positive Test 09/01/16 06:30 09/01/16 08:21 Sodium Level 146 mEQ/L (135-145) H Potassium Level 4.9 mEQ/L (3.4-4.9) Chloride Level 109 mEQ/L (98-107) H Carbon Dioxide Level 19 mEQ/L (20-30) L Anion Gap 18 (5-15) H Blood Urea Nitrogen 65 mg/dL (7-23) H Creatinine 2.8 mg/dL (0.7-1.2) H Estimat Glomerular Filtration Rate mL/min (>60) Glucose Level 181 mg/dL (74-106) H Lactic Acid Level 2.70 mmol/L (0.66-2.22) H Calcium Level 8.1 mg/dL (8.6-10.2) L Total Bilirubin 5.3 mg/dL (0.0-1.2) H Direct Bilirubin 3.6 mg/dL (0.1-0.3) H Aspartate Amino Transf (AST/SGOT) 19 U/L (5-40) Alanine Aminotransferase (ALT/SGPT) 5 U/L (3-41) Alkaline Phosphatase 64 U/L (40-129) Total Protein 6.2 g/dL (6.6-8.7) L Albumin 2.0 g/dL (3.5-5.2) L Globulin 4.2 g/dL Albumin/Globulin Ratio 0.4 (1.0-2.7) L Arterial Blood pH 7.310 (7.350-7.450) Arterial Blood Partial Pressure CO2 42.0 mmHg (35.0-45.0) Arterial Blood Partial Pressure O2 103.0 mmHg (75.0-100.0) H Arterial Blood HCO3 21.0 mmol/L (22.0-26.0) L Arterial Blood Oxygen Saturation 97.0 % (92.0-98.0) Arterial Blood Base Excess -6 Arnie Test Positive Current Medications Medications (Trade) Dose Ordered Sig/Homar Route PRN Reason Start Time Stop Time Status Last Admin Dose Admin Acetaminophen (Tylenol) 650 mg Q4H PRN ORAL Mild Pain (Pain Scale 1-3) 08/28/16 16:00 09/27/16 15:59 Acetaminophen/ Hydrocodone Bitart ([place] 5/325) 1 tab Q4H PRN ORAL Moderate Pain (Pain Scale 4-6) 08/28/16 15:30 09/04/16 15:29 08/30/16 12:51 Albuterol/ Ipratropium (DuoNeb 0.5-3(2.5)mg/3ml) 3 ml Q4H PRN HHN Shortness of Breath 08/29/16 11:30 09/03/16 11:29 08/30/16 01:06 Albuterol/ Ipratropium 3 ml 3 ml Q4HRT HHN 08/30/16 15:00 09/04/16 14:59 09/01/16 07:41 Aspirin (Ecotrin) 81 mg DAILY ORAL 08/29/16 09:00 09/28/16 08:59 08/30/16 08:43 Calcium Carbonate (OsCal D) 1 tab DAILY ORAL 08/29/16 09:00 09/28/16 08:59 08/30/16 08:44 Cyanocobalamin (Vitamin B-12) 1,000 mcg DAILY ORAL 08/29/16 09:00 09/28/16 08:59 08/30/16 08:44 Dextrose (Dextrose 50%) STAT PRN IV Hypoglycemia 08/29/16 15:00 09/28/16 14:59 Docusate Sodium (Colace) 250 mg DAILY ORAL 08/29/16 09:00 09/28/16 08:59 08/30/16 08:46 Dopamine HCl/ Dextrose 250 ml @ 0 mls/hr Q24H IV 08/31/16 06:00 09/30/16 05:59 08/31/16 11:51 Epoetin Deshaun (Procrit (for non ESRD use)) 7,000 units FRI-FRI-FRI SUBQ 08/28/16 21:00 09/27/16 20:59 08/28/16 20:44 Ferrous Sulfate (Feosol) 325 mg THREE TIMES A DAY ORAL 08/28/16 18:00 09/27/16 17:59 08/30/16 17:34 Finasteride (Proscar) 5 mg DAILY ORAL 08/29/16 09:00 09/28/16 08:59 08/30/16 08:43 Gemfibrozil (Lopid) 600 mg TWICE A DAY ORAL 08/28/16 18:00 09/27/16 17:59 08/30/16 17:34 Heparin Sodium (Porcine) (Heparin 5000 units/ml) 5,000 units EVERY 12 HOURS SUBQ 08/28/16 21:00 09/27/16 20:59 08/30/16 08:44 Insulin Aspart (NovoLOG) BEFORE MEALS AND HS SUBQ 08/28/16 16:30 09/27/16 16:29 09/01/16 06:30 Insulin Detemir (Levemir) 10 units Q12HR SUBQ 08/28/16 21:00 09/27/16 20:59 08/31/16 22:10 Methylprednisolone Sodium Succinate 60 mg 60 mg EVERY 6 HOURS IVP 08/31/16 18:00 09/30/16 17:59 09/01/16 07:06 Metoprolol Tartrate (Lopressor) 25 mg Q12HR ORAL 08/28/16 21:30 09/27/16 21:29 08/30/16 08:47 Morphine Sulfate (Morphine Sulfate) 2 mg Q4H PRN IVP Severe Pain (Pain Scale 7-10) 08/28/16 19:15 09/04/16 19:14 08/29/16 19:37 Norepinephrine Bitartrate/ Dextrose (Levophed/D5W) 250 ml @ 0 mls/hr Q24H IV 08/31/16 09:00 09/30/16 08:59 08/31/16 22:15 Pantoprazole (Protonix) 40 mg DAILY ORAL 08/29/16 09:00 09/28/16 08:59 08/30/16 08:43 Piperacillin Sod/ Tazobactam Sod 3.375 gm/Dextrose 100 ml @ 25 mls/hr EVERY 8 HOURS IV 08/30/16 14:00 09/01/16 10:30 09/01/16 07:06 Piperacillin Sod/ Tazobactam Sod 3.375 gm/Sodium Chloride 110 ml @ 27.5 mls/hr Q12HR@0600,1800 IV 09/01/16 18:00 09/08/16 17:59 Ranitidine HCl (Zantac) 150 mg DAILY ORAL 08/29/16 09:00 09/28/16 08:59 08/30/16 08:44 Sodium Bicarbonate/ Dextrose (Sodium Bicarbonate/D5W 1000ml) 1,050 ml @ 75 mls/hr Q14H IV 09/01/16 10:00 10/01/16 09:59 Sodium Bicarbonate (NaHCO3) 650 mg BID ORAL 08/28/16 18:00 09/27/16 17:59 08/30/16 17:34 Tamsulosin HCl (Flomax) 0.4 mg QHS ORAL 08/29/16 21:00 09/28/16 20:59 08/31/16 22:02 DEONTE ESCOBAR Sep 01, 2016 09:18
[2016-09-01] MEDS ORDERED: D5NS 1000ml IV ONE (09:23)
[2016-09-01] MEDS ORDERED: Tubing Blood Filter IV ONE (09:23)
[2016-09-01] MEDS ORDERED: NS 275ml ONE (09:23)
--- NOTE | 2016-09-01 10:44 | Pulmonology Progress Note ---
Assessment/Plan Assessment/Plan ASSESSMENT: 1. bilateral pleural effusions; 2. Anemia. with need for transfusion 3. Chronic kidney disease. 4. Stroke. with focal weakness 5. Hypertension. 6. History of chronic obstructive pulmonary disease. 7. History of conduction system disease. with pacemaker 8. worsening left effusion with atelectasis 9. iatrogenic pneumothorax 10. s/p decortication 11. respiratory failure 12. metabolic acidosis 13. acidemia PLAN: off the ventilator may need reintubation; at high risk on BIPAP care noted and reviewed monitor CT output and dc per thoracic follow up chest xr post op noted with improved aeration oxygen taper maintain meds aspiration precautions; continue to monitor closely care noted no evidence of bronchospasm; placed on solumedrol follow up cxr ICU care reviewed in detail d/w Dr. See medications/laboratory data/nursing notes/ICU care reviewed in detail note reviewed and edited care discussed with RN and RT ICU time spent 37 minutes Subjective Allergies: Coded Allergies: No Known Allergies (Unverified , 01/24/14) Subjective underwent decortication remains off the ventilator on BIPAP due to increase acidemia CT x [address] Objective Last 24 Hour Vital Signs Date Time Temp Pulse Resp B/P Pulse Ox O2 Delivery O2 Flow Rate FiO2 09/01/16 09:01 93 17 100 Full Face 50 09/01/16 08:00 75 09/01/16 08:00 91 09/01/16 08:00 97.6 91 18 105/66 100 Bi-pap 80 09/01/16 07:51 92 16 100 Bi-pap 70 09/01/16 07:41 90 16 100 Bi-pap 70 09/01/16 07:39 90 22 Bi-pap 70 09/01/16 07:39 100 Bi-pap 70 09/01/16 07:39 Bi-pap 70 09/01/16 07:39 90 16 100 Full Face 70 09/01/16 07:00 95 14 103/55 100 Bi-pap 80 09/01/16 06:00 95 14 103/47 100 Bi-pap 80 09/01/16 05:27 97 22 100 Full Face 70 09/01/16 05:00 102 14 123/61 100 Bi-pap 80 09/01/16 04:00 75 09/01/16 04:00 88 09/01/16 04:00 97.6 88 14 108/49 100 Bi-pap 80 09/01/16 03:45 89 14 111/51 100 Bi-pap 80 09/01/16 03:30 91 14 101/52 100 Bi-pap 80 09/01/16 03:20 98 14 100 Bi-pap 75 09/01/16 03:15 90 14 104/44 100 Bi-pap 80 09/01/16 03:00 91 14 102/46 100 Bi-pap 80 09/01/16 02:45 91 14 104/55 100 Bi-pap 80 09/01/16 02:45 90 14 100 Bi-pap 80 09/01/16 02:44 90 15 100 Full Face 80 09/01/16 02:30 93 14 107/52 100 Bi-pap 80 09/01/16 02:15 93 14 113/51 100 Bi-pap 80 09/01/16 02:00 93 14 113/51 100 Bi-pap 80 09/01/16 01:45 95 14 109/55 100 Bi-pap 80 09/01/16 01:30 90 14 109/50 100 Bi-pap 80 09/01/16 01:15 91 14 107/52 100 Bi-pap 80 09/01/16 01:00 92 14 121/49 100 Bi-pap 80 09/01/16 00:49 91 15 100 Full Face 80 09/01/16 00:45 91 14 101/48 100 Bi-pap 80 09/01/16 00:30 89 14 97/62 100 Bi-pap 80 09/01/16 00:15 89 14 94/49 100 Bi-pap 80 09/01/16 00:00 90 09/01/16 00:00 97.6 90 14 94/49 100 Bi-pap 80 09/01/16 00:00 80 08/31/16 23:45 90 14 97/47 100 Bi-pap 80 08/31/16 23:30 90 14 92/47 100 Bi-pap 80 08/31/16 23:15 91 14 96/47 100 Bi-pap 80 08/31/16 23:12 102 14 100 Bi-pap 80 08/31/16 23:00 91 14 100/44 100 Bi-pap 80 08/31/16 22:45 92 14 85/41 100 Bi-pap 80 08/31/16 22:43 92 14 100 Full Face 80 08/31/16 22:43 92 14 100 Bi-pap 80 08/31/16 22:30 93 14 99/41 100 Bi-pap 80 08/31/16 22:15 96 18 106/57 100 Bi-pap 80 08/31/16 22:15 98/54 08/31/16 22:00 99 18 102/40 100 Bi-pap 80 08/31/16 21:45 96 24 102/40 100 Bi-pap 80 08/31/16 21:30 96 24 100/43 100 Bi-pap 80 08/31/16 21:15 98 24 91/42 100 Bi-pap 80 08/31/16 21:00 97 98/62 08/31/16 21:00 99 24 101/65 100 Bi-pap 80 08/31/16 20:52 102 24 100 Full Face 80 08/31/16 20:45 102 24 105/76 100 Bi-pap 80 08/31/16 20:30 99 24 97/43 100 Bi-pap 80 08/31/16 20:15 99 24 107/58 100 Bi-pap 80 08/31/16 20:00 97.6 100 24 107/58 100 Bi-pap 80 08/31/16 20:00 100 08/31/16 20:00 80 08/31/16 19:45 103 24 102/47 100 Bi-pap 80 08/31/16 19:30 100 24 98/50 100 Bi-pap 80 08/31/16 19:28 101 22 100 Bi-pap 80 08/31/16 19:15 103 24 100/50 100 Bi-pap 80 08/31/16 19:00 103 24 100/50 100 Bi-pap 80 08/31/16 18:54 100 Bi-pap 80 08/31/16 18:54 Bi-pap 80 08/31/16 18:53 101 22 100 Bi-pap 80 08/31/16 18:52 101 22 100 Full Face 80 08/31/16 18:52 101 22 Bi-pap 80 08/31/16 18:45 101 20 102/40 100 Bi-pap 80 08/31/16 18:30 99 18 93/48 100 Bi-pap 80 08/31/16 18:15 99 19 90/62 100 Bi-pap 80 08/31/16 18:00 100 21 103/48 100 Bi-pap 80 08/31/16 17:45 100 26 98/37 100 Bi-pap 80 08/31/16 17:30 100 30 112/50 100 Bi-pap 80 08/31/16 17:20 101 26 100 Full Face 100 08/31/16 17:15 102 24 107/39 100 Bi-pap 80 17 17:00 101 21 124/56 100 Bi-pap 80 17 16:45 101 22 103/61 100 Bi-pap 80 08/31/16 16:30 100 22 121/93 100 Bi-pap 80 17 16:15 100 22 111/44 100 Bi-pap 80 08/31/16 16:00 80 17 16:00 101 08/31/16 16:00 97.6 101 23 80/51 100 Bi-pap 80 08/31/16 15:45 101 21 94/37 100 Bi-pap 100 08/31/16 15:30 107 21 103/31 100 Bi-pap 100 08/31/16 15:24 108 18 100 Bi-pap 100 08/31/16 15:15 107 22 100 Full Face 100 08/31/16 15:15 107 21 106/8 100 Bi-pap 100 08/31/16 15:15 107 22 100 Bi-pap 100 08/31/16 15:00 108 21 110/56 100 Bi-pap 100 08/31/16 14:52 119/93 08/31/16 14:45 110 21 119/93 100 Bi-pap 100 08/31/16 14:30 113 24 103/83 100 Bi-pap 100 08/31/16 14:15 112 22 100/47 100 Bi-pap 100 08/31/16 14:00 113 22 106/51 100 Bi-pap 100 17 13:45 113 22 91/45 100 Bi-pap 100 08/31/16 13:30 114 21 115/50 100 Bi-pap 100 08/31/16 13:28 114 23 100 Full Face 100 08/31/16 13:15 114 21 108/52 100 Bi-pap 100 08/31/16 13:00 113 20 102/54 100 Bi-pap 100 08/31/16 12:45 114 17 106/31 100 Bi-pap 100 08/31/16 12:30 113 19 100/42 100 Bi-pap 100 08/31/16 12:15 114 21 98/53 100 Bi-pap 100 08/31/16 12:00 114 08/31/16 12:00 98.0 113 20 106/54 100 Bi-pap 100 08/31/16 12:00 100 08/31/16 11:51 102/44 08/31/16 11:45 92 21 117/50 100 Bi-pap 100 08/31/16 11:30 68 22 102/53 100 Bi-pap 100 08/31/16 11:15 73 23 85/63 100 Bi-pap 100 08/31/16 11:09 67 22 97 Bi-pap 100 08/31/16 11:07 76 22 95 Bi-pap 100 08/31/16 11:04 64 22 95 Full Face 100 08/31/16 11:00 66 22 84/100 100 Bi-pap 100 08/31/16 10:45 68 22 84/53 100 Bi-pap 100 Intake and Output 08/31/16 09/01/16 19:00 07:00 Intake Total 1035 ml 832.50 ml Output Total 140 ml 400 ml Balance 895 ml 432.50 ml IV Total 1035 ml 332.50 ml Blood Product 500 ml Output Urine Total 100 ml 360 ml Chest Tube Drainage Total 40 ml 40 ml Objective Sp02 EP Interpretation: reviewed, normal; slightly less tachypneic General Appearance: normal inspection, well appearing, no apparent distress, withdrawn Head: normocephalic, atraumatic Eyes: bilateral eye normal inspection ENT: normal ENT inspection, no angioedema, normal voice Neck: normal inspection, full range of motion, supple, no meningismus, carotid 2+ Respiratory: stable BS left; scattered rhonchi noted; chest tube x [address]; Cardiovascular #1: regular rate, rhythm, no murmur without MRG Gastrointestinal: non tender, soft, non-distended, no guarding, no rebound Musculoskeletal: no CC; minimal edema Neurologic: arouseable no distress reviewed and edited Microbiology Date/Time Source Procedure Growth Status 08/30/16 12:00 Blood Blood Culture - Preliminary NO GROWTH AFTER 24 HOURS Resulted 08/30/16 18:00 Sputum Gram Stain - Final Resulted 08/30/16 18:00 Sputum Culture - Preliminary Staphylococcus Aureus Gram Negative Neo Resulted 08/30/16 12:00 Urine,Clean Catch Urine Culture - Preliminary NO GROWTH AFTER 24 HOURS Resulted Laboratory Tests 08/31/16 15:00: Urine Random Sodium 61 08/31/16 16:52: Arterial Blood pH 7.326L, Arterial Blood Partial Pressure CO2 37.0, Arterial Blood Partial Pressure O2 135.7H, Arterial Blood HCO3 18.9L, Arterial Blood Oxygen Saturation 98.3H, Arterial Blood Base Excess -6.5, Arnie Test Positive 09/01/16 02:01: Lactic Acid Level 2.60H 09/01/16 06:30: Lactic Acid Level 2.70H, Sodium Level 146H, Potassium Level 4.9, Chloride Level 109H, Carbon Dioxide Level 19L, Anion Gap 18H, Blood Urea Nitrogen 65H, Creatinine 2.8H, Estimat Glomerular Filtration Rate , Glucose Level 181H, Calcium Level 8.1L, Total Bilirubin 5.3H, Direct Bilirubin 3.6H, Aspartate Amino Transf (AST/SGOT) 19, Alanine Aminotransferase (ALT/SGPT) 5, Alkaline Phosphatase 64, Total Protein 6.2L, Albumin 2.0L, Globulin 4.2, Albumin/ Globulin Ratio 0.4L 09/01/16 08:21: Arterial Blood pH 7.310L, Arterial Blood Partial Pressure CO2 42.0, Arterial Blood Partial Pressure O2 103.0H, Arterial Blood HCO3 21.0L, Arterial Blood Oxygen Saturation 97.0, Arterial Blood Base Excess -6, Arnie Test Positive Current Medications Medications (Trade) Dose Ordered Sig/Homar Route PRN Reason Start Time Stop Time Status Last Admin Dose Admin Acetaminophen (Tylenol) 650 mg Q4H PRN ORAL Mild Pain (Pain Scale 1-3) 08/28/16 16:00 09/27/16 15:59 Acetaminophen/ Hydrocodone Bitart ([place] 5/325) 1 tab Q4H PRN ORAL Moderate Pain (Pain Scale 4-6) 08/28/16 15:30 09/04/16 15:29 08/30/16 12:51 Albuterol/ Ipratropium (DuoNeb 0.5-3(2.5)mg/3ml) 3 ml Q4H PRN HHN Shortness of Breath 08/29/16 11:30 09/03/16 11:29 08/30/16 01:06 Albuterol/ Ipratropium 3 ml 3 ml Q4HRT HHN 08/30/16 15:00 09/04/16 14:59 09/01/16 07:41 Aspirin (Ecotrin) 81 mg DAILY ORAL 08/29/16 09:00 09/28/16 08:59 08/30/16 08:43 Calcium Carbonate (OsCal D) 1 tab DAILY ORAL 08/29/16 09:00 09/28/16 08:59 08/30/16 08:44 Cyanocobalamin (Vitamin B-12) 1,000 mcg DAILY ORAL 08/29/16 09:00 09/28/16 08:59 08/30/16 08:44 Dextrose (Dextrose 50%) STAT PRN IV Hypoglycemia 08/29/16 15:00 09/28/16 14:59 Docusate Sodium (Colace) 250 mg DAILY ORAL 08/29/16 09:00 09/28/16 08:59 08/30/16 08:46 Dopamine HCl/ Dextrose 250 ml @ 0 mls/hr Q24H IV 08/31/16 06:00 09/30/16 05:59 08/31/16 11:51 Epoetin Deshaun (Procrit (for non ESRD use)) 7,000 units FRI-FRI-FRI SUBQ 08/28/16 21:00 09/27/16 20:59 08/28/16 20:44 Ferrous Sulfate (Feosol) 325 mg THREE TIMES A DAY ORAL 08/28/16 18:00 09/27/16 17:59 08/30/16 17:34 Finasteride (Proscar) 5 mg DAILY ORAL 08/29/16 09:00 09/28/16 08:59 08/30/16 08:43 Gemfibrozil (Lopid) 600 mg TWICE A DAY ORAL 08/28/16 18:00 09/27/16 17:59 08/30/16 17:34 Heparin Sodium (Porcine) (Heparin 5000 units/ml) 5,000 units EVERY 12 HOURS SUBQ 08/28/16 21:00 09/27/16 20:59 08/30/16 08:44 Insulin Aspart (NovoLOG) BEFORE MEALS AND HS SUBQ 08/28/16 16:30 09/27/16 16:29 09/01/16 06:30 Insulin Detemir (Levemir) 10 units Q12HR SUBQ 08/28/16 21:00 09/27/16 20:59 08/31/16 22:10 Methylprednisolone Sodium Succinate 60 mg 60 mg EVERY 6 HOURS IVP 08/31/16 18:00 09/30/16 17:59 09/01/16 07:06 Metoprolol Tartrate (Lopressor) 25 mg Q12HR ORAL 08/28/16 21:30 09/27/16 21:29 08/30/16 08:47 Morphine Sulfate (Morphine Sulfate) 2 mg Q4H PRN IVP Severe Pain (Pain Scale 7-10) 08/28/16 19:15 09/04/16 19:14 08/29/16 19:37 Norepinephrine Bitartrate/ Dextrose (Levophed/D5W) 250 ml @ 0 mls/hr Q24H IV 08/31/16 09:00 09/30/16 08:59 08/31/16 22:15 Pantoprazole (Protonix) 40 mg DAILY ORAL 08/29/16 09:00 09/28/16 08:59 08/30/16 08:43 Piperacillin Sod/ Tazobactam Sod 3.375 gm/Sodium Chloride 110 ml @ 27.5 mls/hr Q12HR@0600,1800 IV 09/01/16 18:00 09/08/16 17:59 Ranitidine HCl (Zantac) 150 mg DAILY ORAL 08/29/16 09:00 09/28/16 08:59 08/30/16 08:44 Sodium Bicarbonate/ Dextrose (Sodium Bicarbonate/D5W 1000ml) 1,050 ml @ 75 mls/hr Q14H IV 09/01/16 10:00 10/01/16 09:59 Sodium Bicarbonate (NaHCO3) 650 mg BID ORAL 08/28/16 18:00 09/27/16 17:59 08/30/16 17:34 Tamsulosin HCl (Flomax) 0.4 mg QHS ORAL 08/29/16 21:00 09/28/16 20:59 08/31/16 22:02 KENDRICK SCHWARTZ Sep 01, 2016 10:44
[2016-09-01] MEDS: Sodium Bicarbonate 650mg Tab ORAL SCH ×2 (11:10→18:00)
[2016-09-01] MEDS: Metoprolol 25mg tab ORAL SCH ×2 (11:11→21:00)
[2016-09-01] MEDS: Aspirin EC 81mg tab ORAL SCH (11:12)
[2016-09-01] MEDS: Calcium Carbonate 500mg w/Vit D 200iu tab ORAL SCH (11:12)
[2016-09-01] MEDS: Vitamin B-12 500mcg tab ORAL SCH (11:12)
[2016-09-01] MEDS: Levemir Flexpen SUBQ SCH ×2 (11:20→21:14)
[2016-09-01] MEDS: Sodium Bicarbonate 50 ML in D5W 1000ml 1,000 ML IV SCH (11:31)
[2016-09-01 16:02] LABS: MEAN CORPUSCULAR HEMOGLOBIN 30.7 PG (27.0-31.0); MEAN CORPUSCULAR HGB CONC 35.7 G/DL (32.0-36.0); MEAN CORPUSCULAR VOLUME 86 FL (80-99); MEAN PLATELET VOLUME 11.1 FL (6.5-10.1); PLATELET COUNT 42 K/UL (150-450); RED BLOOD COUNT 4.22 M/UL (4.70-6.10); RED CELL DISTRIBUTION WIDTH 20.3 % (11.6-14.8)
[2016-09-01 16:08] LABS: BASOPHILS % (AUTO) 0.4 % (0.0-2.0); LYMPHOCYTES % (AUTO) 2.4 % (20.0-45.0); MONOCYTES % (AUTO) 3.1 % (1.0-10.0)
[2016-09-01 16:25] LABS: REFLEX LACTIC ACID YES OR NO YES
--- NOTE | 2016-09-01 16:42 | Cardiology Progress Note ---
Assessment/Plan Problem List: (1) Pleural effusion (2) UTI (urinary tract infection) (3) Sepsis (4) Leukocytosis (5) Anemia (6) Tachycardia Status: stable, unchanged Status Narrative Pt s/p surgery for loculated L pl effusion, trapped L lung, pneumonia, now w CT , on bipap vent Sepsis w/ septic shock - now off pressors. s aureus and gnr on sputum cx - mgmt per Dr. Baez Anemia - stable. Thrombocytopenia - worsening. Had transient AF yesterday, resolved. Pacemaker was checked and is functioning normally. Assessment/Plan continue iv antibiotics, bipap vent support, CT If further AF, can start amiodarone. No anticoagulation - thrombocytopenia and high bleeding risk. Subjective ROS Limited/Unobtainable: Yes Subjective Pt on bipap vent. Opens eyes to voice Objective Last 24 Hour Vital Signs Date Time Temp Pulse Resp B/P Pulse Ox O2 Delivery O2 Flow Rate FiO2 09/01/16 15:00 84 21 108/51 97 Bi-pap 80 09/01/16 14:50 89 22 97 Bi-pap 50 09/01/16 14:40 85 22 97 Bi-pap 50 09/01/16 14:40 85 22 97 Full Face 50 09/01/16 14:00 85 20 111/65 98 Bi-pap 80 09/01/16 13:00 96 19 117/64 97 Bi-pap 80 09/01/16 12:54 87 20 97 Full Face 50 09/01/16 12:00 75 09/01/16 12:00 97.7 93 20 108/68 96 Bi-pap 80 09/01/16 12:00 93 09/01/16 11:11 97 125/62 09/01/16 11:00 96 18 125/62 99 Bi-pap 80 09/01/16 10:56 95 19 96 Bi-pap 50 09/01/16 10:46 95 19 96 Bi-pap 70 09/01/16 10:46 95 19 96 Full Face 50 09/01/16 10:00 96 21 110/55 95 Bi-pap 80 09/01/16 09:01 93 17 100 Full Face 50 09/01/16 09:00 92 18 120/62 99 Bi-pap 80 09/01/16 08:00 75 09/01/16 08:00 91 09/01/16 08:00 97.6 91 18 105/66 100 Bi-pap 80 09/01/16 07:51 92 16 100 Bi-pap 70 09/01/16 07:41 90 16 100 Bi-pap 70 09/01/16 07:39 90 22 Bi-pap 70 09/01/16 07:39 100 Bi-pap 70 09/01/16 07:39 Bi-pap 70 09/01/16 07:39 90 16 100 Full Face 70 09/01/16 07:00 95 14 103/55 100 Bi-pap 80 09/01/16 06:00 95 14 103/47 100 Bi-pap 80 09/01/16 05:27 97 22 100 Full Face 70 09/01/16 05:00 102 14 123/61 100 Bi-pap 80 09/01/16 04:00 75 09/01/16 04:00 88 09/01/16 04:00 97.6 88 14 108/49 100 Bi-pap 80 09/01/16 03:45 89 14 111/51 100 Bi-pap 80 09/01/16 03:30 91 14 101/52 100 Bi-pap 80 09/01/16 03:20 98 14 100 Bi-pap 75 09/01/16 03:15 90 14 104/44 100 Bi-pap 80 09/01/16 03:00 91 14 102/46 100 Bi-pap 80 09/01/16 02:45 91 14 104/55 100 Bi-pap 80 09/01/16 02:45 90 14 100 Bi-pap 80 09/01/16 02:44 90 15 100 Full Face 80 09/01/16 02:30 93 14 107/52 100 Bi-pap 80 09/01/16 02:15 93 14 113/51 100 Bi-pap 80 09/01/16 02:00 93 14 113/51 100 Bi-pap 80 09/01/16 01:45 95 14 109/55 100 Bi-pap 80 09/01/16 01:30 90 14 109/50 100 Bi-pap 80 09/01/16 01:15 91 14 107/52 100 Bi-pap 80 09/01/16 01:00 92 14 121/49 100 Bi-pap 80 09/01/16 00:49 91 15 100 Full Face 80 09/01/16 00:45 91 14 101/48 100 Bi-pap 80 09/01/16 00:30 89 14 97/62 100 Bi-pap 80 09/01/16 00:15 89 14 94/49 100 Bi-pap 80 09/01/16 00:00 90 09/01/16 00:00 97.6 90 14 94/49 100 Bi-pap 80 09/01/16 00:00 80 08/31/16 23:45 90 14 97/47 100 Bi-pap 80 08/31/16 23:30 90 14 92/47 100 Bi-pap 80 08/31/16 23:15 91 14 96/47 100 Bi-pap 80 08/31/16 23:12 102 14 100 Bi-pap 80 08/31/16 23:00 91 14 100/44 100 Bi-pap 80 08/31/16 22:45 92 14 85/41 100 Bi-pap 80 08/31/16 22:43 92 14 100 Full Face 80 08/31/16 22:43 92 14 100 Bi-pap 80 08/31/16 22:30 93 14 99/41 100 Bi-pap 80 08/31/16 22:15 96 18 106/57 100 Bi-pap 80 08/31/16 22:15 98/54 08/31/16 22:00 99 18 102/40 100 Bi-pap 80 08/31/16 21:45 96 24 102/40 100 Bi-pap 80 08/31/16 21:30 96 24 100/43 100 Bi-pap 80 08/31/16 21:15 98 24 91/42 100 Bi-pap 80 08/31/16 21:00 97 98/62 08/31/16 21:00 99 24 101/65 100 Bi-pap 80 08/31/16 20:52 102 24 100 Full Face 80 08/31/16 20:45 102 24 105/76 100 Bi-pap 80 08/31/16 20:30 99 24 97/43 100 Bi-pap 80 08/31/16 20:15 99 24 107/58 100 Bi-pap 80 08/31/16 20:00 97.6 100 24 107/58 100 Bi-pap 80 08/31/16 20:00 100 08/31/16 20:00 80 08/31/16 19:45 103 24 102/47 100 Bi-pap 80 08/31/16 19:30 100 24 98/50 100 Bi-pap 80 08/31/16 19:28 101 22 100 Bi-pap 80 08/31/16 19:15 103 24 100/50 100 Bi-pap 80 08/31/16 19:00 103 24 100/50 100 Bi-pap 80 08/31/16 18:54 100 Bi-pap 80 08/31/16 18:54 Bi-pap 80 08/31/16 18:53 101 22 100 Bi-pap 80 08/31/16 18:52 101 22 100 Full Face 80 08/31/16 18:52 101 22 Bi-pap 80 08/31/16 18:45 101 20 102/40 100 Bi-pap 80 08/31/16 18:30 99 18 93/48 100 Bi-pap 80 08/31/16 18:15 99 19 90/62 100 Bi-pap 80 08/31/16 18:00 100 21 103/48 100 Bi-pap 80 08/31/16 17:45 100 26 98/37 100 Bi-pap 80 08/31/16 17:30 100 30 112/50 100 Bi-pap 80 08/31/16 17:20 101 26 100 Full Face 100 08/31/16 17:15 102 24 107/39 100 Bi-pap 80 08/31/16 17:00 101 21 124/56 100 Bi-pap 80 08/31/16 16:45 101 22 103/61 100 Bi-pap 80 General Appearance: other - on bipap mask Neck: supple, no JVD Cardiovascular: normal rate, regular rhythm Respiratory/Chest: other - diffuse L rhonchi. L chest tubes Abdomen: non tender, soft Extremities: no swelling Intake and Output 08/31/16 09/01/16 19:00 07:00 Intake Total 1035 ml 832.50 ml Output Total 140 ml 400 ml Balance 895 ml 432.50 ml IV Total 1035 ml 332.50 ml Blood Product 500 ml Output Urine Total 100 ml 360 ml Chest Tube Drainage Total 40 ml 40 ml Laboratory Tests Test 08/31/16 16:52 09/01/16 02:01 09/01/16 06:30 09/01/16 08:21 Arterial Blood pH 7.326 (7.350-7.450) 7.310 (7.350-7.450) Arterial Blood Partial Pressure CO2 37.0 mmHg (35.0-45.0) 42.0 mmHg (35.0-45.0) Arterial Blood Partial Pressure O2 135.7 mmHg (75.0-100.0) H 103.0 mmHg (75.0-100.0) H Arterial Blood HCO3 18.9 mmol/L (22.0-26.0) L 21.0 mmol/L (22.0-26.0) L Arterial Blood Oxygen Saturation 98.3 % (92.0-98.0) H 97.0 % (92.0-98.0) Arterial Blood Base Excess -6.5 -6 Arnie Test Positive Positive Lactic Acid Level 2.60 mmol/L (0.66-2.22) H 2.70 mmol/L (0.66-2.22) H Sodium Level 146 mEQ/L (135-145) H Potassium Level 4.9 mEQ/L (3.4-4.9) Chloride Level 109 mEQ/L (98-107) H Carbon Dioxide Level 19 mEQ/L (20-30) L Anion Gap 18 (5-15) H Blood Urea Nitrogen 65 mg/dL (7-23) H Creatinine 2.8 mg/dL (0.7-1.2) H Estimat Glomerular Filtration Rate mL/min (>60) Glucose Level 181 mg/dL (74-106) H Calcium Level 8.1 mg/dL (8.6-10.2) L Total Bilirubin 5.3 mg/dL (0.0-1.2) H Direct Bilirubin 3.6 mg/dL (0.1-0.3) H Aspartate Amino Transf (AST/SGOT) 19 U/L (5-40) Alanine Aminotransferase (ALT/SGPT) 5 U/L (3-41) Alkaline Phosphatase 64 U/L (40-129) Total Protein 6.2 g/dL (6.6-8.7) L Albumin 2.0 g/dL (3.5-5.2) L Globulin 4.2 g/dL Albumin/Globulin Ratio 0.4 (1.0-2.7) L Test 09/01/16 15:49 White Blood Count 13.0 K/UL (4.8-10.8) H Red Blood Count 4.22 M/UL (4.70-6.10) L Hemoglobin 13.0 G/DL (14.2-18.0) #L Hematocrit 36.3 % (42.0-52.0) #L Mean Corpuscular Volume 86 FL (80-99) # Mean Corpuscular Hemoglobin 30.7 PG (27.0-31.0) Mean Corpuscular Hemoglobin Concent 35.7 G/DL (32.0-36.0) Red Cell Distribution Width 20.3 % (11.6-14.8) H Platelet Count 42 K/UL (150-450) L Mean Platelet Volume 11.1 FL (6.5-10.1) H Neutrophils (%) (Auto) 94.0 % (45.0-75.0) H Lymphocytes (%) (Auto) 2.4 % (20.0-45.0) L Monocytes (%) (Auto) 3.1 % (1.0-10.0) Eosinophils (%) (Auto) 0.0 % (0.0-3.0) Basophils (%) (Auto) 0.4 % (0.0-2.0) Lactic Acid Level 2.10 mmol/L (0.66-2.22) Microbiology Date/Time Source Procedure Growth Status 08/30/16 12:00 Blood Blood Culture - Preliminary NO GROWTH AFTER 24 HOURS Resulted 08/30/16 18:00 Sputum Gram Stain - Final Resulted 08/30/16 18:00 Sputum Culture - Preliminary Staphylococcus Aureus Gram Negative Neo Resulted 08/30/16 12:00 Urine,Clean Catch Urine Culture - Preliminary NO GROWTH AFTER 24 HOURS Resulted TONY MUNGUIA Sep 01, 2016 16:42
[2016-09-01] MEDS: Piperacillin/Tazobactam 3.375 GM in NS 110 ML IV SCH (18:27)
[2016-09-01] MEDS: Tamsulosin 0.4mg cap ORAL SCH (21:05)
[2016-09-01] MEDS: Bumetanide 10 MG in D5W 60 ML IVLG SCH (21:46)
[2016-09-02] VITALS (24 sets, daily range): BP systolic 90–128; BP diastolic 44–69
[2016-09-02] MEDS: Sodium Bicarbonate 50 ML in D5W 1000ml 1,000 ML IV SCH ×2 (00:59→13:30)
[2016-09-02] MEDS: DuoNeb 0.5-3(2.5)mg/3ml neb HHN SCH ×6 (02:58→23:02)
[2016-09-02] MEDS: Bumetanide 10 MG in D5W 60 ML IVLG SCH ×5 (03:02→23:31)
[2016-09-02 04:58] LABS: MEAN CORPUSCULAR HEMOGLOBIN 29.4 PG (27.0-31.0); MEAN CORPUSCULAR HGB CONC 33.9 G/DL (32.0-36.0); MEAN CORPUSCULAR VOLUME 87 FL (80-99); MEAN PLATELET VOLUME 12.6 FL (6.5-10.1); PLATELET COUNT 37 K/UL (150-450); RED BLOOD COUNT 4.18 M/UL (4.70-6.10); RED CELL DISTRIBUTION WIDTH 20.2 % (11.6-14.8); WHITE BLOOD COUNT 10.9 K/UL (4.8-10.8)
[2016-09-02 05:21] LABS: REFLEX LACTIC ACID YES OR NO YES
[2016-09-02 05:25] LABS: ALANINE AMINOTRANSFERASE 5 U/L (3-41); ALBUMIN/GLOBULIN RATIO 0.4 (1.0-2.7); ANION GAP 15 (5-15); ASPARTATE AMINO TRANSFERASE 14 U/L (5-40); CALCIUM 7.9 mg/dL (8.6-10.2); CARBON DIOXIDE 24 mEQ/L (20-30); CHLORIDE 109 mEQ/L (98-107); CREATININE 2.8 mg/dL (0.7-1.2); HEMOLYSIS 4; POTASSIUM 4.2 mEQ/L (3.4-4.9); SODIUM 148 mEQ/L (135-145); TOTAL PROTEIN 5.5 g/dL (6.6-8.7)
[2016-09-02] MEDS: DOPamine 400mg/250ml 250 ML IV SCH (05:47)
[2016-09-02] MEDS: Solu-MEDROL 125mg Inj IVP SCH ×3 (05:48→18:11)
[2016-09-02] MEDS: Piperacillin/Tazobactam 3.375 GM in NS 110 ML IV SCH (05:48)
[2016-09-02] MEDS: NovoLOG Insulin Flexpen SUBQ SCH ×4 (05:56→21:23)
[2016-09-02 08:50] LABS: ANISOCYTOSIS 2+; BAND NEUTROPHILS % (MANUAL) 0 % (0-8); BASOPHILS % (MANUAL) 0 % (0-2); EOSINOPHILS % (MANUAL) 0 % (0-3); LYMPHOCYTES % (MANUAL) 5 % (20-45); NEUTROPHILS % (MANUAL) 93 % (45-75); PLATELET ESTIMATE DECREASED; PLATELET MORPHOLOGY NORMAL; TOTAL CELLS COUNTED 100
[2016-09-02 08:55] LABS: ABG ALLEN TEST POSITIVE; ABG BASE EXCESS 2.3; ABG PCO2 41.2 mmHg (35.0-45.0)
[2016-09-02] MEDS: Vitamin B-12 500mcg tab ORAL SCH (09:00)
[2016-09-02] MEDS: Calcium Carbonate 500mg w/Vit D 200iu tab ORAL SCH (09:00)
[2016-09-02] MEDS: Sodium Bicarbonate 650mg Tab ORAL SCH ×2 (09:00→18:00)
[2016-09-02] MEDS: Aspirin EC 81mg tab ORAL SCH (09:00)
[2016-09-02] MEDS: Metoprolol 25mg tab ORAL SCH ×2 (09:00→21:00)
[2016-09-02] MEDS: Heparin 5000 units/ml inj SUBQ SCH ×2 (09:00→21:00)
[2016-09-02] MEDS: Docusate 250mg cap ORAL SCH (09:00)
--- NOTE | 2016-09-02 09:07 | Pulmonology Progress Note ---
Assessment/Plan Assessment/Plan ASSESSMENT: 1. bilateral pleural effusions; 2. Anemia. with need for transfusion 3. Chronic kidney disease. 4. Stroke. with focal weakness 5. Hypertension. 6. History of chronic obstructive pulmonary disease. 7. History of conduction system disease. with pacemaker 8. worsening left effusion with atelectasis 9. iatrogenic pneumothorax 10. s/p decortication 11. respiratory failure 12. metabolic acidosis 13. acidemia PLAN: off the ventilator off BIPAP as able care noted and reviewed monitor CT per thoracic follow up chest xr for change oxygen taper maintain meds aspiration precautions; continue to monitor closely care noted taper solumedrol in am ICU care reviewed in detail d/w Dr. See medications/laboratory data/nursing notes/ICU care reviewed in detail note reviewed and edited care discussed with RN and RT ICU time spent 38 minutes Subjective ROS Limited/Unobtainable: Yes Allergies: Coded Allergies: No Known Allergies (Unverified , 01/24/14) Subjective just taken off BIPAP CT x [address] Objective Last 24 Hour Vital Signs Date Time Temp Pulse Resp B/P Pulse Ox O2 Delivery O2 Flow Rate FiO2 09/02/16 09:00 118/63 09/02/16 09:00 75 118/63 09/02/16 08:58 80 18 99 Full Face 50 09/02/16 08:01 50 09/02/16 08:00 78 09/02/16 08:00 97.0 75 10 118/63 100 Bi-pap 50 09/02/16 07:00 73 14 116/63 100 Bi-pap 50 09/02/16 06:59 76 15 100 Bi-pap 50 09/02/16 06:56 74 19 100 Full Face 50 09/02/16 06:50 75 19 100 Bi-pap 50 09/02/16 06:00 77 14 111/56 100 Bi-pap 50 09/02/16 05:47 115/69 09/02/16 05:09 83 16 98 Full Face 50 09/02/16 05:00 84 18 115/69 100 Bi-pap 50 09/02/16 04:00 97.6 75 15 111/55 99 Bi-pap 50 09/02/16 04:00 84 09/02/16 04:00 50 09/02/16 03:20 66 15 100 Bi-pap 50 09/02/16 03:00 71 13 128/57 100 Bi-pap 50 09/02/16 02:59 60 16 100 Bi-pap 50 09/02/16 02:59 64 16 100 Full Face 50 09/02/16 02:00 62 13 90/44 100 Bi-pap 50 09/02/16 01:00 60 14 108/60 100 Bi-pap 50 09/02/16 00:53 82 16 100 Full Face 50 09/02/16 00:00 80 09/02/16 00:00 50 09/02/16 00:00 97.4 79 15 112/55 99 Bi-pap 50 09/01/16 23:22 86 15 100 Bi-pap 50 09/01/16 23:08 61 15 99 Bi-pap 50 09/01/16 23:06 63 15 100 Full Face 50 09/01/16 23:00 76 13 113/59 99 Bi-pap 50 09/01/16 22:00 61 13 92/49 100 Bi-pap 50 09/01/16 21:15 84 15 100 Full Face 50 09/01/16 21:00 81 14 97/49 100 Bi-pap 50 09/01/16 21:00 78 95/49 09/01/16 20:00 97.6 80 13 99/58 100 Bi-pap 50 09/01/16 20:00 50 09/01/16 20:00 80 09/01/16 19:27 84 15 100 Bi-pap 50 09/01/16 19:18 68 15 100 Bi-pap 50 09/01/16 19:17 83 16 100 Full Face 50 09/01/16 19:17 100 Bi-pap 50 09/01/16 19:17 Bi-pap 50 09/01/16 19:16 64 16 Bi-pap 50 09/01/16 19:00 80 18 171/47 100 Bi-pap 80 09/01/16 18:00 82 15 95/52 100 Bi-pap 80 09/01/16 17:08 86 20 98 Full Face 50 09/01/16 17:00 87 21 104/49 98 Bi-pap 80 09/01/16 16:00 97.4 85 20 106/70 98 Bi-pap 80 09/01/16 16:00 50 09/01/16 16:00 85 09/01/16 15:00 84 21 108/51 97 Bi-pap 80 09/01/16 14:50 89 22 97 Bi-pap 50 09/01/16 14:40 85 22 97 Bi-pap 50 09/01/16 14:40 85 22 97 Full Face 50 09/01/16 14:00 85 20 111/65 98 Bi-pap 80 09/01/16 13:00 96 19 117/64 97 Bi-pap 80 09/01/16 12:54 87 20 97 Full Face 50 09/01/16 12:00 75 09/01/16 12:00 97.7 93 20 108/68 96 Bi-pap 80 09/01/16 12:00 93 09/01/16 11:11 97 125/62 09/01/16 11:00 96 18 125/62 99 Bi-pap 80 09/01/16 10:56 95 19 96 Bi-pap 50 09/01/16 10:46 95 19 96 Bi-pap 70 09/01/16 10:46 95 19 96 Full Face 50 09/01/16 10:00 96 21 110/55 95 Bi-pap 80 Intake and Output 09/01/16 09/02/16 19:00 07:00 Intake Total 876.25 ml 1176.25 ml Output Total 375 ml 948 ml Balance 501.25 ml 228.25 ml IV Total 876.25 ml 1176.25 ml Output Urine Total 345 ml 868 ml Chest Tube Drainage Total 30 ml 80 ml # Bowel Movements 1 Objective Sp02 EP Interpretation: reviewed, normal; seems improved overall General Appearance: normal inspection, well appearing, no apparent distress, withdrawn Head: normocephalic, atraumatic Eyes: bilateral eye normal inspection ENT: normal ENT inspection, no angioedema, normal voice Neck: normal inspection, full range of motion, supple, no meningismus, carotid 2+ Respiratory: stable BS left; some rhonchi noted; chest tube x [address]; Cardiovascular #1: regular rate, rhythm, no murmur without MRG Gastrointestinal: non tender, soft, non-distended, no guarding, no rebound Musculoskeletal: no CC; minimal edema Neurologic: awake no distress reviewed and edited Microbiology Date/Time Source Procedure Growth Status 08/30/16 12:00 Blood Blood Culture - Preliminary NO GROWTH AFTER 48 HOURS Resulted 08/30/16 18:00 Sputum Gram Stain - Final Complete 08/30/16 18:00 Sputum Culture - Final Staphylococcus Aureus - Mrsa Acinetobacter Baumannii Complx Complete 08/30/16 12:00 Urine,Clean Catch Urine Culture - Preliminary NO GROWTH AFTER 24 HOURS Resulted Laboratory Tests 09/01/16 15:49: White Blood Count 13.0H, Red Blood Count 4.22L, Hemoglobin 13.0#L, Hematocrit 36.3#L, Mean Corpuscular Volume 86#, Mean Corpuscular Hemoglobin 30.7, Mean Corpuscular Hemoglobin Concent 35.7, Red Cell Distribution Width 20.3H, Platelet Count 42L, Mean Platelet Volume 11.1H, Neutrophils (%) (Auto) 94.0H, Lymphocytes (%) (Auto) 2.4L, Monocytes (%) (Auto) 3.1, Eosinophils (%) (Auto) 0.0, Basophils (%) (Auto) 0.4, Lactic Acid Level 2.10 09/02/16 04:00: White Blood Count 10.9H, Red Blood Count 4.18L, Hemoglobin 12.3L, Hematocrit 36.3L, Mean Corpuscular Volume 87, Mean Corpuscular Hemoglobin 29.4, Mean Corpuscular Hemoglobin Concent 33.9, Red Cell Distribution Width 20.2H, Platelet Count 37L, Mean Platelet Volume 12.6H, Neutrophils (%) (Auto) , Lymphocytes (%) (Auto) , Monocytes (%) (Auto) , Eosinophils (%) (Auto) , Basophils (%) (Auto) , Lactic Acid Level 2.10, Differential Total Cells Counted 100, Neutrophils % (Manual) 93H, Lymphocytes % (Manual) 5L, Monocytes % (Manual ) 2, Eosinophils % (Manual) 0, Basophils % (Manual) 0, Band Neutrophils 0, Platelet Estimate DecreasedL, Platelet Morphology Normal, Anisocytosis 2+, Sodium Level 148H, Potassium Level 4.2, Chloride Level 109H, Carbon Dioxide Level 24, Anion Gap 15, Blood Urea Nitrogen 69H, Creatinine 2.8H, Estimat Glomerular Filtration Rate , Glucose Level 144H, Calcium Level 7.9L, Total Bilirubin 4.2H, Direct Bilirubin 3.0H, Aspartate Amino Transf (AST/SGOT) 14, Alanine Aminotransferase (ALT/SGPT) 5, Alkaline Phosphatase 54, Total Protein 5.5L, Albumin 1.8L, Globulin 3.7, Albumin/Globulin Ratio 0.4L 09/02/16 05:30: Lactic Acid Level 2.30H 09/02/16 08:30: Arterial Blood pH 7.363, Arterial Blood Partial Pressure CO2 41.2, Arterial Blood Partial Pressure O2 51.1L, Arterial Blood HCO3 22.9, Arterial Blood Oxygen Saturation 94.8, Arterial Blood Base Excess 2.3, Arnie Test Positive Current Medications Medications (Trade) Dose Ordered Sig/Homar Route PRN Reason Start Time Stop Time Status Last Admin Dose Admin Acetaminophen (Tylenol) 650 mg Q4H PRN ORAL Mild Pain (Pain Scale 1-3) 08/28/16 16:00 09/27/16 15:59 Acetaminophen/ Hydrocodone Bitart ([place] 5/325) 1 tab Q4H PRN ORAL Moderate Pain (Pain Scale 4-6) 08/28/16 15:30 09/04/16 15:29 08/30/16 12:51 Albuterol/ Ipratropium (DuoNeb 0.5-3(2.5)mg/3ml) 3 ml Q4H PRN HHN Shortness of Breath 08/29/16 11:30 09/03/16 11:29 08/30/16 01:06 Albuterol/ Ipratropium 3 ml 3 ml Q4HRT HHN 08/30/16 15:00 09/04/16 14:59 09/02/16 06:55 Aspirin (Ecotrin) 81 mg DAILY ORAL 08/29/16 09:00 09/28/16 08:59 09/01/16 11:12 Bumetanide/ Dextrose (Bumex/D5W) 100 ml @ 20 mls/hr Q5H IVLG 09/01/16 22:00 10/01/16 21:59 09/02/16 07:58 Calcium Carbonate (OsCal D) 1 tab DAILY ORAL 08/29/16 09:00 09/28/16 08:59 09/01/16 11:12 Cyanocobalamin (Vitamin B-12) 1,000 mcg DAILY ORAL 08/29/16 09:00 09/28/16 08:59 09/01/16 11:12 Dextrose (Dextrose 50%) STAT PRN IV Hypoglycemia 08/29/16 15:00 09/28/16 14:59 Docusate Sodium (Colace) 250 mg DAILY ORAL 08/29/16 09:00 09/28/16 08:59 08/30/16 08:46 Dopamine HCl/ Dextrose 250 ml @ 0 mls/hr Q24H IV 08/31/16 06:00 09/30/16 05:59 08/31/16 11:51 Epoetin Deshaun (Procrit (for non ESRD use)) 7,000 units FRI-FRI-FRI SUBQ 08/28/16 21:00 09/27/16 20:59 08/28/16 20:44 Ferrous Sulfate (Feosol) 325 mg THREE TIMES A DAY ORAL 08/28/16 18:00 09/27/16 17:59 09/01/16 18:28 Finasteride (Proscar) 5 mg DAILY ORAL 08/29/16 09:00 09/28/16 08:59 09/01/16 11:11 Gemfibrozil (Lopid) 600 mg TWICE A DAY ORAL 08/28/16 18:00 09/27/16 17:59 09/01/16 18:28 Heparin Sodium (Porcine) (Heparin 5000 units/ml) 5,000 units EVERY 12 HOURS SUBQ 08/28/16 21:00 09/27/16 20:59 08/30/16 08:44 Insulin Aspart (NovoLOG) BEFORE MEALS AND HS SUBQ 08/28/16 16:30 09/27/16 16:29 09/02/16 05:56 Insulin Detemir (Levemir) 10 units Q12HR SUBQ 08/28/16 21:00 09/27/16 20:59 09/01/16 21:14 Methylprednisolone Sodium Succinate 60 mg 60 mg EVERY 6 HOURS IVP 08/31/16 18:00 09/30/16 17:59 09/02/16 05:48 Metoprolol Tartrate (Lopressor) 25 mg Q12HR ORAL 08/28/16 21:30 09/27/16 21:29 09/01/16 11:11 Morphine Sulfate (Morphine Sulfate) 2 mg Q4H PRN IVP Severe Pain (Pain Scale 7-10) 08/28/16 19:15 09/04/16 19:14 08/29/16 19:37 Norepinephrine Bitartrate/ Dextrose (Levophed/D5W) 250 ml @ 0 mls/hr Q24H IV 08/31/16 09:00 09/30/16 08:59 08/31/16 22:15 Pantoprazole (Protonix) 40 mg DAILY ORAL 08/29/16 09:00 09/28/16 08:59 09/01/16 11:10 Piperacillin Sod/ Tazobactam Sod 3.375 gm/Sodium Chloride 110 ml @ 27.5 mls/hr Q12HR@0600,1800 IV 09/01/16 18:00 09/08/16 17:59 09/02/16 05:48 Ranitidine HCl (Zantac) 150 mg DAILY ORAL 08/29/16 09:00 09/28/16 08:59 09/01/16 11:10 Sodium Bicarbonate 50 ml/ Dextrose 1,050 ml @ 75 mls/hr Q14H IV 09/01/16 10:00 10/01/16 09:59 09/02/16 00:59 Sodium Bicarbonate (NaHCO3) 650 mg BID ORAL 08/28/16 18:00 09/27/16 17:59 09/01/16 11:10 Tamsulosin HCl (Flomax) 0.4 mg QHS ORAL 08/29/16 21:00 09/28/16 20:59 09/01/16 21:05 KENDRICK SCHWARTZ Sep 02, 2016 09:07
[2016-09-02] MEDS: Levemir Flexpen SUBQ SCH ×2 (09:08→21:24)
[2016-09-02] MEDS ORDERED: Tubing IV Secondary IV ONE (10:27)
[2016-09-02] MEDS ORDERED: NS 275ml ONE (10:27)
--- NOTE | 2016-09-02 11:03 | Diagnostic Imaging Report ---
Indication: Abnormal liver function tests Technique: [place]-scale and duplex images of the upper abdomen were obtained Comparison: Reference made to recent CT scan dated 08/18/2016 Findings: Exam is somewhat limited as patient was difficult scan due to shortness of breath. There is a small amount of ascites fluid present. Gallbladder is surgically absent. Common bile duct measures by mm in diameter. No intrahepatic biliary ductal dilatation. Liver demonstrates coarsened echogenicity, mild atrophy, surface nodularity, also previously described.. Portal vein and hepatic veins are patent.. Pancreas is incompletely visualized due to overlying bowel gas, visualized portions are unremarkable. Spleen is unremarkable. Left kidney measures 10.8 cm in length. Right kidney measures 9.3 cm length. Both kidneys demonstrate normal echogenicity. There is no hydronephrosis. No focal abnormality. . Abdominal aorta is partially obscured by bowel gas, visualized portions are non-aneurysmal. Impression: Somewhat limited exam, as described. Coarsened hepatic echogenicity, mild atrophy and surface nodularity is suggestive of cirrhotic change. This was also described previously Small amount of ascites is present. Surgically absent gallbladder. Negative for dilated ducts Note inability to visualized portions of pancreas and abdominal aorta
--- NOTE | 2016-09-02 11:36 | General Progress Note ---
Assessment/Plan Problem List: (1) Anemia ICD Codes: D64.9 - Anemia, unspecified SNOMED: 450408764 Qualifiers: (2) Tachycardia ICD Codes: R00.0 - Tachycardia, unspecified SNOMED: 2725031 (3) GIB (gastrointestinal bleeding) ICD Codes: K92.2 - Gastrointestinal hemorrhage, unspecified SNOMED: 66763575 Qualifiers: Qualified Codes: K57.91 - Diverticulosis of intestine, part unspecified, without perforation or abscess with bleeding (4) Anemia due to acute blood loss ICD Codes: D62 - Acute posthemorrhagic anemia SNOMED: 785891304 Status: stable, progressing Assessment/Plan off pressors ivf monitor fluid status follow up labs iv abx per id bipap/resp care try po's if able to take bipap off intermittently critical and guarded but improved today Subjective ROS Limited/Unobtainable: No Constitutional: Reports: malaise, weakness HEENT: Reports: no symptoms Cardiovascular: Reports: no symptoms Respiratory: Reports: shortness of breath Gastrointestinal/Abdominal: Reports: no symptoms Genitourinary: Reports: no symptoms Neurologic/Psychiatric: Reports: pre-existing deficit Endocrine: Reports: no symptoms Hematologic/Lymphatic: Reports: anemia Allergies: Coded Allergies: No Known Allergies (Unverified , 01/24/14) All Systems: reviewed and negative except above Subjective stable on bipap. uop improved. still with 2 ct. responds to simple questions. Objective Last 24 Hour Vital Signs Date Time Temp Pulse Resp B/P Pulse Ox O2 Delivery O2 Flow Rate FiO2 09/02/16 11:01 80 16 100 Bi-pap 50 09/02/16 11:00 78 14 102/56 100 Bi-pap 50 09/02/16 10:59 81 17 99 Facial 50 09/02/16 10:50 81 17 100 Bi-pap 50 09/02/16 10:00 75 13 98/53 99 Bi-pap 50 09/02/16 09:00 118/63 09/02/16 09:00 75 118/63 09/02/16 09:00 75 10 105/59 100 Bi-pap 50 09/02/16 08:58 80 18 99 Full Face 50 09/02/16 08:01 50 09/02/16 08:00 78 09/02/16 08:00 97.0 75 10 118/63 100 Bi-pap 50 09/02/16 07:00 73 14 116/63 100 Bi-pap 50 09/02/16 06:59 76 15 100 Bi-pap 50 09/02/16 06:56 74 19 100 Full Face 50 09/02/16 06:50 75 19 100 Bi-pap 50 09/02/16 06:00 77 14 111/56 100 Bi-pap 50 09/02/16 05:47 115/69 09/02/16 05:09 83 16 98 Full Face 50 09/02/16 05:00 84 18 115/69 100 Bi-pap 50 09/02/16 04:00 97.6 75 15 111/55 99 Bi-pap 50 09/02/16 04:00 84 09/02/16 04:00 50 09/02/16 03:20 66 15 100 Bi-pap 50 09/02/16 03:00 71 13 128/57 100 Bi-pap 50 09/02/16 02:59 60 16 100 Bi-pap 50 09/02/16 02:59 64 16 100 Full Face 50 09/02/16 02:00 62 13 90/44 100 Bi-pap 50 09/02/16 01:00 60 14 108/60 100 Bi-pap 50 09/02/16 00:53 82 16 100 Full Face 50 09/02/16 00:00 80 09/02/16 00:00 50 09/02/16 00:00 97.4 79 15 112/55 99 Bi-pap 50 09/01/16 23:22 86 15 100 Bi-pap 50 09/01/16 23:08 61 15 99 Bi-pap 50 09/01/16 23:06 63 15 100 Full Face 50 09/01/16 23:00 76 13 113/59 99 Bi-pap 50 09/01/16 22:00 61 13 92/49 100 Bi-pap 50 09/01/16 21:15 84 15 100 Full Face 50 09/01/16 21:00 81 14 97/49 100 Bi-pap 50 09/01/16 21:00 78 95/49 09/01/16 20:00 97.6 80 13 99/58 100 Bi-pap 50 09/01/16 20:00 50 09/01/16 20:00 80 09/01/16 19:27 84 15 100 Bi-pap 50 09/01/16 19:18 68 15 100 Bi-pap 50 09/01/16 19:17 83 16 100 Full Face 50 09/01/16 19:17 100 Bi-pap 50 09/01/16 19:17 Bi-pap 50 09/01/16 19:16 64 16 Bi-pap 50 09/01/16 19:00 80 18 171/47 100 Bi-pap 80 09/01/16 18:00 82 15 95/52 100 Bi-pap 80 09/01/16 17:08 86 20 98 Full Face 50 09/01/16 17:00 87 21 104/49 98 Bi-pap 80 09/01/16 16:00 97.4 85 20 106/70 98 Bi-pap 80 09/01/16 16:00 50 09/01/16 16:00 85 09/01/16 15:00 84 21 108/51 97 Bi-pap 80 09/01/16 14:50 89 22 97 Bi-pap 50 09/01/16 14:40 85 22 97 Bi-pap 50 09/01/16 14:40 85 22 97 Full Face 50 09/01/16 14:00 85 20 111/65 98 Bi-pap 80 09/01/16 13:00 96 19 117/64 97 Bi-pap 80 09/01/16 12:54 87 20 97 Full Face 50 09/01/16 12:00 75 09/01/16 12:00 97.7 93 20 108/68 96 Bi-pap 80 09/01/16 12:00 93 Intake and Output 09/01/16 09/02/16 19:00 07:00 Intake Total 876.25 ml 1176.25 ml Output Total 375 ml 948 ml Balance 501.25 ml 228.25 ml IV Total 876.25 ml 1176.25 ml Output Urine Total 345 ml 868 ml Chest Tube Drainage Total 30 ml 80 ml # Bowel Movements 1 Laboratory Tests 09/01/16 15:49: White Blood Count 13.0H, Red Blood Count 4.22L, Hemoglobin 13.0#L, Hematocrit 36.3#L, Mean Corpuscular Volume 86#, Mean Corpuscular Hemoglobin 30.7, Mean Corpuscular Hemoglobin Concent 35.7, Red Cell Distribution Width 20.3H, Platelet Count 42L, Mean Platelet Volume 11.1H, Neutrophils (%) (Auto) 94.0H, Lymphocytes (%) (Auto) 2.4L, Monocytes (%) (Auto) 3.1, Eosinophils (%) (Auto) 0.0, Basophils (%) (Auto) 0.4, Lactic Acid Level 2.10 09/02/16 04:00: White Blood Count 10.9H, Red Blood Count 4.18L, Hemoglobin 12.3L, Hematocrit 36.3L, Mean Corpuscular Volume 87, Mean Corpuscular Hemoglobin 29.4, Mean Corpuscular Hemoglobin Concent 33.9, Red Cell Distribution Width 20.2H, Platelet Count 37L, Mean Platelet Volume 12.6H, Neutrophils (%) (Auto) , Lymphocytes (%) (Auto) , Monocytes (%) (Auto) , Eosinophils (%) (Auto) , Basophils (%) (Auto) , Lactic Acid Level 2.10, Differential Total Cells Counted 100, Neutrophils % (Manual) 93H, Lymphocytes % (Manual) 5L, Monocytes % (Manual ) 2, Eosinophils % (Manual) 0, Basophils % (Manual) 0, Band Neutrophils 0, Platelet Estimate DecreasedL, Platelet Morphology Normal, Anisocytosis 2+, Sodium Level 148H, Potassium Level 4.2, Chloride Level 109H, Carbon Dioxide Level 24, Anion Gap 15, Blood Urea Nitrogen 69H, Creatinine 2.8H, Estimat Glomerular Filtration Rate , Glucose Level 144H, Calcium Level 7.9L, Total Bilirubin 4.2H, Direct Bilirubin 3.0H, Aspartate Amino Transf (AST/SGOT) 14, Alanine Aminotransferase (ALT/SGPT) 5, Alkaline Phosphatase 54, Total Protein 5.5L, Albumin 1.8L, Globulin 3.7, Albumin/Globulin Ratio 0.4L 09/02/16 05:30: Lactic Acid Level 2.30H 09/02/16 08:30: Arterial Blood pH 7.363, Arterial Blood Partial Pressure CO2 41.2, Arterial Blood Partial Pressure O2 51.1L, Arterial Blood HCO3 22.9, Arterial Blood Oxygen Saturation 94.8, Arterial Blood Base Excess 2.3, Arnei Test Positive Height (Feet): 5 Height (Inches): 4.00 Weight (Pounds): 160 Objective General Appearance: WD/WN, alert. on bipap Neck: supple Cardiovascular: regular rhythm Respiratory/Chest: rhonchi/rales bilaterally, improved breath sounds, no respiratory distress. +left sided chest tube x 2 Edema: generalized edema TALHA LEIGH Sep 02, 2016 11:36
--- NOTE | 2016-09-02 12:19 | Infectious Diseases Prog Note ---
"Assessment/Plan Assessment/Plan antibiotics : zosyn A 1. MRSA | acenitobacter pneumonia 2. renal failure 3. respiratory failure 4. loculated pleural effusion s/p VATS 5. leucocytosis resolved P 1. d/c zosyn 2. start tygacil 3. will follow up cultures Subjective ROS Limited/Unobtainable: Yes Allergies: Coded Allergies: No Known Allergies (Unverified , 01/24/14) Objective Vital Signs Last 24 Hour Vital Signs Date Time Temp Pulse Resp B/P Pulse Ox O2 Delivery O2 Flow Rate FiO2 09/02/16 12:00 97.6 80 12 102/47 99 Venturi Mask 50 09/02/16 12:00 80 09/02/16 11:42 98 Venturi Mask 2.0 50 09/02/16 11:41 Venturi Mask 12.0 50 09/02/16 11:40 50 09/02/16 11:01 80 16 100 Bi-pap 50 09/02/16 11:00 78 14 102/56 100 Bi-pap 50 09/02/16 10:59 81 17 99 Facial 50 09/02/16 10:50 81 17 100 Bi-pap 50 09/02/16 10:00 75 13 98/53 99 Bi-pap 50 09/02/16 09:00 118/63 09/02/16 09:00 75 118/63 09/02/16 09:00 75 10 105/59 100 Bi-pap 50 09/02/16 08:58 80 18 99 Full Face 50 09/02/16 08:01 50 09/02/16 08:00 78 09/02/16 08:00 97.0 75 10 118/63 100 Bi-pap 50 09/02/16 07:00 73 14 116/63 100 Bi-pap 50 09/02/16 06:59 76 15 100 Bi-pap 50 09/02/16 06:56 74 19 100 Full Face 50 09/02/16 06:50 75 19 100 Bi-pap 50 09/02/16 06:00 77 14 111/56 100 Bi-pap 50 09/02/16 05:47 115/69 09/02/16 05:09 83 16 98 Full Face 50 09/02/16 05:00 84 18 115/69 100 Bi-pap 50 09/02/16 04:00 97.6 75 15 111/55 99 Bi-pap 50 09/02/16 04:00 84 09/02/16 04:00 50 09/02/16 03:20 66 15 100 Bi-pap 50 09/02/16 03:00 71 13 128/57 100 Bi-pap 50 09/02/16 02:59 60 16 100 Bi-pap 50 09/02/16 02:59 64 16 100 Full Face 50 09/02/16 02:00 62 13 90/44 100 Bi-pap 50 09/02/16 01:00 60 14 108/60 100 Bi-pap 50 09/02/16 00:53 82 16 100 Full Face 50 09/02/16 00:00 80 09/02/16 00:00 50 09/02/16 00:00 97.4 79 15 112/55 99 Bi-pap 50 09/01/16 23:22 86 15 100 Bi-pap 50 09/01/16 23:08 61 15 99 Bi-pap 50 09/01/16 23:06 63 15 100 Full Face 50 09/01/16 23:00 76 13 113/59 99 Bi-pap 50 09/01/16 22:00 61 13 92/49 100 Bi-pap 50 09/01/16 21:15 84 15 100 Full Face 50 09/01/16 21:00 81 14 97/49 100 Bi-pap 50 09/01/16 21:00 78 95/49 09/01/16 20:00 97.6 80 13 99/58 100 Bi-pap 50 09/01/16 20:00 50 09/01/16 20:00 80 09/01/16 19:27 84 15 100 Bi-pap 50 09/01/16 19:18 68 15 100 Bi-pap 50 09/01/16 19:17 83 16 100 Full Face 50 09/01/16 19:17 100 Bi-pap 50 09/01/16 19:17 Bi-pap 50 09/01/16 19:16 64 16 Bi-pap 50 09/01/16 19:00 80 18 171/47 100 Bi-pap 80 09/01/16 18:00 82 15 95/52 100 Bi-pap 80 09/01/16 17:08 86 20 98 Full Face 50 09/01/16 17:00 87 21 104/49 98 Bi-pap 80 09/01/16 16:00 97.4 85 20 106/70 98 Bi-pap 80 09/01/16 16:00 50 09/01/16 16:00 85 09/01/16 15:00 84 21 108/51 97 Bi-pap 80 09/01/16 14:50 89 22 97 Bi-pap 50 09/01/16 14:40 85 22 97 Bi-pap 50 09/01/16 14:40 85 22 97 Full Face 50 09/01/16 14:00 85 20 111/65 98 Bi-pap 80 09/01/16 13:00 96 19 117/64 97 Bi-pap 80 09/01/16 12:54 87 20 97 Full Face 50 Height (Feet): 5 Height (Inches): 4.00 Weight (Pounds): 160 HEENT: other - on bipap Respiratory/Chest: lungs clear, other - left CT Cardiovascular: normal rate, regular rhythm, no gallop/murmur Abdomen: soft, non tender Extremities: no edema, other - right subclavian Microbiology Date/Time Source Procedure Growth Status 08/30/16 18:00 Sputum Gram Stain - Final Complete 08/30/16 18:00 Sputum Culture - Final Staphylococcus Aureus - Mrsa Acinetobacter Baumannii Complx Complete Laboratory Tests Test 09/01/16 15:49 09/02/16 04:00 09/02/16 05:30 09/02/16 08:30 White Blood Count 13.0 K/UL (4.8-10.8) H 10.9 K/UL (4.8-10.8) H Red Blood Count 4.22 M/UL (4.70-6.10) L 4.18 M/UL (4.70-6.10) L Hemoglobin 13.0 G/DL (14.2-18.0) #L 12.3 G/DL (14.2-18.0) L Hematocrit 36.3 % (42.0-52.0) #L 36.3 % (42.0-52.0) L Mean Corpuscular Volume 86 FL (80-99) # 87 FL (80-99) Mean Corpuscular Hemoglobin 30.7 PG (27.0-31.0) 29.4 PG (27.0-31.0) Mean Corpuscular Hemoglobin Concent 35.7 G/DL (32.0-36.0) 33.9 G/DL (32.0-36.0) Red Cell Distribution Width 20.3 % (11.6-14.8) H 20.2 % (11.6-14.8) H Platelet Count 42 K/UL (150-450) L 37 K/UL (150-450) L Mean Platelet Volume 11.1 FL (6.5-10.1) H 12.6 FL (6.5-10.1) H Neutrophils (%) (Auto) 94.0 % (45.0-75.0) H % (45.0-75.0) Lymphocytes (%) (Auto) 2.4 % (20.0-45.0) L % (20.0-45.0) Monocytes (%) (Auto) 3.1 % (1.0-10.0) % (1.0-10.0) Eosinophils (%) (Auto) 0.0 % (0.0-3.0) % (0.0-3.0) Basophils (%) (Auto) 0.4 % (0.0-2.0) % (0.0-2.0) Lactic Acid Level 2.10 mmol/L (0.66-2.22) 2.10 mmol/L (0.66-2.22) 2.30 mmol/L (0.66-2.22) H Differential Total Cells Counted 100 Neutrophils % (Manual) 93 % (45-75) H Lymphocytes % (Manual) 5 % (20-45) L Monocytes % (Manual) 2 % (1-10) Eosinophils % (Manual) 0 % (0-3) Basophils % (Manual) 0 % (0-2) Band Neutrophils 0 % (0-8) Platelet Estimate Decreased L Platelet Morphology Normal Anisocytosis 2+ Sodium Level 148 mEQ/L (135-145) H Potassium Level 4.2 mEQ/L (3.4-4.9) Chloride Level 109 mEQ/L (98-107) H Carbon Dioxide Level 24 mEQ/L (20-30) Anion Gap 15 (5-15) Blood Urea Nitrogen 69 mg/dL (7-23) H Creatinine 2.8 mg/dL (0.7-1.2) H Estimat Glomerular Filtration Rate mL/min (>60) Glucose Level 144 mg/dL (74-106) H Calcium Level 7.9 mg/dL (8.6-10.2) L Total Bilirubin 4.2 mg/dL (0.0-1.2) H Direct Bilirubin 3.0 mg/dL (0.1-0.3) H Aspartate Amino Transf (AST/SGOT) 14 U/L (5-40) Alanine Aminotransferase (ALT/SGPT) 5 U/L (3-41) Alkaline Phosphatase 54 U/L (40-129) Total Protein 5.5 g/dL (6.6-8.7) L Albumin 1.8 g/dL (3.5-5.2) L Globulin 3.7 g/dL Albumin/Globulin Ratio 0.4 (1.0-2.7) L Arterial Blood pH 7.363 (7.350-7.450) Arterial Blood Partial Pressure CO2 41.2 mmHg (35.0-45.0) Arterial Blood Partial Pressure O2 51.1 mmHg (75.0-100.0) L Arterial Blood HCO3 22.9 mmol/L (22.0-26.0) Arterial Blood Oxygen Saturation 94.8 % (92.0-98.0) Arterial Blood Base Excess 2.3 Arnie Test Positive JENNIE CLIFFORD Sep 02, 2016 12:19"
--- NOTE | 2016-09-02 12:28 | Diagnostic Imaging Report ---
Indication: SOB Technique: One view of the chest Comparison: 08/31/2016 Findings: 2 left chest tubes remain. There is a small left lateral basilar pneumothorax. Parenchymal disease in the left lung appears slightly improved but still extensive. There is probably some pleural fluid on the left. Dense consolidation or atelectasis at the base of the left lower lobe persists. There is shifting infiltrate on the right, decreased in the right midlung, increased at the right lung base and at the base of the right upper lobe. Right subclavian central venous catheter and right arm PICC remain. Left chest pacemaker Impression: Slightly improved parenchymal disease on the left Persistent small left pleural effusion and pleural fluid, despite presence of 2 chest tubes Shifting infiltrates on the right, with improvement in the right infrahilar region, slightly increased at the right lung base and base of the right upper lobe. Stable tube and line positions, as described
[2016-09-02] MEDS ORDERED: Tigecycline 100 MG in D5W 110 ML IVPB ONE (14:00)
--- NOTE | 2016-09-02 14:07 | Nephrology Progress Note ---
Assessment/Plan Assessment 1) LATRICE most likely due to ATN 2) Underlying sepsis improving 3) Fluid overload/CHF, ? acute on chronic diastolic CHF Plan: Continue Bumex drip for now Watch evolution of kidney fx Subjective Subjective He is off of bipap, he is started on Bumex drip at 2 mg per hr, creat is 2.8, he is off of pressors, making 60-100 cc of urine per hour Objective Objective Last 24 Hour Vital Signs Date Time Temp Pulse Resp B/P Pulse Ox O2 Delivery O2 Flow Rate FiO2 09/02/16 13:00 81 12 105/51 99 Bi-pap 50 09/02/16 12:00 97.6 80 12 102/47 99 Venturi Mask 50 09/02/16 12:00 80 09/02/16 11:42 98 Venturi Mask 2.0 50 09/02/16 11:41 Venturi Mask 12.0 50 09/02/16 11:40 50 09/02/16 11:01 80 16 100 Bi-pap 50 09/02/16 11:00 78 14 102/56 100 Bi-pap 50 09/02/16 10:59 81 17 99 Facial 50 09/02/16 10:50 81 17 100 Bi-pap 50 09/02/16 10:00 75 13 98/53 99 Bi-pap 50 09/02/16 09:00 118/63 09/02/16 09:00 75 118/63 09/02/16 09:00 75 10 105/59 100 Bi-pap 50 09/02/16 08:58 80 18 99 Full Face 50 09/02/16 08:01 50 09/02/16 08:00 78 09/02/16 08:00 97.0 75 10 118/63 100 Bi-pap 50 09/02/16 07:00 73 14 116/63 100 Bi-pap 50 09/02/16 06:59 76 15 100 Bi-pap 50 09/02/16 06:56 74 19 100 Full Face 50 09/02/16 06:50 75 19 100 Bi-pap 50 09/02/16 06:00 77 14 111/56 100 Bi-pap 50 09/02/16 05:47 115/69 09/02/16 05:09 83 16 98 Full Face 50 09/02/16 05:00 84 18 115/69 100 Bi-pap 50 09/02/16 04:00 97.6 75 15 111/55 99 Bi-pap 50 09/02/16 04:00 84 09/02/16 04:00 50 09/02/16 03:20 66 15 100 Bi-pap 50 09/02/16 03:00 71 13 128/57 100 Bi-pap 50 09/02/16 02:59 60 16 100 Bi-pap 50 09/02/16 02:59 64 16 100 Full Face 50 09/02/16 02:00 62 13 90/44 100 Bi-pap 50 09/02/16 01:00 60 14 108/60 100 Bi-pap 50 09/02/16 00:53 82 16 100 Full Face 50 09/02/16 00:00 80 09/02/16 00:00 50 09/02/16 00:00 97.4 79 15 112/55 99 Bi-pap 50 09/01/16 23:22 86 15 100 Bi-pap 50 09/01/16 23:08 61 15 99 Bi-pap 50 09/01/16 23:06 63 15 100 Full Face 50 09/01/16 23:00 76 13 113/59 99 Bi-pap 50 09/01/16 22:00 61 13 92/49 100 Bi-pap 50 09/01/16 21:15 84 15 100 Full Face 50 09/01/16 21:00 81 14 97/49 100 Bi-pap 50 09/01/16 21:00 78 95/49 09/01/16 20:00 97.6 80 13 99/58 100 Bi-pap 50 09/01/16 20:00 50 09/01/16 20:00 80 09/01/16 19:27 84 15 100 Bi-pap 50 09/01/16 19:18 68 15 100 Bi-pap 50 09/01/16 19:17 83 16 100 Full Face 50 09/01/16 19:17 100 Bi-pap 50 09/01/16 19:17 Bi-pap 50 09/01/16 19:16 64 16 Bi-pap 50 09/01/16 19:00 80 18 171/47 100 Bi-pap 80 09/01/16 18:00 82 15 95/52 100 Bi-pap 80 09/01/16 17:08 86 20 98 Full Face 50 09/01/16 17:00 87 21 104/49 98 Bi-pap 80 09/01/16 16:00 97.4 85 20 106/70 98 Bi-pap 80 09/01/16 16:00 50 09/01/16 16:00 85 09/01/16 15:00 84 21 108/51 97 Bi-pap 80 09/01/16 14:50 89 22 97 Bi-pap 50 09/01/16 14:40 85 22 97 Bi-pap 50 09/01/16 14:40 85 22 97 Full Face 50 Intake and Output 09/01/16 09/02/16 19:00 07:00 Intake Total 876.25 ml 1176.25 ml Output Total 375 ml 948 ml Balance 501.25 ml 228.25 ml IV Total 876.25 ml 1176.25 ml Output Urine Total 345 ml 868 ml Chest Tube Drainage Total 30 ml 80 ml # Bowel Movements 1 Laboratory Tests 09/01/16 15:49: White Blood Count 13.0H, Red Blood Count 4.22L, Hemoglobin 13.0#L, Hematocrit 36.3#L, Mean Corpuscular Volume 86#, Mean Corpuscular Hemoglobin 30.7, Mean Corpuscular Hemoglobin Concent 35.7, Red Cell Distribution Width 20.3H, Platelet Count 42L, Mean Platelet Volume 11.1H, Neutrophils (%) (Auto) 94.0H, Lymphocytes (%) (Auto) 2.4L, Monocytes (%) (Auto) 3.1, Eosinophils (%) (Auto) 0.0, Basophils (%) (Auto) 0.4, Lactic Acid Level 2.10 09/02/16 04:00: White Blood Count 10.9H, Red Blood Count 4.18L, Hemoglobin 12.3L, Hematocrit 36.3L, Mean Corpuscular Volume 87, Mean Corpuscular Hemoglobin 29.4, Mean Corpuscular Hemoglobin Concent 33.9, Red Cell Distribution Width 20.2H, Platelet Count 37L, Mean Platelet Volume 12.6H, Neutrophils (%) (Auto) , Lymphocytes (%) (Auto) , Monocytes (%) (Auto) , Eosinophils (%) (Auto) , Basophils (%) (Auto) , Lactic Acid Level 2.10, Differential Total Cells Counted 100, Neutrophils % (Manual) 93H, Lymphocytes % (Manual) 5L, Monocytes % (Manual ) 2, Eosinophils % (Manual) 0, Basophils % (Manual) 0, Band Neutrophils 0, Platelet Estimate DecreasedL, Platelet Morphology Normal, Anisocytosis 2+, Sodium Level 148H, Potassium Level 4.2, Chloride Level 109H, Carbon Dioxide Level 24, Anion Gap 15, Blood Urea Nitrogen 69H, Creatinine 2.8H, Estimat Glomerular Filtration Rate , Glucose Level 144H, Calcium Level 7.9L, Total Bilirubin 4.2H, Direct Bilirubin 3.0H, Aspartate Amino Transf (AST/SGOT) 14, Alanine Aminotransferase (ALT/SGPT) 5, Alkaline Phosphatase 54, Total Protein 5.5L, Albumin 1.8L, Globulin 3.7, Albumin/Globulin Ratio 0.4L 09/02/16 05:30: Lactic Acid Level 2.30H 09/02/16 08:30: Arterial Blood pH 7.363, Arterial Blood Partial Pressure CO2 41.2, Arterial Blood Partial Pressure O2 51.1L, Arterial Blood HCO3 22.9, Arterial Blood Oxygen Saturation 94.8, Arterial Blood Base Excess 2.3, Arnie Test Positive Height (Feet): 5 Height (Inches): 4.00 Weight (Pounds): 160 General Appearance: WD/WN, no apparent distress EENT: PERRL/EOMI Neck: normal alignment, supple Cardiovascular: normal rate, regular rhythm, JVD - high Abdomen: normal bowel sounds, non tender, hepatomegaly Extremities: moderate edema 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
[2016-09-02] MEDS: Epogen (for non ESRD use) SUBQ SCH (21:00)
[2016-09-02] MEDS: Tamsulosin 0.4mg cap ORAL SCH (21:00)
[2016-09-03] VITALS (24 sets, daily range): BP systolic 104–154; BP diastolic 50–78
[2016-09-03] MEDS: Solu-MEDROL 125mg Inj IVP SCH ×3 (00:10→17:23)
[2016-09-03] MEDS: Sodium Bicarbonate 50 ML in D5W 1000ml 1,000 ML IV SCH ×2 (03:04→17:22)
[2016-09-03] MEDS: DuoNeb 0.5-3(2.5)mg/3ml neb HHN SCH ×6 (04:34→23:17)
[2016-09-03] MEDS: Bumetanide 10 MG in D5W 60 ML IVLG SCH ×3 (05:05→14:27)
[2016-09-03] MEDS: DOPamine 400mg/250ml 250 ML IV SCH (05:55)
[2016-09-03] MEDS: Tigecycline 50 MG in D5W 110 ML IVPB SCH ×2 (05:55→17:24)
[2016-09-03] MEDS: NovoLOG Insulin Flexpen SUBQ SCH ×4 (05:58→21:30)
--- NOTE | 2016-09-03 08:56 | Pulmonology Progress Note ---
Assessment/Plan Assessment/Plan ASSESSMENT: 1. bilateral pleural effusions; 2. Anemia. with need for transfusion 3. Chronic kidney disease. 4. Stroke. with focal weakness 5. Hypertension. 6. History of chronic obstructive pulmonary disease. 7. History of conduction system disease. with pacemaker 8. worsening left effusion with atelectasis 9. iatrogenic pneumothorax 10. s/p decortication 11. respiratory failure 12. metabolic acidosis 13. acidemia PLAN: off the ventilator off BIPAP as able on FM oxygen care noted and reviewed monitor CT and remove per thoracic follow up chest xr for change; not fully expanded oxygen taper maintain meds aspiration precautions; continue to monitor closely care noted taper solumedrol today ICU care reviewed in detail d/w Dr. See medications/laboratory data/nursing notes/ICU care reviewed in detail note reviewed and edited care discussed with RN and RT ICU time spent 35 minutes Subjective ROS Limited/Unobtainable: Yes Allergies: Coded Allergies: No Known Allergies (Unverified , 01/24/14) Subjective off BIPAP and stable on FM CT x [address] Objective Last 24 Hour Vital Signs Date Time Temp Pulse Resp B/P Pulse Ox O2 Delivery O2 Flow Rate FiO2 09/03/16 08:00 98.0 60 24 120/51 97 Venturi Mask 50 09/03/16 08:00 58 09/03/16 07:17 70 24 99 Venturi Mask 12.0 50 09/03/16 07:12 Venturi Mask 12.0 50 09/03/16 07:00 65 26 96 Venturi Mask 12.0 50 09/03/16 07:00 60 24 121/50 97 Venturi Mask 50 09/03/16 06:59 96 Venturi Mask 12.0 50 09/03/16 06:00 71 21 104/65 97 Venturi Mask 50 09/03/16 05:55 136/63 09/03/16 05:00 74 22 136/63 96 Venturi Mask 50 09/03/16 04:42 98 25 100 Venturi Mask 12.0 50 09/03/16 04:00 50 09/03/16 04:00 94 09/03/16 04:00 97.8 97 23 129/66 93 Venturi Mask 50 09/03/16 03:00 98 19 95 Venturi Mask 12.0 50 09/03/16 03:00 93 19 120/60 97 Venturi Mask 50 09/03/16 02:00 92 18 107/56 98 Venturi Mask 50 09/03/16 01:00 93 16 115/56 97 Venturi Mask 50 09/03/16 00:00 97.9 101 21 105/64 96 Venturi Mask 50 09/03/16 00:00 101 09/03/16 00:00 50 09/02/16 23:10 96 23 100 Venturi Mask 50 09/02/16 23:01 97 19 97 Venturi Mask 12.0 50 09/02/16 23:00 101 20 123/65 97 Venturi Mask 50 09/02/16 22:00 96 17 116/55 97 Venturi Mask 50 09/02/16 21:00 98 15 113/58 97 Venturi Mask 50 09/02/16 21:00 96 111/59 09/02/16 20:00 96 09/02/16 20:00 50 09/02/16 20:00 97.9 100 20 111/59 97 Venturi Mask 50 09/02/16 19:43 104 23 100 Venturi Mask 50 09/02/16 19:28 96 19 97 Venturi Mask 12.0 50 09/02/16 19:28 Venturi Mask 12.0 50 09/02/16 19:28 97 Venturi Mask 2.0 50 09/02/16 19:00 97 20 116/68 97 Venturi Mask 50 09/02/16 18:00 101 23 124/68 96 Venturi Mask 50 09/02/16 17:00 89 20 123/68 96 Venturi Mask 50 09/02/16 16:00 97.2 86 22 118/64 97 Venturi Mask 50 09/02/16 16:00 50 09/02/16 16:00 89 09/02/16 15:00 91 17 108/52 96 Venturi Mask 50 09/02/16 14:47 93 25 97 Venturi Mask 12.0 50 09/02/16 14:30 88 19 97 Venturi Mask 12.0 50 09/02/16 14:00 87 17 111/53 97 Venturi Mask 50 09/02/16 13:00 81 12 105/51 99 Venturi Mask 50 09/02/16 12:00 97.6 80 12 102/47 99 Venturi Mask 50 09/02/16 12:00 80 09/02/16 11:42 98 Venturi Mask 12.0 50 09/02/16 11:41 Venturi Mask 12.0 50 09/02/16 11:40 50 09/02/16 11:01 80 16 100 Bi-pap 50 09/02/16 11:00 78 14 102/56 100 Bi-pap 50 09/02/16 10:59 81 17 99 Facial 50 09/02/16 10:50 81 17 100 Bi-pap 50 09/02/16 10:00 75 13 98/53 99 Bi-pap 50 09/02/16 09:00 118/63 09/02/16 09:00 75 118/63 09/02/16 09:00 75 10 105/59 100 Bi-pap 50 09/02/16 08:58 80 18 99 Full Face 50 Intake and Output 09/02/16 09/03/16 19:00 07:00 Intake Total 1125 ml 1240 ml Output Total 865 ml 970 ml Balance 260 ml 270 ml IV Total 1125 ml 1240 ml Output Urine Total 805 ml 930 ml Chest Tube Drainage Total 60 ml 40 ml # Bowel Movements 1 Objective Sp02 EP Interpretation: reviewed, normal; seems improved overall General Appearance: normal inspection, well appearing, no apparent distress, withdrawn Head: normocephalic, atraumatic Eyes: bilateral eye normal inspection ENT: normal ENT inspection, no angioedema, normal voice Neck: normal inspection, full range of motion, supple, no meningismus, carotid 2+ Respiratory: stable BS left; some rhonchi noted; chest tube x [address]; Cardiovascular #1: regular rate, rhythm, no murmur without MRG Gastrointestinal: non tender, soft, non-distended, no guarding, no rebound Musculoskeletal: no CC; minimal edema Neurologic: awake no distress reviewed and edited Current Medications Medications (Trade) Dose Ordered Sig/Homar Route PRN Reason Start Time Stop Time Status Last Admin Dose Admin Acetaminophen (Tylenol) 650 mg Q4H PRN ORAL Mild Pain (Pain Scale 1-3) 08/28/16 16:00 09/27/16 15:59 Acetaminophen/ Hydrocodone Bitart (Gail 5/325) 1 tab Q4H PRN ORAL Moderate Pain (Pain Scale 4-6) 08/28/16 15:30 09/04/16 15:29 08/30/16 12:51 Albuterol/ Ipratropium (DuoNeb 0.5-3(2.5)mg/3ml) 3 ml Q4H PRN HHN Shortness of Breath 08/29/16 11:30 09/03/16 11:29 08/30/16 01:06 Albuterol/ Ipratropium 3 ml 3 ml Q4HRT HHN 08/30/16 15:00 09/04/16 14:59 09/03/16 07:10 Aspirin (Ecotrin) 81 mg DAILY ORAL 08/29/16 09:00 09/28/16 08:59 09/01/16 11:12 Bumetanide 10 mg/ Dextrose 100 ml @ 20 mls/hr Q5H IVLG 09/01/16 22:00 10/01/16 21:59 09/03/16 05:05 Calcium Carbonate (OsCal D) 1 tab DAILY ORAL 08/29/16 09:00 09/28/16 08:59 09/01/16 11:12 Cyanocobalamin (Vitamin B-12) 1,000 mcg DAILY ORAL 08/29/16 09:00 09/28/16 08:59 09/01/16 11:12 Dextrose (Dextrose 50%) STAT PRN IV Hypoglycemia 08/29/16 15:00 09/28/16 14:59 Docusate Sodium (Colace) 250 mg DAILY ORAL 08/29/16 09:00 09/28/16 08:59 08/30/16 08:46 Dopamine HCl/ Dextrose 250 ml @ 0 mls/hr Q24H IV 08/31/16 06:00 09/30/16 05:59 08/31/16 11:51 Epoetin Deshaun (Procrit (for non ESRD use)) 7,000 units FRI-FRI-FRI SUBQ 08/28/16 21:00 09/27/16 20:59 08/28/16 20:44 Ferrous Sulfate (Feosol) 325 mg THREE TIMES A DAY ORAL 08/28/16 18:00 09/27/16 17:59 09/01/16 18:28 Finasteride (Proscar) 5 mg DAILY ORAL 08/29/16 09:00 09/28/16 08:59 09/01/16 11:11 Gemfibrozil (Lopid) 600 mg TWICE A DAY ORAL 08/28/16 18:00 5/12/17 17:59 09/01/16 18:28 Heparin Sodium (Porcine) (Heparin 5000 units/ml) 5,000 units EVERY 12 HOURS SUBQ 08/28/16 21:00 09/27/16 20:59 08/30/16 08:44 Insulin Aspart (NovoLOG) BEFORE MEALS AND HS SUBQ 08/28/16 16:30 09/27/16 16:29 09/03/16 05:58 Insulin Detemir (Levemir) 10 units Q12HR SUBQ 08/28/16 21:00 09/27/16 20:59 09/02/16 21:24 Methylprednisolone Sodium Succinate 60 mg 60 mg EVERY 6 HOURS IVP 08/31/16 18:00 09/30/16 17:59 09/03/16 05:55 Metoprolol Tartrate (Lopressor) 25 mg Q12HR ORAL 08/28/16 21:30 09/27/16 21:29 09/01/16 11:11 Morphine Sulfate (Morphine Sulfate) 2 mg Q4H PRN IVP Severe Pain (Pain Scale 7-10) 08/28/16 19:15 09/04/16 19:14 08/29/16 19:37 Norepinephrine Bitartrate/ Dextrose (Levophed/D5W) 250 ml @ 0 mls/hr Q24H IV 08/31/16 09:00 09/30/16 08:59 08/31/16 22:15 Pantoprazole (Protonix) 40 mg DAILY ORAL 08/29/16 09:00 09/28/16 08:59 09/01/16 11:10 Ranitidine HCl (Zantac) 150 mg DAILY ORAL 08/29/16 09:00 09/28/16 08:59 09/01/16 11:10 Sodium Bicarbonate 50 ml/ Dextrose 1,050 ml @ 75 mls/hr Q14H IV 09/01/16 10:00 10/01/16 09:59 09/03/16 03:04 Sodium Bicarbonate (NaHCO3) 650 mg BID ORAL 08/28/16 18:00 09/27/16 17:59 09/01/16 11:10 Tamsulosin HCl (Flomax) 0.4 mg QHS ORAL 08/29/16 21:00 09/28/16 20:59 09/01/16 21:05 Tigecycline/ Dextrose (Tygacil/D5W) 110 ml @ 220 mls/hr Q12HR@0600,1800 IVPB 09/03/16 06:00 09/10/16 05:59 09/03/16 05:55 KENDRICK SCHWARTZ Sep 03, 2016 08:56
[2016-09-03] MEDS: Aspirin EC 81mg tab ORAL SCH (09:20)
[2016-09-03] MEDS: Docusate 250mg cap ORAL SCH (09:20)
[2016-09-03] MEDS: Metoprolol 25mg tab ORAL SCH ×2 (09:22→21:00)
[2016-09-03] MEDS: Sodium Bicarbonate 650mg Tab ORAL SCH ×2 (09:22→17:29)
--- NOTE | 2016-09-03 09:22 | General Progress Note ---
Assessment/Plan Problem List: (1) Anemia ICD Codes: D64.9 - Anemia, unspecified SNOMED: 468238118 Qualifiers: (2) Tachycardia ICD Codes: R00.0 - Tachycardia, unspecified SNOMED: 7213828 (3) GIB (gastrointestinal bleeding) ICD Codes: K92.2 - Gastrointestinal hemorrhage, unspecified SNOMED: 45173692 Qualifiers: Qualified Codes: K57.91 - Diverticulosis of intestine, part unspecified, without perforation or abscess with bleeding (4) Anemia due to acute blood loss ICD Codes: D62 - Acute posthemorrhagic anemia SNOMED: 784747188 Status: stable, not improved Assessment/Plan off pressors ivf monitor fluid status follow up labs iv abx per id bipap/resp care as needed try po's ST follow up consider ngt and feeds if unable to take pos critical and guarded but improved today Subjective ROS Limited/Unobtainable: No Constitutional: Reports: malaise, weakness HEENT: Reports: no symptoms Cardiovascular: Reports: no symptoms Respiratory: Reports: SOB at rest Gastrointestinal/Abdominal: Reports: no symptoms Genitourinary: Reports: no symptoms Neurologic/Psychiatric: Reports: pre-existing deficit Endocrine: Reports: no symptoms Hematologic/Lymphatic: Reports: anemia Allergies: Coded Allergies: No Known Allergies (Unverified , 01/24/14) All Systems: reviewed and negative except above Subjective off bipap on facemask. appears comfortable. minimal congestions. responds to simple questions. denies pain Objective Last 24 Hour Vital Signs Date Time Temp Pulse Resp B/P Pulse Ox O2 Delivery O2 Flow Rate FiO2 09/03/16 08:00 98.0 60 24 120/51 97 Venturi Mask 50 09/03/16 08:00 58 09/03/16 07:17 70 24 99 Venturi Mask 12.0 50 09/03/16 07:12 Venturi Mask 12.0 50 09/03/16 07:00 65 26 96 Venturi Mask 12.0 50 09/03/16 07:00 60 24 121/50 97 Venturi Mask 50 09/03/16 06:59 96 Venturi Mask 12.0 50 09/03/16 06:00 71 21 104/65 97 Venturi Mask 50 09/03/16 05:55 136/63 09/03/16 05:00 74 22 136/63 96 Venturi Mask 50 09/03/16 04:42 98 25 100 Venturi Mask 12.0 50 17 04:00 50 17 04:00 94 17 04:00 97.8 97 23 129/66 93 Venturi Mask 50 17 03:00 98 19 95 Venturi Mask 12.0 50 17 03:00 93 19 120/60 97 Venturi Mask 50 09/03/16 02:00 92 18 107/56 98 Venturi Mask 50 09/03/16 01:00 93 16 115/56 97 Venturi Mask 50 09/03/16 00:00 97.9 101 21 105/64 96 Venturi Mask 50 09/03/16 00:00 101 09/03/16 00:00 50 09/02/16 23:10 96 23 100 Venturi Mask 50 09/02/16 23:01 97 19 97 Venturi Mask 12.0 50 09/02/16 23:00 101 20 123/65 97 Venturi Mask 50 09/02/16 22:00 96 17 116/55 97 Venturi Mask 50 09/02/16 21:00 98 15 113/58 97 Venturi Mask 50 09/02/16 21:00 96 111/59 09/02/16 20:00 96 09/02/16 20:00 50 09/02/16 20:00 97.9 100 20 111/59 97 Venturi Mask 50 09/02/16 19:43 104 23 100 Venturi Mask 50 09/02/16 19:28 96 19 97 Venturi Mask 12.0 50 09/02/16 19:28 Venturi Mask 12.0 50 09/02/16 19:28 97 Venturi Mask 2.0 50 09/02/16 19:00 97 20 116/68 97 Venturi Mask 50 09/02/16 18:00 101 23 124/68 96 Venturi Mask 50 09/02/16 17:00 89 20 123/68 96 Venturi Mask 50 09/02/16 16:00 97.2 86 22 118/64 97 Venturi Mask 50 09/02/16 16:00 50 09/02/16 16:00 89 09/02/16 15:00 91 17 108/52 96 Venturi Mask 50 09/02/16 14:47 93 25 97 Venturi Mask 12.0 50 09/02/16 14:30 88 19 97 Venturi Mask 12.0 50 09/02/16 14:00 87 17 111/53 97 Venturi Mask 50 09/02/16 13:00 81 12 105/51 99 Venturi Mask 50 09/02/16 12:00 97.6 80 12 102/47 99 Venturi Mask 50 09/02/16 12:00 80 09/02/16 11:42 98 Venturi Mask 12.0 50 09/02/16 11:41 Venturi Mask 12.0 50 09/02/16 11:40 50 09/02/16 11:01 80 16 100 Bi-pap 50 09/02/16 11:00 78 14 102/56 100 Bi-pap 50 09/02/16 10:59 81 17 99 Facial 50 09/02/16 10:50 81 17 100 Bi-pap 50 09/02/16 10:00 75 13 98/53 99 Bi-pap 50 Intake and Output 09/02/16 09/03/16 19:00 07:00 Intake Total 1125 ml 1240 ml Output Total 865 ml 970 ml Balance 260 ml 270 ml IV Total 1125 ml 1240 ml Output Urine Total 805 ml 930 ml Chest Tube Drainage Total 60 ml 40 ml # Bowel Movements 1 Height (Feet): 5 Height (Inches): 4.00 Weight (Pounds): 160 Objective General Appearance: WD/WN, alert. on facemask Neck: supple Cardiovascular: regular rhythm Respiratory/Chest: rhonchi/rales bilaterally, improved breath sounds, no respiratory distress. +left sided chest tube x 2 Edema: generalized edema TALHA LEIGH Sep 03, 2016 09:22
[2016-09-03] MEDS: Calcium Carbonate 500mg w/Vit D 200iu tab ORAL SCH (09:23)
[2016-09-03] MEDS: Vitamin B-12 500mcg tab ORAL SCH (09:23)
[2016-09-03] MEDS: Heparin 5000 units/ml inj SUBQ SCH ×2 (09:34→21:00)
[2016-09-03] MEDS: Levemir Flexpen SUBQ SCH ×2 (09:42→21:29)
[2016-09-03 09:57] LABS: MEAN CORPUSCULAR HEMOGLOBIN 28.9 PG (27.0-31.0); MEAN CORPUSCULAR HGB CONC 33.8 G/DL (32.0-36.0); MEAN CORPUSCULAR VOLUME 86 FL (80-99); MEAN PLATELET VOLUME 14.4 FL (6.5-10.1); PLATELET COUNT 49 K/UL (150-450); RED BLOOD COUNT 4.89 M/UL (4.70-6.10); RED CELL DISTRIBUTION WIDTH 20.1 % (11.6-14.8); WHITE BLOOD COUNT 18.5 K/UL (4.8-10.8)
[2016-09-03 10:07] LABS: ABG BASE EXCESS -1.1; ABG PCO2 37.4 mmHg (35.0-45.0)
[2016-09-03 10:25] LABS: ALANINE AMINOTRANSFERASE 5 U/L (3-41); ALBUMIN/GLOBULIN RATIO 0.5 (1.0-2.7); ANION GAP 16 (5-15); ASPARTATE AMINO TRANSFERASE 15 U/L (5-40); CARBON DIOXIDE 25 mEQ/L (20-30); CHLORIDE 99 mEQ/L (98-107); CREATININE 2.6 mg/dL (0.7-1.2); POTASSIUM 3.2 mEQ/L (3.4-4.9); SODIUM 140 mEQ/L (135-145); TOTAL PROTEIN 5.9 g/dL (6.6-8.7)
[2016-09-03] MEDS ORDERED: NS 275ml ONE ×2 (10:26→10:52)
[2016-09-03 10:43] LABS: BILIRUBIN,DIRECT 3.1 mg/dL (0.1-0.3); HEMOLYSIS 9
[2016-09-03 11:20] LABS: BAND NEUTROPHILS % (MANUAL) 0 % (0-8); BASOPHILS % (MANUAL) 0 % (0-2); EOSINOPHILS % (MANUAL) 0 % (0-3); LYMPHOCYTES % (MANUAL) 3 % (20-45); NEUTROPHILS % (MANUAL) 95 % (45-75); PLATELET ESTIMATE DECREASED; TOTAL CELLS COUNTED 100
[2016-09-03 11:21] LABS: ANISOCYTOSIS 2+
--- NOTE | 2016-09-03 11:36 | Infectious Diseases Prog Note ---
"Assessment/Plan Assessment/Plan antibiotics : tygacil A 1. MRSA | acenitobacter pneumonia 2. renal failure improving 3. respiratory failure resolved 4. loculated pleural effusion s/p VATS 5. leucocytosis increased ? secondary to steroids P 1. continue tygacil 2. will follow up cultures Subjective ROS Limited/Unobtainable: Yes Allergies: Coded Allergies: No Known Allergies (Unverified , 01/24/14) Objective Vital Signs Last 24 Hour Vital Signs Date Time Temp Pulse Resp B/P Pulse Ox O2 Delivery O2 Flow Rate FiO2 09/03/16 11:30 87 26 99 Venturi Mask 12.0 50 09/03/16 11:20 85 24 97 Venturi Mask 12.0 50 09/03/16 09:22 94 119/64 09/03/16 09:00 119/64 09/03/16 08:00 98.0 60 24 120/51 97 Venturi Mask 50 09/03/16 08:00 58 09/03/16 07:17 70 24 99 Venturi Mask 12.0 50 09/03/16 07:12 Venturi Mask 12.0 50 09/03/16 07:00 65 26 96 Venturi Mask 12.0 50 09/03/16 07:00 60 24 121/50 97 Venturi Mask 50 09/03/16 06:59 96 Venturi Mask 12.0 50 09/03/16 06:00 71 21 104/65 97 Venturi Mask 50 09/03/16 05:55 136/63 09/03/16 05:00 74 22 136/63 96 Venturi Mask 50 09/03/16 04:42 98 25 100 Venturi Mask 12.0 50 09/03/16 04:00 50 09/03/16 04:00 94 09/03/16 04:00 97.8 97 23 129/66 93 Venturi Mask 50 09/03/16 03:00 98 19 95 Venturi Mask 12.0 50 09/03/16 03:00 93 19 120/60 97 Venturi Mask 50 09/03/16 02:00 92 18 107/56 98 Venturi Mask 50 09/03/16 01:00 93 16 115/56 97 Venturi Mask 50 09/03/16 00:00 97.9 101 21 105/64 96 Venturi Mask 50 09/03/16 00:00 101 09/03/16 00:00 50 09/02/16 23:10 96 23 100 Venturi Mask 50 09/02/16 23:01 97 19 97 Venturi Mask 12.0 50 09/02/16 23:00 101 20 123/65 97 Venturi Mask 50 09/02/16 22:00 96 17 116/55 97 Venturi Mask 50 09/02/16 21:00 98 15 113/58 97 Venturi Mask 50 09/02/16 21:00 96 111/59 09/02/16 20:00 96 09/02/16 20:00 50 09/02/16 20:00 97.9 100 20 111/59 97 Venturi Mask 50 09/02/16 19:43 104 23 100 Venturi Mask 50 09/02/16 19:28 96 19 97 Venturi Mask 12.0 50 09/02/16 19:28 Venturi Mask 12.0 50 09/02/16 19:28 97 Venturi Mask 2.0 50 09/02/16 19:00 97 20 116/68 97 Venturi Mask 50 09/02/16 18:00 101 23 124/68 96 Venturi Mask 50 09/02/16 17:00 89 20 123/68 96 Venturi Mask 50 09/02/16 16:00 97.2 86 22 118/64 97 Venturi Mask 50 09/02/16 16:00 50 09/02/16 16:00 89 09/02/16 15:00 91 17 108/52 96 Venturi Mask 50 09/02/16 14:47 93 25 97 Venturi Mask 12.0 50 09/02/16 14:30 88 19 97 Venturi Mask 12.0 50 09/02/16 14:00 87 17 111/53 97 Venturi Mask 50 09/02/16 13:00 81 12 105/51 99 Venturi Mask 50 09/02/16 12:00 97.6 80 12 102/47 99 Venturi Mask 50 09/02/16 12:00 80 09/02/16 11:42 98 Venturi Mask 12.0 50 09/02/16 11:41 Venturi Mask 12.0 50 09/02/16 11:40 50 Height (Feet): 5 Height (Inches): 4.00 Weight (Pounds): 160 Respiratory/Chest: rhonchi - bilaterally, other - left CT with drainage Cardiovascular: normal rate, regular rhythm, no gallop/murmur Abdomen: soft, non tender Extremities: other - + edema, right arm PICC, right subclavian catheter Laboratory Tests Test 09/03/16 09:10 09/03/16 09:30 Arterial Blood pH 7.410 (7.350-7.450) Arterial Blood Partial Pressure CO2 37.4 mmHg (35.0-45.0) Arterial Blood Partial Pressure O2 66.1 mmHg (75.0-100.0) L Arterial Blood HCO3 23.1 mmol/L (22.0-26.0) Arterial Blood Oxygen Saturation 93.0 % (92.0-98.0) Arterial Blood Base Excess -1.1 Arnie Test White Blood Count 18.5 K/UL (4.8-10.8) #H Red Blood Count 4.89 M/UL (4.70-6.10) Hemoglobin 14.1 G/DL (14.2-18.0) L Hematocrit 41.9 % (42.0-52.0) L Mean Corpuscular Volume 86 FL (80-99) Mean Corpuscular Hemoglobin 28.9 PG (27.0-31.0) Mean Corpuscular Hemoglobin Concent 33.8 G/DL (32.0-36.0) Red Cell Distribution Width 20.1 % (11.6-14.8) H Platelet Count 49 K/UL (150-450) L Mean Platelet Volume 14.4 FL (6.5-10.1) H Neutrophils (%) (Auto) % (45.0-75.0) Lymphocytes (%) (Auto) % (20.0-45.0) Monocytes (%) (Auto) % (1.0-10.0) Eosinophils (%) (Auto) % (0.0-3.0) Basophils (%) (Auto) % (0.0-2.0) Differential Total Cells Counted 100 Neutrophils % (Manual) 95 % (45-75) H Lymphocytes % (Manual) 3 % (20-45) L Monocytes % (Manual) 2 % (1-10) Eosinophils % (Manual) 0 % (0-3) Basophils % (Manual) 0 % (0-2) Band Neutrophils 0 % (0-8) Platelet Estimate Decreased L Platelet Morphology Giant Platelets Rare Anisocytosis 2+ Sodium Level 140 mEQ/L (135-145) Potassium Level 3.2 mEQ/L (3.4-4.9) L Chloride Level 99 mEQ/L (98-107) Carbon Dioxide Level 25 mEQ/L (20-30) Anion Gap 16 (5-15) H Blood Urea Nitrogen 77 mg/dL (7-23) H Creatinine 2.6 mg/dL (0.7-1.2) H Estimat Glomerular Filtration Rate mL/min (>60) Glucose Level 171 mg/dL (74-106) H Calcium Level 8.0 mg/dL (8.6-10.2) L Total Bilirubin 4.6 mg/dL (0.0-1.2) H Direct Bilirubin 3.1 mg/dL (0.1-0.3) H Aspartate Amino Transf (AST/SGOT) 15 U/L (5-40) Alanine Aminotransferase (ALT/SGPT) 5 U/L (3-41) Alkaline Phosphatase 60 U/L (40-129) Total Protein 5.9 g/dL (6.6-8.7) L Albumin 2.0 g/dL (3.5-5.2) L Globulin 3.9 g/dL Albumin/Globulin Ratio 0.5 (1.0-2.7) L JENNIE CLIFFORD Sep 03, 2016 11:36"
--- NOTE | 2016-09-03 11:41 | Diagnostic Imaging Report ---
Indication: Shortness of breath Technique: One view of the chest Comparison: 09/02/2016 Findings: 2 left chest tubes remain. Inferior right upper lobe infiltrate appears similar to the prior exam. Right basilar infiltrate appears slightly worse. Diffuse consolidation in the left lung may be slightly improved. Small lateral pneumothorax persists on the left. Left chest pacemaker, venous catheters unchanged Impression: Slight worsening of infiltrates in the right lung. Slight improvement of infiltrates in the left lung. Otherwise stable findings, as described, over one day
--- NOTE | 2016-09-03 18:43 | Nephrology Progress Note ---
Assessment/Plan Problem List: (1) Malnutrition of moderate degree (2) LATRICE (acute kidney injury) (3) CKD (chronic kidney disease) stage 4, GFR 15-29 ml/min (4) Pleural effusion (5) Sepsis (6) UTI (urinary tract infection) (7) Pneumonia Plan low albumin contributes to edema., Stop bumex for now and observe Subjective ROS Limited/Unobtainable: Yes Objective Objective Last 24 Hour Vital Signs Date Time Temp Pulse Resp B/P Pulse Ox O2 Delivery O2 Flow Rate FiO2 09/03/16 18:00 80 22 154/77 97 Venturi Mask 50 09/03/16 17:00 81 20 141/72 98 Venturi Mask 50 09/03/16 16:00 81 09/03/16 16:00 98.5 81 21 136/71 95 Venturi Mask 50 09/03/16 15:20 87 24 100 Venturi Mask 12.0 50 09/03/16 15:04 82 26 97 Venturi Mask 12.0 50 09/03/16 15:03 83 20 141/78 97 Venturi Mask 50 09/03/16 14:00 83 23 137/77 97 Venturi Mask 50 09/03/16 13:00 82 22 139/77 97 Venturi Mask 50 09/03/16 12:00 88 09/03/16 12:00 98.3 80 22 138/75 97 Venturi Mask 50 09/03/16 11:30 87 26 99 Venturi Mask 12.0 50 09/03/16 11:20 85 24 97 Venturi Mask 12.0 50 09/03/16 11:00 86 23 145/77 97 Venturi Mask 50 09/03/16 10:00 85 25 136/65 97 Venturi Mask 50 09/03/16 09:22 94 119/64 09/03/16 09:00 119/64 09/03/16 09:00 82 23 118/52 97 Venturi Mask 50 09/03/16 08:00 98.0 60 24 120/51 97 Venturi Mask 50 09/03/16 08:00 58 09/03/16 07:17 70 24 99 Venturi Mask 12.0 50 09/03/16 07:12 Venturi Mask 12.0 50 09/03/16 07:00 65 26 96 Venturi Mask 12.0 50 09/03/16 07:00 60 24 121/50 97 Venturi Mask 50 09/03/16 06:59 96 Venturi Mask 12.0 50 09/03/16 06:00 71 21 104/65 97 Venturi Mask 50 09/03/16 05:55 136/63 09/03/16 05:00 74 22 136/63 96 Venturi Mask 50 09/03/16 04:42 98 25 100 Venturi Mask 12.0 50 09/03/16 04:00 50 09/03/16 04:00 94 09/03/16 04:00 97.8 97 23 129/66 93 Venturi Mask 50 09/03/16 03:00 98 19 95 Venturi Mask 12.0 50 09/03/16 03:00 93 19 120/60 97 Venturi Mask 50 09/03/16 02:00 92 18 107/56 98 Venturi Mask 50 09/03/16 01:00 93 16 115/56 97 Venturi Mask 50 09/03/16 00:00 97.9 101 21 105/64 96 Venturi Mask 50 09/03/16 00:00 101 09/03/16 00:00 50 09/02/16 23:10 96 23 100 Venturi Mask 50 09/02/16 23:01 97 19 97 Venturi Mask 12.0 50 09/02/16 23:00 101 20 123/65 97 Venturi Mask 50 09/02/16 22:00 96 17 116/55 97 Venturi Mask 50 09/02/16 21:00 98 15 113/58 97 Venturi Mask 50 09/02/16 21:00 96 111/59 09/02/16 20:00 96 09/02/16 20:00 50 09/02/16 20:00 97.9 100 20 111/59 97 Venturi Mask 50 09/02/16 19:43 104 23 100 Venturi Mask 50 09/02/16 19:28 96 19 97 Venturi Mask 12.0 50 09/02/16 19:28 Venturi Mask 12.0 50 09/02/16 19:28 97 Venturi Mask 2.0 50 09/02/16 19:00 97 20 116/68 97 Venturi Mask 50 Intake and Output 09/02/16 09/03/16 19:00 07:00 Intake Total 1125 ml 1240 ml Output Total 865 ml 970 ml Balance 260 ml 270 ml IV Total 1125 ml 1240 ml Output Urine Total 805 ml 930 ml Chest Tube Drainage Total 60 ml 40 ml # Bowel Movements 1 Laboratory Tests 09/03/16 09:10: Arterial Blood pH 7.410, Arterial Blood Partial Pressure CO2 37.4, Arterial Blood Partial Pressure O2 66.1L, Arterial Blood HCO3 23.1, Arterial Blood Oxygen Saturation 93.0, Arterial Blood Base Excess -1.1, Arnie Test 09/03/16 09:30: White Blood Count 18.5#H, Red Blood Count 4.89, Hemoglobin 14.1L, Hematocrit 41.9L, Mean Corpuscular Volume 86, Mean Corpuscular Hemoglobin 28.9, Mean Corpuscular Hemoglobin Concent 33.8, Red Cell Distribution Width 20.1H, Platelet Count 49L, Mean Platelet Volume 14.4H, Neutrophils (%) (Auto) , Lymphocytes (%) (Auto) , Monocytes (%) (Auto) , Eosinophils (%) (Auto) , Basophils (%) (Auto) , Differential Total Cells Counted 100, Neutrophils % ( Manual) 95H, Lymphocytes % (Manual) 3L, Monocytes % (Manual) 2, Eosinophils % ( Manual) 0, Basophils % (Manual) 0, Band Neutrophils 0, Platelet Estimate DecreasedL, Platelet Morphology , Giant Platelets Rare, Anisocytosis 2+, Sodium Level 140, Potassium Level 3.2L, Chloride Level 99, Carbon Dioxide Level 25, Anion Gap 16H, Blood Urea Nitrogen 77H, Creatinine 2.6H, Estimat Glomerular Filtration Rate , Glucose Level 171H, Calcium Level 8.0L, Total Bilirubin 4.6H, Direct Bilirubin 3.1H, Aspartate Amino Transf (AST/SGOT) 15, Alanine Aminotransferase (ALT/SGPT) 5, Alkaline Phosphatase 60, Total Protein 5.9L, Albumin 2.0L, Globulin 3.9, Albumin/Globulin Ratio 0.5L Height (Feet): 5 Height (Inches): 4.00 Weight (Pounds): 160 General Appearance: lethargic, mild distress EENT: normal ENT inspection Neck: non-tender Cardiovascular: regular rhythm Respiratory/Chest: rhonchi - bilaterally Abdomen: non tender Extremities: moderate edema Neurologic: disoriented RASHID KHAN Sep 03, 2016 18:43
--- NOTE | 2016-09-03 20:25 | Wound Care Consultation ---
Wound Assessment Wound Assessment #1: Wound Present on Admission: Yes New Wound: No Status Change of Wound: No Wound Location Body Site Modif: right Wound Location Body Site: sacral Wound Type: pressure ulcer Hemanth Test: Does not Hemanth Pressure Ulcer Stage: III Wound Thickness: Full Thickness Wound Length: 1.5 Wound Width: 1.0 Wound Depth: 0.3 Percent of Wound [place]/Red: 100 - noted scab revealed self noted pink wound bed , wound bed noted 100% pink. Wound Drainage Description: Serosanguineous Wound Drainage Amount: Scant Wound Drainage Odor: None/Absent Tissue Surrounding Wound: Macerated Wound General Appearance: Reddened Wound Assessment #2: Wound Number: #2 Wound Present on Admission: No New Wound: Yes Status Change of Wound: No Wound Location Body Site Modif: left Wound Location Body Site: face Wound Type: other - denuded Hemanth Test: Does not Hemanth Wound Thickness: Partial Thickness Wound Length: 4.0 Wound Width: 0.8 Wound Depth: less than 0.1 Percent of Wound [place]/Red: 100 Wound Drainage Amount: None Wound Drainage Odor: None/Absent Tissue Surrounding Wound: Erythemic Wound General Appearance: Reddened Wound Assessment #3: Wound Number: #3 Wound Present on Admission: No New Wound: Yes Status Change of Wound: No Wound Location Body Site Modif: right Wound Location Body Site: face Wound Type: other - denuded skin Hemanth Test: Does not Hemanth Wound Thickness: Partial Thickness Wound Length: 2.0 Wound Width: 1.5 Wound Depth: less than 0.1 Wound Drainage Amount: None Wound Drainage Odor: None/Absent Tissue Surrounding Wound: Erythemic Wound General Appearance: Reddened Wound Comment #1 Right sacral pressure ulcer stage III. No further deterioration noted. With 100% pink wound bed. Wound care treatment effective at this time, will cont same treatment and cont to monitor wound progress. #2 Right and left side of face noted with Denuded skin. Recommendation -Right and left side of face Cleanse with saline pat dry apply Triad cream leave are open to air BID -Assess and f/u accordingly for any changes KAIN WADE RN Sep 03, 2016 20:25
[2016-09-03] MEDS: Tamsulosin 0.4mg cap ORAL SCH (21:00)
[2016-09-04] VITALS (14 sets, daily range): BP systolic 114–145; BP diastolic 52–82
[2016-09-04] MEDS: DuoNeb 0.5-3(2.5)mg/3ml neb HHN SCH ×5 (02:54→19:42)
--- NOTE | 2016-09-04 03:18 | Progress Note ---
DATE: 09/03/2016 SUBJECTIVE: Condition remains serious. Prognosis guarded. The patient on the BiPAP support intermittently. He is off pressors. Monitored rhythm, alternating sinus with atrial fibrillation and ventricular pacing. OBJECTIVE: VITAL SIGNS: Blood pressure 141/72, pulse 81, respiratory rate 20, and afebrile. LUNGS: Coarse breath sounds. Rhonchi at the left. HEART: Regular rhythm and rate. Normal S1 and S2. ABDOMEN: Soft. EXTREMITIES: With 1+ dependent edema. LABORATORY DATA: White count 18.5 and hemoglobin 14.1. Albumin 2.0, potassium 3.2, BUN 77, and creatinine 2.6. IMPRESSION: 1. Acute on chronic renal failure, status post VATS pleurodesis for spontaneous pneumothorax. 2. Congestive heart failure, acute on chronic diastolic with pleural effusions. 3. Permanent pacemaker. 4. Paroxysmal atrial fibrillation. 5. Cerebrovascular accident. 6. Diabetes mellitus, on insulin. PLAN: 1. Hold diuresis. 2. Protein supplement as able. 3. Antimicrobials. 4. BiPAP support, chest tube management. 5. CT surgery management. Condition remains serious with guarded prognosis. Joseph Muniz M.D. DR: TONIO JOB#: [id number] CC:
[2016-09-04 05:22] LABS: MEAN CORPUSCULAR HEMOGLOBIN 29.3 PG (27.0-31.0); MEAN CORPUSCULAR HGB CONC 34.2 G/DL (32.0-36.0); MEAN CORPUSCULAR VOLUME 86 FL (80-99); MEAN PLATELET VOLUME 10.3 FL (6.5-10.1); PLATELET COUNT 36 K/UL (150-450); RED BLOOD COUNT 4.37 M/UL (4.70-6.10); RED CELL DISTRIBUTION WIDTH 19.2 % (11.6-14.8); WHITE BLOOD COUNT 14.4 K/UL (4.8-10.8)
[2016-09-04] MEDS: DOPamine 400mg/250ml 250 ML IV SCH (05:27)
[2016-09-04] MEDS: Tigecycline 50 MG in D5W 110 ML IVPB SCH ×2 (05:28→18:28)
[2016-09-04] MEDS: NovoLOG Insulin Flexpen SUBQ SCH ×4 (05:30→22:08)
[2016-09-04 05:56] LABS: ANION GAP 16 (5-15); CALCIUM 7.1 mg/dL (8.6-10.2); CARBON DIOXIDE 28 mEQ/L (20-30); CHLORIDE 93 mEQ/L (98-107); CREATININE 2.3 mg/dL (0.7-1.2); HEMOLYSIS 5; POTASSIUM 2.9 mEQ/L (3.4-4.9); SODIUM 137 mEQ/L (135-145)
--- NOTE | 2016-09-04 06:08 | Progress Note ---
DATE: 09/02/2016 Late entry report for 09/02/2016 CARDIOLOGY PROGRESS NOTE: SUBJECTIVE: The patient remains on BiPAP with chest tube in place. Continues on intravenous steroids with insulin coverage by sliding scale. He continues to have episodes of atrial fibrillation alternating with sinus rhythm and demand pacing in both instances. He is off pressors. OBJECTIVE: VITAL SIGNS: Blood pressure 118/63, heart rate 75, and respiratory rate 18. LUNGS: Bilateral breath sounds, rhonchi. HEART: Irregularly irregular rhythm. Normal S1 and S2. ABDOMEN: Soft. EXTREMITIES: No edema. IMPRESSION: 1. Anemia. 2. Chronic kidney disease. 3. Cerebrovascular accident. 4. Bilateral pleural effusions. 5. Chest tube, status post video-assisted thoracoscopic surgery pleurodesis. 6. Chronic obstructive pulmonary disease. 7. Permanent pacemaker. 8. Paroxysmal atrial fibrillation. 9. Acute and chronic diastolic congestive heart failure. PLAN: Antibiotics. Wean steroids. Transfuse for hemoglobin less than 8 grams. We will consider amiodarone for arrhythmia suppression. No anticoagulation in view of bleeding risk. Chest tube management. Joseph Muniz M.D. DR: Philipp JOB#: [id number] CC:
[2016-09-04] MEDS: Sodium Bicarbonate 50 ML in D5W 1000ml 1,000 ML IV SCH (07:53)
[2016-09-04] MEDS: Levemir Flexpen SUBQ SCH ×2 (08:51→22:07)
[2016-09-04] MEDS: Solu-MEDROL 125mg Inj IVP SCH ×2 (08:51→22:05)
[2016-09-04] MEDS: Docusate 250mg cap ORAL SCH (08:52)
[2016-09-04] MEDS: Metoprolol 25mg tab ORAL SCH ×2 (08:52→22:06)
[2016-09-04] MEDS: Aspirin EC 81mg tab ORAL SCH (08:52)
--- NOTE | 2016-09-04 08:52 | Cardiology Report ---
APPROVED REPORT EXAM: Two-dimensional and M-mode echocardiogram with Doppler and color Doppler. INDICATION Bradycardia M-Mode DIMENSIONS IVSd0.8 (0.7-1.1cm)Left Atrium (MM)3.0 (1.6-4.0cm) LVDd4.3 (3.5-5.6cm)Aortic Root2.7 (2.0-3.7cm) PWd0.7 (0.7-1.1cm)Aortic Cusp Exc.1.7 (1.5-2.0cm) LVDs2.0 (2.5-4.0cm) PWs0.9 cm Technically difficult study due to poor acoustic windows. Limited study due to bandage. Study quality precludes accurate assessment of regional wall motion. Normal left ventricular chamber size, systolic function and wall motion. Left ventricular ejection fraction estimated to be 60-65%. No evidence of left ventricular hypertrophy. No evidence of pericardial fat or effusion. Focal aortic valve sclerosis with adequate cusp excursion Thickened mitral valve leaflets with normal excursion. Mitral annulus and aortic root calcification. Pulmonic valve not well visualized. Normal tricuspid valve structure. IVC is normal in size with physiologic collapse. A color flow and spectral Doppler study was performed and revealed: No aortic regurgitation. Moderate tricuspid regurgitation. Tricuspid systolic velocities suggests peak right ventricular systolic pressure of 46 mmHg Consistent with moderate pulmonary hypertension. Pulmonic regurgitation present.
[2016-09-04] MEDS: Calcium Carbonate 500mg w/Vit D 200iu tab ORAL SCH (08:53)
[2016-09-04] MEDS: Vitamin B-12 500mcg tab ORAL SCH (08:53)
[2016-09-04] MEDS: Sodium Bicarbonate 650mg Tab ORAL SCH ×2 (08:53→18:00)
[2016-09-04 09:22] LABS: ANISOCYTOSIS 1+; BAND NEUTROPHILS % (MANUAL) 0 % (0-8); BASOPHILS % (MANUAL) 0 % (0-2); EOSINOPHILS % (MANUAL) 0 % (0-3); HYPOCHROMASIA 1+; LYMPHOCYTES % (MANUAL) 3 % (20-45); NEUTROPHILS % (MANUAL) 97 % (45-75); PLATELET ESTIMATE DECREASED; PLATELET MORPHOLOGY NORMAL; TOTAL CELLS COUNTED 100
--- NOTE | 2016-09-04 10:31 | Diagnostic Imaging Report ---
Indication: Shortness of breath Technique: One view of the chest Comparison: 09/03/2016 Findings: The chest tubes, right-sided catheters, pacemaker remain. Small left lateral basilar pneumothorax persists. Consolidation in the right lung appears less dense than previously. Small right pleural fluid appears unchanged. Consolidative changes in the left lung appear slightly improved. The heart is upper limits of normal in size Impression: Suggestion of slightly improved although persistent and extensive pulmonary parenchymal consolidation bilaterally. Otherwise little change that findings as noted
[2016-09-04] MEDS ORDERED: Morphine Sulfate 2mg/ml Inj IVP PRN (11:15)
[2016-09-04] MEDS ORDERED: Norco 5mg/325mg tab ORAL PRN (11:30)
--- NOTE | 2016-09-04 15:58 | Infectious Diseases Prog Note ---
Assessment/Plan Assessment/Plan A: Pneumonia Loculated Pleural effusion s/p VATS Anemia GI bleeding Acute renal failure Hypokalemia DM P: Continue Tygacil will f/u cultures Subjective ROS Limited/Unobtainable: Yes Constitutional: Reports: anorexia Respiratory: Reports: shortness of breath Allergies: Coded Allergies: No Known Allergies (Unverified , 01/24/14) Objective Vital Signs Last 24 Hour Vital Signs Date Time Temp Pulse Resp B/P Pulse Ox O2 Delivery O2 Flow Rate FiO2 09/04/16 15:45 86 1 100 Venturi Mask 12.0 50 09/04/16 15:35 80 20 Venturi Mask 12.0 50 09/04/16 12:12 89 09/04/16 12:00 97.0 88 18 120/65 99 Venturi Mask 50 09/04/16 11:35 86 1 100 Venturi Mask 12.0 50 09/04/16 11:25 83 20 99 Venturi Mask 12.0 50 09/04/16 10:00 89 24 117/63 97 Venturi Mask 50 09/04/16 09:00 97 30 136/60 97 Venturi Mask 50 09/04/16 08:52 92 136/69 09/04/16 08:51 136/69 09/04/16 08:00 97.6 92 25 118/62 99 Venturi Mask 50 09/04/16 08:00 89 09/04/16 07:01 88 16 100 Venturi Mask 12.0 50 09/04/16 07:00 92 22 128/82 97 Venturi Mask 50 09/04/16 06:51 Venturi Mask 12.0 50 09/04/16 06:51 87 18 99 Venturi Mask 12.0 50 09/04/16 06:49 99 Venturi Mask 12.0 50 09/04/16 06:00 88 22 137/54 97 Venturi Mask 50 09/04/16 05:27 122/63 09/04/16 05:00 88 22 122/63 97 Venturi Mask 50 09/04/16 04:00 94 09/04/16 04:00 98.0 95 22 145/63 97 Venturi Mask 50 09/04/16 03:05 85 17 98 Venturi Mask 12.0 50 09/04/16 03:00 90 18 136/65 97 Venturi Mask 50 09/04/16 02:53 86 17 97 Venturi Mask 12.0 50 09/04/16 02:00 86 18 120/52 97 Venturi Mask 50 09/04/16 01:00 85 18 114/56 97 Venturi Mask 50 09/04/16 00:00 87 09/04/16 00:00 97.9 89 19 114/60 94 Venturi Mask 50 09/03/16 23:30 86 20 99 Venturi Mask 12.0 50 09/03/16 23:16 81 17 98 Venturi Mask 12.0 50 09/03/16 23:00 88 18 124/67 97 Venturi Mask 50 09/03/16 22:00 81 21 125/67 97 Venturi Mask 50 09/03/16 21:00 77 09/03/16 21:00 84 21 128/67 97 Venturi Mask 50 09/03/16 21:00 84 128/67 09/03/16 20:00 96.7 79 20 139/76 94 Venturi Mask 50 09/03/16 19:37 83 20 98 Venturi Mask 12.0 50 09/03/16 19:26 81 22 96 Venturi Mask 12.0 50 09/03/16 19:26 96 Venturi Mask 12.0 50 09/03/16 19:26 Venturi Mask 12.0 50 09/03/16 19:00 85 20 152/75 96 Venturi Mask 50 09/03/16 18:00 80 22 154/77 97 Venturi Mask 50 09/03/16 17:00 81 20 141/72 98 Venturi Mask 50 09/03/16 16:00 81 09/03/16 16:00 98.5 81 21 136/71 95 Venturi Mask 50 Height (Feet): 5 Height (Inches): 4.00 Weight (Pounds): 160 HEENT: other - O2 by mask Respiratory/Chest: other - few rhonchi in R side, chest tubes in left side Cardiovascular: normal rate, other - R arm PICC line, R subclavian catheter Abdomen: soft, non tender Extremities: other - anasarca Laboratory Tests Test 09/04/16 04:00 09/04/16 04:20 Magnesium Level 1.5 mg/dL (1.7-2.5) L White Blood Count 14.4 K/UL (4.8-10.8) H Red Blood Count 4.37 M/UL (4.70-6.10) L Hemoglobin 12.8 G/DL (14.2-18.0) L Hematocrit 37.4 % (42.0-52.0) L Mean Corpuscular Volume 86 FL (80-99) Mean Corpuscular Hemoglobin 29.3 PG (27.0-31.0) Mean Corpuscular Hemoglobin Concent 34.2 G/DL (32.0-36.0) Red Cell Distribution Width 19.2 % (11.6-14.8) H Platelet Count 36 K/UL (150-450) L Mean Platelet Volume 10.3 FL (6.5-10.1) H Neutrophils (%) (Auto) % (45.0-75.0) Lymphocytes (%) (Auto) % (20.0-45.0) Monocytes (%) (Auto) % (1.0-10.0) Eosinophils (%) (Auto) % (0.0-3.0) Basophils (%) (Auto) % (0.0-2.0) Differential Total Cells Counted 100 Neutrophils % (Manual) 97 % (45-75) H Lymphocytes % (Manual) 3 % (20-45) L Monocytes % (Manual) 0 % (1-10) L Eosinophils % (Manual) 0 % (0-3) Basophils % (Manual) 0 % (0-2) Band Neutrophils 0 % (0-8) Platelet Estimate Decreased L Platelet Morphology Normal Hypochromasia 1+ Anisocytosis 1+ Sodium Level 137 mEQ/L (135-145) Potassium Level 2.9 mEQ/L (3.4-4.9) L Chloride Level 93 mEQ/L (98-107) L Carbon Dioxide Level 28 mEQ/L (20-30) Anion Gap 16 (5-15) H Blood Urea Nitrogen 69 mg/dL (7-23) H Creatinine 2.3 mg/dL (0.7-1.2) H Estimat Glomerular Filtration Rate mL/min (>60) Glucose Level 404 mg/dL (74-106) #H Calcium Level 7.1 mg/dL (8.6-10.2) L Current Medications Medications (Trade) Dose Ordered Sig/Homar Route PRN Reason Start Time Stop Time Status Last Admin Dose Admin Acetaminophen (Tylenol) 650 mg Q4H PRN ORAL Mild Pain (Pain Scale 1-3) 09/04/16 11:00 10/04/16 10:59 Acetaminophen/ Hydrocodone Bitart ([place] 5/325) 1 tab Q4H PRN ORAL Moderate Pain (Pain Scale 4-6) 09/04/16 11:30 09/11/16 11:29 Albuterol/ Ipratropium (DuoNeb 0.5-3(2.5)mg/3ml) 3 ml Q4HRT HHN 09/04/16 11:00 09/09/16 10:59 09/04/16 15:39 Aspirin (Ecotrin) 81 mg DAILY ORAL 09/05/16 09:00 10/05/16 08:59 Calcium Carbonate (OsCal D) 1 tab DAILY ORAL 09/05/16 09:00 10/05/16 08:59 Cyanocobalamin (Vitamin B-12) 1,000 mcg DAILY ORAL 09/05/16 09:00 10/05/16 08:59 Dextrose (Dextrose 50%) STAT PRN IV Hypoglycemia 09/04/16 11:00 10/04/16 10:59 Docusate Sodium (Colace) 250 mg DAILY ORAL 09/05/16 09:00 10/05/16 08:59 Epoetin Deshaun (Procrit (for non ESRD use)) 7,000 units FRI-FRI-FRI SUBQ 09/04/16 21:00 10/04/16 20:59 Ferrous Sulfate (Feosol) 325 mg THREE TIMES A DAY ORAL 09/04/16 13:00 10/04/16 12:59 Finasteride (Proscar) 5 mg DAILY ORAL 09/05/16 09:00 10/05/16 08:59 Gemfibrozil (Lopid) 600 mg TWICE A DAY ORAL 09/04/16 18:00 10/04/16 17:59 Insulin Aspart (NovoLOG) BEFORE MEALS AND HS SUBQ 09/04/16 11:30 10/04/16 11:29 09/04/16 12:32 Insulin Detemir (Levemir) 10 units Q12HR SUBQ 09/04/16 21:00 10/04/16 20:59 Methylprednisolone Sodium Succinate (Solu-MEDROL) 60 mg Q12HR IVP 09/04/16 21:00 10/04/16 20:59 Metoprolol Tartrate (Lopressor) 25 mg Q12HR ORAL 09/04/16 21:00 10/04/16 20:59 Morphine Sulfate (Morphine Sulfate) 2 mg Q4H PRN IVP Severe Pain (Pain Scale 7-10) 09/04/16 11:15 09/11/16 11:14 Pantoprazole (Protonix) 40 mg DAILY ORAL 09/05/16 09:00 10/05/16 08:59 Ranitidine HCl (Zantac) 150 mg DAILY ORAL 09/05/16 09:00 10/05/16 08:59 Sodium Bicarbonate 50 ml/ Dextrose 1,050 ml @ 75 mls/hr Q14H IV 09/01/16 10:00 09/04/16 19:59 09/04/16 07:53 Sodium Bicarbonate 50 ml/ Dextrose 1,050 ml @ 75 mls/hr Q14H IV 09/04/16 20:00 10/04/16 19:59 Sodium Bicarbonate (NaHCO3) 650 mg BID ORAL 09/04/16 18:00 10/04/16 17:59 Tamsulosin HCl (Flomax) 0.4 mg QHS ORAL 09/04/16 21:00 10/04/16 20:59 Tigecycline/ Dextrose (Tygacil/D5W) 110 ml @ 220 mls/hr Q12HR@0600,1800 IVPB 09/04/16 18:00 09/11/16 17:59 DEONTE ESCOBAR Sep 04, 2016 15:58
--- NOTE | 2016-09-04 16:45 | Pulmonology Progress Note ---
Assessment/Plan Assessment/Plan ASSESSMENT: 1. bilateral pleural effusions; 2. Anemia. with need for transfusion 3. Chronic kidney disease. 4. Stroke. with focal weakness 5. Hypertension. 6. History of chronic obstructive pulmonary disease. 7. History of conduction system disease. with pacemaker 8. worsening left effusion with atelectasis 9. iatrogenic pneumothorax 10. s/p decortication 11. respiratory failure 12. metabolic acidosis 13. acidemia PLAN: off the ventilator off BIPAP as able on FM oxygen care noted and reviewed monitor CT and remove per thoracic follow up chest xr for change; not fully expanded oxygen taper maintain meds aspiration precautions; continue to monitor closely care noted taper solumedrol further ICU care reviewed in detail medications/laboratory data/nursing notes/ICU care reviewed in detail note reviewed and edited care discussed with RN and RT ICU time spent 35 minutes Subjective ROS Limited/Unobtainable: Yes Allergies: Coded Allergies: No Known Allergies (Unverified , 01/24/14) Subjective off BIPAP and stable on FM CT x [address] seen earlier and able to transfer to [facility] Objective Last 24 Hour Vital Signs Date Time Temp Pulse Resp B/P Pulse Ox O2 Delivery O2 Flow Rate FiO2 09/04/16 15:45 86 1 100 Venturi Mask 12.0 50 09/04/16 15:35 80 20 Venturi Mask 12.0 50 09/04/16 12:12 89 09/04/16 12:00 97.0 88 18 120/65 99 Venturi Mask 50 09/04/16 11:35 86 1 100 Venturi Mask 12.0 50 09/04/16 11:25 83 20 99 Venturi Mask 12.0 50 09/04/16 10:00 89 24 117/63 97 Venturi Mask 50 09/04/16 09:00 97 30 136/60 97 Venturi Mask 50 09/04/16 08:52 92 136/69 09/04/16 08:51 136/69 09/04/16 08:00 97.6 92 25 118/62 99 Venturi Mask 50 09/04/16 08:00 89 09/04/16 07:01 88 16 100 Venturi Mask 12.0 50 09/04/16 07:00 92 22 128/82 97 Venturi Mask 50 09/04/16 06:51 Venturi Mask 12.0 50 09/04/16 06:51 87 18 99 Venturi Mask 12.0 50 09/04/16 06:49 99 Venturi Mask 12.0 50 09/04/16 06:00 88 22 137/54 97 Venturi Mask 50 09/04/16 05:27 122/63 09/04/16 05:00 88 22 122/63 97 Venturi Mask 50 09/04/16 04:00 94 09/04/16 04:00 98.0 95 22 145/63 97 Venturi Mask 50 09/04/16 03:05 85 17 98 Venturi Mask 12.0 50 09/04/16 03:00 90 18 136/65 97 Venturi Mask 50 09/04/16 02:53 86 17 97 Venturi Mask 12.0 50 09/04/16 02:00 86 18 120/52 97 Venturi Mask 50 09/04/16 01:00 85 18 114/56 97 Venturi Mask 50 09/04/16 00:00 87 09/04/16 00:00 97.9 89 19 114/60 94 Venturi Mask 50 09/03/16 23:30 86 20 99 Venturi Mask 12.0 50 09/03/16 23:16 81 17 98 Venturi Mask 12.0 50 09/03/16 23:00 88 18 124/67 97 Venturi Mask 50 09/03/16 22:00 81 21 125/67 97 Venturi Mask 50 09/03/16 21:00 77 09/03/16 21:00 84 21 128/67 97 Venturi Mask 50 09/03/16 21:00 84 128/67 09/03/16 20:00 96.7 79 20 139/76 94 Venturi Mask 50 09/03/16 19:37 83 20 98 Venturi Mask 12.0 50 09/03/16 19:26 81 22 96 Venturi Mask 12.0 50 09/03/16 19:26 96 Venturi Mask 12.0 50 09/03/16 19:26 Venturi Mask 12.0 50 09/03/16 19:00 85 20 152/75 96 Venturi Mask 50 09/03/16 18:00 80 22 154/77 97 Venturi Mask 50 09/03/16 17:00 81 20 141/72 98 Venturi Mask 50 Intake and Output 09/03/16 09/04/16 19:00 07:00 Intake Total 1230 ml 970 ml Output Total 880 ml 975 ml Balance 350 ml -5 ml Intake Oral 0 ml IV Total 1230 ml 970 ml Output Urine Total 860 ml 905 ml Chest Tube Drainage Total 20 ml 70 ml Objective Sp02 EP Interpretation: reviewed, normal; seems improved overall General Appearance: normal inspection, well appearing, no apparent distress, withdrawn Head: normocephalic, atraumatic Eyes: bilateral eye normal inspection ENT: normal ENT inspection, no angioedema, normal voice Neck: normal inspection, full range of motion, supple, no meningismus, carotid 2+ Respiratory: stable BS left; improved rhonchi noted; chest tube x [address]; Cardiovascular #1: regular rate, rhythm, no murmur without MRG Gastrointestinal: non tender, soft, non-distended, no guarding, no rebound Musculoskeletal: no CC; minimal edema Neurologic: awake no distress reviewed and edited Laboratory Tests 09/04/16 04:00: Magnesium Level 1.5L 09/04/16 04:20: White Blood Count 14.4H, Red Blood Count 4.37L, Hemoglobin 12.8L, Hematocrit 37.4L, Mean Corpuscular Volume 86, Mean Corpuscular Hemoglobin 29.3, Mean Corpuscular Hemoglobin Concent 34.2, Red Cell Distribution Width 19.2H, Platelet Count 36L, Mean Platelet Volume 10.3H, Neutrophils (%) (Auto) , Lymphocytes (%) (Auto) , Monocytes (%) (Auto) , Eosinophils (%) (Auto) , Basophils (%) (Auto) , Differential Total Cells Counted 100, Neutrophils % ( Manual) 97H, Lymphocytes % (Manual) 3L, Monocytes % (Manual) 0L, Eosinophils % ( Manual) 0, Basophils % (Manual) 0, Band Neutrophils 0, Platelet Estimate DecreasedL, Platelet Morphology Normal, Hypochromasia 1+, Anisocytosis 1+, Sodium Level 137, Potassium Level 2.9L, Chloride Level 93L, Carbon Dioxide Level 28, Anion Gap 16H, Blood Urea Nitrogen 69H, Creatinine 2.3H, Estimat Glomerular Filtration Rate , Glucose Level 404#H, Calcium Level 7.1L Current Medications Medications (Trade) Dose Ordered Sig/Homar Route PRN Reason Start Time Stop Time Status Last Admin Dose Admin Acetaminophen (Tylenol) 650 mg Q4H PRN ORAL Mild Pain (Pain Scale 1-3) 09/04/16 11:00 10/04/16 10:59 Acetaminophen/ Hydrocodone Bitart ([place] 5/325) 1 tab Q4H PRN ORAL Moderate Pain (Pain Scale 4-6) 09/04/16 11:30 09/11/16 11:29 Albuterol/ Ipratropium (DuoNeb 0.5-3(2.5)mg/3ml) 3 ml Q4HRT HHN 09/04/16 11:00 09/09/16 10:59 09/04/16 15:39 Aspirin (Ecotrin) 81 mg DAILY ORAL 09/05/16 09:00 10/05/16 08:59 Calcium Carbonate (OsCal D) 1 tab DAILY ORAL 09/05/16 09:00 10/05/16 08:59 Cyanocobalamin (Vitamin B-12) 1,000 mcg DAILY ORAL 09/05/16 09:00 10/05/16 08:59 Dextrose (Dextrose 50%) STAT PRN IV Hypoglycemia 09/04/16 11:00 10/04/16 10:59 Docusate Sodium (Colace) 250 mg DAILY ORAL 09/05/16 09:00 10/05/16 08:59 Epoetin Deshaun (Procrit (for non ESRD use)) 7,000 units MON-WED-FRI SUBQ 09/04/16 21:00 10/04/16 20:59 Ferrous Sulfate (Feosol) 325 mg THREE TIMES A DAY ORAL 09/04/16 13:00 10/04/16 12:59 Finasteride (Proscar) 5 mg DAILY ORAL 09/05/16 09:00 10/05/16 08:59 Gemfibrozil (Lopid) 600 mg TWICE A DAY ORAL 09/04/16 18:00 10/04/16 17:59 Insulin Aspart (NovoLOG) BEFORE MEALS AND HS SUBQ 09/04/16 11:30 10/04/16 11:29 09/04/16 12:32 Insulin Detemir (Levemir) 10 units Q12HR SUBQ 09/04/16 21:00 10/04/16 20:59 Methylprednisolone Sodium Succinate (Solu-MEDROL) 60 mg Q12HR IVP 09/04/16 21:00 10/04/16 20:59 Metoprolol Tartrate (Lopressor) 25 mg Q12HR ORAL 09/04/16 21:00 10/04/16 20:59 Morphine Sulfate (Morphine Sulfate) 2 mg Q4H PRN IVP Severe Pain (Pain Scale 7-10) 09/04/16 11:15 09/11/16 11:14 Pantoprazole (Protonix) 40 mg DAILY ORAL 09/05/16 09:00 10/05/16 08:59 Ranitidine HCl (Zantac) 150 mg DAILY ORAL 09/05/16 09:00 10/05/16 08:59 Sodium Bicarbonate 50 ml/ Dextrose 1,050 ml @ 75 mls/hr Q14H IV 09/01/16 10:00 09/04/16 19:59 09/04/16 07:53 Sodium Bicarbonate 50 ml/ Dextrose 1,050 ml @ 75 mls/hr Q14H IV 09/04/16 20:00 10/04/16 19:59 Sodium Bicarbonate (NaHCO3) 650 mg BID ORAL 09/04/16 18:00 10/04/16 17:59 Tamsulosin HCl (Flomax) 0.4 mg QHS ORAL 09/04/16 21:00 10/04/16 20:59 Tigecycline/ Dextrose (Tygacil/D5W) 110 ml @ 220 mls/hr Q12HR@0600,1800 IVPB 09/04/16 18:00 09/11/16 17:59 KENDRICK SCHWARTZ Sep 04, 2016 16:45
--- NOTE | 2016-09-04 18:29 | Nephrology Progress Note ---
Assessment/Plan Problem List: (1) Malnutrition of moderate degree (2) LATRICE (acute kidney injury) (3) CKD (chronic kidney disease) stage 4, GFR 15-29 ml/min (4) Pleural effusion (5) Sepsis (6) UTI (urinary tract infection) (7) Pneumonia Plan low albumin contributes to edema., Stop bumex for now and observe replace K Subjective ROS Limited/Unobtainable: Yes Objective Objective Last 24 Hour Vital Signs Date Time Temp Pulse Resp B/P Pulse Ox O2 Delivery O2 Flow Rate FiO2 09/04/16 17:18 91 09/04/16 16:00 97.9 94 16 121/70 99 Venturi Mask 50 09/04/16 15:45 86 1 100 Venturi Mask 12.0 50 09/04/16 15:35 80 20 Venturi Mask 12.0 50 09/04/16 12:12 89 09/04/16 12:00 97.0 88 18 120/65 99 Venturi Mask 50 09/04/16 11:35 86 1 100 Venturi Mask 12.0 50 09/04/16 11:25 83 20 99 Venturi Mask 12.0 50 09/04/16 10:00 89 24 117/63 97 Venturi Mask 50 09/04/16 09:00 97 30 136/60 97 Venturi Mask 50 09/04/16 08:52 92 136/69 09/04/16 08:51 136/69 09/04/16 08:00 97.6 92 25 118/62 99 Venturi Mask 50 09/04/16 08:00 89 09/04/16 07:01 88 16 100 Venturi Mask 12.0 50 09/04/16 07:00 92 22 128/82 97 Venturi Mask 50 09/04/16 06:51 Venturi Mask 12.0 50 09/04/16 06:51 87 18 99 Venturi Mask 12.0 50 09/04/16 06:49 99 Venturi Mask 12.0 50 09/04/16 06:00 88 22 137/54 97 Venturi Mask 50 09/04/16 05:27 122/63 09/04/16 05:00 88 22 122/63 97 Venturi Mask 50 09/04/16 04:00 94 09/04/16 04:00 98.0 95 22 145/63 97 Venturi Mask 50 09/04/16 03:05 85 17 98 Venturi Mask 12.0 50 09/04/16 03:00 90 18 136/65 97 Venturi Mask 50 09/04/16 02:53 86 17 97 Venturi Mask 12.0 50 09/04/16 02:00 86 18 120/52 97 Venturi Mask 50 09/04/16 01:00 85 18 114/56 97 Venturi Mask 50 09/04/16 00:00 87 09/04/16 00:00 97.9 89 19 114/60 94 Venturi Mask 50 09/03/16 23:30 86 20 99 Venturi Mask 12.0 50 09/03/16 23:16 81 17 98 Venturi Mask 12.0 50 09/03/16 23:00 88 18 124/67 97 Venturi Mask 50 09/03/16 22:00 81 21 125/67 97 Venturi Mask 50 09/03/16 21:00 77 09/03/16 21:00 84 21 128/67 97 Venturi Mask 50 09/03/16 21:00 84 128/67 09/03/16 20:00 96.7 79 20 139/76 94 Venturi Mask 50 09/03/16 19:37 83 20 98 Venturi Mask 12.0 50 09/03/16 19:26 81 22 96 Venturi Mask 12.0 50 09/03/16 19:26 96 Venturi Mask 12.0 50 09/03/16 19:26 Venturi Mask 12.0 50 09/03/16 19:00 85 20 152/75 96 Venturi Mask 50 Intake and Output 09/03/16 09/04/16 18:59 06:59 Intake Total 1250 ml 1045 ml Output Total 790 ml 1025 ml Balance 460 ml 20 ml Intake Oral 0 ml IV Total 1250 ml 1045 ml Output Urine Total 770 ml 955 ml Chest Tube Drainage Total 20 ml 70 ml Laboratory Tests 09/04/16 04:00: Magnesium Level 1.5L 09/04/16 04:20: White Blood Count 14.4H, Red Blood Count 4.37L, Hemoglobin 12.8L, Hematocrit 37.4L, Mean Corpuscular Volume 86, Mean Corpuscular Hemoglobin 29.3, Mean Corpuscular Hemoglobin Concent 34.2, Red Cell Distribution Width 19.2H, Platelet Count 36L, Mean Platelet Volume 10.3H, Neutrophils (%) (Auto) , Lymphocytes (%) (Auto) , Monocytes (%) (Auto) , Eosinophils (%) (Auto) , Basophils (%) (Auto) , Differential Total Cells Counted 100, Neutrophils % ( Manual) 97H, Lymphocytes % (Manual) 3L, Monocytes % (Manual) 0L, Eosinophils % ( Manual) 0, Basophils % (Manual) 0, Band Neutrophils 0, Platelet Estimate DecreasedL, Platelet Morphology Normal, Hypochromasia 1+, Anisocytosis 1+, Sodium Level 137, Potassium Level 2.9L, Chloride Level 93L, Carbon Dioxide Level 28, Anion Gap 16H, Blood Urea Nitrogen 69H, Creatinine 2.3H, Estimat Glomerular Filtration Rate , Glucose Level 404#H, Calcium Level 7.1L Height (Feet): 5 Height (Inches): 4.00 Weight (Pounds): 160 General Appearance: lethargic EENT: other - dry mouth Neck: supple Cardiovascular: regular rhythm Respiratory/Chest: rhonchi - bilaterally Abdomen: non tender Extremities: trace edema, moderate edema Neurologic: unresponsive RASHID KHAN Sep 04, 2016 18:29
[2016-09-04] MEDS ORDERED: Sodium Bicarbonate 50 ML in D5W 1000ml 1,000 ML IV SCH (20:00)
[2016-09-04] MEDS: Potassium Chloride 40 MEQ in 1/2 NS 1000ml 1,000 ML IV SCH (20:16)
[2016-09-04] MEDS ORDERED: Epogen (for non ESRD use) SUBQ SCH (21:00)
[2016-09-04] MEDS: Tamsulosin 0.4mg cap ORAL SCH (22:05)
[2016-09-05 00:05] VITALS: BP 132/66
--- NOTE | 2016-09-05 00:38 | Progress Note ---
DATE: 09/04/2016 CARDIOLOGY PROGRESS NOTE: SUBJECTIVE: The patient is off the ventilator. BiPAP is being tapered off. He remains on a face mask for oxygenation most of the time. Chest x-ray today reviewed. There remains bilateral severe consolidation with minimal improvement. ICU logs and care discussed with the staff. The patient's chest tubes remain in place. OBJECTIVE: VITAL SIGNS: Blood pressure is 120/65, pulse rate 88, and respiratory rate 18. LUNGS: Bilateral rhonchi and rales. HEART: Irregularly irregular rhythm. Normal S1, paradoxically split S2. ABDOMEN: Soft. EXTREMITIES: With dependent edema. LABORATORY DATA: Notable for potassium 2.9, magnesium 1.5, BUN 69, creatinine 2.3, and white count 14.4. IMPRESSION: 1. Respiratory failure, improving. 2. Status post decortication. 3. Persistent chest tubes x2. 4. Acute on chronic renal failure. 5. Hypokalemia. 6. Hypomagnesemia. 7. Sepsis. 8. Hospital-acquired pneumonia. 9. Atrial fibrillation. 10. Pacemaker. 11. Acute and chronic diastolic congestive heart failure. 12. Moderate protein-calorie malnutrition. PLAN: 1. Replace potassium. 2. Replace magnesium. 3. Hold diuresis. 4. Protein supplement. 5. Taper oxygen requirement. 6. Antimicrobials. 7. Skin care. 8. Pain control. 9. Maintain remainder of cardiovascular regimen without change. Joseph Muniz M.D. DR: Angela JOB#: [id number] CC:
[2016-09-05] MEDS: DuoNeb 0.5-3(2.5)mg/3ml neb HHN SCH ×7 (00:41→23:53)
[2016-09-05 03:57] VITALS: BP 145/92
[2016-09-05 05:31] LABS: MEAN CORPUSCULAR HEMOGLOBIN 29.2 PG (27.0-31.0); MEAN CORPUSCULAR HGB CONC 33.8 G/DL (32.0-36.0); MEAN CORPUSCULAR VOLUME 87 FL (80-99); MEAN PLATELET VOLUME 11.8 FL (6.5-10.1); PLATELET COUNT 41 K/UL (150-450); RED BLOOD COUNT 4.75 M/UL (4.70-6.10); RED CELL DISTRIBUTION WIDTH 19.8 % (11.6-14.8); WHITE BLOOD COUNT 13.7 K/UL (4.8-10.8)
[2016-09-05 05:46] LABS: ANION GAP 14 (5-15); CALCIUM 7.7 mg/dL (8.6-10.2); CARBON DIOXIDE 28 mEQ/L (20-30); CHLORIDE 95 mEQ/L (98-107); CREATININE 2.3 mg/dL (0.7-1.2); HEMOLYSIS 6; POTASSIUM 3.7 mEQ/L (3.4-4.9); SODIUM 137 mEQ/L (135-145)
[2016-09-05] MEDS: Tigecycline 50 MG in D5W 110 ML IVPB SCH ×2 (06:08→17:45)
[2016-09-05] MEDS: NovoLOG Insulin Flexpen SUBQ SCH ×4 (07:01→21:00)
[2016-09-05 08:00] VITALS: BP 125/74
[2016-09-05] MEDS ORDERED: Aspirin EC 81mg tab ORAL SCH (09:00)
[2016-09-05] MEDS ORDERED: Vitamin B-12 500mcg tab ORAL SCH (09:00)
[2016-09-05] MEDS ORDERED: Calcium Carbonate 500mg w/Vit D 200iu tab ORAL SCH (09:00)
[2016-09-05] MEDS ORDERED: Docusate 250mg cap ORAL SCH (09:00)
[2016-09-05 09:16] LABS: ALANINE AMINOTRANSFERASE < 5 U/L (3-41); ASPARTATE AMINO TRANSFERASE 17 U/L (5-40); BILIRUBIN,DIRECT 3.4 mg/dL (0.1-0.3); HEMOLYSIS 9; TOTAL PROTEIN 5.8 g/dL (6.6-8.7)
[2016-09-05] MEDS ORDERED: NS 275ml ONE (09:44)
[2016-09-05] MEDS ORDERED: Tubing IV Secondary IV ONE (09:44)
[2016-09-05 09:51] LABS: ANISOCYTOSIS 1+; BAND NEUTROPHILS % (MANUAL) 0 % (0-8); BASOPHILS % (MANUAL) 0 % (0-2); EOSINOPHILS % (MANUAL) 0 % (0-3); LYMPHOCYTES % (MANUAL) 1 % (20-45); NEUTROPHILS % (MANUAL) 94 % (45-75); PLATELET ESTIMATE DECREASED; PLATELET MORPHOLOGY NORMAL; TOTAL CELLS COUNTED 100
--- NOTE | 2016-09-05 10:27 | Pulmonology Progress Note ---
Assessment/Plan Assessment/Plan ASSESSMENT: 1. bilateral pleural effusions; 2. Anemia. with need for transfusion 3. Chronic kidney disease. 4. Stroke. with focal weakness 5. Hypertension. 6. History of chronic obstructive pulmonary disease. 7. History of conduction system disease. with pacemaker 8. worsening left effusion with atelectasis 9. iatrogenic pneumothorax 10. s/p decortication 11. respiratory failure 12. metabolic acidosis 13. acidemia PLAN: off the ventilator off BIPAP as able stable on oxygen care noted and reviewed follow up per thoracic follow up chest xr ordered oxygen taper maintain meds aspiration precautions; continue to monitor closely care noted taper solumedrol to off impression, plan, and exam edited and reviewed in detail care discussed with RN Subjective Allergies: Coded Allergies: No Known Allergies (Unverified , 01/24/14) Subjective off BIPAP and stable on FM CT x [address] stable in [facility] on oxygen Objective Last 24 Hour Vital Signs Date Time Temp Pulse Resp B/P Pulse Ox O2 Delivery O2 Flow Rate FiO2 09/05/16 08:02 92 20 98 Venturi Mask 12.0 50 09/05/16 07:51 86 20 97 Venturi Mask 12.0 50 09/05/16 07:51 Venturi Mask 12.0 50 09/05/16 07:51 98 Venturi Mask 12.0 50 09/05/16 03:57 97.3 88 20 145/92 93 Venturi Mask 09/05/16 03:55 87 09/05/16 03:05 94 20 98 Venturi Mask 12.0 50 09/05/16 03:04 88 20 92 Venturi Mask 12.0 50 09/05/16 00:05 97.3 91 18 132/66 95 Venturi Mask 09/05/16 00:00 84 09/04/16 23:45 86 20 98 Venturi Mask 12.0 50 09/04/16 23:30 82 20 96 Venturi Mask 12.0 50 09/04/16 22:06 93 125/77 09/04/16 21:00 87 09/04/16 20:04 98.8 93 16 125/77 93 Venturi Mask 50 09/04/16 19:44 88 20 99 Venturi Mask 12.0 50 09/04/16 19:30 98 Venturi Mask 12.0 50 09/04/16 19:30 86 20 97 Venturi Mask 12.0 50 09/04/16 19:30 Venturi Mask 12.0 50 09/04/16 17:18 91 09/04/16 16:00 97.9 94 16 121/70 99 Venturi Mask 50 09/04/16 15:45 86 1 100 Venturi Mask 12.0 50 09/04/16 15:35 80 20 Venturi Mask 12.0 50 09/04/16 12:12 89 09/04/16 12:00 97.0 88 18 120/65 99 Venturi Mask 50 09/04/16 11:35 86 1 100 Venturi Mask 12.0 50 09/04/16 11:25 83 20 99 Venturi Mask 12.0 50 Intake and Output 09/04/16 09/05/16 19:00 07:00 Intake Total 793.75 ml 670 ml Output Total 1290 ml 1180 ml Balance -496.25 ml -510 ml Intake Oral 10 ml IV Total 793.75 ml 660 ml Output Urine Total 1250 ml 1000 ml Chest Tube Drainage Total 40 ml 180 ml Objective Sp02 EP Interpretation: reviewed, normal; seems improved overall General Appearance: normal inspection, well appearing, no apparent distress, withdrawn Head: normocephalic, atraumatic Eyes: bilateral eye normal inspection ENT: normal ENT inspection, no angioedema, normal voice Neck: normal inspection, full range of motion, supple, no meningismus, carotid 2+ Respiratory: stable BS left; some rhonchi noted; chest tube x [address]; Cardiovascular #1: regular rate, rhythm, no murmur without MRG Gastrointestinal: non tender, soft, non-distended, no guarding, no rebound Musculoskeletal: no CC; noted edema Neurologic: awake no distress reviewed and edited Laboratory Tests 09/05/16 05:00: White Blood Count 13.7H, Red Blood Count 4.75, Hemoglobin 13.9L, Hematocrit 41.1L, Mean Corpuscular Volume 87, Mean Corpuscular Hemoglobin 29.2, Mean Corpuscular Hemoglobin Concent 33.8, Red Cell Distribution Width 19.8H, Platelet Count 41L, Mean Platelet Volume 11.8H, Neutrophils (%) (Auto) , Lymphocytes (%) (Auto) , Monocytes (%) (Auto) , Eosinophils (%) (Auto) , Basophils (%) (Auto) , Differential Total Cells Counted 100, Neutrophils % ( Manual) 94H, Lymphocytes % (Manual) 1L, Monocytes % (Manual) 5, Eosinophils % ( Manual) 0, Basophils % (Manual) 0, Band Neutrophils 0, Platelet Estimate DecreasedL, Platelet Morphology Normal, Anisocytosis 1+, Sodium Level 137, Potassium Level 3.7, Chloride Level 95L, Carbon Dioxide Level 28, Anion Gap 14, Blood Urea Nitrogen 85H, Creatinine 2.3H, Estimat Glomerular Filtration Rate , Glucose Level 144#H, Calcium Level 7.7L, Total Bilirubin 5.2H, Direct Bilirubin 3.4H, Aspartate Amino Transf (AST/SGOT) 17, Alanine Aminotransferase (ALT/SGPT) < 5, Alkaline Phosphatase 75, Total Protein 5.8L, Albumin 1.9L Current Medications Medications (Trade) Dose Ordered Sig/Homar Route PRN Reason Start Time Stop Time Status Last Admin Dose Admin Acetaminophen (Tylenol) 650 mg Q4H PRN ORAL Mild Pain (Pain Scale 1-3) 09/04/16 11:00 10/04/16 10:59 Acetaminophen/ Hydrocodone Bitart ([place] 5/325) 1 tab Q4H PRN ORAL Moderate Pain (Pain Scale 4-6) 09/04/16 11:30 09/11/16 11:29 Albuterol/ Ipratropium (DuoNeb 0.5-3(2.5)mg/3ml) 3 ml Q4HRT HHN 09/04/16 11:00 09/09/16 10:59 09/05/16 07:51 Aspirin (Ecotrin) 81 mg DAILY ORAL 09/05/16 09:00 10/05/16 08:59 Calcium Carbonate (OsCal D) 1 tab DAILY ORAL 09/05/16 09:00 10/05/16 08:59 Cyanocobalamin (Vitamin B-12) 1,000 mcg DAILY ORAL 09/05/16 09:00 10/05/16 08:59 Dextrose (Dextrose 50%) STAT PRN IV Hypoglycemia 09/04/16 11:00 10/04/16 10:59 Docusate Sodium (Colace) 250 mg DAILY ORAL 09/05/16 09:00 10/05/16 08:59 Epoetin Deshaun (Procrit (for non ESRD use)) 7,000 units FRI-FRI-FRI SUBQ 09/04/16 21:00 10/04/16 20:59 Ferrous Sulfate (Feosol) 325 mg THREE TIMES A DAY ORAL 09/04/16 13:00 10/04/16 12:59 Finasteride (Proscar) 5 mg DAILY ORAL 09/05/16 09:00 10/05/16 08:59 Gemfibrozil (Lopid) 600 mg TWICE A DAY ORAL 09/04/16 18:00 10/04/16 17:59 Insulin Aspart (NovoLOG) BEFORE MEALS AND HS SUBQ 09/04/16 11:30 10/04/16 11:29 09/05/16 07:01 Insulin Detemir (Levemir) 10 units Q12HR SUBQ 09/04/16 21:00 10/04/16 20:59 09/04/16 22:07 Methylprednisolone Sodium Succinate (Solu-MEDROL) 60 mg Q12HR IVP 09/04/16 21:00 10/04/16 20:59 09/04/16 22:05 Metoprolol Tartrate (Lopressor) 25 mg Q12HR ORAL 09/04/16 21:00 10/04/16 20:59 09/04/16 22:06 Morphine Sulfate (Morphine Sulfate) 2 mg Q4H PRN IVP Severe Pain (Pain Scale 7-10) 09/04/16 11:15 09/11/16 11:14 09/04/16 19:16 Pantoprazole (Protonix) 40 mg DAILY ORAL 09/05/16 09:00 10/05/16 08:59 Potassium Chloride/Sodium Chloride (KCl/0.45% NS 1000ml) 1,020 ml @ 50 mls/hr [id number] IV 09/04/16 19:30 10/04/16 19:29 09/04/16 20:16 Ranitidine HCl (Zantac) 150 mg DAILY ORAL 09/05/16 09:00 10/05/16 08:59 Sodium Bicarbonate (NaHCO3) 650 mg BID ORAL 09/04/16 18:00 10/04/16 17:59 Tamsulosin HCl 0.4 mg 0.4 mg QHS ORAL 09/04/16 21:00 10/04/16 20:59 09/04/16 22:05 Tigecycline/ Dextrose (Tygacil/D5W) 110 ml @ 220 mls/hr Q12HR@0600,1800 IVPB 09/04/16 18:00 09/11/16 17:59 09/05/16 06:08 KENDRICK SCHWARTZ Sep 05, 2016 10:27
[2016-09-05] MEDS: Metoprolol 25mg tab ORAL SCH ×3 (10:32→21:38)
[2016-09-05] MEDS: Sodium Bicarbonate 650mg Tab ORAL SCH ×2 (10:33→18:00)
[2016-09-05] MEDS: Levemir Flexpen SUBQ SCH ×2 (10:45→21:00)
--- NOTE | 2016-09-05 11:43 | Diagnostic Imaging Report ---
Indications: Abnormal chest sounds Technique: Portable AP chest Findings: Comparison: 09/04/16 2 left chest tubes remain in place. Left lateral and basal hydropneumothorax persists, with apparent mild increase in fluid component, otherwise unchanged. Diffuse bilateral interstitial infiltrates, right pleural effusion unchanged. Additional lines and tubes remain in place. No new abnormality identified. IMPRESSION: Persistent small left hydropneumothorax with apparent mild increase in fluid component, otherwise unchanged, despite 2 left chest tubes in place Stable bilateral congestive changes
[2016-09-05 12:00] VITALS: BP 130/81
[2016-09-05] MEDS ORDERED: Norco 5mg/325mg tab ORAL PRN ×2 (13:00)
--- NOTE | 2016-09-05 13:54 | Infectious Diseases Prog Note ---
Assessment/Plan Assessment/Plan A: Pneumonia Loculated Pleural effusion s/p VATS Anemia GI bleeding Acute renal failure Hypokalemia DM P: Continue Tygacil will f/u cultures Subjective ROS Limited/Unobtainable: Yes Allergies: Coded Allergies: No Known Allergies (Unverified , 01/24/14) Objective Vital Signs Last 24 Hour Vital Signs Date Time Temp Pulse Resp B/P Pulse Ox O2 Delivery O2 Flow Rate FiO2 09/05/16 12:02 70 18 100 Nasal Cannula 3.0 32 09/05/16 10:32 82 125/74 09/05/16 08:02 92 20 98 Venturi Mask 12.0 50 09/05/16 08:00 82 09/05/16 08:00 96.4 82 18 125/74 100 Venturi Mask 12.0 09/05/16 07:51 86 20 97 Venturi Mask 12.0 50 09/05/16 07:51 Venturi Mask 12.0 50 09/05/16 07:51 98 Venturi Mask 12.0 50 09/05/16 03:57 97.3 88 20 145/92 93 Venturi Mask 09/05/16 03:55 87 09/05/16 03:05 94 20 98 Venturi Mask 12.0 50 09/05/16 03:04 88 20 92 Venturi Mask 12.0 50 09/05/16 00:05 97.3 91 18 132/66 95 Venturi Mask 09/05/16 00:00 84 09/04/16 23:45 86 20 98 Venturi Mask 12.0 50 09/04/16 23:30 82 20 96 Venturi Mask 12.0 50 09/04/16 22:06 93 125/77 09/04/16 21:00 87 09/04/16 20:04 98.8 93 16 125/77 93 Venturi Mask 50 09/04/16 19:44 88 20 99 Venturi Mask 12.0 50 09/04/16 19:30 98 Venturi Mask 12.0 50 09/04/16 19:30 86 20 97 Venturi Mask 12.0 50 09/04/16 19:30 Venturi Mask 12.0 50 09/04/16 17:18 91 09/04/16 16:00 97.9 94 16 121/70 99 Venturi Mask 50 09/04/16 15:45 86 1 100 Venturi Mask 12.0 50 09/04/16 15:35 80 20 Venturi Mask 12.0 50 Height (Feet): 5 Height (Inches): 4.00 Weight (Pounds): 160 HEENT: other - O2 by cannula Respiratory/Chest: decreased breath sounds, other - Left side chest Cardiovascular: normal rate, other - R Sublclvian central line &R arm PICC line Extremities: other - edema of arms, bilateral SCD of legs Laboratory Tests Test 09/05/16 05:00 White Blood Count 13.7 K/UL (4.8-10.8) H Red Blood Count 4.75 M/UL (4.70-6.10) Hemoglobin 13.9 G/DL (14.2-18.0) L Hematocrit 41.1 % (42.0-52.0) L Mean Corpuscular Volume 87 FL (80-99) Mean Corpuscular Hemoglobin 29.2 PG (27.0-31.0) Mean Corpuscular Hemoglobin Concent 33.8 G/DL (32.0-36.0) Red Cell Distribution Width 19.8 % (11.6-14.8) H Platelet Count 41 K/UL (150-450) L Mean Platelet Volume 11.8 FL (6.5-10.1) H Neutrophils (%) (Auto) % (45.0-75.0) Lymphocytes (%) (Auto) % (20.0-45.0) Monocytes (%) (Auto) % (1.0-10.0) Eosinophils (%) (Auto) % (0.0-3.0) Basophils (%) (Auto) % (0.0-2.0) Differential Total Cells Counted 100 Neutrophils % (Manual) 94 % (45-75) H Lymphocytes % (Manual) 1 % (20-45) L Monocytes % (Manual) 5 % (1-10) Eosinophils % (Manual) 0 % (0-3) Basophils % (Manual) 0 % (0-2) Band Neutrophils 0 % (0-8) Platelet Estimate Decreased L Platelet Morphology Normal Anisocytosis 1+ Sodium Level 137 mEQ/L (135-145) Potassium Level 3.7 mEQ/L (3.4-4.9) Chloride Level 95 mEQ/L (98-107) L Carbon Dioxide Level 28 mEQ/L (20-30) Anion Gap 14 (5-15) Blood Urea Nitrogen 85 mg/dL (7-23) H Creatinine 2.3 mg/dL (0.7-1.2) H Estimat Glomerular Filtration Rate mL/min (>60) Glucose Level 144 mg/dL (74-106) #H Calcium Level 7.7 mg/dL (8.6-10.2) L Total Bilirubin 5.2 mg/dL (0.0-1.2) H Direct Bilirubin 3.4 mg/dL (0.1-0.3) H Aspartate Amino Transf (AST/SGOT) 17 U/L (5-40) Alanine Aminotransferase (ALT/SGPT) < 5 U/L (3-41) Alkaline Phosphatase 75 U/L (40-129) Total Protein 5.8 g/dL (6.6-8.7) L Albumin 1.9 g/dL (3.5-5.2) L Current Medications Medications (Trade) Dose Ordered Sig/Homar Route PRN Reason Start Time Stop Time Status Last Admin Dose Admin Acetaminophen (Tylenol) 650 mg Q4H PRN ORAL Mild Pain (Pain Scale 1-3) 09/04/16 11:00 10/04/16 10:59 Acetaminophen/ Hydrocodone Bitart ([place] 5/325) 1 tab Q4H PRN ORAL Mild Pain (Pain Scale 1-3) 09/05/16 13:00 09/12/16 12:59 Acetaminophen/ Hydrocodone Bitart ([place] 5/325) 2 tab Q4H PRN ORAL PAIN 4-10 09/05/16 13:00 09/12/16 12:59 Albuterol/ Ipratropium (DuoNeb 0.5-3(2.5)mg/3ml) 3 ml Q4HRT HHN 09/04/16 11:00 09/09/16 10:59 09/05/16 12:02 Aspirin (Ecotrin) 81 mg DAILY ORAL 09/05/16 09:00 10/05/16 08:59 09/05/16 10:33 Calcium Carbonate (OsCal D) 1 tab DAILY ORAL 09/05/16 09:00 10/05/16 08:59 09/05/16 10:33 Cyanocobalamin (Vitamin B-12) 1,000 mcg DAILY ORAL 09/05/16 09:00 10/05/16 08:59 09/05/16 10:34 Dextrose (Dextrose 50%) STAT PRN IV Hypoglycemia 09/04/16 11:00 10/04/16 10:59 Docusate Sodium (Colace) 250 mg DAILY ORAL 09/05/16 09:00 10/05/16 08:59 09/05/16 10:33 Epoetin Deshaun (Procrit (for non ESRD use)) 7,000 units FRI-FRI-FRI SUBQ 09/04/16 21:00 10/04/16 20:59 Ferrous Sulfate (Feosol) 325 mg THREE TIMES A DAY ORAL 09/04/16 13:00 10/04/16 12:59 09/05/16 13:19 Finasteride (Proscar) 5 mg DAILY ORAL 09/05/16 09:00 10/05/16 08:59 09/05/16 10:34 Gemfibrozil (Lopid) 600 mg TWICE A DAY ORAL 09/04/16 18:00 10/04/16 17:59 09/05/16 10:33 Insulin Aspart (NovoLOG) BEFORE MEALS AND HS SUBQ 09/04/16 11:30 10/04/16 11:29 09/05/16 07:01 Insulin Detemir (Levemir) 10 units Q12HR SUBQ 09/04/16 21:00 10/04/16 20:59 09/05/16 10:45 Metoprolol Tartrate (Lopressor) 25 mg Q12HR ORAL 09/04/16 21:00 10/04/16 20:59 09/05/16 10:32 Pantoprazole (Protonix) 40 mg DAILY ORAL 09/05/16 09:00 10/05/16 08:59 09/05/16 09:00 Potassium Chloride/Sodium Chloride (KCl/0.45% NS 1000ml) 1,020 ml @ 50 mls/hr [id number] IV 09/04/16 19:30 10/04/16 19:29 09/04/16 20:16 Ranitidine HCl (Zantac) 150 mg DAILY ORAL 09/05/16 09:00 10/05/16 08:59 09/05/16 10:35 Sodium Bicarbonate (NaHCO3) 650 mg BID ORAL 09/04/16 18:00 10/04/16 17:59 09/05/16 10:33 Tamsulosin HCl 0.4 mg 0.4 mg QHS ORAL 09/04/16 21:00 10/04/16 20:59 09/04/16 22:05 Tigecycline/ Dextrose (Tygacil/D5W) 110 ml @ 220 mls/hr Q12HR@0600,1800 IVPB 09/04/16 18:00 09/11/16 17:59 09/05/16 06:08 DEONTE ESCOBAR Sep 05, 2016 13:54
[2016-09-05 16:00] VITALS: BP 114/43
[2016-09-05] MEDS: Potassium Chloride 40 MEQ in 1/2 NS 1000ml 1,000 ML IV SCH (16:03)
--- NOTE | 2016-09-05 16:47 | Nephrology Progress Note ---
Assessment/Plan Problem List: (1) Malnutrition of moderate degree (2) LATRICE (acute kidney injury) (3) CKD (chronic kidney disease) stage 4, GFR 15-29 ml/min (4) Pleural effusion (5) Sepsis (6) UTI (urinary tract infection) (7) Pneumonia Plan low albumin contributes to edema., Stop bumex for now and observe replace K, bun higher after prior diuretic, follow lab off diuretic Subjective ROS Limited/Unobtainable: Yes Objective Objective Last 24 Hour Vital Signs Date Time Temp Pulse Resp B/P Pulse Ox O2 Delivery O2 Flow Rate FiO2 09/05/16 15:52 68 20 98 Nasal Cannula 3.0 36 09/05/16 15:39 73 18 99 Nasal Cannula 3.0 32 09/05/16 12:02 70 18 100 Nasal Cannula 3.0 32 09/05/16 12:00 89 09/05/16 12:00 97.2 89 16 130/81 100 Venturi Mask 12.0 09/05/16 10:32 82 125/74 09/05/16 08:02 92 20 98 Venturi Mask 12.0 50 09/05/16 08:00 82 09/05/16 08:00 96.4 82 18 125/74 100 Venturi Mask 12.0 09/05/16 07:51 86 20 97 Venturi Mask 12.0 50 09/05/16 07:51 Venturi Mask 12.0 50 09/05/16 07:51 98 Venturi Mask 12.0 50 09/05/16 03:57 97.3 88 20 145/92 93 Venturi Mask 09/05/16 03:55 87 09/05/16 03:05 94 20 98 Venturi Mask 12.0 50 09/05/16 03:04 88 20 92 Venturi Mask 12.0 50 09/05/16 00:05 97.3 91 18 132/66 95 Venturi Mask 09/05/16 00:00 84 09/04/16 23:45 86 20 98 Venturi Mask 12.0 50 09/04/16 23:30 82 20 96 Venturi Mask 12.0 50 09/04/16 22:06 93 125/77 09/04/16 21:00 87 09/04/16 20:04 98.8 93 16 125/77 93 Venturi Mask 50 09/04/16 19:44 88 20 99 Venturi Mask 12.0 50 09/04/16 19:30 98 Venturi Mask 12.0 50 09/04/16 19:30 86 20 97 Venturi Mask 12.0 50 09/04/16 19:30 Venturi Mask 12.0 50 09/04/16 17:18 91 Intake and Output 09/04/16 09/05/16 19:00 07:00 Intake Total 793.75 ml 670 ml Output Total 1290 ml 1180 ml Balance -496.25 ml -510 ml Intake Oral 10 ml IV Total 793.75 ml 660 ml Output Urine Total 1250 ml 1000 ml Chest Tube Drainage Total 40 ml 180 ml Laboratory Tests 09/05/16 05:00: White Blood Count 13.7H, Red Blood Count 4.75, Hemoglobin 13.9L, Hematocrit 41.1L, Mean Corpuscular Volume 87, Mean Corpuscular Hemoglobin 29.2, Mean Corpuscular Hemoglobin Concent 33.8, Red Cell Distribution Width 19.8H, Platelet Count 41L, Mean Platelet Volume 11.8H, Neutrophils (%) (Auto) , Lymphocytes (%) (Auto) , Monocytes (%) (Auto) , Eosinophils (%) (Auto) , Basophils (%) (Auto) , Differential Total Cells Counted 100, Neutrophils % ( Manual) 94H, Lymphocytes % (Manual) 1L, Monocytes % (Manual) 5, Eosinophils % ( Manual) 0, Basophils % (Manual) 0, Band Neutrophils 0, Platelet Estimate DecreasedL, Platelet Morphology Normal, Anisocytosis 1+, Sodium Level 137, Potassium Level 3.7, Chloride Level 95L, Carbon Dioxide Level 28, Anion Gap 14, Blood Urea Nitrogen 85H, Creatinine 2.3H, Estimat Glomerular Filtration Rate , Glucose Level 144#H, Calcium Level 7.7L, Total Bilirubin 5.2H, Direct Bilirubin 3.4H, Aspartate Amino Transf (AST/SGOT) 17, Alanine Aminotransferase (ALT/SGPT) < 5, Alkaline Phosphatase 75, Total Protein 5.8L, Albumin 1.9L Height (Feet): 5 Height (Inches): 4.00 Weight (Pounds): 160 General Appearance: lethargic EENT: normal ENT inspection Cardiovascular: regular rhythm Respiratory/Chest: rhonchi - bilaterally, other - shallow breathing Extremities: moderate edema Neurologic: unresponsive RASHID KHAN Sep 05, 2016 16:47
[2016-09-05] MEDS: Solu-MEDROL 125mg Inj IVP SCH (17:10)
[2016-09-05 20:15] VITALS: BP 162/71
[2016-09-05] MEDS: Tamsulosin 0.4mg cap ORAL SCH ×2 (21:00→21:37)
[2016-09-06 00:40] VITALS: BP 85/64
--- NOTE | 2016-09-06 01:58 | Progress Note ---
DATE: 09/05/2016 CARDIOLOGY PROGRESS NOTE SUBJECTIVE: The patient is off the ventilator and off BiPAP. Still on oxygen. Still had chest tube. Steroid taper ongoing. OBJECTIVE: VITAL SIGNS: Blood pressure 145/92, pulse 88, and respirations 20. LUNGS: Coarse breath sounds. Rhonchi at the left. HEART: Irregularly irregular rhythm. Normal S1 and S2. ABDOMEN: Soft. EXTREMITIES: Trace edema. IMPRESSION: Progress is noted however slow and condition remains serious with clot guarded prognosis. PLAN: 1. Taper steroids. 2. Taper oxygen. 3. Chest tube management, per CT surgeon. 4. Hold diuresis. 5. Monitor cardiorenal parameters. 6. Antimicrobials per Infectious Disease marine engineering consultant. 7. Off anticoagulation due to bleeding risk. Joseph Muniz M.D. DR: LISA JOB#: [id number] CC:
--- NOTE | 2016-09-08 07:58 | Cardiology Report ---
APPROVED REPORT EKG Measurement Heart [id number] Sinus rhythm Demand ventricular pacemaker Abnormal ECG
--- NOTE | 2016-09-09 14:11 | Discharge Summary ---
Discharge Summary Hospital Course Date of Admission Aug 14, 2016 at 09:57 Date of Discharge Sep 06, 2016 at 03:43 Admitting Diagnosis symptomatic anemia HPI Mala Barragan is a 80 year old male who was admitted on Aug 14, 2016 at 09:57 for Symptomactic Anemia Hospital Course summary # [id number] Discharge Discharge Disposition Patient at 09/06/16 Discharge Diagnoses: Discharge Instructions Discharge Instructions Special Instructions I have been assigned to complete a D/C Summary on this account. I was not involved in the patient management Gayle Eisenberg NP (Vanchtein) Sep 09, 2016 14:11
--- NOTE | 2016-09-10 02:08 | Discharge Summary 2 SIG ---
DATE OF ADMISSION: 08/14/2016 DATE OF DISCHARGE: 09/06/2016 SUMMARY DATE OF EXPIRATION: 09/06/2016. REASON FOR ADMISSION: This is an 80-year-old male with multiple chronic medical comorbidities, presented to the emergency room for significant anemia. The patient by himself had significant dementia and was unable to provide any history. There was no reports of vomiting or diarrhea. No fever, no chills. Workup in the emergency room revealed hemoglobin of 7.3 and hematocrit of 21.7. Chest x-ray revealed bilateral pleural effusion, left more than right. The patient admitted for further management as well as the blood transfusion. ADMITTING DIAGNOSES: Include: 1. Acute symptomatic anemia. 2. Bilateral pleural effusion. 3. History of chronic obstructive pulmonary disease. 4. Hypertension. 5. Chronic kidney disease. 6. Cerebrovascular accident with right hemiparesis. 7. Diabetes mellitus. 8. Right sacral decubitus present on admission. HOSPITAL STAY: The patient admitted for anemia. The patient undergone type and cross and undergone two units of packed red blood cell transfusion, hemoglobin with some improvement. Stool OB not collected. Anemia workup not done. The patient noted on the chest x-ray to have bilateral pleural effusion left to right. The patient subsequently undergone thoracentesis of the left pleural effusion losing 700 mL of the fluid. On 08/28/2016, pleural fluid shows growth of diphtheroids on aerobic culture, which is likely contaminant, anaerobic culture no growth. Blood culture negative. Chest x-ray post thoracentesis revealed left pneumothorax. CT-guided catheter placement such as a pigtail was placed for treatment of pneumothorax. At the same time, cardiothoracic surgeon was requested. Cardiothoracic surgeon seen and evaluated the patient, placed a large bore chest tube catheter to decompress pneumothorax and follow closely if not effective, plan was for the VATS. Pneumothorax did not resolve, a small improvement, but persistent. Subsequently, the patient undergone paracentesis done on 08/19/2016 and then the patient undergone VATS on 08/28/2016. Due to the left loculated pleural effusion and trapped lung, the patient undergone flexible bronchoscopy, left video-assisted thoracoscopic surgery, intrapleural pneumolysis, partial pleurectomy, and decortication along with intercostal nerve block. Chest tube output was closely monitored. During the surgery, the patient was intubated and after surgery transferred to ICU. Subsequently within 48 hours, the patient was extubated and placed on the BiPAP. However, his condition remains guarded and Code Status was changed to the DNR as per discussion with the primary doctor with family. Since the patient might need another intubation, family did not want to have another intubation. The patient noted to be hypotensive, likely in septic shock due to the leukocytosis and evidence of possible pneumonia on chest x-ray. The patient was treated with IV fluid boluses without much improvement. The patient was started on pressors, dopamine and Levophed, which were titrated within 48 hours and within one day were discontinued. Infectious Disease consult was requested due to the sepsis and pneumonia. At that time, already sputum culture revealed MRSA and Acinetobacter complex. Urine culture was negative. Blood culture were negative. Antibiotics regimen as per ID. Leukocytosis with a small trend down. The patient initially due to the bilateral pleural effusion were presumed to be secondary to acute on chronic diastolic congestive heart failure secondary to third spacing. The patient started on diuresis. The patient was on the Bumex renal parameters, and electrolytes. Intake and output were closely monitored. Ribbon Winder to follow. Protein supplements provided. ProBNP and chest x-ray were trending. The patient has evidence of paroxysmal atrial fibrillation, however, no anticoagulation due to the history of anemia and possible gastrointestinal bleeding. Pacemaker interrogation was done. Cardiology closely followed. Echocardiogram revealed preserved ejection fraction with right ventricular systolic pressure of 66 consistent with severe pulmonary hypertension. The patient was on the steroids, which were gradually tapered and discontinued with history of COPD. The patient's condition remains guarded and serious with guarded prognosis. Supplemental oxygen and pulmonary toilet provided as needed. Steroids were tapered. diuresis stopped. Chest tube was managed as per cardiothoracic surgeon. Cardiorenal parameters along with volume status were closely monitored. Antibiotics provided as per ID specialist. The patient had a PICC line for drips when needed and IV antibiotics. Ultrasound of the abdomen revealed changes suggestive of the cirrhotic changes, a small amount of ascites, no dilated ducts. Last chest x-ray was done on 09/05/2016 revealed bilateral congestive changes. The patient was continued to be deteriorated with multiorgan failure. Ribbon Winder followed. Creatinine without any changes. The patient's hemoglobin and hematocrit remained stable and low platelets. The patient has underlying history of liver disease. Wound care nurse seen the patient for right sacral decubitus stage III, present on admission and reassess the patient as needed. During the stay, wound care provided as per wound care nurse recommendation. Blood sugar was managed with the sliding scale of insulin. The patient has a recurrent episodes of paroxysmal atrial fibrillation. Per ampoule examiner, not a candidate for anticoagulation given anemia and possible gastrointestinal bleeding, rate controlled. Blood sugar was managed with sliding scale of insulin. The patient was getting persistently worse. The patient was stable to be downgraded from BiPAP to the mask. Pulse oximetry was stable. On 09/06/2016 at 0205 hours, noted spontaneous respiration, no cardiac or breath sounds on auscultation, pupils fixed and dilated, no carotid pulse, no chest movement. The patient was at 0205 on 09/06/2016. The patient was pronounced at this time by nursing electrical & instrumentation supervisor. Cause of , cardiopulmonary arrest. FINAL DIAGNOSES: 1. Sepsis, septic shock, hospital-acquired pneumonia, bilateral pleural effusion, left more than right likely due to the acute diastolic congestive heart failure. 2. 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 3. History of chronic obstructive pulmonary disease. 4. Status post thoracentesis, left pleural effusion. 5. Left pneumothorax. 6. Status post pigtail placement by Cardiology. 7. Loculated left pleural effusion. 8. Trapped left lung. 9. Status post chest tube placement. 10. Status post video-assisted thoracoscopic surgery with lysis of adhesion, decortication, partial pleurectomy, removal of left pigtail, intrapleural pneumolysis, and placement of the chest tube. 11. History of hypertension. 12. Chronic kidney disease. 13. Probable gastrointestinal bleeding. 14. Paroxysmal atrial fibrillation. 15. Conduction system disease with permanent pacemaker. 16. History of cerebrovascular accident with right hemiparesis. 17. Diabetes mellitus. 18. Severe protein-calorie malnutrition. 19. Severe pulmonary hypertension. 20. Acute symptomatic anemia. 21. Anemia of chronic kidney disease, status post blood transfusion. 22. Right sacral decubitus stage III, present on admission. Boris See M.D. I have been assigned to dictate discharge summary on this account and I was not involved in the patient's management. Gayle Eisenberg N.P. (vanchtein) DR: Mohinder JOB#: [id number] CC:
== END 2016-09-06 03:43 | disposition expired | DRG 163 ==
LOC: EDBD 09:19 → EMR 09:47 → 4W 09:57 → EDBEDREQ 11:10 → 4W 08-15 10:41 → ICU 08-28 14:57 → 2W 09-04 10:03
DX: J90 Pleural effusion, not elsewhere classified (principal); K57.31 Diverticulosis of large intestine without perforation or abscess with bleeding; I50.33 Acute on chronic diastolic (congestive) heart failure; N17.0 Acute kidney failure with tubular necrosis; R65.21 Severe sepsis with septic shock; J95.821 Acute postprocedural respiratory failure; E43 Unspecified severe protein-calorie malnutrition; A41.9 Sepsis, unspecified organism; J15.212 Pneumonia due to Methicillin resistant Staphylococcus aureus; L89.153 Pressure ulcer of sacral region, stage 3; I42.9 Cardiomyopathy, unspecified; J98.11 Atelectasis; I13.0 Hypertensive heart and chronic kidney disease with heart failure and stage 1 through stage 4 chronic kidney disease, or unspecified chronic kidney disease; D62 Acute posthemorrhagic anemia; I69.959 Hemiplegia and hemiparesis following unspecified cerebrovascular disease affecting unspecified side; T82.118A Breakdown (mechanical) of other cardiac electronic device, initial encounter; N39.0 Urinary tract infection, site not specified; E87.0 Hyperosmolality and hypernatremia; J95.811 Postprocedural pneumothorax; N18.9 Chronic kidney disease, unspecified; D63.1 Anemia in chronic kidney disease; I48.0 Paroxysmal atrial fibrillation; D69.6 Thrombocytopenia, unspecified; E83.51 Hypocalcemia; E83.42 Hypomagnesemia; E87.6 Hypokalemia; Z95.0 Presence of cardiac pacemaker; I27.2 Other secondary pulmonary hypertension
CPT/HCPCS: 36415; 36569; 36600; 71010; 71250; 74176; 74230; 75989; 76700; 76937; 76942; 80048; 80053; 80076; 81001; 81003; 82248; 82330; 82550; 82553; 82803; 82962; 83540; 83605; 83615; 83735; 83880; 84100; 84300; 84484; 85007; 85025; 85044; 85610; 85730; 86850; 86870; 86880; 86900; 86901; 86904; 86920; 86927; 87040; 87070; 87075; 87086; 87116; 87181; 87205; 93005; 93306; 93971; 94002; 94003; 94150; 94640; 94660; 94664; 94760; J1815; J7620; S5561